=== PATIENT | female | born 1955 | race American Indian/Alaskan Native ===

== ENCOUNTER 2017-05-26 04:35 | Inpatient (IN) | payer MEDICAID, OTHER ==
[2017-05-26 04:53] VITALS: BMI 38.5
--- NOTE | 2017-05-26 05:00 | ED PDOC ---
Arrival/HPI - General Time Seen by Provider: 05/26/17 04:46 Historian: Patient - History of Present Illness Narrative History of Present Illness (Text): 05/26/17 04:55 Keri Dixon is a 62 year old female, whose past medical history includes diabetes, hypertension, uterine cancer s/p total hysterectomy and radiation, appendectomy, and COPD, who presents to the Emergency department complaining of lower abdominal pain. Patient states she was recently discharged from another hospital yesterday following treatment for malaria and began experiencing diffuse lower abdominal pain with associated dysuria and subjective chills. Patient notes while in the hospital she became very anemic requiring 4 blood transfusions and developed renal insufficiency requiring hemodialysis. Patient denies any history of fever, chest pain, shortness of breath, nausea, vomiting, diarrhea, neck pain, headache, dizziness, or any other complaints. Time/Duration: < week (yesterday) Symptom Onset: Gradual Symptom Course: Unchanged Activities at Onset: Rest, Light Context: Home Past Medical History - Provider Review Nursing Documentation Reviewed: Yes - Tetanus Immunization Tetanus Immunization: Unknown - Cardiac Hx Cardiac Disorders: Yes Hx Hypertension: Yes - Pulmonary Hx Respiratory Disorders: No - Neurological Hx Neurological Disorder: No - HEENT Hx HEENT Disorder: Yes Hx Cataracts: Yes (BILATERAL ) - Renal Hx Renal Disorder: No - Endocrine/Metabolic Hx Endocrine Disorders: Yes Hx Diabetes Mellitus Type 1: Yes - Hematological/Oncological Hx Blood Disorders: Yes Hx Cancer: Yes (ENDOMETRIAL) - Integumentary Hx Dermatological Disorder: No - Musculoskeletal/Rheumatological Hx Musculoskeletal Disorders: No - Gastrointestinal Hx Gastrointestinal Disorders: No - Genitourinary/Gynecological Hx Genitourinary Disorders: Yes (ENDOMETRIAL CA W RADIATION) - Psychiatric Hx Psychophysiologic Disorder: No Hx Substance Use: No - Surgical History Hx Appendectomy: Yes Hx Hysterectomy: Yes - Anesthesia Hx Anesthesia: Yes Hx Anesthesia Reactions: No Hx Malignant Hyperthermia: No - Suicidal Assessment Feels Threatened In Home Enviroment: No Family/Social History - Physician Review Nursing Documentation Reviewed: Yes Family/Social History: Unknown Family HX Smoking Status: Former Smoker Hx Alcohol Use: No Hx Substance Use: No Hx Substance Use Treatment: No Allergies/Home Meds Allergies/Adverse Reactions: Allergies Penicillins Allergy (Verified 05/26/17 04:52) SWELLING Home Medications: Home Meds Medication Instructions Recorded Confirmed Furosemide [Lasix] 40 mg PO DAILY 05/26/17 05/26/17 Insulin Detemir [Levemir] 10 unit SC HS 05/26/17 05/26/17 Lisinopril [Zestril] 10 mg PO DAILY 05/26/17 05/26/17 Metoprolol Succinate [Toprol Xl] 25 mg PO DAILY 05/26/17 05/26/17 Review of Systems - Physician Review All systems were reviewed & negative as marked: Yes - Review of Systems Constitutional: Other (+chills). absent: Fevers Eyes: Normal ENT: Normal Respiratory: Normal. absent: SOB, Cough Cardiovascular: Normal. absent: Chest Pain Gastrointestinal: Abdominal Pain. absent: Diarrhea, Vomiting Genitourinary Female: Dysuria Musculoskeletal: Normal. absent: Back Pain, Neck Pain Skin: Normal. absent: Rash Neurological: Normal. absent: Headache, Dizziness Endocrine: Normal Hemo/Lymphatic: Normal Psychiatric: Normal Physical Exam Vital Signs Reviewed: Yes Vital Signs Temp Pulse Resp BP Pulse Ox 05/26/17 06:36 98 H 18 131/65 98 05/26/17 04:52 98.8 F 105 H 18 152/70 H 100 Temperature: Afebrile Blood Pressure: Normal Pulse: Regular Respiratory Rate: Normal Appearance: Positive for: Well-Appearing, Non-Toxic, Comfortable Pain Distress: None Mental Status: Positive for: Alert and Oriented X 3 - Systems Exam Head: Present: Atraumatic, Normocephalic Pupils: Present: PERRL Extroacular Muscles: Present: EOMI Conjunctiva: Present: Normal Mouth: Present: Moist Mucous Membranes Neck: Present: Normal Range of Motion Respiratory/Chest: Present: Clear to Auscultation, Good Air Exchange. No: Respiratory Distress, Accessory Muscle Use Cardiovascular: Present: Regular Rate and Rhythm, Normal S1, S2. No: Murmurs Abdomen: Present: Tenderness (Diffuse lower abdominal tenderness), Normal Bowel Sounds. No: Distention, Peritoneal Signs Back: Present: Normal Inspection Upper Extremity: Present: Normal Inspection. No: Cyanosis, Edema Lower Extremity: Present: Normal Inspection. No: Edema Neurological: Present: GCS=15, CN II-XII Intact, Speech Normal Skin: Present: Warm, Dry, Normal Color. No: Rashes Psychiatric: Present: Alert, Oriented x 3, Normal Insight, Normal Concentration Medical Decision Making ED Course and Treatment: 05/26/17 04:56 Impression: 62 year old female complaining of diffuse lower abdominal pain with dysuria and subjective chills since yesterday. Plan: -- Labs, lipase -- Urinalysis, urine cultures -- IV fluids -- Morphine -- Reassess and disposition Prior Visits: Notes and results from previous visits were reviewed. On 11/27/2016, pt was seen in the Emergency department for lower abdominal pain , nausea, vomiting, and diarrhea. Pt was d/c home. Progress Notes: 05/26/17 06:57 Case was d/w heide ROTHMAN and medical terminologist.Pt. accepted to hospitalist service. - Lab Interpretations Lab Results: 05/26/17 05:15 05/26/17 05:15 Lab Results 05/26/17 06:50: Urine Color Light yellow, Urine Appearance Sl cloudy, Urine pH 6.5, Ur Specific [place] 1.010, Urine Protein 100 H, Urine Glucose (UA) Negative , Urine Ketones Negative, Urine Blood Small H, Urine Nitrate Negative, Urine Bilirubin Negative, Urine Urobilinogen 0.2, Ur Leukocyte Esterase Moderate H, Urine RBC 0 - 2, Urine WBC 5 - 10, Ur Epithelial Cells 0 - 2, Amorphous Sediment Many, Urine Bacteria Few 05/26/17 06:15: Blood Type Pending, Antibody Screen Pending, Crossmatch See Detail, BBK History Checked No verified bt 05/26/17 05:15: WBC 5.2, RBC 2.33 L, Hgb 6.7 L*, Hct 20.8 L*, MCV 89.3, MCH 28.8 , MCHC 32.2, RDW 18.8 H, Plt Count 326, MPV 7.8 05/26/17 05:15: Sodium 135, Potassium 2.9 L*, Chloride 98, Carbon Dioxide 27, Anion Gap 13, BUN 42 H, Creatinine 2.1 H, Est GFR ( Amer) 29, Est GFR ( Non-Af Amer) 24, Random Glucose 169 H, Calcium 9.1, Total Bilirubin 0.8, AST 36 , ALT 20, Alkaline Phosphatase 90, Total Protein 7.2, Albumin 3.6, Globulin 3.5 , Albumin/Globulin Ratio 1.0 L, Lipase 552 H 05/26/17 05:15: PT 10.5, INR 0.97, APTT 22.7 L I have reviewed the lab results: Yes - RAD Interpretation Narrative RAD Interpretations (Text): 05/26/17 06:42 CT Abdomen /Pelvis IMPRESSION: 1. Left obstructive uropathy to the left UVJ, new since 11/27/2016. No ureteral, UVJ or bladder calculus is identified. No left renal calculi were identified on the prior study. The etiology is uncertain and may reflect a recently passed stone. There is suggestion of some posterior bladder wall thickening, particularly on the left posterolaterally. 2. Left ovarian cyst which is similar to the prior study measuring up to 5.1 cm. 3. Low attenuation area in the spleen which is nonspecific but is unchanged. 4. Colonic diverticulosis without diverticulitis Radiology Orders: 05/26/17 05:17 ABD & PELVIS W/O PO OR IV CONT [CT] Stat Recreation Attendant: Radiologist - Medication Orders Current Medication Orders: Sodium Chloride (Sodium Chloride 0.9%) 1,000 mls @ 100 mls/hr IV .Q10H IRLANDA Last Admin: 05/26/17 05:26 Dose: 100 mls/hr Aztreonam (Azactam 1 Gm) 100 mls @ 100 mls/hr IVPB STAT STA PRN Reason: Protocol Stop: 05/26/17 08:43 Discontinued Medications Sodium Chloride (Sodium Chloride 0.9%) 1,000 mls @ 999 mls/hr IV .Q1H1M STA Stop: 05/26/17 07:02 Last Admin: 05/26/17 06:24 Dose: 999 mls/hr Morphine Sulfate (Morphine) 2 mg IVP STAT STA Stop: 05/26/17 05:23 Last Admin: 05/26/17 05:28 Dose: 2 mg Re-Assess: CONG Pain Assessment Document 05/26/17 06:28 JOL (Rec: 05/26/17 07:10 JOL [id number]) Pain Reassessment Is this a pain reassessment? Yes Sleep Is patient sleeping during reassessment? No Presence of Pain Presence of Pain No Potassium Chloride (K-Dur 20 Meq Er Tab) 20 meq PO STAT STA Stop: 05/26/17 07:04 Last Admin: 05/26/17 07:29 Dose: 20 meq - Scribe Statement The provider has reviewed the documentation as recorded by the Medardo Ramirez Provider Scribe Attestation: All medical record entries made by the Jesuibe were at my direction and personally dictated by me. I have reviewed the chart and agree that the record accurately reflects my personal performance of the history, physical exam, medical decision making, and the department course for this patient. I have also personally directed, reviewed, and agree with the discharge instructions and disposition. Disposition/Present on Arrival - Present on Arrival Any Indicators Present on Arrival: No History of DVT/PE: No History of Uncontrolled Diabetes: No Urinary Catheter: No History of Decub. Ulcer: No History Surgical Site Infection Following: None - Disposition Have Diagnosis and Disposition been Completed?: Yes Diagnosis: Abdominal pain, Anemia, Cystitis Disposition: HOSPITALIZED Disposition Time: 06:57 Patient Problems: Current Active Problems Problem Status Onset Abdominal pain Acute Anemia Acute Condition: STABLE
[2017-05-26] MEDS ORDERED: Morphine 2 mg/ml ISec IVP STA (05:22)
[2017-05-26] MEDS: Sodium Chloride 0.9% 1,000 ML IV SCH ×3 (05:26→21:49)
[2017-05-26 05:35] LABS: MEAN CELL VOLUME 89.3 fl (80.0-105.0); MEAN CORPUSCULAR HEMOGLOBIN 28.8 pg (25.0-35.0); MEAN CORPUSCULAR HGB CONC 32.2 g/dl (31.0-37.0); MEAN PLATELET VOLUME 7.8 fl (7.0-11.0); RBC 2.33 10^6/uL (3.5-6.1); RED CELL DISTRIBUTION WIDTH 18.8 % (11.5-14.5); WHITE BLOOD COUNT 5.2 10^3/ul (4.5-11.0)
[2017-05-26 05:43] LABS: ALBUMIN 3.6 g/dL (3.0-4.8); CALCIUM 9.1 mg/dL (8.4-10.5)
[2017-05-26 05:45] LABS: INR 0.97 (0.93-1.08); PARTIAL THROMBOPLASTIN TIME 22.7 Seconds (23.7-30.8); PROTHROMBIN TIME 10.5 Seconds (9.9-11.8)
[2017-05-26 05:47] LABS: HEMOGLOBIN 6.7 g/dL (12.0-16.0)
[2017-05-26] MEDS ORDERED: Sodium Chloride 0.9% 1,000 ML IV STA (06:02)
[2017-05-26] MEDS ORDERED: Potassium Chloride 20 mEq ER Tab PO STA (07:03)
[2017-05-26 07:32] LABS: PH,URINE 6.5 (4.7-8.0); URINE BILIRUBIN NEGATIVE (NEGATIVE); URINE BLOOD SMALL (NEGATIVE); URINE GLUCOSE (UA) NEGATIVE (NEGATIVE); URINE LEUKOCYTE ESTERASE MODERATE Leu/uL (NEGATIVE); URINE NITRATE NEGATIVE (NEGATIVE); URINE PROTEIN 100 mg/dL (<30 mg/dL); URINE UROBILINOGEN 0.2 E.U./dL (<1 E.U./dL)
[2017-05-26 07:34] LABS: URINE APPEARANCE SL CLOUDY (CLEAR); URINE COLOR LIGHT YELLOW (YELLOW)
[2017-05-26 07:38] LABS: URINE RBC 0 - 2 /hpf (0-2)
[2017-05-26 07:39] LABS: URINE AMORPHOUS SEDIMENT MANY; URINE BACTERIA FEW (NEG); URINE EPITHELIAL CELLS 0 - 2 /hpf (0-5)
[2017-05-26] MEDS ORDERED: Aztreonam 1 Gm in NS 100mL 100 ML IVPB STA (07:44)
[2017-05-26 08:44] LABS: % IRON SATURATION 21 % (20-55); IRON 50 ug/dL (45-180); TOTAL IRON BINDING CAPACITY 238 ug/dL (265-497)
--- NOTE | 2017-05-26 09:48 | CP.PCM.CON ---
History of Present Illness - History of Present Illness History of Present Illness: 62 yo F w/ pmh of htn and DM (since ~10 yrs), presented last night with lower abd pain and dysuria; admitted with UTI; nephrology service being consulted for recent PRIETO history; Patient reports being admitted at [facility] in [place], [place] since and was just discharged yesterday; was admitted with malaria (after not completing her malaria prophylaxis after returning from her trip to [facility]) had prolonged hospital course with ICU stay and acute renal failure requiring hemodialysis; patient eventually had recovery of renal function and HD was discontinued about 1 week ago; Patient reports that after coming home yesterday she starting experiencing lower abd pain that was worse with urination; she reports having had a lake during her recent admission but was only for a few days; she denies ever having UTI previously; With regard to her DM, she reports her last hgbA1C previous to admission to be around 12; had erratic blood sugar control in the hospital as well; reports being told that diabetes has not affected her eyes but does have diabetic neuropathy affecting her feet; Review of Systems - Constitutional Constitutional: Chills - EENT Eyes: Change in Vision Nose/Mouth/Throat: absent: Dysphagia - Cardiovascular Cardiovascular: Dyspnea on Exertion, Palpitations. absent: Chest Pain Additional comments: Dyspnea on exertion new since recent admission; - Gastrointestinal Gastrointestinal: absent: Diarrhea, Vomiting - Genitourinary Genitourinary: As Per HPI - Musculoskeletal Musculoskeletal: absent: Arthralgias, Back Pain - Integumentary Integumentary: absent: Pruritus, Rash - Neurological Additional comments: tingling sensation in feet; Past Patient History - Tetanus Immunizations Tetanus Immunization: Unknown - Past Medical History & Family History Past Medical History?: Yes Pertinent Family History: Mother - gallbladder Ca Brother - colon Ca - Past Social History Smoking Status: Former Smoker - CARDIAC Hx Cardiac Disorders: Yes Hx Hypertension: Yes - PULMONARY Hx Respiratory Disorders: No - NEUROLOGICAL Hx Neurological Disorder: No - HEENT Hx HEENT Problems: Yes Hx Cataracts: Yes (BILATERAL ) - RENAL Hx Chronic Kidney Disease: No - ENDOCRINE/METABOLIC Hx Endocrine Disorders: Yes Hx Diabetes Mellitus Type 1: Yes - HEMATOLOGICAL/ONCOLOGICAL Hx Blood Disorders: Yes Hx Cancer: Yes (ENDOMETRIAL) - INTEGUMENTARY Hx Dermatological Problems: No - MUSCULOSKELETAL/RHEUMATOLOGICAL Hx Musculoskeletal Disorders: No - GASTROINTESTINAL Hx Gastrointestinal Disorders: No - GENITOURINARY/GYNECOLOGICAL Hx Genitourinary Disorders: Yes (ENDOMETRIAL CA W RADIATION) - PSYCHIATRIC Hx Psychophysiologic Disorder: No Hx Substance Use: No - SURGICAL HISTORY Hx Appendectomy: Yes Hx Hysterectomy: Yes - ANESTHESIA Hx Anesthesia: Yes Hx Anesthesia Reactions: No Hx Malignant Hyperthermia: No Meds Allergies/Adverse Reactions: Allergies Allergy/AdvReac Type Severity Reaction Status Date / Time Penicillins Allergy SWELLING Verified 05/26/17 04:52 - Medications Medications: Current Medications Sodium Chloride (Sodium Chloride 0.9%) 1,000 mls @ 100 mls/hr IV .Q10H IRLANDA Last Admin: 05/26/17 05:26 Dose: 100 mls/hr Physical Exam - Constitutional Appears: Non-toxic, No Acute Distress - Head Exam Head Exam: NORMAL INSPECTION - Eye Exam Eye Exam: Normal appearance. absent: Scleral icterus - ENT Exam ENT Exam: Mucous Membranes Moist - Respiratory Exam Respiratory Exam: Clear to Auscultation Bilateral, NORMAL BREATHING PATTERN. absent: Rales, Rhonchi, Wheezes, Respiratory Distress - Cardiovascular Exam Cardiovascular Exam: REGULAR RHYTHM, +S1, +S2 - GI/Abdominal Exam GI & Abdominal Exam: Soft. absent: Distended Additional comments: lower abd tenderness - Exam Exam: absent: Bladder Distension - Extremities Exam Extremities exam: Positive for: pedal pulses present Additional comments: no lower leg edema; - Neurological Exam Neurological exam: Alert, Oriented x3 - Psychiatric Exam Psychiatric exam: Normal Affect, Normal Mood - Skin Skin Exam: Normal Color, Warm Results - Vital Signs Recent Vital Signs: Last Vital Signs Temp 98.8 F 05/26/17 04:52 Pulse 93 H 05/26/17 08:50 Resp 18 05/26/17 08:50 BP 128/70 05/26/17 08:50 Pulse Ox 99 05/26/17 08:50 - Labs Result Diagrams: 05/26/17 05:15 05/26/17 05:15 Labs: Laboratory Results - last 24 hr 05/26/17 05/26/17 07:10 08:26 Iron 50 TIBC 238 L % Saturation 21 Blood Type Confirm A POSITIVE - Imaging and Cardiology CT scan - abdomen Status: Image reviewed by me Additional comment: L hydronephrosis Assessment & Plan (1) Acute renal failure Assessment and Plan: Apparently resolving; had dialysis dependent PRIETO in the setting of sepsis from malaria; baseline creatinine unknown; CT abd showing L sided hydro; -obtain renal US to better evaluate hydro and to assess for CKD Status: Acute (2) Hypertension Assessment and Plan: Currently normotensive; home meds showing lasix, lisinopril and metoprolol XL; -hold KILO inhibitor and diuretic for now Status: Acute (3) Diabetes Assessment and Plan: Uncontrolled per patient; -checking random urine for microalbumin, protein and creatinine to assess proteinuria Status: Acute (4) Hypokalemia Assessment and Plan: Likely worsened by diuretics; continue to hold; checking urine K, osm, creat Status: Acute (5) Anemia Assessment and Plan: Etiology unclear; awaiting iron studies; Status: Acute (6) Cystitis Status: Acute
--- NOTE | 2017-05-26 09:57 | CT ---
PROCEDURE: CT Abdomen and Pelvis without intravenous contrast HISTORY: Generalized abdominal pain. COMPARISON: 11/27/2016. CT abdomen and pelvis. TECHNIQUE: Unenhanced study. Neither oral nor intravenous contrast administered. Sensitivity and specificity for acute inflammatory processes limited by the absence of oral and intravenous contrast. Radiation dose: Total exam DLP = 1338.75 mGy-cm. This CT exam was performed using one or more of the following dose reduction techniques: Automated exposure control, adjustment of the mA and/or kV according to patient size, and/or use of iterative reconstruction technique. FINDINGS: LOWER THORAX: Unremarkable. LIVER: Unremarkable. No gross lesion or ductal dilatation. GALLBLADDER AND BILE DUCTS: Unremarkable. PANCREAS: Unremarkable. No gross lesion or ductal dilatation. SPLEEN: Stable splenic mass 2 cm. ADRENALS: Unremarkable. No mass. KIDNEYS AND URETERS: Left hydronephrosis, hydroureter. This represents a new finding compared to the prior CT scan. No upper tract or ureteral calculi identified. No upper tract calculi identified. Unremarkable right kidney. VASCULATURE: Unremarkable. No aortic aneurysm. BOWEL: Diverticulosis without an acute inflammatory component or other associated pathologic process. APPENDIX: Unremarkable. Normal appendix. PERITONEUM: Unremarkable. No free fluid. No free air. LYMPH NODES: Unremarkable. No enlarged lymph nodes. BLADDER: Unremarkable. REPRODUCTIVE: Stable left adnexal cysts measuring 4.9 x3.1 x 4.3 cm. BONES: No acute fracture. OTHER FINDINGS: None. IMPRESSION: Unilateral, left obstructive uropathy without evidence of calculus disease. In pharyngeal leak this likely relates to recently passed ureteral calculus. No bladder calculi identified. Stable left adnexal cyst. Additional benign and/or incidental findings described above. Concordant results (preliminary interpretation) provided by [facility]. Procedure Completed: 05:50. Preliminary ([facility]Rad) Report: Dictated and Authenticated: 06:41. Final Interpretation: 09:55. May 26, 2017.
[2017-05-26 12:53] LABS: FOLATE 11.1 ng/mL
[2017-05-26] MEDS ORDERED: Pneumococcal 23-Valent Vaccine IM ONE (13:45)
--- NOTE | 2017-05-26 14:10 | CP.PCM.CON ---
History of Present Illness - History of Present Illness History of Present Illness: 62 year old female with PMH of DM, HTN, history of uterine cancer S/P hysterectomy S/P radiation and chemotherapy, S/P appendectomy, COPD obesity with BMI 38 was recently admitted in [facility] in [place], [place] because of severe infection with malaria and she was treated with IV medications for almost 2 weeks. She also underwent temporary dialysis - the HD catheter has been removed. She was also transfused pRBC's there. She was just discharged yesterday, and now she comes to [facility] complaining of lower abdominal pain, associated with some dysuria. She denies fever or chills, no nausea or vomiting, no chest pain, no SOB, no headache or dizziness, no diarrhea. In the ED, she is noted to have anemia with Hgb of 6.7. Infectious Diseases consult is requested to further evaluate and manage. Review of Systems - Review of Systems All systems: reviewed and no additional remarkable complaints except (as per HPI ) Past Patient History - Tetanus Immunizations Tetanus Immunization: Unknown - Past Medical History & Family History Past Medical History?: Yes - Past Social History Smoking Status: Former Smoker - CARDIAC Hx Cardiac Disorders: Yes Hx Hypertension: Yes - PULMONARY Hx Respiratory Disorders: No - NEUROLOGICAL Hx Neurological Disorder: No - HEENT Hx HEENT Problems: Yes Hx Cataracts: Yes (BILATERAL ) - RENAL Hx Chronic Kidney Disease: No - ENDOCRINE/METABOLIC Hx Endocrine Disorders: Yes Hx Diabetes Mellitus Type 1: Yes - HEMATOLOGICAL/ONCOLOGICAL Hx Blood Disorders: Yes Hx Cancer: Yes (ENDOMETRIAL) - INTEGUMENTARY Hx Dermatological Problems: No - MUSCULOSKELETAL/RHEUMATOLOGICAL Hx Musculoskeletal Disorders: No - GASTROINTESTINAL Hx Gastrointestinal Disorders: No - GENITOURINARY/GYNECOLOGICAL Hx Genitourinary Disorders: Yes (ENDOMETRIAL CA W RADIATION) - PSYCHIATRIC Hx Psychophysiologic Disorder: No Hx Substance Use: No - SURGICAL HISTORY Hx Appendectomy: Yes Hx Hysterectomy: Yes - ANESTHESIA Hx Anesthesia: Yes Hx Anesthesia Reactions: No Hx Malignant Hyperthermia: No Meds Allergies/Adverse Reactions: Allergies Allergy/AdvReac Type Severity Reaction Status Date / Time Penicillins Allergy SWELLING Verified 05/26/17 04:52 - Medications Medications: Current Medications Sodium Chloride (Sodium Chloride 0.9%) 1,000 mls @ 100 mls/hr IV .Q10H IRLANDA Last Admin: 05/26/17 05:26 Dose: 100 mls/hr Physical Exam - Constitutional Appears: Non-toxic, No Acute Distress - Head Exam Head Exam: NORMAL INSPECTION - ENT Exam ENT Exam: Mucous Membranes Moist - Neck Exam Neck exam: Negative for: Lymphadenopathy, Meningismus - Respiratory Exam Respiratory Exam: Decreased Breath Sounds - Cardiovascular Exam Cardiovascular Exam: +S1, +S2 - GI/Abdominal Exam GI & Abdominal Exam: Soft, Tenderness (some tenderness noted in the lower abdomen without guarding, no rebound tenderness, no rigidity) Results - Vital Signs Recent Vital Signs: Last Vital Signs Temp 98.8 F 05/26/17 04:52 Pulse 93 H 05/26/17 08:50 Resp 18 05/26/17 08:50 BP 128/70 05/26/17 08:50 Pulse Ox 99 05/26/17 08:50 - Labs Result Diagrams: 05/26/17 05:15 05/26/17 05:15 Labs: Laboratory Results - last 24 hr 05/26/17 05/26/17 07:10 08:26 Iron 50 TIBC 238 L % Saturation 21 Blood Type Confirm A POSITIVE Assessment & Plan - Assessment and Plan (Free Text) Plan: Assessment R/O urinary tract infection Recent treatment of severe malarial infection (P. falciparum) chronic renal failure DM HTN history of uterine cancer S/P hysterectomy S/P radiation and chemotherapy S/P appendectomy COPD obesity with BMI 38 Plan Will check malaria smear; started patient on Azactam pending blood and urine cx CT scan did not reveal acute pathology will monitor clinically and follow up Hgb
--- NOTE | 2017-05-26 14:44 | CP.PCM.HP ---
<JOSE ENRIQUE JOYNER - Last Filed: 05/26/17 14:34> History of Present Illness - History of Present Illness History of Present Illness: CC: Abdominal pain, Dysuria, SOB ROSELIA is a 62 year old female who reports 1 day history of lower abdominal pain (L> R) associated with dysuria, frequency, urgency, and burning on urination. Pt describes the abdominal pain as pressure-like, and states that it occurs when she urinates, and then resolves on its own. She reports that her urine is orange in color, but denies hematuria. She additionally reports subjective fevers and chills that began with these symptoms (T: 98.8F). Patient was diagnosed with cerebral malaria last month after she visited [facility]. She was admitted at [facility] in [place], where she completed a course of antimalarials (Quinidine, Artensunate). While admitted, she was found to have ATN and azotemia (Cr: 5.36), and was started on dialysis, last dialyzed on (Cr = 1.7 at the time of discharge). She was also found to be anemic and was admitted to the ICU, where she was transfused 4 units of pRBC. She was discharged from [facility] last night, and her symptoms of abdominal pain and dysuria began afterwards. Patient states that she has felt more short of breath since her diagnosis of malaria. Pt denies n/v/d, constipation, or pyuria. PMD: [place] PMHX: DM, HTN, cerebral malaria, ATN, cervical CA (total hysterectomy 3 years ago) PSHX: 2x knee replacements Meds: Metoprolol Succinate 25 mg PO, Lisinopril 10mg PO, Insulin Detemir 10 units SC, furosemide 40 mg PO All: PCN (angioedema) Family hx: DM, mother (cholecarcinoma), brother (colon CA) Social hx: - Smokin pack/week for 5-6 years, quit 29 years ago - EtOH: wine occasionally (once every 6 months) - Recreational drugs: denies - Caffeine: coffee daily - Occupation: unemployed - Lives in [place] by herself, closest family is in [place] Present on Admission - Present on Admission Any Indicators Present on Admission: No Review of Systems - Review of Systems All systems: reviewed and no additional remarkable complaints except (12 point ROS negative other than what is stated in HPI) Past Patient History - Tetanus Immunizations Tetanus Immunization: Unknown - Past Medical History & Family History Past Medical History?: Yes - Past Social History Smoking Status: Former Smoker - CARDIAC Hx Cardiac Disorders: Yes Hx Hypertension: Yes - PULMONARY Hx Respiratory Disorders: No - NEUROLOGICAL Hx Neurological Disorder: No - HEENT Hx HEENT Problems: Yes Hx Cataracts: Yes (BILATERAL ) - RENAL Hx Chronic Kidney Disease: No - ENDOCRINE/METABOLIC Hx Endocrine Disorders: Yes Hx Diabetes Mellitus Type 1: Yes - HEMATOLOGICAL/ONCOLOGICAL Hx Blood Disorders: Yes Hx Cancer: Yes (ENDOMETRIAL) - INTEGUMENTARY Hx Dermatological Problems: No - MUSCULOSKELETAL/RHEUMATOLOGICAL Hx Musculoskeletal Disorders: No - GASTROINTESTINAL Hx Gastrointestinal Disorders: No - GENITOURINARY/GYNECOLOGICAL Hx Genitourinary Disorders: Yes (ENDOMETRIAL CA W RADIATION) - PSYCHIATRIC Hx Psychophysiologic Disorder: No Hx Substance Use: No - SURGICAL HISTORY Hx Appendectomy: Yes Hx Hysterectomy: Yes - ANESTHESIA Hx Anesthesia: Yes Hx Anesthesia Reactions: No Hx Malignant Hyperthermia: No Meds Allergies/Adverse Reactions: Allergies Allergy/AdvReac Type Severity Reaction Status Date / Time Penicillins Allergy SWELLING Verified 05/26/17 04:52 Physical Exam - Constitutional Appears: No Acute Distress - Head Exam Head Exam: ATRAUMATIC, NORMOCEPHALIC - Eye Exam Eye Exam: EOMI, PERRL. absent: Conjunctival injection (conjunctival pallor) Pupil Exam: NORMAL ACCOMODATION, PERRL - ENT Exam ENT Exam: Mucous Membranes Moist - Neck Exam Neck exam: Positive for: Full Rom. Negative for: Lymphadenopathy, Tenderness, Thyromegaly - Respiratory Exam Respiratory Exam: Clear to Auscultation Bilateral, Rales. absent: Rhonchi, Wheezes - Cardiovascular Exam Cardiovascular Exam: RRR. absent: Gallop, Rubs, Systolic Murmur - GI/Abdominal Exam GI & Abdominal Exam: Soft, Tenderness (suprapubic and LLQ). absent: Distended, Guarding, Rebound - Extremities Exam Extremities exam: Positive for: pedal pulses present. Negative for: joint swelling, tenderness - Back Exam Back exam: CVA tenderness (L). absent: CVA tenderness (R), paraspinal tenderness - Neurological Exam Neurological exam: Alert, CN II-XII Intact, Oriented x3 - Psychiatric Exam Psychiatric exam: Normal Affect - Skin Skin Exam: Dry, Intact, Normal Color, Warm Results - Vital Signs Recent Vital Signs: Last Vital Signs Temp 99.2 F 05/26/17 13:33 Pulse 98 H 05/26/17 13:33 Resp 18 05/26/17 13:33 BP 131/65 05/26/17 13:33 Pulse Ox 99 05/26/17 08:50 - Labs Result Diagrams: 05/26/17 05:15 05/26/17 05:15 Labs: Laboratory Results - last 24 hr 05/26/17 05/26/17 05/26/17 07:10 08:26 09:16 POC Glucose (mg/dL) Iron 50 TIBC 238 L % Saturation 21 Vitamin B12 590 Folate 11.1 Blood Type Confirm A POSITIVE 05/26/17 11:19 POC Glucose (mg/dL) 272 H Iron TIBC % Saturation Vitamin B12 Folate Blood Type Confirm Assessment & Plan - Assessment and Plan (Free Text) Assessment: 62 yo with PMHx DM, HTN, cerebral malaria, ATN, cervical CA will be admitted for evaluation and treatment for abdominal pain, dysuria, and anemia. Plan: 1. Acute renal failure - Cr 2.1 - CT Left hydronephrosis due to left obstructive uropathy to the left UVJ. No ureteral, UVJ or bladder calculus is identified - Nephro consulted; f/u renal US to better evaluate hydro and CKD - Urology consulted - Cont IVF 2. R/O UTI - UA shows moderate Leuk esterase, WBC 5-10, few bacteria, proteinuria - ID consulted; started on Azactam - F/u urine cultures 3. Anemia - Hgb 6.7 - Transfuse 2 units pRBC - Monitor Hgb, transfuse as necessary - F/u heme/onc - F/u peripheral smear 4. Hypokalemia - K 2.9 - KCl 20 mEq PO given in ED - Cont to monitor, replete as necessary 5. H/o Cerebral Malaria - ID consulted - F/u malaria smear - F/u cultures 6. HTN - Per nephro, hold ACEI and diuretic 7. DM - Monitor glucose - Carb consistent diet 8. GI/DVT PPx - Protonix - SCDs Pt seen and discussed in detail with Dr. Pichardo. <Yancy Pichardo - Last Filed: 05/26/17 16:42> Results - Vital Signs Recent Vital Signs: Last Vital Signs Temp 99.1 F 05/26/17 15:48 Pulse 96 H 05/26/17 15:48 Resp 18 05/26/17 15:48 BP 120/69 05/26/17 15:48 Pulse Ox 99 05/26/17 08:50 - Labs Result Diagrams: 05/26/17 05:15 05/26/17 05:15 Labs: Laboratory Results - last 24 hr 05/26/17 05/26/17 05/26/17 07:10 08:26 09:16 POC Glucose (mg/dL) Iron 50 TIBC 238 L % Saturation 21 Ferritin 1500.0 Vitamin B12 590 Folate 11.1 Blood Type Confirm A POSITIVE 05/26/17 05/26/17 11:19 16:01 POC Glucose (mg/dL) 272 H 243 H Iron TIBC % Saturation Ferritin Vitamin B12 Folate Blood Type Confirm Attending/Attestation - Attestation I have personally seen and examined this patient.: Yes I have fully participated in the care of the patient.: Yes I have reviewed all pertinent clinical information: Yes Notes (Text): 05/26/17 16:32 attending note; Patient seen and examined with resident in ER. Patient is a 62 year old female with a past medical history of diabetes, hypertension, recent cerebral malaria treated 2 weeks ago at [facility], status post extubation, ATN requiring dialysis, last dialysis was , hemolysis secondary to malaria, recent blood transfusion is admitted with lower abdominal pain (L>R) associated with dysuria, frequency, urgency, and burning on urination. possible UTI; patient is allergic to penicillin. Started on azactam. recent cerebral malaria secondary to falciform after visiting [place]. Completed 2 weeks course of quinine/ Artensunate. blood smear ordered. ID evaluation requested. Anemia; currently bilirubin is okay. LDH ordered. No sign of hemolysis. Iron studies ordered. Stool for occult blood ordered. 2 units PRBC transfusion ordered. Hematology evaluation requested. Chronic kidney disease; last hemodialysis was 05/21/14. currently off dialysis. L hydronephrosis; no obstruction or stone seen. Renal ultrasound ordered. Urology evaluation requested. upon discharge patient will follow up with PMD Dr. Del Rosario.
[2017-05-26] MEDS ORDERED: Insulin Reg-LOW-Coverage SC SCH (16:30)
[2017-05-26] MEDS: Metoprolol Succinate 25 mg XL Tab PO SCH (17:58)
[2017-05-26] MEDS: Aztreonam 1 Gm in NS 100mL 100 ML IVPB SCH ×3 (19:05→22:00)
--- NOTE | 2017-05-26 20:32 | CP.PCM.CON ---
History of Present Illness - History of Present Illness History of Present Illness: Hematology Consult Referred by Dr. Pichardo for anemia HPI- Ms Dixon is 62 y/o F with h/o DM, HTN, Cervical cancer s/p hysterectomy and chemo-RT (3 yrs ago) who was recently treated for cerebral malaria (after a visit to [place]). She was admitted now with lower abdominal pain and dysuria. Also complains of constipation and last bowel movement was 3 days ago. Denies any bleeding in stools or urine. During her treatment for malaria, she was found to have ATN and required dialysis. She was also anemic during that admission and required blood transfusion, though i do not have prior Hb levels. Last Hb in Nov 2016 was 11.4. On admission this time, Her Hb was 6.7. She is receiving 2 units PRBC. Family hx: DM, mother (cholecarcinoma), brother (colon CA) Social hx: - Smokin pack/week for 5-6 years, quit 29 years ago - EtOH: wine occasionally (once every 6 months) - Recreational drugs: denies - Caffeine: coffee daily - Occupation: unemployed - Lives in [place] by herself, closest family is in [place] Review of Systems - Constitutional Constitutional: Fatigue. absent: Chills, Fever, Weight Loss - EENT Eyes: absent: Blind Spots, Blurred Vision, Change in Vision Ears: absent: Decreased Hearing, Ear Discharge Nose/Mouth/Throat: absent: Epistaxis, Nasal Congestion - Cardiovascular Cardiovascular: absent: Chest Pain, Dyspnea, Leg Edema - Respiratory Respiratory: absent: Cough, Hemoptysis - Gastrointestinal Gastrointestinal: Abdominal Pain, Constipation. absent: Bloating - Genitourinary Genitourinary: Difficulty Urinating Past Patient History - Tetanus Immunizations Tetanus Immunization: Unknown - Past Medical History & Family History Past Medical History?: Yes - Past Social History Smoking Status: Former Smoker - CARDIAC Hx Cardiac Disorders: Yes Hx Hypertension: Yes - PULMONARY Hx Respiratory Disorders: No - NEUROLOGICAL Hx Neurological Disorder: No - HEENT Hx HEENT Problems: Yes Hx Cataracts: Yes (BILATERAL ) - RENAL Hx Chronic Kidney Disease: No - ENDOCRINE/METABOLIC Hx Endocrine Disorders: Yes Hx Diabetes Mellitus Type 1: Yes - HEMATOLOGICAL/ONCOLOGICAL Hx Blood Disorders: Yes Hx Cancer: Yes (ENDOMETRIAL) - INTEGUMENTARY Hx Dermatological Problems: No - MUSCULOSKELETAL/RHEUMATOLOGICAL Hx Musculoskeletal Disorders: No - GASTROINTESTINAL Hx Gastrointestinal Disorders: No - GENITOURINARY/GYNECOLOGICAL Hx Genitourinary Disorders: Yes (ENDOMETRIAL CA W RADIATION) - PSYCHIATRIC Hx Psychophysiologic Disorder: No Hx Substance Use: No - SURGICAL HISTORY Hx Appendectomy: Yes Hx Hysterectomy: Yes - ANESTHESIA Hx Anesthesia: Yes Hx Anesthesia Reactions: No Hx Malignant Hyperthermia: No Meds Allergies/Adverse Reactions: Allergies Allergy/AdvReac Type Severity Reaction Status Date / Time Penicillins Allergy SWELLING Verified 05/26/17 04:52 - Medications Medications: Current Medications Acetaminophen (Tylenol 325mg Tab) 650 mg PO Q6H PRN PRN Reason: Pain, Mild (1-3) Last Admin: 05/26/17 12:44 Dose: 650 mg Sodium Chloride (Sodium Chloride 0.9%) 1,000 mls @ 100 mls/hr IV .Q10H IRLANDA Last Admin: 05/26/17 19:06 Dose: Not Given Aztreonam (Azactam 1 Gm) 100 mls @ 100 mls/hr IVPB Q8 IRLANDA PRN Reason: Protocol Stop: 06/02/17 14:16 Last Admin: 05/26/17 19:57 Dose: 100 mls/hr Insulin Detemir (Levemir) 5 unit SC HS IRLANDA Insulin Human Regular (Humulin R Low) 0 units SC ACHS IRLANDA PRN Reason: Protocol Last Admin: 05/26/17 17:59 Dose: 1 units Metoprolol Succinate (Toprol Xl) 25 mg PO DAILY [facility] Last Admin: 05/26/17 17:58 Dose: 25 mg Pantoprazole Sodium (Protonix Inj) 40 mg IVP DAILY [facility] Physical Exam - Head Exam Head Exam: ATRAUMATIC, NORMAL INSPECTION - Eye Exam Eye Exam: EOMI, PERRL - ENT Exam ENT Exam: Mucous Membranes Moist - Neck Exam Neck exam: Negative for: Lymphadenopathy - Respiratory Exam Respiratory Exam: Clear to Auscultation Bilateral - Cardiovascular Exam Cardiovascular Exam: REGULAR RHYTHM - GI/Abdominal Exam GI & Abdominal Exam: Normal Bowel Sounds, Soft. absent: Organomegaly, Tenderness - Extremities Exam Extremities exam: Negative for: pedal edema - Neurological Exam Neurological exam: Alert, Oriented x3 Results - Vital Signs Recent Vital Signs: Last Vital Signs Temp 98.2 F 05/26/17 19:10 Pulse 88 05/26/17 19:10 Resp 16 05/26/17 19:10 BP 138/80 08/14/17 19:10 Pulse Ox 99 05/26/17 08:50 - Labs Result Diagrams: 05/26/17 05:15 05/26/17 05:15 Labs: Laboratory Results - last 24 hr 05/26/17 05/26/17 05/26/17 07:10 08:26 09:16 POC Glucose (mg/dL) Iron 50 TIBC 238 L % Saturation 21 Ferritin 1500.0 Vitamin B12 590 Folate 11.1 Blood Type Confirm A POSITIVE 05/26/17 05/26/17 11:19 16:01 POC Glucose (mg/dL) 272 H 243 H Iron TIBC % Saturation Ferritin Vitamin B12 Folate Blood Type Confirm Assessment & Plan - Assessment and Plan (Free Text) Assessment: Severe normocytic anemia with normal WBC and platelets. I reviewed her peripheral smear. Showed anisopoiklocytosis, occasional spherocytes with normal platelets and WBC. NO signs of microangiopathic hemolysis. So far, her labs are not suggestive of hemolytic process. Also, iron, B12 and folate studies are normal. She could have multifactorial anemia related to hemolysis (secondary to recent malaria), blood loss, bone marrow suppression, anemia from renal disease, medications or other bone marrow etiology. Check retic count, LDH, haptoglobin. Monitor and trend bilirubin. Repeat Hb after PRBC transfusion. Monitor for bleeding. Check stool guaiac. F/U smear for malarial parasite. Continue to monitor CBC daily for now. Thank you for the consult Ilir Leal MD - Date & Time Date: 05/26/17 Time: 16:31
[2017-05-26 21:25] LABS: MEAN CELL VOLUME 89.7 fl (80.0-105.0); MEAN CORPUSCULAR HEMOGLOBIN 28.5 pg (25.0-35.0); MEAN CORPUSCULAR HGB CONC 31.7 g/dl (31.0-37.0); MEAN PLATELET VOLUME 7.4 fl (7.0-11.0); RBC 2.81 10^6/uL (3.5-6.1); RED CELL DISTRIBUTION WIDTH 17.6 % (11.5-14.5); WHITE BLOOD COUNT 5.4 10^3/ul (4.5-11.0)
[2017-05-26 21:32] LABS: HEMOGLOBIN 8.1 g/dL (12.0-16.0)
[2017-05-26 21:35] LABS: ALB/GLOB RATIO 1.1 (1.1-1.8); ALBUMIN 3.7 g/dL (3.0-4.8); CALCIUM 9.2 mg/dL (8.4-10.5)
[2017-05-26] MEDS ORDERED: Insulin Detemir 100 units/ml Vial (Levemir) SC SCH ×2 (22:00)
[2017-05-26] MEDS: Insulin Reg-LOW-Coverage SC SCH (22:00)
[2017-05-27] MEDS: Aztreonam 1 Gm in NS 100mL 100 ML IVPB SCH ×2 (05:42→13:33)
--- NOTE | 2017-05-27 05:47 | CON ---
UROLOGY CONSULTATION DATE: 05/26/2017 CHIEF COMPLAINT: Abdominal pain, dysuria, shortness of breath. HISTORY OF PRESENT ILLNESS: This is a 62-year-old female who reports being hospitalized for many weeks at [facility] in [place]. The patient was being treated for sepsis and malaria. She was discharged home apparently yesterday and then began having some left lower quadrant abdominal pain. She was having some dysuria, urinary frequency and urgency. She reports that she had renal failure while at [facility] and she was treated with dialysis. Her port was removed prior to discharge and she reports being told that her renal function had improved. She denies any current nausea or vomiting. She does not know if she passed any obvious stones, but has no history of stones in the past. The patient was admitted here, she is found to be severely anemic and is currently being transfused. She had CT scan which showed hydronephrosis but no stones or obstructing lesions. consultation was requesting regarding the above. PAST MEDICAL HISTORY: Significant for diabetes, hypertension, malaria, acute tubular necrosis, cervical cancer. PAST SURGICAL HISTORY: Had a total abdominal hysterectomy as well a knee replacement. MEDICATIONS: Included metoprolol, lisinopril, insulin and Lasix. ALLERGIES: ALLERGIC TO PENICILLIN. FAMILY HISTORY: Noncontributory. SOCIAL HISTORY: Positive for smoking; although, quit many years ago. Occasional EtOH use. Denies any recreational drugs. REVIEW OF SYSTEMS: A 12-point review of systems was obtained, positive as per history of present illness. Other systems are negative. PHYSICAL EXAMINATION: GENERAL: The patient is seen in her room. She is awake and alert. She is in no acute distress. VITAL SIGNS: She is afebrile, temperature of 99, pulse 90, blood pressure 147/63 and respirations 16. NECK: Supple. There is no adenopathy. CHEST: Reveals normal inspiratory effort. CARDIAC: Positive S1 and S2. There is some trace peripheral edema noted. ABDOMEN: Soft. There is some mild tenderness in the left lower quadrant. There is no rebound or guarding. There is no obvious mass. There is no CVA tenderness. EXTREMITIES: Trace edema. No cyanosis. LABORATORY DATA: WBC count 5.2 and hemoglobin 6.7. GFR of 29 and lipase of 552. Urinalysis showed 0 to 2 rbc's, 5 to 10 wbc's, negative for nitrites, positive for protein. No current urine culture is available on radiology report. The patient had a CT scan of the abdomen and pelvis done which showed there was left hydronephrosis with hydroureter. This is a new finding compared to a prior CT scan. There were no upper tract or ureteral stones identified. The right kidney was unremarkable. There was diverticulosis without evidence of diverticulitis. Bladder was unremarkable, had a left adnexal cyst, no bladder stones were seen. IMPRESSION AND PLAN: This is a 62-year-old female with recent onset of renal failure from malaria and sepsis as well as diabetes. Urologically, there is a hydronephrosis present on the left side, possibly the patient did pass a stone recently or possibly this is a chronic hydronephrosis; although, it was not seen on her recent CT scans. The patient did recently have renal failure requiring hemodialysis at [facility]. Plan for now will be to hydrate the patient. I would obtain a nephrology consult. Even if there was an obstructing stone on the left side, her right kidney should be working adequately to keep her renal function normal and clear her electrolyte abnormalities. If the patient's renal function does not improve, I would recommend a repeat imaging in the few days with a renal ultrasound. If hydronephrosis persists I would recommend a renal scan to rule out obstructions. Tentatively, we can plan on a cystoscopy with retrograde pyelograms and possible stent placement at some point. However, this does not appear to be sole cause of her renal insufficiency which appears likely chronic kidney disease at this point. We will await input from nephrology, treat her anemia and plan on repeat imaging. Thank you, for allowing us to participate in the care of this patient. We will follow her with you. Rob Farah MD
[2017-05-27] MEDS: Insulin Reg-LOW-Coverage SC SCH ×4 (08:21→21:50)
[2017-05-27 09:05] LABS: ALBUMIN 3.8 g/dL (3.0-4.8); CALCIUM 9.3 mg/dL (8.4-10.5)
[2017-05-27 09:07] LABS: HEMOGLOBIN 8.7 g/dL (12.0-16.0); MEAN CELL VOLUME 89.4 fl (80.0-105.0); MEAN CORPUSCULAR HEMOGLOBIN 28.1 pg (25.0-35.0); MEAN CORPUSCULAR HGB CONC 31.4 g/dl (31.0-37.0); RBC 3.1 10^6/uL (3.5-6.1); RED CELL DISTRIBUTION WIDTH 17.9 % (11.5-14.5); WHITE BLOOD COUNT 5.6 10^3/ul (4.5-11.0)
[2017-05-27] MEDS ORDERED: Morphine 2 mg/ml ISec IVP STA (09:20)
[2017-05-27] MEDS: Metoprolol Succinate 25 mg XL Tab PO SCH (09:38)
--- NOTE | 2017-05-27 13:29 | CP.PCM.PN ---
<ARJOSE ENRIQUE - Last Filed: 05/27/17 13:26> Subjective - Date & Time of Evaluation Date of Evaluation: 05/27/17 Time of Evaluation: 13:26 - Subjective Subjective: Medicine Progress Note: Pt was seen and examined at bedside. Pt states that suprapubic and LLQ pain is worse today 07/22. Pt states that dysuria is still present, but urine is clear. Pt reports BRBPR, but denies pain. Pt denies CP, SOB, n/v/d, chills, fever, pyuria, hematuria, or vertigo. Objective - Vital Signs/Intake and Output Vital Signs (last 24 hours): Temp Pulse Resp BP Pulse Ox 98.4 F 88 20 144/75 99 05/27/17 11:49 05/27/17 11:49 05/27/17 11:49 05/27/17 11:49 05/27/17 05:56 Intake and Output: 05/27/17 05/27/17 06:59 18:59 Intake Total 1625 Output Total 0 Balance 1625 - Medications Medications: Current Medications Acetaminophen (Tylenol 325mg Tab) 650 mg PO Q6H PRN PRN Reason: Pain, Mild (1-3) Last Admin: 05/26/17 12:44 Dose: 650 mg Sodium Chloride (Sodium Chloride 0.9%) 1,000 mls @ 100 mls/hr IV .Q10H [facility] Last Admin: 05/26/17 21:49 Dose: 100 mls/hr Aztreonam (Azactam 1 Gm) 100 mls @ 100 mls/hr IVPB Q8 [facility] PRN Reason: Protocol Stop: 06/02/17 14:16 Last Admin: 05/27/17 05:42 Dose: 100 mls/hr Insulin Detemir (Levemir) 10 unit SC HS [facility] Insulin Human Regular (Humulin R Low) 0 units SC ACHS [facility] Last Admin: 05/27/17 12:06 Dose: 3 units Metoprolol Succinate (Toprol Xl) 25 mg PO DAILY [facility] Last Admin: 05/27/17 09:38 Dose: 25 mg Morphine Sulfate (Morphine) 2 mg IVP Q4H PRN PRN Reason: Pain, severe (8-10) Pantoprazole Sodium (Protonix Inj) 40 mg IVP DAILY [facility] Last Admin: 05/27/17 09:37 Dose: 40 mg Phenazopyridine HCl (Pyridium) 200 mg PO PC [facility] - Labs Labs: 05/27/17 08:50 05/27/17 08:50 PT 10.5 Seconds (9.9-11.8) 05/26/17 05:15 INR 0.97 (0.93-1.08) 05/26/17 05:15 APTT 22.7 Seconds (23.7-30.8) L 05/26/17 05:15 - Head Exam Head Exam: ATRAUMATIC, NORMOCEPHALIC - Eye Exam Eye Exam: EOMI, PERRL - ENT Exam ENT Exam: Mucous Membranes Moist - Neck Exam Neck Exam: Full ROM - Respiratory Exam Respiratory Exam: Clear to Ausculation Bilateral. absent: Rales, Rhonchi, Wheezes - Cardiovascular Exam Cardiovascular Exam: RRR. absent: Gallop, Rubs, Murmur - GI/Abdominal Exam GI & Abdominal Exam: Soft, Tenderness (Suprapubic and LLQ). absent: Distended, Guarding, Rebound - Extremities Exam Extremities Exam: Full ROM - Back Exam Back Exam: CVA tenderness (L) - Neurological Exam Neurological Exam: Alert, Awake, Oriented x3 - Psychiatric Exam Psychiatric exam: Normal Affect, Normal Mood - Skin Skin Exam: Dry, Intact, Normal Color, Warm Assessment and Plan - Assessment and Plan (Free Text) Assessment: 62 yo with PMHx DM, HTN, cerebral malaria, ATN, cervical CA will be admitted for evaluation and treatment for abdominal pain, dysuria, and anemia. Plan: 1. Acute renal failure/Left Hydronephrosis - Cr 1.5, improving - CT Left hydronephrosis due to left obstructive uropathy to the left UVJ. No ureteral, UVJ or bladder calculus is identified - Nephro consulted; f/u renal US to better evaluate hydro and CKD - Urology consulted; recommended cont IVF, repeat imaging if symptoms do not improve - F/U renal US - Cont IVF 2. R/O UTI - UA shows moderate Leuk esterase, WBC 5-10, few bacteria, proteinuria - ID consulted; started on Azactam - F/u urine cultures 3. Anemia - Hgb 6.7 --> 8.7 after transfusion with 2 units pRBC - Peripheral smear showed anisopoiklocytosis, occasional spherocytes with normal platelets and WBC, no signs of hemolysis - Monitor Hgb, transfuse as necessary - Heme/Onc consulted; recommended retic count, LDH, haptoglobi, bilirubin - F/u stool guiac study 4. Hypokalemia, resolved - K 4.1 - Cont to monitor, replete as necessary 5. H/o Cerebral Malaria - ID consulted - F/u malaria smear - F/u cultures 6. HTN - Per nephro, hold ACEI and diuretic 7. DM - Monitor glucose - Carb consistent diet 8. Chronic Kidney disease - Last hemodialysis 05/21/14 - Currently off dialysis 9. GI/DVT PPx - Protonix - SCDs Pt seen and discussed in detail with Dr. Pichardo. <Yancy Pichardo - Last Filed: 05/28/17 07:54> Objective - Vital Signs/Intake and Output Vital Signs (last 24 hours): Temp Pulse Resp BP Pulse Ox 97.8 F 83 18 138/80 98 05/28/17 05:41 05/28/17 05:41 05/28/17 05:41 05/28/17 05:41 05/28/17 05:41 Intake and Output: 05/28/17 05/28/17 06:59 18:59 Intake Total 1700 Balance 1700 - Medications Medications: Current Medications Acetaminophen (Tylenol 325mg Tab) 650 mg PO Q6H PRN PRN Reason: Pain, Mild (1-3) Last Admin: 05/26/17 12:44 Dose: 650 mg Sodium Chloride (Sodium Chloride 0.9%) 1,000 mls @ 100 mls/hr IV .Q10H [facility] Last Admin: 05/28/17 01:34 Dose: 100 mls/hr Insulin Detemir (Levemir) 10 unit SC HS [facility] Last Admin: 05/27/17 21:57 Dose: 10 unit Insulin Human Regular (Humulin R Low) 0 units SC ACHS [facility] Last Admin: 05/27/17 21:50 Dose: Not Given Metoprolol Succinate (Toprol Xl) 25 mg PO DAILY [facility] Last Admin: 05/27/17 09:38 Dose: 25 mg Ondansetron HCl (Zofran Inj) 4 mg IVP Q6H PRN PRN Reason: Nausea/Vomiting Last Admin: 05/28/17 02:29 Dose: 4 mg Pantoprazole Sodium (Protonix Inj) 40 mg IVP DAILY [facility] Last Admin: 05/27/17 09:37 Dose: 40 mg Phenazopyridine HCl (Pyridium) 200 mg PO PC [facility] Last Admin: 05/27/17 17:13 Dose: 200 mg Tramadol HCl (Ultram) 50 mg PO Q6H PRN PRN Reason: Pain, moderate (4-7) - Labs Labs: 05/27/17 08:50 05/27/17 08:50 PT 10.5 Seconds (9.9-11.8) 05/26/17 05:15 INR 0.97 (0.93-1.08) 05/26/17 05:15 APTT 22.7 Seconds (23.7-30.8) L 05/26/17 05:15 Attending/Attestation - Attestation I have personally seen and examined this patient.: Yes I have fully participated in the care of the patient.: Yes I have reviewed all pertinent clinical information, including history, physical exam and plan: Yes Notes (Text): 05/28/17 07:52 attending note; Patient seen and examined with resident. Patient is a 62 year old female with a past medical history of diabetes, hypertension, recent cerebral malaria treated 2 weeks ago at the medical center, status post extubation, ATN requiring dialysis, last dialysis was , hemolysis secondary to malaria, recent blood transfusion is admitted with lower abdominal pain (L>R) associated with dysuria, frequency, urgency, and burning on urination. possible UTI; patient is allergic to penicillin. Started on azactam. recent cerebral malaria secondary to falciform after visiting [place]. Completed 2 weeks course of quinine/ Artensunate. blood smear ordered. ID evaluation appreciated. Follow up urine culture results. Anemia; currently bilirubin is okay. s/p 2 units PRBC transfusion given. Hematology evaluation appreciated. Chronic kidney disease; creatinine improved.last hemodialysis was 05/21/14. currently off dialysis. L hydronephrosis; no obstruction or stone seen. Renal ultrasound ordered. Urology evaluation appreciated. may need outpatient cystoscopy. upon discharge patient will follow up with PMD Dr. Del Rosario.
[2017-05-27] MEDS: Morphine 2 mg/ml ISec IVP PRN ×3 (13:33→23:57)
--- NOTE | 2017-05-27 14:30 | US ---
PROCEDURE: HISTORY: evaluate L hydro, CKD COMPARISON: TECHNIQUE: FINDINGS: The right left kidney measure 13.5 and 13.8 centimeters respectively. There is mild dilatation of the left renal collecting system. Renal cortices are homogeneous in echotexture. IMPRESSION: Mild left renal collecting system dilatation.
--- NOTE | 2017-05-27 14:42 | CP.PCM.PN ---
<Loli Owens - Last Filed: 05/27/17 15:44> Subjective - Date & Time of Evaluation Date of Evaluation: 05/27/17 Time of Evaluation: 01:00 - Subjective Subjective: PGY-2 Nephrology progress note for Dr. Lambert Patient seen and examined at bedside. No acute distress. No acute events overnight. Patient states the abd pain and dysuria has improved but continues to be intermittent pain on the left abdomen. She reports constipation, denies any fever, chills, n/v. Patient is tolerating diet. Objective - Vital Signs/Intake and Output Vital Signs (last 24 hours): Temp Pulse Resp BP Pulse Ox 98.4 F 88 20 144/75 99 05/27/17 11:49 05/27/17 11:49 05/27/17 11:49 05/27/17 11:49 05/27/17 05:56 Intake and Output: 05/27/17 05/27/17 06:59 18:59 Intake Total 1625 420 Output Total 0 Balance 1625 420 - Medications Medications: Current Medications Acetaminophen (Tylenol 325mg Tab) 650 mg PO Q6H PRN PRN Reason: Pain, Mild (1-3) Last Admin: 05/26/17 12:44 Dose: 650 mg Sodium Chloride (Sodium Chloride 0.9%) 1,000 mls @ 100 mls/hr IV .Q10H [facility] Last Admin: 05/26/17 21:49 Dose: 100 mls/hr Aztreonam (Azactam 1 Gm) 100 mls @ 100 mls/hr IVPB Q8 [facility] PRN Reason: Protocol Stop: 06/02/17 14:16 Last Admin: 05/27/17 13:33 Dose: 100 mls/hr Insulin Detemir (Levemir) 10 unit SC HS [facility] Insulin Human Regular (Humulin R Low) 0 units SC ACHS [facility] Last Admin: 05/27/17 12:06 Dose: 3 units Metoprolol Succinate (Toprol Xl) 25 mg PO DAILY [facility] Last Admin: 05/27/17 09:38 Dose: 25 mg Morphine Sulfate (Morphine) 2 mg IVP Q4H PRN PRN Reason: Pain, severe (8-10) Last Admin: 05/27/17 13:33 Dose: 2 mg Pantoprazole Sodium (Protonix Inj) 40 mg IVP DAILY [facility] Last Admin: 05/27/17 09:37 Dose: 40 mg Phenazopyridine HCl (Pyridium) 200 mg PO PC [facility] Last Admin: 05/27/17 13:32 Dose: 200 mg - Labs Labs: 05/27/17 08:50 05/27/17 08:50 PT 10.5 Seconds (9.9-11.8) 05/26/17 05:15 INR 0.97 (0.93-1.08) 05/26/17 05:15 APTT 22.7 Seconds (23.7-30.8) L 05/26/17 05:15 - Constitutional Appears: No Acute Distress - Head Exam Head Exam: ATRAUMATIC, NORMOCEPHALIC - Eye Exam Eye Exam: EOMI, Normal appearance - ENT Exam ENT Exam: Mucous Membranes Moist - Respiratory Exam Respiratory Exam: Clear to Ausculation Bilateral, NORMAL BREATHING PATTERN. absent: Rales, Rhonchi, Wheezes, Respiratory Distress - Cardiovascular Exam Cardiovascular Exam: REGULAR RHYTHM. absent: Tachycardia, +S1, +S2, Murmur - GI/Abdominal Exam GI & Abdominal Exam: Soft, Tenderness, Normal Bowel Sounds. absent: Distended, Firm - Back Exam Back Exam: CVA tenderness (L). absent: CVA tenderness (R) - Neurological Exam Neurological Exam: Alert, Awake, Oriented x3 - Skin Skin Exam: Dry, Intact, Normal Color, Warm Assessment and Plan - Assessment and Plan (Free Text) Assessment: 62 yo with PMH of DM, HTN, cerebral malaria, ATN, cervical CA admitted for abdominal pain, dysuria, and anemia. Plan: 1. Acute renal failure - resolving, cr improved to 1.5 - had dialysis dependent PRIETO in the setting of sepsis from malaria - CT abd showing L sided hydro; - renal US to better evaluate hydro and to assess for CKD, offical read is pending - urology consulted 2. Hypertension - Currently normotensive - home meds are lasix, lisinopril and metoprolol XL; - cont tp hold KILO inhibitor and diuretic for now 3. Diabetes - Uncontrolled per patient; - random urine for microalbumin elevated, protein and creatinine are wnl 4. Hypokalemia - Likely worsened by diuretics; continue to hold - urine K, osmolality, cr are within normal limits 5. Anemia - transfused 2 units of prbc - heme/onc consulted - check stool occult - f/u peripheral smear for malarial parasite 6. Cystitis - CT showed cystitis - urology consulted <Nguyễn Lambert - Last Filed: 05/28/17 06:48> Objective - Vital Signs/Intake and Output Vital Signs (last 24 hours): Temp Pulse Resp BP Pulse Ox 97.8 F 83 18 138/80 98 05/28/17 05:41 05/28/17 05:41 05/28/17 05:41 05/28/17 05:41 05/28/17 05:41 Intake and Output: 05/27/17 05/28/17 18:59 06:59 Intake Total 420 1700 Balance 420 1700 - Medications Medications: Current Medications Acetaminophen (Tylenol 325mg Tab) 650 mg PO Q6H PRN PRN Reason: Pain, Mild (1-3) Last Admin: 05/26/17 12:44 Dose: 650 mg Sodium Chloride (Sodium Chloride 0.9%) 1,000 mls @ 100 mls/hr IV .Q10H [facility] Last Admin: 05/28/17 01:34 Dose: 100 mls/hr Insulin Detemir (Levemir) 10 unit SC HS [facility] Last Admin: 05/27/17 21:57 Dose: 10 unit Insulin Human Regular (Humulin R Low) 0 units SC ACHS [facility] Last Admin: 05/27/17 21:50 Dose: Not Given Metoprolol Succinate (Toprol Xl) 25 mg PO DAILY [facility] Last Admin: 05/27/17 09:38 Dose: 25 mg Morphine Sulfate (Morphine) 2 mg IVP Q4H PRN PRN Reason: Pain, severe (8-10) Last Admin: 05/27/17 23:57 Dose: 2 mg Ondansetron HCl (Zofran Inj) 4 mg IVP Q6H PRN PRN Reason: Nausea/Vomiting Last Admin: 05/28/17 02:29 Dose: 4 mg Pantoprazole Sodium (Protonix Inj) 40 mg IVP DAILY [facility] Last Admin: 05/27/17 09:37 Dose: 40 mg Phenazopyridine HCl (Pyridium) 200 mg PO PC [facility] Last Admin: 05/27/17 17:13 Dose: 200 mg Tramadol HCl (Ultram) 50 mg PO Q6H PRN PRN Reason: Pain, moderate (4-7) - Labs Labs: 05/27/17 08:50 05/27/17 08:50 PT 10.5 Seconds (9.9-11.8) 05/26/17 05:15 INR 0.97 (0.93-1.08) 05/26/17 05:15 APTT 22.7 Seconds (23.7-30.8) L 05/26/17 05:15 Assessment and Plan (1) Acute renal failure Status: Acute (2) Hypertension Status: Acute (3) Diabetes Status: Acute (4) Hypokalemia Status: Acute (5) Anemia Status: Acute (6) Cystitis Status: Acute Attending/Attestation - Attestation I have personally seen and examined this patient.: Yes I have fully participated in the care of the patient.: Yes I have reviewed all pertinent clinical information, including history, physical exam and plan: Yes Notes (Text): Patient seen and examined with resident; agree with above assessment and plan with following edits: PRIETO resolving; will f/u as outpatient for any residual renal insufficiency; continue IVF; No microalbuminuria per random urine microalb/creat ratio; some non-albumin proteinuria but this can be seen in the setting of ATN recovery; L flank pain could possibly be passed stone w/ mild L hydro on CT; awaiting urology eval; may benefit from stone risk profile as outpatient;
--- NOTE | 2017-05-27 15:33 | CP.PCM.PN ---
Subjective - Date & Time of Evaluation Date of Evaluation: 05/27/17 Time of Evaluation: 10:25 - Subjective Subjective: Still having left lower quadrant and flank pain, no fevers. Objective - Vital Signs/Intake and Output Vital Signs (last 24 hours): Temp Pulse Resp BP Pulse Ox 98.6 F 86 19 153/75 H 99 05/27/17 05:56 05/27/17 05:56 05/27/17 05:56 05/27/17 05:56 05/27/17 05:56 Intake and Output: 05/27/17 05/27/17 06:59 18:59 Intake Total 1625 Output Total 0 Balance 1625 - Medications Medications: Current Medications Acetaminophen (Tylenol 325mg Tab) 650 mg PO Q6H PRN PRN Reason: Pain, Mild (1-3) Last Admin: 05/26/17 12:44 Dose: 650 mg Sodium Chloride (Sodium Chloride 0.9%) 1,000 mls @ 100 mls/hr IV .Q10H [facility] Last Admin: 05/26/17 21:49 Dose: 100 mls/hr Aztreonam (Azactam 1 Gm) 100 mls @ 100 mls/hr IVPB Q8 [facility] PRN Reason: Protocol Stop: 06/02/17 14:16 Last Admin: 05/27/17 05:42 Dose: 100 mls/hr Insulin Detemir (Levemir) 10 unit SC HS [facility] Insulin Human Regular (Humulin R Low) 0 units SC ACHS [facility] Last Admin: 05/27/17 08:21 Dose: 2 units Metoprolol Succinate (Toprol Xl) 25 mg PO DAILY [facility] Last Admin: 05/26/17 17:58 Dose: 25 mg Pantoprazole Sodium (Protonix Inj) 40 mg IVP DAILY [facility] - Labs Labs: 05/26/17 21:15 05/26/17 21:15 PT 10.5 Seconds (9.9-11.8) 05/26/17 05:15 INR 0.97 (0.93-1.08) 05/26/17 05:15 APTT 22.7 Seconds (23.7-30.8) L 05/26/17 05:15 - Constitutional Appears: Non-toxic, No Acute Distress - Head Exam Head Exam: NORMAL INSPECTION - Neck Exam Neck Exam: absent: Meningismus - Respiratory Exam Respiratory Exam: Decreased Breath Sounds - Cardiovascular Exam Cardiovascular Exam: +S1, +S2 - GI/Abdominal Exam GI & Abdominal Exam: Soft. absent: Tenderness Assessment and Plan - Assessment and Plan (Free Text) Plan: Assessment Unlikely urinary tract infection (urine cx are negative, and it was taken prior to Abx) - left lower abdominal pain flank pain is probably renal colic Recent treatment of severe malarial infection (P. falciparum) chronic renal failure DM HTN history of uterine cancer S/P hysterectomy S/P radiation and chemotherapy S/P appendectomy COPD obesity with BMI 38 Plan Will check malaria smear; will d/c Azactam since urine cx are negative CT scan did not reveal acute pathology but did show left hydronephrosis suggestive of recently passed stone - Urology monitoring will continue to monitor clinically and follow up Hgb
[2017-05-27] MEDS: Insulin Detemir 100 units/ml Vial (Levemir) SC SCH (21:57)
[2017-05-27] MEDS: Sodium Chloride 0.9% 1,000 ML IV SCH (23:14)
[2017-05-28] MEDS: Sodium Chloride 0.9% 1,000 ML IV SCH ×7 (01:34→21:50)
--- NOTE | 2017-05-28 08:09 | CP.PCM.PN ---
Subjective - Date & Time of Evaluation Date of Evaluation: 05/28/17 Time of Evaluation: 08:06 - Subjective Subjective: PGY-2 Nephrology progress note for Dr. Lambert Patient seen and examined at bedside. No acute distress. Patient reports nausea with 1 episode of vomiting overnight. She continues to report left sided flank pain but states it improved with new pain medication. Denies fever, chills. Dysuria has improved. Objective - Vital Signs/Intake and Output Vital Signs (last 24 hours): Temp Pulse Resp BP Pulse Ox 97.8 F 83 18 138/80 98 05/28/17 05:41 05/28/17 05:41 05/28/17 05:41 05/28/17 05:41 05/28/17 05:41 Intake and Output: 05/28/17 05/28/17 06:59 18:59 Intake Total 1700 Balance 1700 - Medications Medications: Current Medications Acetaminophen (Tylenol 325mg Tab) 650 mg PO Q6H PRN PRN Reason: Pain, Mild (1-3) Last Admin: 05/26/17 12:44 Dose: 650 mg Sodium Chloride (Sodium Chloride 0.9%) 1,000 mls @ 100 mls/hr IV .Q10H [facility] Last Admin: 05/28/17 01:34 Dose: 100 mls/hr Insulin Detemir (Levemir) 10 unit SC HS [facility] Last Admin: 05/27/17 21:57 Dose: 10 unit Insulin Human Regular (Humulin R Low) 0 units SC ACHS [facility] Last Admin: 05/27/17 21:50 Dose: Not Given Metoprolol Succinate (Toprol Xl) 25 mg PO DAILY [facility] Last Admin: 05/27/17 09:38 Dose: 25 mg Ondansetron HCl (Zofran Inj) 4 mg IVP Q6H PRN PRN Reason: Nausea/Vomiting Last Admin: 05/28/17 02:29 Dose: 4 mg Pantoprazole Sodium (Protonix Inj) 40 mg IVP DAILY [facility] Last Admin: 05/27/17 09:37 Dose: 40 mg Phenazopyridine HCl (Pyridium) 200 mg PO PC [facility] Last Admin: 05/27/17 17:13 Dose: 200 mg Tramadol HCl (Ultram) 50 mg PO Q6H PRN PRN Reason: Pain, moderate (4-7) - Labs Labs: 05/27/17 08:50 05/27/17 08:50 PT 10.5 Seconds (9.9-11.8) 05/26/17 05:15 INR 0.97 (0.93-1.08) 05/26/17 05:15 APTT 22.7 Seconds (23.7-30.8) L 05/26/17 05:15 - Constitutional Appears: Well, No Acute Distress - Head Exam Head Exam: ATRAUMATIC, NORMOCEPHALIC - Eye Exam Eye Exam: EOMI, Normal appearance - ENT Exam ENT Exam: Mucous Membranes Moist - Respiratory Exam Respiratory Exam: Clear to Ausculation Bilateral, NORMAL BREATHING PATTERN. absent: Rales, Rhonchi, Wheezes, Respiratory Distress - Cardiovascular Exam Cardiovascular Exam: REGULAR RHYTHM, +S1, +S2. absent: Tachycardia, Murmur - GI/Abdominal Exam GI & Abdominal Exam: Soft, Tenderness (left sie), Normal Bowel Sounds. absent: Distended, Firm, Guarding - Extremities Exam Extremities Exam: Normal Inspection. absent: Pedal Edema - Back Exam Back Exam: absent: CVA tenderness (L), CVA tenderness (R) - Neurological Exam Neurological Exam: Alert, Awake, Oriented x3 - Skin Skin Exam: Dry, Intact, Normal Color, Warm Assessment and Plan - Assessment and Plan (Free Text) Assessment: 62 yo with PMH of DM, HTN, cerebral malaria, ATN, cervical CA admitted for abdominal pain, dysuria, and anemia. Found to have left sided Hydronephrosis on CT. Plan: 1. Acute renal failure- resolving - cr improving - previously had dialysis dependent PRIETO in the setting of sepsis from malaria - CT abd showing L sided hydronephrosis - renal US showed mild dilation of left sided renal collecting system - consider 24 hour stone profile study as outpatient - urology consulted 2. Hypertension - Currently wnl - home meds are lasix, lisinopril and metoprolol XL; - cont tp hold KILO inhibitor and diuretic for now 3. Diabetes - Uncontrolled per patient; - random urine for microalbumin elevated most likely due to recovering ATN, protein and creatinine are wnl, suggesting no proteinuria - cont insulin levemir, and ISS 4. Hypokalemia - Likely worsened by diuretics; continue to hold - urine K, osmolality, cr are within normal limits 5. Anemia - transfused 2 units of prbc - heme/onc consulted - check stool occult - f/u peripheral smear for malarial parasite per ID 6. Cystitis - CT showed cystitis - urology consulted
[2017-05-28] MEDS: Insulin Reg-LOW-Coverage SC SCH ×4 (08:12→21:48)
[2017-05-28 08:14] LABS: BASO # 0.05 K/mm3 (0.0-2.0); BASO % 0.8 % (0.0-3.0); EOS # 0.1 (0.0-0.7); EOS % 1.3 % (1.5-5.0); GRAN # 4.57 (1.4-6.5); GRAN % 73.4 % (50.0-68.0); HEMOGLOBIN 8.2 g/dL (12.0-16.0); LYMPH # 1.2 (1.2-3.4); LYMPH % 18.9 % (22.0-35.0); MEAN CORPUSCULAR HEMOGLOBIN 28.2 pg (25.0-35.0); MEAN CORPUSCULAR HGB CONC 31.3 g/dl (31.0-37.0); MEAN PLATELET VOLUME 7.6 fl (7.0-11.0); MONO # 0.4 (0.1-0.6); MONO % 5.6 % (1.0-6.0); PLATELET COUNT 310 10^3/uL (120.0-450.0); RBC 2.91 10^6/uL (3.5-6.1); RED CELL DISTRIBUTION WIDTH 17.6 % (11.5-14.5); WHITE BLOOD COUNT 6.2 10^3/ul (4.5-11.0)
[2017-05-28 08:36] LABS: ALBUMIN 3.5 g/dL (3.0-4.8)
[2017-05-28] MEDS: Metoprolol Succinate 25 mg XL Tab PO SCH (10:07)
--- NOTE | 2017-05-28 13:25 | CP.PCM.PN ---
<JOSE ENRIQUE JOYNER - Last Filed: 05/28/17 13:22> Subjective - Date & Time of Evaluation Date of Evaluation: 05/28/17 Time of Evaluation: 13:22 - Subjective Subjective: Medicine Progress Note: Pt was seen and examined at bedside. Pt states that morphine made her nauseous and vomit. She was switched to tramadol, which relieved her pain and nausea. Pt states that dysuria is also improved with pyridium. Pt states that flank pain is still present. Pt denied CP, SOB, n/v/d, chills, fever, or vertigo. Objective - Vital Signs/Intake and Output Vital Signs (last 24 hours): Temp Pulse Resp BP Pulse Ox 98.4 F 82 20 128/72 98 05/28/17 12:00 05/28/17 12:00 05/28/17 12:00 05/28/17 12:00 05/28/17 05:41 Intake and Output: 05/28/17 05/28/17 06:59 18:59 Intake Total 1700 Balance 1700 - Medications Medications: Current Medications Acetaminophen (Tylenol 325mg Tab) 650 mg PO Q6H PRN PRN Reason: Pain, Mild (1-3) Last Admin: 05/26/17 12:44 Dose: 650 mg Sodium Chloride (Sodium Chloride 0.9%) 1,000 mls @ 100 mls/hr IV .Q10H [facility] Last Admin: 05/28/17 12:00 Dose: 100 mls/hr Insulin Detemir (Levemir) 10 unit SC HS [facility] Last Admin: 05/27/17 21:57 Dose: 10 unit Insulin Human Regular (Humulin R Low) 0 units SC ACHS [facility] Last Admin: 05/28/17 12:09 Dose: 3 units Metoprolol Succinate (Toprol Xl) 25 mg PO DAILY [facility] Last Admin: 05/28/17 10:07 Dose: 25 mg Ondansetron HCl (Zofran Inj) 4 mg IVP Q6H PRN PRN Reason: Nausea/Vomiting Last Admin: 05/28/17 02:29 Dose: 4 mg Pantoprazole Sodium (Protonix Inj) 40 mg IVP DAILY [facility] Last Admin: 05/28/17 10:07 Dose: 40 mg Phenazopyridine HCl (Pyridium) 200 mg PO PC [facility] Last Admin: 05/28/17 10:07 Dose: 200 mg Tramadol HCl (Ultram) 50 mg PO Q6H PRN PRN Reason: Pain, moderate (4-7) Last Admin: 05/28/17 10:17 Dose: 50 mg - Labs Labs: 05/28/17 07:30 05/28/17 07:30 PT 10.5 Seconds (9.9-11.8) 05/26/17 05:15 INR 0.97 (0.93-1.08) 05/26/17 05:15 APTT 22.7 Seconds (23.7-30.8) L 05/26/17 05:15 - Constitutional Appears: No Acute Distress - Head Exam Head Exam: ATRAUMATIC, NORMOCEPHALIC - Eye Exam Eye Exam: EOMI, PERRL - ENT Exam ENT Exam: Mucous Membranes Moist - Neck Exam Neck Exam: Full ROM - Respiratory Exam Respiratory Exam: Clear to Ausculation Bilateral. absent: Rales, Rhonchi, Wheezes - Cardiovascular Exam Cardiovascular Exam: RRR. absent: Gallop, Rubs, Murmur - GI/Abdominal Exam GI & Abdominal Exam: Soft, Tenderness (suprapubic and LLQ). absent: Distended, Guarding, Rigid, Rebound - Extremities Exam Extremities Exam: Normal Inspection - Back Exam Back Exam: CVA tenderness (L) - Neurological Exam Neurological Exam: Alert, Awake, Oriented x3 - Psychiatric Exam Psychiatric exam: Normal Affect, Normal Mood - Skin Skin Exam: Dry, Intact, Normal Color, Warm Assessment and Plan - Assessment and Plan (Free Text) Assessment: 62 yo with PMHx DM, HTN, cerebral malaria, ATN, cervical CA will be admitted for evaluation and treatment for abdominal pain, dysuria, and anemia. Plan: 1. Acute renal failure/Left Hydronephrosis - Cr 1.3, resolving - Renal US showed mild left renal collecting system dilatation - Urology consulted, recommended outpatient cystoscopy - Nephro consulted, recommendations appreciated - CT Left hydronephrosis due to left obstructive uropathy to the left UVJ. No ureteral, UVJ or bladder calculus is identified - Cont IVF, Ultram for pain, Zofran for nausea 2. UTI resolved/ruled out - ID consulted, discontinued Azactam - Urine cultures showed no growth - UA shows moderate Leuk esterase, WBC 5-10, few bacteria, proteinuria 3. Anemia - Hgb 8.2, stable - Peripheral smear showed anisopoiklocytosis, occasional spherocytes with normal platelets and WBC, no signs of hemolysis - Monitor Hgb, transfuse as necessary - Heme/Onc consulted; recommended retic count, LDH, haptoglobi, bilirubin - F/u stool guiac study 4. Hypokalemia, resolved - Cont to monitor, replete as necessary 5. H/o Cerebral Malaria - ID consulted - F/u malaria smear - F/u cultures 6. HTN - Per nephro, hold ACEI and diuretic - Cont Metoprolol 7. DM - Monitor glucose - Insulin ISS - Carb consistent diet 8. Chronic Kidney disease - Last hemodialysis 05/21/14 - Currently off dialysis 9. GI/DVT PPx - Protonix - SCDs Pt seen and discussed in detail with Dr. Pichardo. <Yancy Pichardo - Last Filed: 05/28/17 15:17> Objective - Vital Signs/Intake and Output Vital Signs (last 24 hours): Temp Pulse Resp BP Pulse Ox 98.4 F 82 20 128/72 98 05/28/17 12:00 05/28/17 12:00 05/28/17 12:00 05/28/17 12:00 05/28/17 05:41 Intake and Output: 05/28/17 05/28/17 06:59 18:59 Intake Total 1700 Balance 1700 - Medications Medications: Current Medications Acetaminophen (Tylenol 325mg Tab) 650 mg PO Q6H PRN PRN Reason: Pain, Mild (1-3) Last Admin: 05/26/17 12:44 Dose: 650 mg Sodium Chloride (Sodium Chloride 0.9%) 1,000 mls @ 100 mls/hr IV .Q10H [facility] Last Admin: 05/28/17 12:00 Dose: 100 mls/hr Insulin Detemir (Levemir) 10 unit SC HS [facility] Last Admin: 05/27/17 21:57 Dose: 10 unit Insulin Human Regular (Humulin R Low) 0 units SC ACHS [facility] Last Admin: 05/28/17 12:09 Dose: 3 units Metoprolol Succinate (Toprol Xl) 25 mg PO DAILY [facility] Last Admin: 05/28/17 10:07 Dose: 25 mg Ondansetron HCl (Zofran Inj) 4 mg IVP Q6H PRN PRN Reason: Nausea/Vomiting Last Admin: 05/28/17 02:29 Dose: 4 mg Pantoprazole Sodium (Protonix Inj) 40 mg IVP DAILY [facility] Last Admin: 05/28/17 10:07 Dose: 40 mg Phenazopyridine HCl (Pyridium) 200 mg PO PC [facility] Last Admin: 05/28/17 14:48 Dose: 200 mg Tramadol HCl (Ultram) 50 mg PO Q6H PRN PRN Reason: Pain, moderate (4-7) Last Admin: 05/28/17 10:17 Dose: 50 mg - Labs Labs: 05/28/17 07:30 05/28/17 07:30 PT 10.5 Seconds (9.9-11.8) 05/26/17 05:15 INR 0.97 (0.93-1.08) 05/26/17 05:15 APTT 22.7 Seconds (23.7-30.8) L 05/26/17 05:15 Attending/Attestation - Attestation I have personally seen and examined this patient.: Yes I have fully participated in the care of the patient.: Yes I have reviewed all pertinent clinical information, including history, physical exam and plan: Yes Notes (Text): 05/28/17 15:16 attending note; Patient seen and examined with resident. Patient is a 62 year old female with a past medical history of diabetes, hypertension, recent cerebral malaria treated 2 weeks ago at [facility], status post extubation, ATN requiring dialysis, last dialysis was , hemolysis secondary to malaria, recent blood transfusion is admitted with lower abdominal pain (L>R) associated with dysuria, frequency, urgency, and burning on urination. urine cs negative. Azactam discontinued. recent cerebral malaria secondary to falciform after visiting [place]. Completed 2 weeks course of quinine/ Artensunate. blood smear ordered. ID evaluation appreciated. complained of chills this am. malarial smear sent today. Anemia; currently bilirubin is okay. s/p 2 units PRBC transfusion given. Hematology evaluation appreciated. Chronic kidney disease; creatinine normalizing. L hydronephrosis; no obstruction or stone seen. Renal ultrasound ordered. Urology evaluation appreciated. may need outpatient cystoscopy. upon discharge patient will follow up with PMD Dr. Del Rosario.
--- NOTE | 2017-05-28 15:42 | CP.PCM.PN ---
Subjective - Date & Time of Evaluation Date of Evaluation: 05/28/17 Time of Evaluation: 10:15 - Subjective Subjective: Comfortable, not in distress, afebrile but feels a little cold this morning. Left flank and abdominal pain is improved. Objective - Vital Signs/Intake and Output Vital Signs (last 24 hours): Temp Pulse Resp BP Pulse Ox 97.8 F 83 18 138/80 98 05/28/17 05:41 05/28/17 05:41 05/28/17 05:41 05/28/17 05:41 05/28/17 05:41 Intake and Output: 05/28/17 05/28/17 06:59 18:59 Intake Total 1700 Balance 1700 - Medications Medications: Current Medications Acetaminophen (Tylenol 325mg Tab) 650 mg PO Q6H PRN PRN Reason: Pain, Mild (1-3) Last Admin: 05/26/17 12:44 Dose: 650 mg Sodium Chloride (Sodium Chloride 0.9%) 1,000 mls @ 100 mls/hr IV .Q10H [facility] Last Admin: 05/28/17 01:34 Dose: 100 mls/hr Insulin Detemir (Levemir) 10 unit SC HS [facility] Last Admin: 05/27/17 21:57 Dose: 10 unit Insulin Human Regular (Humulin R Low) 0 units SC ACHS [facility] Last Admin: 05/28/17 08:12 Dose: 2 units Metoprolol Succinate (Toprol Xl) 25 mg PO DAILY [facility] Last Admin: 05/27/17 09:38 Dose: 25 mg Ondansetron HCl (Zofran Inj) 4 mg IVP Q6H PRN PRN Reason: Nausea/Vomiting Last Admin: 05/28/17 02:29 Dose: 4 mg Pantoprazole Sodium (Protonix Inj) 40 mg IVP DAILY [facility] Last Admin: 05/27/17 09:37 Dose: 40 mg Phenazopyridine HCl (Pyridium) 200 mg PO PC [facility] Last Admin: 05/27/17 17:13 Dose: 200 mg Tramadol HCl (Ultram) 50 mg PO Q6H PRN PRN Reason: Pain, moderate (4-7) - Labs Labs: 05/28/17 07:30 05/28/17 07:30 PT 10.5 Seconds (9.9-11.8) 05/26/17 05:15 INR 0.97 (0.93-1.08) 05/26/17 05:15 APTT 22.7 Seconds (23.7-30.8) L 05/26/17 05:15 - Constitutional Appears: Non-toxic, No Acute Distress - Head Exam Head Exam: NORMAL INSPECTION - Neck Exam Neck Exam: absent: Meningismus - Respiratory Exam Respiratory Exam: Decreased Breath Sounds - Cardiovascular Exam Cardiovascular Exam: +S1, +S2 - GI/Abdominal Exam GI & Abdominal Exam: Soft. absent: Tenderness Assessment and Plan - Assessment and Plan (Free Text) Plan: Assessment Unlikely urinary tract infection (urine cx are negative, and it was taken prior to Abx) - left lower abdominal pain flank pain is probably renal colic Recent treatment of severe malarial infection (P. falciparum) chronic renal failure DM HTN history of uterine cancer S/P hysterectomy S/P radiation and chemotherapy S/P appendectomy COPD obesity with BMI 38 Plan follow up malaria tests; will continue to monitor off antibiotics CT scan did not reveal acute pathology but did show left hydronephrosis suggestive of recently passed stone - Urology monitoring will continue to monitor clinically and follow up Hgb
[2017-05-28] MEDS: Nystatin 100,000 Units/gm Topical Pow(15 gm) TOP SCH (18:08)
--- NOTE | 2017-05-28 20:42 | PN ---
DATE: 05/28/2017 SUBJECTIVE: Patient's medical condition appears to be improving. She has been receiving pain medication. PHYSICAL EXAMINATION: VITAL SIGNS: She is afebrile, temperature of 98, pulse 72, blood pressure 128/72 and respirations 20. ABDOMEN: Her abdomen is soft. She still has some mild left lower quadrant abdominal tenderness. There is no rebound or guarding. There is no CVA tenderness. LABORATORY DATA: Urine culture showed no growth. Her GFR has improved from 29 on admission, it is now 50. Hemoglobin was 6.7 which is now up to 8.2, although it does appear to be falling somewhat again. Patient had a renal ultrasound also done on 05/26/2017, I guess, as follow up from the CAT scan which showed mild left renal collecting system dilatation. IMPRESSION AND PLAN: Patient appears to be improving urologically. It is questionable that she possibly passed a stone. Plan for now is to continue her medical treatment regarding her malarial sepsis as well as her renal insufficiency which does appear to be improving. Urologically the plan for now will be to repeat a renal ultrasound next week to see if the hydronephrosis has completely resolved. If the hydronephrosis does persist, I would consider a renal scan to rule out any obstruction or possibly patient can go to the operating room for a cystoscopy with retrograde pyelograms to access when she is medically stable and her anemia has improved. Rob Farah MD
[2017-05-28] MEDS: Insulin Detemir 100 units/ml Vial (Levemir) SC SCH (21:48)
[2017-05-29] MEDS: Sodium Chloride 0.9% 1,000 ML IV SCH ×2 (04:04→08:13)
[2017-05-29 05:35] VITALS: RESP 20; O2SAT 97
[2017-05-29 06:08] LABS: BASO # 0.04 K/mm3 (0.0-2.0); BASO % 0.7 % (0.0-3.0); EOS # 0.1 (0.0-0.7); EOS % 2.2 % (1.5-5.0); GRAN # 4.28 (1.4-6.5); GRAN % 72.5 % (50.0-68.0); LYMPH # 1.1 (1.2-3.4); LYMPH % 19.3 % (22.0-35.0); MEAN CORPUSCULAR HEMOGLOBIN 28.2 pg (25.0-35.0); MEAN CORPUSCULAR HGB CONC 31.3 g/dl (31.0-37.0); MEAN PLATELET VOLUME 7.7 fl (7.0-11.0); MONO # 0.3 (0.1-0.6); MONO % 5.3 % (1.0-6.0); PLATELET COUNT 327 10^3/uL (120.0-450.0); RED CELL DISTRIBUTION WIDTH 17.5 % (11.5-14.5); WHITE BLOOD COUNT 5.9 10^3/ul (4.5-11.0)
[2017-05-29 06:12] LABS: HEMOGLOBIN 7.9 g/dL (12.0-16.0)
[2017-05-29 06:26] LABS: ALBUMIN 3.4 g/dL (3.0-4.8); CALCIUM 8.8 mg/dL (8.4-10.5)
[2017-05-29] MEDS: Insulin Reg-LOW-Coverage SC SCH (07:50)
--- NOTE | 2017-05-29 08:17 | CP.PCM.PN ---
Subjective - Date & Time of Evaluation Date of Evaluation: 05/29/17 Time of Evaluation: 08:14 - Subjective Subjective: PGY-2 Ne[address] progress note for Dr. Lambert Patient seen and examined at bedside. No acute distress. Nurse reports no acute events overnight. Patient continues to report left sided abd/ flank pain improved with medication. Patient states that she had nausea overnight but resolved with medication. She denies dysuria, hematuria,. fever, chills, vomiting, d/c. She is tolerating diet. Objective - Vital Signs/Intake and Output Vital Signs (last 24 hours): Temp Pulse Resp BP Pulse Ox 97.8 F 89 20 142/82 97 05/29/17 05:34 05/29/17 05:34 05/29/17 05:34 05/29/17 05:34 05/29/17 05:34 Intake and Output: 05/29/17 05/29/17 06:59 18:59 Intake Total 1440 Output Total 100 Balance 1340 - Medications Medications: Current Medications Acetaminophen (Tylenol 325mg Tab) 650 mg PO Q6H PRN PRN Reason: Pain, Mild (1-3) Last Admin: 05/29/17 01:14 Dose: 650 mg Sodium Chloride (Sodium Chloride 0.9%) 1,000 mls @ 100 mls/hr IV .Q10H [facility] Last Admin: 05/29/17 04:04 Dose: Not Given Insulin Detemir (Levemir) 10 unit SC HS [facility] Last Admin: 05/28/17 21:48 Dose: 10 unit Insulin Human Regular (Humulin R Low) 0 units SC ACHS [facility] Last Admin: 05/29/17 07:50 Dose: Not Given Metoprolol Succinate (Toprol Xl) 25 mg PO DAILY [facility] Last Admin: 05/28/17 10:07 Dose: 25 mg Nystatin (Nystop Topical Powder) 1 gm TOP BID [facility] Last Admin: 05/28/17 18:08 Dose: 1 applic Ondansetron HCl (Zofran Inj) 4 mg IVP Q6H PRN PRN Reason: Nausea/Vomiting Last Admin: 05/29/17 01:08 Dose: 4 mg Pantoprazole Sodium (Protonix Inj) 40 mg IVP DAILY [facility] Last Admin: 05/28/17 10:07 Dose: 40 mg Phenazopyridine HCl (Pyridium) 200 mg PO PC [facility] Last Admin: 05/28/17 18:08 Dose: 200 mg Tramadol HCl (Ultram) 50 mg PO Q6H PRN PRN Reason: Pain, moderate (4-7) Last Admin: 05/28/17 21:10 Dose: 50 mg - Labs Labs: 05/29/17 05:30 05/29/17 05:30 PT 10.5 Seconds (9.9-11.8) 05/26/17 05:15 INR 0.97 (0.93-1.08) 05/26/17 05:15 APTT 22.7 Seconds (23.7-30.8) L 05/26/17 05:15 - Constitutional Appears: Well, No Acute Distress - Head Exam Head Exam: ATRAUMATIC, NORMOCEPHALIC - Eye Exam Eye Exam: Normal appearance - ENT Exam ENT Exam: Mucous Membranes Moist - Respiratory Exam Respiratory Exam: Clear to Ausculation Bilateral, NORMAL BREATHING PATTERN. absent: Decreased Breath Sounds, Rales, Rhonchi, Wheezes, Respiratory Distress - Cardiovascular Exam Cardiovascular Exam: REGULAR RHYTHM, +S1, +S2. absent: Tachycardia, Murmur - GI/Abdominal Exam GI & Abdominal Exam: Soft, Tenderness (left sided), Normal Bowel Sounds. absent : Distended, Firm - Extremities Exam Extremities Exam: Normal Inspection. absent: Pedal Edema - Neurological Exam Neurological Exam: Alert, Awake, Oriented x3 - Skin Skin Exam: Dry, Intact, Normal Color, Warm Assessment and Plan - Assessment and Plan (Free Text) Assessment: 62 yo with PMH of DM, HTN, cerebral malaria, ATN, cervical CA admitted for abdominal pain, dysuria, and anemia. Found to have left sided Hydronephrosis on CT and gila US. Plan: 1. Acute renal failure- resolving - cr improving - previously had dialysis dependent PRIETO in the setting of sepsis from malaria - CT abd showing L sided hydronephrosis - renal US showed mild dilation of left sided renal collecting system - recommend 24 hour stone profile study as outpatient - urology consulted, recommend repeat renal US in 1 week 2. Hypertension - Currently wnl - home meds are lasix, lisinopril and metoprolol XL; - cont to hold KILO inhibitor and diuretic for now 3. Diabetes - Uncontrolled at home per patient; - random urine for microalbumin elevated most likely due to recovering ATN, protein and creatinine are wnl, suggesting no proteinuria - cont insulin levemir, and ISS 4. Hypokalemia - improved - Likely worsened by diuretics; continue to hold - urine K, osmolality, cr are within normal limits 5. Anemia - transfused 2 units of prbc - heme/onc consulted - check stool occult - f/u peripheral smear for malarial parasite per ID 6. Cystitis - CT showed cystitis - urology consulted
[2017-05-29] MEDS: Nystatin 100,000 Units/gm Topical Pow(15 gm) TOP SCH (10:14)
[2017-05-29] MEDS: Metoprolol Succinate 25 mg XL Tab PO SCH (10:15)
[2017-05-29 12:08] VITALS: BP 156/85; PULSE 93; TEMP 98.6
--- NOTE | 2017-05-29 14:28 | CP.PCM.DIS ---
<JOSE ENRIQUE JOYNER - Last Filed: 05/29/17 14:39> Provider - Provider Date of Admission: 05/26/17 06:53 Attending physician: Yancy Pichardo MD Primary care physician: Gómez Del Rosario MD Consults: Hematology: Elvis Nephro: Jhoni ID: Vanessa Urology: Gagan Time Spent in preparation of Discharge (in minutes): 45 Hospital Course - Lab Results Lab Results: Most Recent Lab Values WBC 5.9 10^3/ul (4.5-11.0) 05/29/17 05:30 RBC 2.80 10^6/uL (3.5-6.1) L 05/29/17 05:30 Hgb 7.9 g/dL (12.0-16.0) L 05/29/17 05:30 Hct 25.2 % (36.0-48.0) L 05/29/17 05:30 MCV 90.0 fl (80.0-105.0) 05/29/17 05:30 MCH 28.2 pg (25.0-35.0) 05/29/17 05:30 MCHC 31.3 g/dl (31.0-37.0) 05/29/17 05:30 RDW 17.5 % (11.5-14.5) H 05/29/17 05:30 Plt Count 327 10^3/uL (120.0-450.0) 05/29/17 05:30 MPV 7.7 fl (7.0-11.0) 05/29/17 05:30 Gran % 72.5 % (50.0-68.0) H 05/29/17 05:30 Lymph % (Auto) 19.3 % (22.0-35.0) L 05/29/17 05:30 [place] % (Auto) 5.3 % (1.0-6.0) 05/29/17 05:30 Eos % (Auto) 2.2 % (1.5-5.0) 05/29/17 05:30 Baso % (Auto) 0.7 % (0.0-3.0) 05/29/17 05:30 Gran # 4.28 (1.4-6.5) 05/29/17 05:30 Lymph # 1.1 (1.2-3.4) L 05/29/17 05:30 [place] # 0.3 (0.1-0.6) 05/29/17 05:30 Eos # 0.1 (0.0-0.7) 05/29/17 05:30 Baso # 0.04 K/mm3 (0.0-2.0) 05/29/17 05:30 Retic Count 2.37 % (0.5-1.5) H 05/27/17 08:50 Haptoglobin 47 mg/dL (43-212) 05/27/17 08:50 PT 10.5 Seconds (9.9-11.8) 05/26/17 05:15 INR 0.97 (0.93-1.08) 05/26/17 05:15 APTT 22.7 Seconds (23.7-30.8) L 05/26/17 05:15 Sodium 143 mmol/L (132-148) 05/29/17 05:30 Potassium 3.9 mmol/L (3.6-5.0) 05/29/17 05:30 Chloride 109 mmol/L (95-110) 05/29/17 05:30 Carbon Dioxide 23 mmol/L (21-33) 05/29/17 05:30 Anion Gap 15 (10-20) 05/29/17 05:30 BUN 18 mg/dL (7-21) 05/29/17 05:30 Creatinine 1.4 mg/dL (0.5-1.4) 05/29/17 05:30 Est GFR ( Amer) 46 05/29/17 05:30 Est GFR (Non-Af Amer) 38 05/29/17 05:30 POC Glucose (mg/dL) 217 mg/dL (65-110) H 05/29/17 11:32 Random Glucose 143 mg/dL (70-110) H 05/29/17 05:30 Calcium 8.8 mg/dL (8.4-10.5) 05/29/17 05:30 Iron 50 ug/dL (45-180) 05/26/17 08:26 TIBC 238 ug/dL (265-497) L 05/26/17 08:26 % Saturation 21 % (20-55) 05/26/17 08:26 Ferritin 1500.0 ng/mL 05/26/17 09:16 Total Bilirubin 0.7 mg/dL (0.2-1.3) 05/29/17 05:30 AST 24 U/L (15-39) 05/29/17 05:30 ALT 20 U/L (7-56) 05/29/17 05:30 Alkaline Phosphatase 90 U/L (38-133) 05/29/17 05:30 Lactate Dehydrogenase 741 U/L (333-699) H 05/26/17 21:15 Total Protein 7.0 g/dL (5.8-8.3) 05/29/17 05:30 Albumin 3.4 g/dL (3.0-4.8) 05/29/17 05:30 Globulin 3.6 gm/dL 05/29/17 05:30 Albumin/Globulin Ratio 1.0 (1.1-1.8) L 05/29/17 05:30 Lipase 552 U/L (23-300) H 05/26/17 05:15 Vitamin B12 590 pg/mL (239-931) 05/26/17 09:16 Folate 11.1 ng/mL 05/26/17 09:16 Urine Color Light yellow (YELLOW) 05/26/17 06:50 Urine Appearance Sl cloudy (CLEAR) 05/26/17 06:50 Urine pH 6.5 (4.7-8.0) 05/26/17 06:50 Ur Specific [place] 1.010 (1.005-1.035) 05/26/17 06:50 Urine Protein 100 mg/dL (<30 mg/dL) H 05/26/17 06:50 Urine Glucose (UA) Negative mg/dL (NEGATIVE) 05/26/17 06:50 Urine Ketones Negative mg/dL (NEGATIVE) 05/26/17 06:50 Urine Blood Small (NEGATIVE) H 05/26/17 06:50 Urine Nitrate Negative (NEGATIVE) 05/26/17 06:50 Urine Bilirubin Negative (NEGATIVE) 05/26/17 06:50 Urine Urobilinogen 0.2 E.U./dL (<1 E.U./dL) 05/26/17 06:50 Ur Leukocyte Esterase Moderate Donna/uL (NEGATIVE) H 05/26/17 06:50 Urine RBC 0 - 2 /hpf (0-2) 05/26/17 06:50 Urine WBC 5 - 10 /hpf (0-6) 05/26/17 06:50 Ur Epithelial Cells 0 - 2 /hpf (0-5) 05/26/17 06:50 Amorphous Sediment Many 05/26/17 06:50 Urine Bacteria Few (NEG) 05/26/17 06:50 Urine Osmolality 212 mosm/kg (50-645) 05/27/17 02:20 Ur Random Creatinine 51 mg/dL 05/27/17 02:20 U Random Total Protein 31 mg/L 05/27/17 02:20 Ur Random Potassium 12.2 meq/L 05/27/17 02:20 Urine Microalbumin 42.0 mg/L (0.0-16.6) H 05/27/17 02:20 Blood Type A POSITIVE 05/26/17 06:15 Blood Type Confirm A POSITIVE 05/26/17 07:10 Antibody Screen Negative 05/26/17 06:15 Crossmatch See Detail 05/26/17 06:15 BBK History Checked No verified bt 05/26/17 06:15 - Hospital Course Hospital Course: 62 year old female who reports 1 day history of lower abdominal pain (L>R) associated with dysuria, frequency, urgency, and burning on urination. Pt describes the abdominal pain as pressure-like, and states that it occurs when she urinates, and then resolves on its own. She reports that her urine is orange in color, but denies hematuria. She additionally reports subjective fevers and chills that began with these symptoms (T: 98.8F). Patient was diagnosed with cerebral malaria last month after she visited [facility]. She was admitted at [facility] in [place], where she completed a course of antimalarials (Quinidine, Artensunate). While admitted, she was found to have ATN and azotemia (Cr: 5.36), and was started on dialysis, last dialyzed on (Cr = 1.7 at the time of discharge). She was also found to be anemic and was admitted to the ICU, where she was transfused 4 units of pRBC. She was discharged from [facility] last night, and her symptoms of abdominal pain and dysuria began afterwards. Patient states that she has felt more short of breath since her diagnosis of malaria. In the ED, labs and imaging were obtained. Labs were significant for h/h of 6.7/20.8, RDW of 18.8. UA was positive for moderate leukocyte esterase. CT abdomen showed unilateral, left obstructive uropathy without evidence of calculus disease. Renal US showed mild left renal colleting system dilatation. Pt was admitted for treatment and evaluation of her left flank pain and anemia. Pt was given 2 units of PRBC on the floor, which stabilized her hgb between 7-8 during her hospital course. Hematology was consulted. On analysis of peripheral smear, anisopoiklocytosis, occasional spherocytes with normal platelets and WBC, but no signs of microangiopathic hemolysis were found. Heme recommended anemia workup and monitor for any bleeding. Work up was negative for iron, folate, and b12 deficiency. Stool guaiac was ordered, but was not obtained. Nephrology was consulted, recommendations for ARF were appreciated. Urology was consulted, recommendations were appreciated. Pt advised to follow up out-patient for cystoscopy. ID was consulted. ID recommended malarial smear follow up. Pt was started on azactam prophylatically until UTI was ruled out. Urine cultures were negative and abx were stopped. Today, pt was seen and examined at bedside. Pt states that flank and suprapubic pain is still present but somewhat better. Dysuria is resolved. Pt denied CP, SOB, n/v/d, chills, fever, abdominal pain, or vertigo. The origin of the patients pain was likely due to a passed kidney stone. However, as no formal etiology could be found and the pt's resolving symptoms. Pt will be discharged and will follow up as an outpatient for further work up. Discharge Exam - Head Exam Head Exam: ATRAUMATIC, NORMOCEPHALIC - Eye Exam Eye Exam: EOMI, PERRL - ENT Exam ENT Exam: Mucous Membranes Moist - Neck Exam Neck exam: Full Rom - Respiratory Exam Respiratory Exam: Clear to PA & Lateral. absent: Rales, Rhonchi, Wheezes - Cardiovascular Exam Cardiovascular Exam: RRR. absent: Diastolic murmur, Gallop, Rubs, Systolic Murmur - GI/Abdominal Exam GI & Abdominal Exam: Soft, Tenderness (suprapubic). absent: Distended, Rebound , Rigid - Extremities Exam Extremities exam: normal inspection - Back Exam Back exam: CVA tenderness (L) - Neurological Exam Neurological exam: Alert, CN II-XII Intact, Oriented x3 - Psychiatric Exam Psychiatric exam: Normal Affect, Normal Mood - Skin Skin Exam: Dry, Intact, Normal Color, Warm Discharge Plan - Discharge Medications Prescriptions: Ferrous Sulfate [Iron] 325 mg PO BID #20 capsule.er Pantoprazole Sodium [Protonix] 40 mg PO DAILY #30 ect - Follow Up Plan Condition: STABLE Disposition: HOME/ ROUTINE Instructions: Acute Kidney Injury (DC), Malaria (DC), Acute Hematuria (DC) Additional Instructions: - Follow up with PMD within 2-3 days - Follow up with Dr. Farah or another urologist if Dr. Farah is not in your insurance network within 2-3 days for outpatient cystoscopy - Take medications as prescribed - Use tylenol for pain - Return to ED if symptoms worsen, such as but not limited to hematuria or worsening pain Referrals: Gómez Del Rosario MD [Primary Care Provider] - Rob Farah MD [Staff Provider] - <Yancy Pichardo - Last Filed: 05/29/17 15:15> Provider - Provider Date of Admission: 05/26/17 06:53 Attending physician: Yancy Pichardo MD Primary care physician: Gómez Del Rosario MD Hospital Course - Lab Results Lab Results: Most Recent Lab Values WBC 5.9 10^3/ul (4.5-11.0) 05/29/17 05:30 RBC 2.80 10^6/uL (3.5-6.1) L 05/29/17 05:30 Hgb 7.9 g/dL (12.0-16.0) L 05/29/17 05:30 Hct 25.2 % (36.0-48.0) L 05/29/17 05:30 MCV 90.0 fl (80.0-105.0) 05/29/17 05:30 MCH 28.2 pg (25.0-35.0) 05/29/17 05:30 MCHC 31.3 g/dl (31.0-37.0) 05/29/17 05:30 RDW 17.5 % (11.5-14.5) H 05/29/17 05:30 Plt Count 327 10^3/uL (120.0-450.0) 05/29/17 05:30 MPV 7.7 fl (7.0-11.0) 05/29/17 05:30 Gran % 72.5 % (50.0-68.0) H 05/29/17 05:30 Lymph % (Auto) 19.3 % (22.0-35.0) L 05/29/17 05:30 [place] % (Auto) 5.3 % (1.0-6.0) 05/29/17 05:30 Eos % (Auto) 2.2 % (1.5-5.0) 05/29/17 05:30 Baso % (Auto) 0.7 % (0.0-3.0) 05/29/17 05:30 Gran # 4.28 (1.4-6.5) 05/29/17 05:30 Lymph # 1.1 (1.2-3.4) L 05/29/17 05:30 [place] # 0.3 (0.1-0.6) 05/29/17 05:30 Eos # 0.1 (0.0-0.7) 05/29/17 05:30 Baso # 0.04 K/mm3 (0.0-2.0) 05/29/17 05:30 Retic Count 2.37 % (0.5-1.5) H 05/27/17 08:50 Haptoglobin 47 mg/dL (43-212) 05/27/17 08:50 PT 10.5 Seconds (9.9-11.8) 05/26/17 05:15 INR 0.97 (0.93-1.08) 05/26/17 05:15 APTT 22.7 Seconds (23.7-30.8) L 05/26/17 05:15 Sodium 143 mmol/L (132-148) 05/29/17 05:30 Potassium 3.9 mmol/L (3.6-5.0) 05/29/17 05:30 Chloride 109 mmol/L (95-110) 05/29/17 05:30 Carbon Dioxide 23 mmol/L (21-33) 05/29/17 05:30 Anion Gap 15 (10-20) 05/29/17 05:30 BUN 18 mg/dL (7-21) 05/29/17 05:30 Creatinine 1.4 mg/dL (0.5-1.4) 05/29/17 05:30 Est GFR ( Amer) 46 05/29/17 05:30 Est GFR (Non-Af Amer) 38 05/29/17 05:30 POC Glucose (mg/dL) 217 mg/dL (65-110) H 05/29/17 11:32 Random Glucose 143 mg/dL (70-110) H 05/29/17 05:30 Calcium 8.8 mg/dL (8.4-10.5) 05/29/17 05:30 Iron 50 ug/dL (45-180) 05/26/17 08:26 TIBC 238 ug/dL (265-497) L 05/26/17 08:26 % Saturation 21 % (20-55) 05/26/17 08:26 Ferritin 1500.0 ng/mL 05/26/17 09:16 Total Bilirubin 0.7 mg/dL (0.2-1.3) 05/29/17 05:30 AST 24 U/L (15-39) 05/29/17 05:30 ALT 20 U/L (7-56) 05/29/17 05:30 Alkaline Phosphatase 90 U/L (38-133) 05/29/17 05:30 Lactate Dehydrogenase 741 U/L (333-699) H 05/26/17 21:15 Total Protein 7.0 g/dL (5.8-8.3) 05/29/17 05:30 Albumin 3.4 g/dL (3.0-4.8) 05/29/17 05:30 Globulin 3.6 gm/dL 05/29/17 05:30 Albumin/Globulin Ratio 1.0 (1.1-1.8) L 05/29/17 05:30 Lipase 552 U/L (23-300) H 05/26/17 05:15 Vitamin B12 590 pg/mL (239-931) 05/26/17 09:16 Folate 11.1 ng/mL 05/26/17 09:16 Urine Color Light yellow (YELLOW) 05/26/17 06:50 Urine Appearance Sl cloudy (CLEAR) 05/26/17 06:50 Urine pH 6.5 (4.7-8.0) 05/26/17 06:50 Ur Specific [place] 1.010 (1.005-1.035) 05/26/17 06:50 Urine Protein 100 mg/dL (<30 mg/dL) H 05/26/17 06:50 Urine Glucose (UA) Negative mg/dL (NEGATIVE) 05/26/17 06:50 Urine Ketones Negative mg/dL (NEGATIVE) 05/26/17 06:50 Urine Blood Small (NEGATIVE) H 05/26/17 06:50 Urine Nitrate Negative (NEGATIVE) 05/26/17 06:50 Urine Bilirubin Negative (NEGATIVE) 05/26/17 06:50 Urine Urobilinogen 0.2 E.U./dL (<1 E.U./dL) 05/26/17 06:50 Ur Leukocyte Esterase Moderate Donna/uL (NEGATIVE) H 05/26/17 06:50 Urine RBC 0 - 2 /hpf (0-2) 05/26/17 06:50 Urine WBC 5 - 10 /hpf (0-6) 05/26/17 06:50 Ur Epithelial Cells 0 - 2 /hpf (0-5) 05/26/17 06:50 Amorphous Sediment Many 05/26/17 06:50 Urine Bacteria Few (NEG) 05/26/17 06:50 Urine Osmolality 212 mosm/kg (50-645) 05/27/17 02:20 Ur Random Creatinine 51 mg/dL 05/27/17 02:20 U Random Total Protein 31 mg/L 05/27/17 02:20 Ur Random Potassium 12.2 meq/L 05/27/17 02:20 Urine Microalbumin 42.0 mg/L (0.0-16.6) H 05/27/17 02:20 Blood Type A POSITIVE 05/26/17 06:15 Blood Type Confirm A POSITIVE 05/26/17 07:10 Antibody Screen Negative 05/26/17 06:15 Crossmatch See Detail 05/26/17 06:15 BBK History Checked No verified bt 05/26/17 06:15 Attending/Attestation - Attestation I have personally seen and examined this patient.: Yes I have fully participated in the care of the patient.: Yes I have reviewed all pertinent clinical information, including history, physical exam and plan: Yes Notes (Text): 05/29/17 15:14 attending note; Patient seen and examined with resident. Patient is a 62 year old female with a past medical history of diabetes, hypertension, recent cerebral malaria treated 2 weeks ago at [facility], status post extubation, ATN requiring dialysis, last dialysis was , hemolysis secondary to malaria, recent blood transfusion is admitted with lower abdominal pain (L>R) associated with dysuria, frequency, urgency, and burning on urination. urine cs negative. Azactam discontinued. recent cerebral malaria secondary to falciform after visiting [place]. Completed 2 weeks course of quinine/ Artensunate. blood smear sent. ID evaluation appreciated. Anemia;s/p 2 units PRBC transfusion given. Hematology evaluation appreciated. Chronic kidney disease; creatinine normalizing. L hydronephrosis; no obstruction or stone seen. Renal ultrasound ordered. Urology evaluation appreciated. may need outpatient cystoscopy. upon discharge patient will follow up with PMD Dr. Del Rosario. diagnosis; Anemia Chronic kidney disease status post transfusion History of cerebral malaria Left hydronephrosis
--- NOTE | 2017-05-29 15:34 | CP.PCM.PN ---
Subjective - Date & Time of Evaluation Date of Evaluation: 05/29/17 Time of Evaluation: 11:55 - Subjective Subjective: Patient is feeling better, no fevers, left lower quadrant pain has significantly improved. Objective - Vital Signs/Intake and Output Vital Signs (last 24 hours): Temp Pulse Resp BP Pulse Ox 97.8 F 89 20 142/82 97 05/29/17 05:34 05/29/17 05:34 05/29/17 05:34 05/29/17 05:34 05/29/17 05:34 Intake and Output: 05/28/17 05/29/17 18:59 06:59 Intake Total 1440 Output Total 100 Balance 1340 - Medications Medications: Current Medications Acetaminophen (Tylenol 325mg Tab) 650 mg PO Q6H PRN PRN Reason: Pain, Mild (1-3) Last Admin: 05/29/17 01:14 Dose: 650 mg Sodium Chloride (Sodium Chloride 0.9%) 1,000 mls @ 100 mls/hr IV .Q10H [facility] Last Admin: 05/29/17 04:04 Dose: Not Given Insulin Detemir (Levemir) 10 unit SC HS [facility] Last Admin: 05/28/17 21:48 Dose: 10 unit Insulin Human Regular (Humulin R Low) 0 units SC ACHS [facility] Last Admin: 05/28/17 21:48 Dose: Not Given Metoprolol Succinate (Toprol Xl) 25 mg PO DAILY [facility] Last Admin: 05/28/17 10:07 Dose: 25 mg Nystatin (Nystop Topical Powder) 1 gm TOP BID [facility] Last Admin: 05/28/17 18:08 Dose: 1 applic Ondansetron HCl (Zofran Inj) 4 mg IVP Q6H PRN PRN Reason: Nausea/Vomiting Last Admin: 05/29/17 01:08 Dose: 4 mg Pantoprazole Sodium (Protonix Inj) 40 mg IVP DAILY [facility] Last Admin: 05/28/17 10:07 Dose: 40 mg Phenazopyridine HCl (Pyridium) 200 mg PO PC [facility] Last Admin: 05/28/17 18:08 Dose: 200 mg Tramadol HCl (Ultram) 50 mg PO Q6H PRN PRN Reason: Pain, moderate (4-7) Last Admin: 05/28/17 21:10 Dose: 50 mg - Labs Labs: 05/29/17 05:30 08/16/17 07:30 PT 10.5 Seconds (9.9-11.8) 05/26/17 05:15 INR 0.97 (0.93-1.08) 05/26/17 05:15 APTT 22.7 Seconds (23.7-30.8) L 05/26/17 05:15 - Constitutional Appears: Non-toxic, No Acute Distress - Head Exam Head Exam: NORMAL INSPECTION - ENT Exam ENT Exam: Mucous Membranes Moist - Neck Exam Neck Exam: absent: Lymphadenopathy, Meningismus - Respiratory Exam Respiratory Exam: Decreased Breath Sounds - Cardiovascular Exam Cardiovascular Exam: +S1, +S2 - GI/Abdominal Exam GI & Abdominal Exam: Soft. absent: Tenderness Assessment and Plan - Assessment and Plan (Free Text) Plan: Assessment Unlikely urinary tract infection (urine cx are negative, and it was taken prior to Abx) - left lower abdominal pain flank pain is probably renal colic Recent treatment of severe malarial infection (P. falciparum) chronic renal failure DM HTN history of uterine cancer S/P hysterectomy S/P radiation and chemotherapy S/P appendectomy COPD obesity with BMI 38 Plan follow up malaria tests; monitor off antibiotics CT scan did not reveal acute pathology but did show left hydronephrosis suggestive of recently passed stone - Urology monitoring
== END 2017-05-29 13:10 | disposition home or self-care (01) | DRG 683 ==
LOC: ED 04:35 → ERH 06:53 → 2RSO 08:57
PROVIDERS: ADMIT Internal Medicine; ATTEND Internal Medicine
PROC: 30233N1 Transfusion of Nonautologous Red Blood Cells into Peripheral Vein, Percutaneous Approach (ICD-10-PCS; principal; 2017-05-26)
DX: N17.0 Acute kidney failure with tubular necrosis (principal); B50.0 Plasmodium falciparum malaria with cerebral complications; E10.22 Type 1 diabetes mellitus with diabetic chronic kidney disease; G94 Other disorders of brain in diseases classified elsewhere; E10.40 Type 1 diabetes mellitus with diabetic neuropathy, unspecified; K62.5 Hemorrhage of anus and rectum; N30.90 Cystitis, unspecified without hematuria; N13.2 Hydronephrosis with renal and ureteral calculous obstruction; I12.9 Hypertensive chronic kidney disease with stage 1 through stage 4 chronic kidney disease, or unspecified chronic kidney disease; N18.9 Chronic kidney disease, unspecified; D64.9 Anemia, unspecified; E66.9 Obesity, unspecified; Z68.38 Body mass index [BMI] 38.0-38.9, adult; E87.6 Hypokalemia; J44.9 Chronic obstructive pulmonary disease, unspecified; K57.30 Diverticulosis of large intestine without perforation or abscess without bleeding; K59.00 Constipation, unspecified; Z79.899 Other long term (current) drug therapy; Z79.4 Long term (current) use of insulin; Z96.659 Presence of unspecified artificial knee joint; Z90.710 Acquired absence of both cervix and uterus; Z85.41 Personal history of malignant neoplasm of cervix uteri; Z85.42 Personal history of malignant neoplasm of other parts of uterus; Z87.891 Personal history of nicotine dependence; Z90.49 Acquired absence of other specified parts of digestive tract; Z88.0 Allergy status to penicillin; Z92.21 Personal history of antineoplastic chemotherapy; Z92.3 Personal history of irradiation; Z80.0 Family history of malignant neoplasm of digestive organs; Z83.3 Family history of diabetes mellitus; H26.9 Unspecified cataract; R40.2412 Glasgow coma scale score 13-15, at arrival to emergency department; N21.0 Calculus in bladder; N83.202 Unspecified ovarian cyst, left side; R80.9 Proteinuria, unspecified; N23 Unspecified renal colic

== ENCOUNTER 2017-06-11 17:25 | Inpatient (IN) | payer MEDICAID, OTHER ==
[2017-06-11 17:35] VITALS: BMI 39.9
--- NOTE | 2017-06-11 17:54 | ED PDOC ---
Arrival/HPI <Yeyo Sagastume - Last Filed: 06/11/17 20:09> - General Historian: Patient - History of Present Illness Time/Duration: Other (2 days) Symptom Onset: Gradual Context: Home <Luis Rivas - Last Filed: 06/11/17 21:40> - General Chief Complaint: Female Genitourinary Time Seen by Provider: 06/11/17 17:27 - History of Present Illness Narrative History of Present Illness (Text): 06/11/17 17:54 This 62 yo female presents to this ED c/o feeling rigors chills, generalized weakness, and shaking x 4 days. Patient also c/o dysuria, and urinary frequency. Patient stated she was Dx. cerebral malaria x 2 weeks ago. Patient was admitted 2 weeks ago. Pain noted symptoms has been cyclic since the beginning of symptoms. Patient denies sob, fever, n/v, or abnormal gait. (Luis Rivas) Past Medical History - Provider Review Nursing Documentation Reviewed: Yes - Travel History If Yes, travel location?: [place] - Tetanus Immunization Tetanus Immunization: Unknown - Cardiac Hx Cardiac Disorders: Yes Hx Hypertension: Yes - Pulmonary Hx Respiratory Disorders: No - Neurological Hx Neurological Disorder: No - HEENT Hx HEENT Disorder: Yes Hx Cataracts: Yes (BILATERAL ) - Renal Hx Renal Disorder: No - Endocrine/Metabolic Hx Endocrine Disorders: Yes Hx Diabetes Mellitus Type 1: Yes - Hematological/Oncological Hx Blood Disorders: Yes Hx Cancer: Yes (ENDOMETRIAL) - Integumentary Hx Dermatological Disorder: No - Musculoskeletal/Rheumatological Hx Musculoskeletal Disorders: No - Gastrointestinal Hx Gastrointestinal Disorders: No - Genitourinary/Gynecological Hx Genitourinary Disorders: Yes (ENDOMETRIAL CA W RADIATION) - Psychiatric Hx Psychophysiologic Disorder: No Hx Substance Use: No - Surgical History Hx Appendectomy: Yes Hx Hysterectomy: Yes - Anesthesia Hx Anesthesia: Yes Hx Anesthesia Reactions: No Hx Malignant Hyperthermia: No - Suicidal Assessment Feels Threatened In Home Enviroment: No <Luis Rivas - Last Filed: 06/11/17 21:40> Family/Social History - Physician Review Nursing Documentation Reviewed: Yes Family/Social History: Other (non-contributory) Smoking Status: Former Smoker Hx Alcohol Use: No Hx Substance Use: No Hx Substance Use Treatment: No <Luis Rivas - Last Filed: 06/11/17 21:40> Allergies/Home Meds <Yeyo Sagastuem - Last Filed: 06/11/17 20:09> <Luis Rivas P - Last Filed: 06/11/17 21:40> Allergies/Adverse Reactions: Allergies Penicillins Allergy (Verified 06/11/17 17:35) SWELLING Home Medications: Home Meds Medication Instructions Recorded Confirmed Furosemide [Lasix] 40 mg PO DAILY 05/26/17 06/11/17 Insulin Detemir [Levemir] 10 unit SC HS 05/26/17 06/11/17 Lisinopril [Zestril] 10 mg PO DAILY 05/26/17 06/11/17 Metoprolol Succinate [Toprol Xl] 25 mg PO DAILY 05/26/17 06/11/17 Review of Systems - Review of Systems Constitutional: Fatigue, Other (see hpi). absent: Weight Change, Fevers Eyes: Normal ENT: Normal Respiratory: Normal. absent: SOB, Cough Cardiovascular: Normal Gastrointestinal: Abdominal Pain. absent: Constipation, Diarrhea, Nausea, Vomiting Genitourinary Female: Dysuria, Frequency. absent: Hematuria, Urine Output Changes, Vaginal Bleeding, Vaginal Discharge Musculoskeletal: Normal Skin: Normal Neurological: Other (see hpi). absent: Headache, Dizziness, Focal Weakness, Gait Changes, Speech Changes, Facial Droop, Disequilibrium, Seizure Endocrine: Normal Hemo/Lymphatic: Normal Psychiatric: Normal <Luis Rivas P - Last Filed: 06/11/17 21:40> Physical Exam Temperature: Afebrile Blood Pressure: Normal Pulse: Regular Respiratory Rate: Normal Appearance: Positive for: Well-Appearing, Non-Toxic, Comfortable Pain Distress: None Mental Status: Positive for: Alert and Oriented X 3 - Systems Exam Head: Present: Atraumatic, Normocephalic Pupils: Present: PERRL Extroacular Muscles: Present: EOMI Conjunctiva: Present: Normal Mouth: Present: Moist Mucous Membranes Neck: Present: Normal Range of Motion Respiratory/Chest: Present: Clear to Auscultation, Good Air Exchange. No: Respiratory Distress, Accessory Muscle Use Cardiovascular: Present: Regular Rate and Rhythm, Normal S1, S2. No: Murmurs Abdomen: Present: Tenderness (mild suprapubic tenderness), Normal Bowel Sounds. No: Distention, Peritoneal Signs Back: Present: Normal Inspection. No: CVA Tenderness, Midline Tenderness, Paraspinal Tenderness, Pain with Leg Raise Upper Extremity: Present: Normal Inspection, Normal ROM, NORMAL PULSES, Neurovascularly Intact, Capillary Refill < 2s. No: Cyanosis, Edema Lower Extremity: Present: Normal Inspection, NORMAL PULSES, Normal ROM, Neurovascularly Intact, Capillary Refill < 2 s. No: Edema, CALF TENDERNESS Neurological: Present: GCS=15, CN II-XII Intact, Speech Normal, Motor Func Grossly Intact, Normal Sensory Function, Normal Cerebellar Funct Skin: Present: Warm, Dry, Normal Color. No: Rashes Psychiatric: Present: Alert, Oriented x 3, Normal Insight, Normal Concentration <Sarah Rivasim P - Last Filed: 06/11/17 21:40> Vital Signs Temp Pulse Resp BP Pulse Ox 06/11/17 19:30 99.8 F H 06/11/17 19:06 162/79 H 06/11/17 17:35 98.2 F 95 H 18 100 06/11/17 17:26 98.2 F 95 H 18 174/89 H 100 Medical Decision Making <Yeyo Sagastume - Last Filed: 06/11/17 20:09> Re-evaluation Time: 20:37 Reassessment Condition: Re-examined, Improving,but remains with symptoms <Luis Rivas P - Last Filed: 06/11/17 21:40> ED Course and Treatment: 06/11/17 20:[address] Bender regarding cyclic symptoms of rigors, shaking, generalized fatigue. He agrees with observation. (Luis Rivas P) - Lab Interpretations Lab Results: 06/11/17 18:04 06/11/17 18:04 Lab Results 06/11/17 18:04: Sodium 142, Potassium 3.8, Chloride 105, Carbon Dioxide 24, Anion Gap 17, BUN 14, Creatinine 1.1, Est GFR ( Amer) > 60, Est GFR (Non- Af Amer) 50, Random Glucose 219 H, Calcium 9.7, Total Bilirubin 0.6, AST 29, ALT 17, Alkaline Phosphatase 95, Lactate Dehydrogenase 670, Total Creatine Kinase 58, Troponin I < 0.01, NT-Pro-B Natriuret Pep 621 H, Total Protein 8.1, Albumin 4.2, Globulin 3.9, Albumin/Globulin Ratio 1.1, Lipase 230 08/30/17 18:04: PT 10.5, INR 0.97, APTT 23.9 06/11/17 18:04: WBC 6.6, RBC 3.41 L, Hgb 9.8 L, Hct 30.5 L, MCV 89.4, MCH 28.7, MCHC 32.1, RDW 15.0 H, Plt Count 406, MPV 8.1, Gran % 78.9 H, Lymph % (Auto) 15.1 L, [place] % (Auto) 5.2, Eos % (Auto) 0.5 L, Baso % (Auto) 0.3, Gran # 5.17, Lymph # 1.0 L, [place] # 0.3, Eos # 0.0, Baso # 0.02 06/11/17 17:59: Urine Color Yellow, Urine Appearance Clear, Urine pH 7.0, Ur Specific [place] 1.025, Urine Protein >=300 H, Urine Glucose (UA) 500 H, Urine Ketones Negative, Urine Blood Moderate H, Urine Nitrate Negative, Urine Bilirubin Negative, Urine Urobilinogen 0.2, Ur Leukocyte Esterase Negative, Urine RBC 20 - 25, Urine WBC 2 - 5, Ur Epithelial Cells 6 - 8, Amorphous Sediment Small, Urine Bacteria Small - Medication Orders Current Medication Orders: Discontinued Medications Sodium Chloride (Sodium Chloride 0.9%) 500 mls @ 999 mls/hr IV .Q31M STA Stop: 06/11/17 19:46 Last Admin: 06/11/17 20:26 Dose: 999 mls/hr Morphine Sulfate (Morphine) 2 mg IVP STAT STA Stop: 06/11/17 19:17 Last Admin: 06/11/17 20:03 Dose: 2 mg - PA / SOLDER SPRAYER / Resident Statement HANNAH has reviewed & agrees with the documentation as recorded. HANNAH has examined the patient and agrees with the treatment plan. <Yeyo Sagastume - Last Filed: 06/11/17 20:09> Disposition/Present on Arrival <Yeyo Sagastume - Last Filed: 06/11/17 20:09> - Present on Arrival Any Indicators Present on Arrival: No History of DVT/PE: No History of Uncontrolled Diabetes: No Urinary Catheter: No History of Decub. Ulcer: No History Surgical Site Infection Following: None - Disposition Have Diagnosis and Disposition been Completed?: Yes Disposition Time: 20:38 Patient Plan: Admission <Luis Rivas - Last Filed: 06/11/17 21:40> - Disposition Diagnosis: Chills (without fever), Pelvic pain in female, History of malaria, Cystitis Disposition: HOSPITALIZED Patient Problems: Current Active Problems Problem Status Onset Cystitis Acute Chills (without fever) Acute Pelvic pain in female Acute History of malaria Acute Condition: STABLE Forms: [email or web address] (Ukrainian)
[2017-06-11 18:14] LABS: URINE BILIRUBIN NEGATIVE (NEGATIVE); URINE BLOOD MODERATE (NEGATIVE); URINE GLUCOSE (UA) 500 mg/dL (NEGATIVE); URINE KETONE NEGATIVE (NEGATIVE); URINE LEUKOCYTE ESTERASE NEGATIVE Leu/uL (NEGATIVE); URINE PROTEIN >=300 mg/dL (<30 mg/dL); URINE UROBILINOGEN 0.2 E.U./dL (<1 E.U./dL)
[2017-06-11 18:20] LABS: URINE APPEARANCE CLEAR (CLEAR); URINE COLOR YELLOW (YELLOW); URINE RBC 20 - 25 /hpf (0-2)
[2017-06-11 18:21] LABS: URINE AMORPHOUS SEDIMENT SMALL; URINE BACTERIA SMALL (NEG)
[2017-06-11 18:21] LABS: BASO # 0.02 K/mm3 (0.0-2.0); BASO % 0.3 % (0.0-3.0); EOS % 0.5 % (1.5-5.0); GRAN # 5.17 (1.4-6.5); GRAN % 78.9 % (50.0-68.0); HEMATOCRIT 30.5 % (36.0-48.0); LYMPH % 15.1 % (22.0-35.0); MEAN CELL VOLUME 89.4 fl (80.0-105.0); MEAN CORPUSCULAR HEMOGLOBIN 28.7 pg (25.0-35.0); MEAN CORPUSCULAR HGB CONC 32.1 g/dl (31.0-37.0); MEAN PLATELET VOLUME 8.1 fl (7.0-11.0); MONO # 0.3 (0.1-0.6); MONO % 5.2 % (1.0-6.0); WHITE BLOOD COUNT 6.6 10^3/ul (4.5-11.0)
[2017-06-11 18:26] LABS: ALB/GLOB RATIO 1.1 (1.1-1.8); ALKALINE PHOSPHATASE 95 U/L (38-133); ALT/SGPT 17 U/L (7-56); AST/SGOT 29 U/L (15-39); BILIRUBIN,TOTAL 0.6 mg/dL (0.2-1.3); BLOOD UREA NITROGEN 14 mg/dL (7-21); CALCIUM 9.7 mg/dL (8.4-10.5); CARBON DIOXIDE 24 mmol/L (21-33); CHLORIDE 105 mmol/L (98-107); GFR AFRICAN-AMERICAN > 60; GLUCOSE,RANDOM 219 mg/dL (70-110); LIPASE 230 U/L (23-300); POTASSIUM 3.8 mmol/L (3.6-5.0); SODIUM 142 mmol/L (132-148); TOTAL PROTEIN 8.1 g/dL (5.8-8.3)
[2017-06-11 18:28] LABS: INR 0.97 (0.93-1.08); PARTIAL THROMBOPLASTIN TIME 23.9 Seconds (23.7-30.8)
[2017-06-11 18:41] LABS: TROPONIN I < 0.01 ng/mL
[2017-06-11] MEDS ORDERED: Sodium Chloride 0.9% 500 ML IV STA (19:16)
[2017-06-11] MEDS ORDERED: Morphine 2 mg/ml ISec IVP STA (19:16)
--- NOTE | 2017-06-11 22:20 | CP.PCM.HP ---
<SORAIDA SHEPPARD - Last Filed: 06/12/17 05:59> History of Present Illness - History of Present Illness History of Present Illness: Ms. Dixon is a 62 year old female with significant PMH for DM, HTN, malaria, ATN (was on dialyzed for it), with multiple units pRBC transfused in past admissions and cervical CA with total hysterectomy 3 years ago, who reports 2 day history of pressure-like suprapubic and LLQ abdominal pain that she describes as 12 out of 10 and cramping extending to the L flank, associated with dysuria, burning on urination, and urgency. Patient also reports that she had subjective fevers and chills today, as well as 1 episode of yellow, nonbloody vomiting, and 4 episodes of diarrhea. Patient was seen at [facility] 2 weeks ago for similar urinary symptoms and fever and was discharged home after her dysuria resolved, though she still felt some suprapubic and flank pain at the time of discharge. She states that the suprapubic pain has persisted, however, the dysuria only returned yesterday. Of note, the pt was also worked up for malaria and anemia during her last admission after she was diagnosed in [facility] and treated at another hospital. She states that at home, she has had intermittent chills, generalized weakness requiring a walker or cane to walk, dizziness described as room spinning, and dyspnea on exertion. Yesterday, she had a sharp, left sided headache extending to her eye, but it has since resolved. She states that she has not felt 100% since her diagnosis of malaria. Denies recent cough or cold symptoms, neck pain, chest pain, palpitations, melena, hematochezia, vaginal discharge, focal weakness, or decreased appetite. Pt denied chest pain, palpitations, dyspnea at rest, any vision changes or any any bowel habit changes. 10-point ROS is reviewed and only significant as above. Pt additionally admits that she did not initially take her medications after returning home due to insurance reasons. She began taking her medications 5 days ago after she gained coverage. 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 Family visited recently - pt is not sexually active Present on Admission - Present on Admission Any Indicators Present on Admission: No Review of Systems - Review of Systems All systems: reviewed and no additional remarkable complaints except (as per HPI ) Past Patient History - Tetanus Immunizations Tetanus Immunization: Unknown - Past Medical History & Family History Past Medical History?: Yes - Past Social History Smoking Status: Former Smoker Alcohol: Occasional Drugs: Denies - CARDIAC Hx Cardiac Disorders: Yes Hx Hypertension: Yes - PULMONARY Hx Respiratory Disorders: No - NEUROLOGICAL Hx Neurological Disorder: No - HEENT Hx HEENT Problems: Yes Hx Cataracts: Yes (BILATERAL ) - RENAL Hx Chronic Kidney Disease: No Hx Dialysis: Yes (for ATN 2/2 malaria in a prior admission in [place] hosp) - ENDOCRINE/METABOLIC Hx Endocrine Disorders: Yes Hx Diabetes Mellitus Type 1: Yes - HEMATOLOGICAL/ONCOLOGICAL Hx Blood Disorders: Yes Hx Cancer: Yes (ENDOMETRIAL) - INTEGUMENTARY Hx Dermatological Problems: No - MUSCULOSKELETAL/RHEUMATOLOGICAL Hx Musculoskeletal Disorders: No - GASTROINTESTINAL Hx Gastrointestinal Disorders: No - GENITOURINARY/GYNECOLOGICAL Hx Genitourinary Disorders: Yes (ENDOMETRIAL CA W RADIATION) - PSYCHIATRIC Hx Psychophysiologic Disorder: No Hx Substance Use: No - SURGICAL HISTORY Hx Appendectomy: Yes Hx Hysterectomy: Yes - ANESTHESIA Hx Anesthesia: Yes Hx Anesthesia Reactions: No Hx Malignant Hyperthermia: No Meds Allergies/Adverse Reactions: Allergies Allergy/AdvReac Type Severity Reaction Status Date / Time Penicillins Allergy SWELLING Verified 06/11/17 17:35 Physical Exam - Constitutional Appears: Well, Non-toxic, No Acute Distress - Head Exam Head Exam: ATRAUMATIC, NORMAL INSPECTION, NORMOCEPHALIC - Eye Exam Eye Exam: EOMI, Normal appearance, PERRL. absent: Scleral icterus - ENT Exam ENT Exam: Mucous Membranes Moist, Normal Exam - Neck Exam Neck exam: Positive for: Normal Inspection - Respiratory Exam Respiratory Exam: Clear to Auscultation Bilateral, NORMAL BREATHING PATTERN. absent: Accessory Muscle Use, Rales, Rhonchi, Wheezes, Respiratory Distress, Stridor - Cardiovascular Exam Cardiovascular Exam: RRR, +S1, +S2. absent: Gallop, JVD, Rubs - GI/Abdominal Exam GI & Abdominal Exam: Normal Bowel Sounds, Soft, Tenderness (moderate in LLQ and suprapubic). absent: Distended - Extremities Exam Extremities exam: Positive for: normal inspection, pedal pulses present. Negative for: calf tenderness, pedal edema, tenderness - Back Exam Back exam: CVA tenderness (L), NORMAL INSPECTION. absent: CVA tenderness (R) - Neurological Exam Neurological exam: Alert, Oriented x3 - Psychiatric Exam Psychiatric exam: Normal Affect, Normal Mood - Skin Skin Exam: Normal Color, Warm Results - Vital Signs Recent Vital Signs: Last Vital Signs Temp 99.8 F H 06/11/17 19:30 Pulse 95 H 06/11/17 17:35 Resp 18 06/11/17 17:35 BP 162/79 H 06/11/17 19:06 Pulse Ox 100 06/11/17 17:35 - Labs Result Diagrams: 06/11/17 18:04 06/11/17 18:04 Assessment & Plan - Assessment and Plan (Free Text) Assessment: 62 year old female with PMH for DM, HTN, cerebral malaria, ATN, and cervical CA s/p hysterectomy, admitted for recurrent urinary symptoms and generalized chills and weakness s/p recent treatment for malaria. Pt is s/p treatment for malaria 2 months ago after a visit to [facility] and multiple units transfused for anemia Plan: 1. Dysuria and suprapubic pain - UA ordered, shows >300 protein, 500 glucose, moderate blood, no leuks - CT abdomen during last admission showed L obstructive uropathy without calculus, and a renal US showing mild L renal collecting system dilatation. She was prophylactically started on abx but d/c when urine cx were negative. - renal and spleen US ordered, f/u results - blood and urine cx sent - ID consulted, recs appreciated - Aztreonam 1gm q8h, vanc 1gm x1 per ID recs - Motrin PRN for pain 3. Anemia, recent h/o malaria - diagnosed with malaria after trip to [facility] in April s/p tx with Quinidine and Artensunate. She received 4 units pRBC and required dialysis for PRIETO at that time. - She was admitted at [facility] on 05/26 and was found to be anemic then as well, Hgb = 6.7. She was transfused 2 units pRBC. - Hgb = 9.8 today. Stable, improved from Hgb @ last d/c (7.9) - monitor H/H - repeat malaria/babesia/parasite testing - repeat peripheral smear - retic count elevated 1.84 - continue ferrous sulfate 3. Low grade fever - currently afebrile - Tylenol PRN for fever 4. Uncontrolled DM (glucose = 258) - repeat FS - insulin sliding scale 5. Uncontrolled HTN (BP = 162/79) - repeat HTN monitoring - continue home meds (Lisinopril, Metoprolol) 6. medical non-compliance - poor f/u with malaria workup post-d/c and didn't take home BP meds - referral [facility] ptx/scds Patient was evlauted and d/w attending, Dr Napoleon Galindo, AHMET Sheppard, PGY1 - Date & Time Date: 06/12/17 Time: 01:00 <Pranav Bender - Last Filed: 06/14/17 03:15> Results - Vital Signs Recent Vital Signs: Last Vital Signs Temp 97.9 F 06/14/17 00:00 Pulse 69 06/14/17 00:00 Resp 20 06/14/17 00:00 BP 143/77 06/14/17 00:00 Pulse Ox 100 06/14/17 00:00 - Labs Result Diagrams: 06/13/17 20:32 06/13/17 05:30 Labs: Laboratory Results - last 24 hr 06/13/17 06/13/17 06/13/17 12:14 12:55 12:55 WBC RBC Hgb Hct MCV MCH MCHC RDW Plt Count MPV Gran % Lymph % (Auto) [place] % (Auto) Eos % (Auto) Baso % (Auto) Gran # Lymph # [place] # Eos # Baso # Retic Count 2.08 H POC Glucose (mg/dL) Lactate Dehydrogenase Blood Type A POSITIVE Antibody Screen Negative AAKASH, Poly Interpret Negative Indirect Antiglob Test Negative Crossmatch See Detail BBK History Checked Patient has bt 06/13/17 06/13/17 06/13/17 12:55 16:01 20:32 WBC 5.0 D RBC 3.30 L Hgb 9.5 L Hct 29.7 L MCV 90.0 MCH 28.8 MCHC 32.0 RDW 14.6 H Plt Count 391 MPV 8.3 Gran % 83.3 H Lymph % (Auto) 14.5 L [place] % (Auto) 1.6 Eos % (Auto) 0.2 L Baso % (Auto) 0.4 Gran # 4.13 Lymph # 0.7 L [place] # 0.1 Eos # 0.0 Baso # 0.02 Retic Count POC Glucose (mg/dL) 137 H Lactate Dehydrogenase 494 Blood Type Antibody Screen AAKASH, Poly Interpret Indirect Antiglob Test Crossmatch BBK History Checked 06/13/17 21:13 WBC RBC Hgb Hct MCV MCH MCHC RDW Plt Count MPV Gran % Lymph % (Auto) [place] % (Auto) Eos % (Auto) Baso % (Auto) Gran # Lymph # Dale # Eos # Baso # Retic Count POC Glucose (mg/dL) 333 H Lactate Dehydrogenase Blood Type Antibody Screen AAKASH, Poly Interpret Indirect Antiglob Test Crossmatch BBK History Checked Attending/Attestation - Attestation I have personally seen and examined this patient.: Yes I have fully participated in the care of the patient.: Yes I have reviewed all pertinent clinical information: Yes Notes (Text): 06/14/17 03:15 Patient was seen. Agree with history, physical examination, assessment and plan.
[2017-06-11] MEDS: Insulin Lispro (humaLOG) MEDIUM Coverage SC SCH (22:27)
[2017-06-11] MEDS ORDERED: Vancomycin 1gm in NS 250ml 1 GM/250 ML BAG IVPB STA (23:17)
[2017-06-11] MEDS: Aztreonam 1 Gm in NS 100mL 100 ML IVPB SCH (23:58)
[2017-06-12 01:02] LABS: RETIC% 1.84 % (0.5-1.5)
[2017-06-12] MEDS: Aztreonam 1 Gm in NS 100mL 100 ML IVPB SCH ×3 (06:26→22:09)
[2017-06-12] MEDS: Pantoprazole 40 mg EC Tab PO SCH (06:27)
[2017-06-12 07:26] LABS: HEMATOCRIT 25.5 % (36.0-48.0); MEAN CELL VOLUME 90.4 fl (80.0-105.0); MEAN CORPUSCULAR HEMOGLOBIN 28.4 pg (25.0-35.0); MEAN CORPUSCULAR HGB CONC 31.4 g/dl (31.0-37.0); MEAN PLATELET VOLUME 8.3 fl (7.0-11.0); RED CELL DISTRIBUTION WIDTH 15.1 % (11.5-14.5); WHITE BLOOD COUNT 4.9 10^3/ul (4.5-11.0)
[2017-06-12 07:28] LABS: ALB/GLOB RATIO 1.1 (1.1-1.8); ALKALINE PHOSPHATASE 76 U/L (38-133); ALT/SGPT 24 U/L (7-56); AST/SGOT 22 U/L (15-39); BILIRUBIN,TOTAL 0.4 mg/dL (0.2-1.3); BLOOD UREA NITROGEN 11 mg/dL (7-21); CARBON DIOXIDE 27 mmol/L (21-33); CHLORIDE 108 mmol/L (98-107); GFR AFRICAN-AMERICAN > 60; GLUCOSE,RANDOM 206 mg/dL (70-110); POTASSIUM 3.5 mmol/L (3.6-5.0); SODIUM 143 mmol/L (132-148); TOTAL PROTEIN 6.8 g/dL (5.8-8.3)
[2017-06-12] MEDS ORDERED: Potassium Chloride 20 mEq ER Tab PO ONE ×2 (08:00→09:05)
[2017-06-12] MEDS: Metoprolol Succinate 25 mg XL Tab PO SCH (09:17)
[2017-06-12] MEDS: Insulin Lispro (humaLOG) MEDIUM Coverage SC SCH ×4 (09:18→22:12)
--- NOTE | 2017-06-12 09:47 | CARD ---
APPROVED REPORT EKG Measurement Heart [id number] <Conclusion> Normal sinus rhythm Left axis deviation Abnormal ECG
--- NOTE | 2017-06-12 15:13 | CP.PCM.CON ---
History of Present Illness - History of Present Illness History of Present Illness: 62 year old female with PMH of DM, HTN, history of uterine cancer S/P hysterectomy S/P radiation and chemotherapy, S/P appendectomy, COPD obesity with BMI 38, S/P treatment of severe malaria last month at [facility] comes in complaining of generalized weakness, chills as well as dysuria for the past 3-4 days. She is also has occasional left sided flank pain radiating to her left groin. She denies headache or dizziness, no nausea or vomiting, no abdominal pain, no cough or colds, no sore throat, no bleeding, no hematuria, no diarrhea. Infectious Diseases consult is requested to further evaluate and manage. Review of Systems - Review of Systems All systems: reviewed and no additional remarkable complaints except (as per HPI ) Past Patient History - Tetanus Immunizations Tetanus Immunization: Unknown - Past Medical History & Family History Past Medical History?: Yes - Past Social History Smoking Status: Former Smoker - CARDIAC Hx Cardiac Disorders: Yes Hx Hypertension: Yes - PULMONARY Hx Respiratory Disorders: No - NEUROLOGICAL Hx Neurological Disorder: No - HEENT Hx HEENT Problems: Yes Hx Cataracts: Yes (BILATERAL ) - RENAL Hx Chronic Kidney Disease: No - ENDOCRINE/METABOLIC Hx Endocrine Disorders: Yes Hx Diabetes Mellitus Type 1: Yes - HEMATOLOGICAL/ONCOLOGICAL Hx Blood Disorders: Yes Hx Cancer: Yes (ENDOMETRIAL) - INTEGUMENTARY Hx Dermatological Problems: No - MUSCULOSKELETAL/RHEUMATOLOGICAL Hx Musculoskeletal Disorders: No - GASTROINTESTINAL Hx Gastrointestinal Disorders: No - GENITOURINARY/GYNECOLOGICAL Hx Genitourinary Disorders: Yes (ENDOMETRIAL CA W RADIATION) - PSYCHIATRIC Hx Psychophysiologic Disorder: No Hx Substance Use: No - SURGICAL HISTORY Hx Appendectomy: Yes Hx Hysterectomy: Yes - ANESTHESIA Hx Anesthesia: Yes Hx Anesthesia Reactions: No Hx Malignant Hyperthermia: No Meds Allergies/Adverse Reactions: Allergies Allergy/AdvReac Type Severity Reaction Status Date / Time Penicillins Allergy SWELLING Verified 06/11/17 17:35 - Medications Medications: Current Medications Acetaminophen (Tylenol 325mg Tab) 650 mg PO Q4 PRN PRN Reason: Fever >100.4 F Ferrous Sulfate (Feosol) 324 mg PO BID IRLANDA Furosemide (Lasix) 40 mg PO DAILY IRLANDA Vancomycin HCl (Vancomycin 1gm) 1 gm in 250 mls @ 167 mls/hr IVPB STAT STA PRN Reason: Protocol Stop: 06/12/17 00:46 Aztreonam (Azactam 1 Gm) 100 mls @ 100 mls/hr IVPB Q8 IRLANDA PRN Reason: Protocol Stop: 06/18/17 23:31 Ibuprofen (Motrin Tab) 400 mg PO Q4 PRN PRN Reason: Pain, Mild (1-3) Insulin Human Lispro (Humalog Med) 0 units SC ACHS IRLANDA PRN Reason: Protocol Last Admin: 06/11/17 22:27 Dose: Not Given Lisinopril (Zestril) 10 mg PO DAILY IRLANDA Metoprolol Succinate (Toprol Xl) 25 mg PO DAILY IRLANDA Pantoprazole Sodium (Protonix Ec Tab) 40 mg PO 0600 IRLANDA Physical Exam - Constitutional Appears: Non-toxic, No Acute Distress - Head Exam Head Exam: NORMAL INSPECTION - ENT Exam ENT Exam: Mucous Membranes Moist - Neck Exam Neck exam: Negative for: Lymphadenopathy, Meningismus - Respiratory Exam Respiratory Exam: Decreased Breath Sounds - Cardiovascular Exam Cardiovascular Exam: +S1, +S2 - GI/Abdominal Exam GI & Abdominal Exam: Soft. absent: Tenderness - Back Exam Back exam: absent: CVA tenderness (L), CVA tenderness (R) Results - Vital Signs Recent Vital Signs: Last Vital Signs Temp 99.8 F H 06/11/17 19:30 Pulse 95 H 06/11/17 17:35 Resp 18 06/11/17 17:35 BP 162/79 H 06/11/17 19:06 Pulse Ox 100 06/11/17 17:35 - Labs Result Diagrams: 06/12/17 07:00 06/12/17 07:00 Labs: Laboratory Results - last 24 hr 06/11/17 22:25 POC Glucose (mg/dL) 258 H Assessment & Plan - Assessment and Plan (Free Text) Plan: Assessment Left flank pain R/O nephrolithiasis, renal colic, R/O UTI Recent treatment of severe malarial infection (P. falciparum) - currently, patient's LDH, bilirubin levels are not elevated, although retic count is still elevated (i.e. no hard signs of hemolysis) chronic renal failure DM HTN history of uterine cancer S/P hysterectomy S/P radiation and chemotherapy S/P appendectomy COPD obesity with BMI 38 Plan first malaria test is negative - will repeat 2 more to rule it out; started Azactam pending blood and urine cx; follow up renal ultrasound will monitor clinically
--- NOTE | 2017-06-12 15:46 | US ---
PROCEDURE: Ultrasound of the Kidneys HISTORY: flank pain, r/o hydronephrosis COMPARISON: None available. TECHNIQUE: Sonogram of the kidneys. FINDINGS: RIGHT KIDNEY: Measures: 12.7 cm. Normal in size, contour and echogenicity. No stone, solid mass lesion or hydronephrosis visualized. LEFT KIDNEY: Measures: 13.1 cm. Normal in size, contour and echogenicity. There is mild left hydronephrosis. There is no mass or calculus. OTHER FINDINGS: None. IMPRESSION: Mild left hydronephrosis.
--- NOTE | 2017-06-12 18:31 | CP.PCM.PN ---
Subjective - Date & Time of Evaluation Date of Evaluation: 06/12/17 Time of Evaluation: 07:30 - Subjective Subjective: Mirtha Arcos DO PGY1 - Internal Medicine Progress Note Patient seen and examined at bedside. She was admitted last night for pyelonephritis. Today, she still has suprapubic pain and dysuria, but drastically improved since yesterday. She denies F/C, N/V/D/C. Objective - Vital Signs/Intake and Output Vital Signs (last 24 hours): Temp Pulse Resp BP Pulse Ox 98.3 F 92 H 20 155/90 H 98 06/12/17 16:03 06/12/17 16:03 06/12/17 16:03 06/12/17 16:03 06/12/17 16:03 Intake and Output: 06/12/17 06/12/17 06:59 18:59 Intake Total 680 620 Balance 680 620 - Medications Medications: Current Medications Acetaminophen (Tylenol 325mg Tab) 650 mg PO Q4 PRN PRN Reason: Fever >100.4 F Last Admin: 06/12/17 06:30 Dose: 650 mg Ferrous Sulfate (Feosol) 324 mg PO BID [facility] Last Admin: 06/12/17 17:27 Dose: 324 mg Furosemide (Lasix) 40 mg PO DAILY [facility] Last Admin: 06/12/17 09:17 Dose: 40 mg Heparin Sodium (Porcine) (Heparin) 5,000 units SC Q12 [facility] PRN Reason: Protocol Last Admin: 06/12/17 16:20 Dose: 5,000 units Aztreonam (Azactam 1 Gm) 100 mls @ 100 mls/hr IVPB Q8 [facility] PRN Reason: Protocol Stop: 06/18/17 23:31 Last Admin: 06/12/17 16:19 Dose: 100 mls/hr Ibuprofen (Motrin Tab) 400 mg PO Q4 PRN PRN Reason: Pain, Mild (1-3) Insulin Detemir (Levemir) 10 unit SC HS [facility] Insulin Human Lispro (Humalog Med) 0 units SC ACHS [facility] PRN Reason: Protocol Last Admin: 06/12/17 16:20 Dose: 1 units Lisinopril (Zestril) 10 mg PO DAILY [facility] Last Admin: 06/12/17 09:17 Dose: 10 mg Metoprolol Succinate (Toprol Xl) 25 mg PO DAILY [facility] Last Admin: 06/12/17 09:17 Dose: 25 mg Pantoprazole Sodium (Protonix Ec Tab) 40 mg PO 0600 [facility] Last Admin: 06/12/17 06:27 Dose: 40 mg - Labs Labs: 06/12/17 07:00 06/12/17 07:00 PT 10.5 Seconds (9.9-11.8) 06/11/17 18:04 INR 0.97 (0.93-1.08) 06/11/17 18:04 APTT 23.9 Seconds (23.7-30.8) 06/11/17 18:04 Assessment and Plan - Assessment and Plan (Free Text) Assessment: 62 year old female with PMH of DM, HTN, complicated malarial infection, and cervical CA s/p hysterectomy, admitted for pyelonephritis. Pt is s/p treatment for malaria 2 months ago after a visit to [facility] and multiple units transfused for anemia. Plan: 1. Pyelonephritis - UA showed >300 protein, 500 glucose, moderate blood, no leuks - Patient had fevers at home, has dysuria and hematuria with flank pain, and positive CVA tenderness which clinically indicates pyelonephritis - CT abdomen during last admission showed L obstructive uropathy without calculus, and a renal US showing mild L renal collecting system dilatation. At that admission, she was prophylactically started on abx but d/c when urine cx were negative. - renal US significant for mild left hydronephrosis - BCx pending. UCx shows no growth after 24 hours - ID consulted, recs appreciated - Aztreonam 1gm IV q8h per ID recs - Will require IV Abx for at least 3-4 days before switching to PO - Patient is now afebrile with no leukocytosis, continue to monitor 3. Anemia, recent h/o malaria - diagnosed with malaria after trip to [facility] in April s/p tx with Quinidine and Artensunate. She received 4 units pRBC and required dialysis for acute renal failure 2/2 ATN at that time. - She was admitted at [facility] on 05/26 and was found to be anemic then as well, Hgb = 6.7. She was transfused 2 units pRBC. - Hgb = 8.0 today, after fluid administration, likely dilutional. Will recheck with AM labs. - monitor H/H - repeat malaria/babesia/parasite testing, results pending - repeat peripheral smear, results pending - retic count elevated 1.84 - continue ferrous sulfate 4. Uncontrolled DM - Start levimir 10u HS - insulin sliding scale - Accucheck ACHS 5. H/o HTN - BP improved after pain improved and after receiving BP meds - continue home meds (Lisinopril, Metoprolol) 6. medical non-compliance - poor f/u with malaria workup post-d/c and didn't take home BP meds - referral [facility] ptx/scds
[2017-06-12] MEDS ORDERED: Insulin Detemir 100 units/ml Vial (Levemir) SC SCH (22:00)
[2017-06-13 05:56] LABS: HEMATOCRIT 24.2 % (36.0-48.0); MEAN CORPUSCULAR HEMOGLOBIN 28.3 pg (25.0-35.0); MEAN CORPUSCULAR HGB CONC 31.4 g/dl (31.0-37.0); MEAN PLATELET VOLUME 7.8 fl (7.0-11.0); WHITE BLOOD COUNT 3.4 10^3/ul (4.5-11.0)
[2017-06-13] MEDS: Aztreonam 1 Gm in NS 100mL 100 ML IVPB SCH ×3 (06:33→21:43)
[2017-06-13] MEDS: Pantoprazole 40 mg EC Tab PO SCH (06:33)
[2017-06-13 06:51] LABS: ALKALINE PHOSPHATASE 75 U/L (38-126); ALT/SGPT 21 U/L (7-56); AST/SGOT 18 U/L (14-36); BILIRUBIN,TOTAL 0.4 mg/dL (0.2-1.3); BLOOD UREA NITROGEN 11 mg/dL (7-21); CARBON DIOXIDE 25 mmol/L (21-33); CHLORIDE 110 mmol/L (98-107); GFR AFRICAN-AMERICAN > 60; GLUCOSE,RANDOM 126 mg/dL (70-110); POTASSIUM 3.3 mmol/L (3.6-5.0); SODIUM 142 mmol/L (132-148); TOTAL PROTEIN 6.5 g/dL (5.8-8.3)
[2017-06-13] MEDS: Insulin Lispro (humaLOG) MEDIUM Coverage SC SCH ×4 (08:30→21:40)
[2017-06-13] MEDS: Metoprolol Succinate 25 mg XL Tab PO SCH (11:20)
[2017-06-13] MEDS ORDERED: DiphenhydrAMINE 50 mg/ml Inj IVP ONE (12:00)
[2017-06-13] MEDS ORDERED: Potassium Chloride 20 mEq ER Tab PO ONE (12:15)
[2017-06-13 13:08] LABS: RETIC% 2.08 % (0.5-1.5)
--- NOTE | 2017-06-13 13:52 | PN ---
DATE: 06/13/2017 SUBJECTIVE: The patient is seen earlier today. She states she is doing better. No fevers. No chills. No pain. PHYSICAL EXAMINATION: VITAL SIGNS: Temperature is 98, blood pressure is 150/90, respiratory rate of 20, heart rate of 92. HEENT: Unremarkable. NECK: Supple. LUNGS: Decreased breath sounds. HEART: Normal S1 and S2. ABDOMEN: Soft, nontender. LABORATORY DATA: Reveals a white count of 3.4. Coagulation is noted. Chemistries reveals a BUN 11, creatinine 0.9. Urinalysis is noted and microbiology reveals the blood cultures are negative. Urine cultures are negative. ASSESSMENT AND PLAN: A 62-year-old female with diabetes, hypertension, history of uterine cancer, history of hysterectomy and history of radiation on chemotherapy, appendectomy, chronic obstructive pulmonary disease, obesity, status post treatment of severe malaria last month at [facility], comes in complaining of generalized weakness and chills, dysuria, who is ALLERGIC TO PENICILLIN and left flank pain, must rule out nephrolithiasis, renal colic and currently on Azactam, pending final culture results and workup results. We will follow closely with you. Jasiel Crane MD
--- NOTE | 2017-06-13 15:07 | CP.PCM.PN ---
<Tess Garcia - Last Filed: 06/13/17 16:06> Subjective - Date & Time of Evaluation Date of Evaluation: 06/13/17 Time of Evaluation: 15:04 - Subjective Subjective: PGY-[address] Gallardo Pt seen and examined. + nausea controlled by zofran. + CVA L tenderness, + suprapubic pain. Hb drop to 7.6, will transfuse 1u pRBC. complained occasional dizziness. Increase lantus. Objective - Vital Signs/Intake and Output Vital Signs (last 24 hours): Temp Pulse Resp BP Pulse Ox 98.3 F 81 20 148/79 98 06/13/17 14:54 06/13/17 11:20 06/13/17 07:43 06/13/17 11:20 06/13/17 07:43 - Medications Medications: Current Medications Acetaminophen (Tylenol 325mg Tab) 650 mg PO Q4 PRN PRN Reason: Fever >100.4 F Last Admin: 06/12/17 06:30 Dose: 650 mg Ferrous Sulfate (Feosol) 324 mg PO BID [facility] Last Admin: 06/13/17 11:18 Dose: 324 mg Furosemide (Lasix) 40 mg PO DAILY [facility] Last Admin: 06/13/17 11:19 Dose: 40 mg Heparin Sodium (Porcine) (Heparin) 5,000 units SC Q12 [facility] PRN Reason: Protocol Last Admin: 06/13/17 11:19 Dose: 5,000 units Aztreonam (Azactam 1 Gm) 100 mls @ 100 mls/hr IVPB Q8 [facility] PRN Reason: Protocol Stop: 06/18/17 23:31 Last Admin: 06/13/17 06:33 Dose: 100 mls/hr Ibuprofen (Motrin Tab) 400 mg PO Q4 PRN PRN Reason: Pain, Mild (1-3) Insulin Detemir (Levemir) 10 unit SC HS [facility] Last Admin: 06/12/17 22:14 Dose: 10 unit Insulin Human Lispro (Humalog Med) 0 units SC ACHS [facility] PRN Reason: Protocol Last Admin: 06/13/17 11:42 Dose: 3 units Lisinopril (Zestril) 10 mg PO DAILY [facility] Last Admin: 06/13/17 11:19 Dose: 10 mg Metoprolol Succinate (Toprol Xl) 25 mg PO DAILY [facility] Last Admin: 06/13/17 11:20 Dose: 25 mg Pantoprazole Sodium (Protonix Ec Tab) 40 mg PO 0600 [facility] Last Admin: 06/13/17 06:33 Dose: 40 mg - Labs Labs: PT 10.5 Seconds (9.9-11.8) 06/11/17 18:04 INR 0.97 (0.93-1.08) 06/11/17 18:04 APTT 23.9 Seconds (23.7-30.8) 06/11/17 18:04 - Constitutional Appears: No Acute Distress - Head Exam Head Exam: ATRAUMATIC, NORMAL INSPECTION, NORMOCEPHALIC - Eye Exam Eye Exam: EOMI, Normal appearance, PERRL - ENT Exam ENT Exam: Mucous Membranes Moist, Normal Exam - Respiratory Exam Respiratory Exam: Clear to Ausculation Bilateral, NORMAL BREATHING PATTERN - Cardiovascular Exam Cardiovascular Exam: REGULAR RHYTHM, +S1, +S2. absent: Murmur - GI/Abdominal Exam GI & Abdominal Exam: Soft, Normal Bowel Sounds. absent: Tenderness Additional comments: + suprapubic tenderness - Extremities Exam Extremities Exam: Normal Capillary Refill. absent: Calf Tenderness, Pedal Edema - Back Exam Back Exam: CVA tenderness (L). absent: CVA tenderness (R) - Neurological Exam Neurological Exam: Alert, Awake, Oriented x3 - Psychiatric Exam Psychiatric exam: Normal Affect, Normal Mood - Skin Skin Exam: Dry, Warm Assessment and Plan - Assessment and Plan (Free Text) Plan: 62 yo female with PMH of DM, HTN, COPD, complicated malarial infection, and cervical CA s/p hysterectomy & radiochemo, admitted for pyelonephritis. Pt is s/ p treatment for malaria 2 months ago after a visit to [facility] and multiple units transfused for anemia. Pyelonephritis, PCN allergy - CT abdomen during last admission showed L obstructive uropathy without calculus, and a renal US showing mild L renal collecting system dilatation. - urine culture neg - blood culture no growth x 1 d - Aztreonam (day 2) - F/u ID re: discharge - renal US significant for mild left hydronephrosis Malaria - ID managing - first test is negative, will repeat 2 more to rule it out (malaria/babesia test) Acute on chronic Anemia, recent h/o malaria, - hemolytic vs infection. Doubt GI bleed - diagnosed with malaria after trip to [facility] in April s/p tx with Quinidine and Artensunate. She received 4 units pRBC and required dialysis for acute renal failure 2/2 ATN at that time. - monitor H/H - Pending peripheral smear, LDH, natan, haptaglobin, retic count, heme occult stool - retic count elevated 1.84 - continue ferrous sulfate 324 BID DM - increase levimir from 10u to 15u HS, ISSS, Accucheck ACHS HTN - BP improved after pain improved and after receiving BP meds - continue home meds (Lisinopril, Metoprolol, lasix) medical non-compliance - poor f/u with malaria workup post-d/c and didn't take home BP meds - SW referral cervical CA s/p hysterectomy & radiochemo - CT abdomen and pelvis with IV and po contrast HHD; ptx/scds Disposition plan: Not yet Consult: ID Dr. Royce Aden S/r/d/w Dr. Gallardo <Callie Gallardo - Last Filed: 06/13/17 16:59> Objective - Vital Signs/Intake and Output Vital Signs (last 24 hours): Temp Pulse Resp BP Pulse Ox 97.7 F 69 14 145/69 98 06/13/17 16:27 06/13/17 16:27 06/13/17 16:27 06/13/17 16:27 06/13/17 07:43 Intake and Output: 06/13/17 06/13/17 06:59 18:59 Intake Total 25 Balance 25 - Medications Medications: Current Medications Acetaminophen (Tylenol 325mg Tab) 650 mg PO Q4 PRN PRN Reason: Fever >100.4 F Last Admin: 06/12/17 06:30 Dose: 650 mg Furosemide (Lasix) 40 mg PO DAILY [facility] Last Admin: 06/13/17 11:19 Dose: 40 mg Heparin Sodium (Porcine) (Heparin) 5,000 units SC Q12 [facility] PRN Reason: Protocol Last Admin: 06/13/17 11:19 Dose: 5,000 units Aztreonam (Azactam 1 Gm) 100 mls @ 100 mls/hr IVPB Q8 [facility] PRN Reason: Protocol Stop: 06/18/17 23:31 Last Admin: 09/01/17 06:33 Dose: 100 mls/hr Insulin Detemir (Levemir) 15 unit SC [facility] Insulin Human Lispro (Humalog Med) 0 units SC [facility] PRN Reason: Protocol Last Admin: 06/13/17 11:42 Dose: 3 units Lisinopril (Zestril) 10 mg PO DAILY [facility] Last Admin: 06/13/17 11:19 Dose: 10 mg Metoprolol Succinate (Toprol Xl) 25 mg PO DAILY [facility] Last Admin: 06/13/17 11:20 Dose: 25 mg Pantoprazole Sodium (Protonix Ec Tab) 40 mg PO 0600 [facility] Last Admin: 06/13/17 06:33 Dose: 40 mg - Labs Labs: PT 10.5 Seconds (9.9-11.8) 06/11/17 18:04 INR 0.97 (0.93-1.08) 06/11/17 18:04 APTT 23.9 Seconds (23.7-30.8) 06/11/17 18:04 Attending/Attestation - Attestation I have personally seen and examined this patient.: Yes I have fully participated in the care of the patient.: Yes I have reviewed all pertinent clinical information, including history, physical exam and plan: Yes Notes (Text): 06/13/17 16:58 patient seen and examined at bedside. vitals, labs, notes,orders reviewed. Agree with the plan of care as outlined by the resident including obtaining continuing IV antibiotics, hemolysis work up, PRBC transfusion and obtaining a CTAP. ID and Hematology follow up appreciated
[2017-06-13] MEDS ORDERED: Barium Sulfate Susp 2.1% w/v, 2.0% w/w 450 mL Bottle PO ONE (15:19)
[2017-06-13 20:39] LABS: BASO # 0.02 K/mm3 (0.0-2.0); BASO % 0.4 % (0.0-3.0); EOS % 0.2 % (1.5-5.0); GRAN # 4.13 (1.4-6.5); GRAN % 83.3 % (50.0-68.0); HEMATOCRIT 29.7 % (36.0-48.0); LYMPH # 0.7 (1.2-3.4); LYMPH % 14.5 % (22.0-35.0); MEAN CORPUSCULAR HEMOGLOBIN 28.8 pg (25.0-35.0); MEAN PLATELET VOLUME 8.3 fl (7.0-11.0); MONO # 0.1 (0.1-0.6); MONO % 1.6 % (1.0-6.0); RED CELL DISTRIBUTION WIDTH 14.6 % (11.5-14.5)
--- NOTE | 2017-06-13 20:49 | US ---
EXAM: US Abdomen Complete EXAM DATE/TIME: 06/13/2017 3:42 PM CLINICAL HISTORY: 62 years old, female; Condition or disease; Other: Anemia TECHNIQUE: Real-time ultrasound of the abdomen (complete) with image documentation. COMPARISON: Prior renal ultrasound of 05/27/2017. FINDINGS: Gallbladder: Wall measures 4.3 mm in thickness, which is slightly thickened (normal less than 3 mm). Otherwise within normal limits in appearance. No gallstones seen. No evidence of pericholecystic fluid. Reportedly negative sonographic Yeager's sign. Common bile duct: Does not appear abnormally dilated, measuring less than 6 mm in diameter. Liver: Enlarged, measuring 20 cm in length. Otherwise within normal limits in appearance. Normal flow seen in the main portal vein on color and Doppler imaging. No focal liver lesions seen. Pancreas: Incompletely seen due to gas. Imaged portions appear unremarkable. Right kidney: Within normal limits in appearance. Measures 12.1 cm in length. No evidence of hydronephrosis. Left kidney: Demonstrates mild hydronephrosis. This was also seen on the prior ultrasound. Otherwise within normal limits in appearance. Measures 12.9 cm in length. No renal calculi are visible sonographically. Spleen: Within normal limits in appearance. Measures 10 cm in length. Aorta: Imaged portions appear unremarkable. IVC: Imaged portions appear unremarkable. IMPRESSION: Gallbladder wall is slightly thickened, of uncertain clinical significance. No evidence of gallstones, pericholecystic fluid, or a positive sonographic Yeager sign. Recommend clinical correlation. Mild left hydronephrosis, also seen on a prior renal ultrasound of 05/26/2017. This could be secondary to a chronic left UPJ obstruction. See above for remaining findings.
[2017-06-13] MEDS: Insulin Detemir 100 units/ml Vial (Levemir) SC SCH (21:40)
[2017-06-14] MEDS: Pantoprazole 40 mg EC Tab PO SCH (06:16)
[2017-06-14] MEDS: Aztreonam 1 Gm in NS 100mL 100 ML IVPB SCH ×3 (06:16→22:28)
[2017-06-14 07:28] LABS: RETIC% 2.28 % (0.5-1.5)
[2017-06-14 07:41] LABS: HEMATOCRIT 25.9 % (36.0-48.0); MEAN CELL VOLUME 90.2 fl (80.0-105.0); MEAN CORPUSCULAR HEMOGLOBIN 28.9 pg (25.0-35.0); MEAN PLATELET VOLUME 8.2 fl (7.0-11.0); RED CELL DISTRIBUTION WIDTH 14.8 % (11.5-14.5); WHITE BLOOD COUNT 4.3 10^3/ul (4.5-11.0)
[2017-06-14 07:50] LABS: IRON 84 ug/dL (45-180)
[2017-06-14 08:13] LABS: ALB/GLOB RATIO 1.1 (1.1-1.8); ALKALINE PHOSPHATASE 72 U/L (38-126); ALT/SGPT 24 U/L (7-56); AST/SGOT 18 U/L (14-36); BILIRUBIN,TOTAL 0.3 mg/dL (0.2-1.3); BLOOD UREA NITROGEN 12 mg/dL (7-21); CALCIUM 9.1 mg/dL (8.4-10.5); CARBON DIOXIDE 24 mmol/L (21-33); CHLORIDE 108 mmol/L (98-107); GFR AFRICAN-AMERICAN > 60; GLUCOSE,RANDOM 163 mg/dL (70-110); POTASSIUM 3.2 mmol/L (3.6-5.0); SODIUM 141 mmol/L (132-148); TOTAL PROTEIN 6.6 g/dL (5.8-8.3)
[2017-06-14] MEDS: Insulin Lispro (humaLOG) MEDIUM Coverage SC SCH ×4 (08:22→22:29)
[2017-06-14] MEDS ORDERED: Potassium Chloride 40 mEq/30 ml LIQ UD PO ONE (09:26)
--- NOTE | 2017-06-14 09:53 | CP.PCM.PN ---
<[email or web address] - Last Filed: 06/14/17 09:50> Subjective - Date & Time of Evaluation Date of Evaluation: 06/14/17 Time of Evaluation: 07:30 - Subjective Subjective: Mirtha Arcos DO PGY1 - Internal Medicine Progress Note Patient seen and examined at bedside. No acute events reported overnight. Patient admits to suprapubic pain and left flank pain, though decreased since yesterday. She is no longer having dysuria. She also denies F/C, N/V/D, hemoptysis, hematemesis, hematochezia, melena, hematuria. She does admit to some constipation, and has been drinking prune juice since yesterday, but her blood sugar spiked up to 266, so she has stopped that. Objective - Vital Signs/Intake and Output Vital Signs (last 24 hours): Temp Pulse Resp BP Pulse Ox 97.9 F 77 20 141/83 100 06/14/17 07:30 06/14/17 07:30 06/14/17 07:30 06/14/17 07:30 06/14/17 07:30 Intake and Output: 06/14/17 06/14/17 06:59 18:59 Intake Total 1440 Output Total 4 Balance 1436 - Medications Medications: Current Medications Acetaminophen (Tylenol 325mg Tab) 650 mg PO Q4 PRN PRN Reason: Fever >100.4 F Last Admin: 06/12/17 06:30 Dose: 650 mg Furosemide (Lasix) 40 mg PO DAILY [facility] Last Admin: 06/13/17 11:19 Dose: 40 mg Heparin Sodium (Porcine) (Heparin) 5,000 units SC Q12 [facility] PRN Reason: Protocol Last Admin: 06/13/17 21:41 Dose: 5,000 units Aztreonam (Azactam 1 Gm) 100 mls @ 100 mls/hr IVPB Q8 [facility] PRN Reason: Protocol Stop: 06/18/17 23:31 Last Admin: 06/14/17 06:16 Dose: 100 mls/hr Insulin Detemir (Levemir) 15 unit SC HS [facility] Last Admin: 06/13/17 21:40 Dose: 15 unit Insulin Human Lispro (Humalog Med) 0 units SC ACHS [facility] PRN Reason: Protocol Last Admin: 06/14/17 08:22 Dose: 1 units Lisinopril (Zestril) 10 mg PO DAILY [facility] Last Admin: 06/13/17 11:19 Dose: 10 mg Metoprolol Succinate (Toprol Xl) 25 mg PO DAILY [facility] Last Admin: 06/13/17 11:20 Dose: 25 mg Pantoprazole Sodium (Protonix Ec Tab) 40 mg PO 0600 [facility] Last Admin: 06/14/17 06:16 Dose: 40 mg Senna/Docusate Sodium (Senokot S 50 Mg-8.6 Mg) 1 tab PO BID [facility] - Labs Labs: 06/14/17 07:00 06/14/17 07:00 PT 10.5 Seconds (9.9-11.8) 06/11/17 18:04 INR 0.97 (0.93-1.08) 06/11/17 18:04 APTT 23.9 Seconds (23.7-30.8) 06/11/17 18:04 - Constitutional Appears: Non-toxic, No Acute Distress - Head Exam Head Exam: ATRAUMATIC, NORMOCEPHALIC - Eye Exam Eye Exam: EOMI, PERRL Additional comments: Conjunctival pallor - ENT Exam ENT Exam: Mucous Membranes Moist - Neck Exam Neck Exam: absent: Lymphadenopathy, Thyromegaly - Respiratory Exam Respiratory Exam: Clear to Ausculation Bilateral. absent: Rales, Rhonchi - Cardiovascular Exam Cardiovascular Exam: RRR, +S1, +S2 - GI/Abdominal Exam GI & Abdominal Exam: Soft Additional comments: mild/mod suprapubic tenderness - Extremities Exam Extremities Exam: absent: Calf Tenderness, Pedal Edema - Back Exam Back Exam: CVA tenderness (L) (decreased). absent: CVA tenderness (R) - Neurological Exam Neurological Exam: Alert, Awake, Oriented x3 Neuro motor strength exam: Left Upper Extremity: 5, Right Upper Extremity: 5, Left Lower Extremity: 5, Right Lower Extremity: 5 - Psychiatric Exam Psychiatric exam: Normal Affect, Normal Mood - Skin Skin Exam: Dry, Intact Assessment and Plan - Assessment and Plan (Free Text) Assessment: 62 yo female with PMH of DM, HTN, COPD, complicated malarial infection, and cervical CA s/p hysterectomy & radiochemo, admitted for pyelonephritis. Pt is s/ p treatment for malaria 2 months ago after a visit to [facility] and multiple units transfused for anemia. Plan: 1. Pyelonephritis, PCN allergy - CT abdomen during last admission showed L obstructive uropathy without calculus, and a renal US showing mild L renal collecting system dilatation. - Repeat CT abd/pelv ordered, pending - urine culture neg - blood culture no growth x 1 d - Continue Aztreonam (day 3) - ID consulted, all recs appreciated - renal US significant for mild left hydronephrosis - Abd US yesterday shows normal spleen, negative sonographic liu's sign 2. Malaria - ID consulted, all recs appreciated - first test is negative, will repeat 2 more to rule it out (malaria/babesia test) 3. Acute on chronic Anemia, recent h/o malaria, - hemolytic vs infection. Doubt GI bleed - diagnosed with malaria after trip to [facility] in April s/p tx with Quinidine and Artensunate. She received 4 units pRBC and required dialysis for acute renal failure 2/2 ATN at that time. - Hgb dropped yesterday to 7.6, received 1U PRBC, then increased to 9.5 last night. Dropped again to 8.3 today. - Hemodynamically stable, no active bleeding noted, though pending stool for occult blood - LDH 494, Meño negative, Haptoglobin 166, retic count trending up, TSH 2.83, T bili 0.3, Direct bili 0.4 - Peripheral smear pending, stool for occult blood pending - retic count appropriately elevated 1.84 -> 2.08 -> 2.28 - continue ferrous sulfate 324 BID - Hem/Onc (Markie) consulted, all recs appreciated - monitor H/H 4. DM - Continue 15u HS, ISSS, Accucheck ACHS 5. HTN - BP stable - continue home meds (Lisinopril, Metoprolol, lasix) 6. Constipation - No BM for the past 4 days - On iron supp for anemia - Started Senna/Docusate BID 7. medical non-compliance - poor f/u with malaria workup post-d/c and didn't take home BP meds - referral 8. cervical CA s/p hysterectomy & radiochemo - CT abdomen and pelvis with IV and po contrast HHD; ptx/scds Patient seen, discussed, and reviewed with attending Dr. Gallardo <Callie Gallardo - Last Filed: 06/14/17 17:55> Objective - Vital Signs/Intake and Output Vital Signs (last 24 hours): Temp Pulse Resp BP Pulse Ox 98.1 F 66 18 160/88 H 99 06/14/17 16:11 06/14/17 16:11 06/14/17 16:11 06/14/17 16:11 06/14/17 12:12 Intake and Output: 06/14/17 06/14/17 06:59 18:59 Intake Total 1440 255 Output Total 4 Balance 1436 255 - Medications Medications: Current Medications Acetaminophen (Tylenol 325mg Tab) 650 mg PO Q4 PRN PRN Reason: Fever >100.4 F Last Admin: 06/12/17 06:30 Dose: 650 mg Furosemide (Lasix) 40 mg PO DAILY [facility] Last Admin: 06/14/17 12:45 Dose: Not Given Heparin Sodium (Porcine) (Heparin) 5,000 units SC Q12 [facility] PRN Reason: Protocol Last Admin: 06/14/17 10:47 Dose: 5,000 units Aztreonam (Azactam 1 Gm) 100 mls @ 100 mls/hr IVPB Q8 [facility] PRN Reason: Protocol Stop: 06/18/17 23:31 Last Admin: 06/14/17 13:36 Dose: 100 mls/hr Insulin Detemir (Levemir) 15 unit SC HS [facility] Last Admin: 06/13/17 21:40 Dose: 15 unit Insulin Human Lispro (Humalog Med) 0 units SC ACHS [facility] PRN Reason: Protocol Last Admin: 06/14/17 16:29 Dose: Not Given Lisinopril (Zestril) 10 mg PO DAILY [facility] Last Admin: 06/14/17 10:45 Dose: 10 mg Metoprolol Succinate (Toprol Xl) 25 mg PO DAILY [facility] Last Admin: 06/14/17 12:42 Dose: 25 mg Pantoprazole Sodium (Protonix Ec Tab) 40 mg PO 0600 [facility] Last Admin: 06/14/17 06:16 Dose: 40 mg Senna/Docusate Sodium (Senokot S 50 Mg-8.6 Mg) 1 tab PO BID [facility] Last Admin: 06/14/17 12:44 Dose: Not Given - Labs Labs: 06/14/17 07:00 06/14/17 07:00 PT 10.5 Seconds (9.9-11.8) 08/30/17 18:04 INR 0.97 (0.93-1.08) 06/11/17 18:04 APTT 23.9 Seconds (23.7-30.8) 06/11/17 18:04 Attending/Attestation - Attestation I have personally seen and examined this patient.: Yes I have fully participated in the care of the patient.: Yes I have reviewed all pertinent clinical information, including history, physical exam and plan: Yes Notes (Text): 06/14/17 17:54 Patient seen and examined at bedside. No overnight issues reported. vitals, labs , orders and notes reviewed. Sitting up comfortably in bed in no acute distress. Work up ongoing to ascertain etiology of her anemia and symptomatology.Heamtology and ID follow up ongoing. Agree with the plan of care as outlined by the resident.
--- NOTE | 2017-06-14 10:10 | CON ---
DATE: 06/13/[address] Aden. CHIEF COMPLAINT: Anemia. HISTORY OF PRESENT ILLNESS: The patient is a 62-year-old black female admitted by the emergency room two days prior for left flank pain with generalized weakness and chills, now being transfused one unit of pack red blood cells, as per Dr. Callie Gallardo with the patient's lab values shown to see significant anemic indices since admission. Hemoglobin on 06/11/2017 was 9.8, yesterday it was 8.0, today is 7.6 with a retic count of 1.84 on 06/12/2017 with repeat today of 2.08. The patient is seen sitting up in bed, in no acute distress with minimal nausea and minimal abdominal discomfort as her only complaints. ALLERGIES: PENICILLIN. PAST MEDICAL HISTORY: Significant for diabetes, hypertension, uterine cancer status post hysterectomy, radiation and chemotherapy, status post appendectomy, COPD, obesity, and also treatment for malaria at [facility] after travel to [facility] in the past. The patient now ambulating with a walker, reporting that she has had a gait disturbance for approximately one month's of time. She reports having stopped her malaria medication on 05/24/2017. The patient otherwise reporting that the patient also status post multiple transfusions in the past along with anemic indices after having stopped her malaria medication? Treatment with quinidine and artesunate? FAMILY AND SOCIAL HISTORY: Mother had cancer with gallbladder. Brother cancer with the colon. Quit smoking approximately 30 years ago to one pack a day, approximately five years. Rare alcohol with formerly employed as a nurse's aide. REVIEW OF SYSTEMS: A 12-point review of systems was done with negative to question except as above in the history of present illness. OBJECTIVE/PHYSICAL EXAMINATION: VITAL SIGNS: Temperature 98.6, pulse 71, respiration 12, blood pressure 132/67 with a pulse oximetry of 98%. It should be noted on admission her temperature was 98.2 with a high of 99.8 the day following, otherwise normal temperatures afterwards. HEENT: Unremarkable. NECK: Supple. HEART: Regular rate. LUNGS: Clear. ABDOMEN: Obese, soft, and nontender. EXTREMITIES: No edema. SKIN: Warm and dry. NEUROLOGIC: Awake, alert, and oriented. LABORATORY DATA: The patient's labs were done with a white blood cell count today of 3.4; hemoglobin of 7.6, on admission two days prior was 9.8, 8.0 yesterday, 7.6 today; hematocrit 24.2; platelet count of 331,000 with a reticulocyte count of 2.08. Her chem metabolic panel was done today showing a potassium of 3.3, chloride of 110, nonfasting glucose of 134, LVH of 494, otherwise normal chem metabolic panel with B-natriuretic peptide of 621 on admission, otherwise normal labs. Her INR is 0.97 two days ago. Urinalysis showed moderate amount of blood, 500 mg/dL glucose with greater than 300 mg/dL protein. She did have a malaria Babesia smear it is pending with a malaria source showing negative for microscopic examination with Giemsa stained smear with cyclical nature of the parasite, other testing is recommended at 6 and 36-hour intervals for comprehensive exam. The patient's other testing included EKG done on 06/11/2017, which was read as normal sinus rhythm, left axis deviation. The patient had renal ultrasound done on 06/11/2017 it was read as mild left hydronephrosis. ASSESSMENT: Symptomatic anemia, history of malaria with history of acute tubular necrosis with dialysis in the past?, history of cervical cancer status post hysterectomy with radiation and chemotherapy given at that time, diabetes mellitus, and hypertension. The patient's medicines were now reviewed on admission included metoprolol, lisinopril, insulin, and Lasix. She was also known to have knee replacements in the past. The assessment for this patient is as above with symptomatic anemia, history of malaria with treatment, rule out hemolytic anemia. PLAN: After conversation with Dr. Aden to continue present medical regimen as per Dr. Gallardo and residence with transfusion of one unit pack red blood cells today with the patient to have a workup for her anemia including hemolytic anemia, including testing for liver and spleen involvement with hepatic ultrasound and liver, spleen scan. The patient was also noted to be on ibuprofen, which we will discontinue in favor of Tylenol as needed for her discomfort. We will also hold off on the iron as was ordered due to patient's abdominal discomfort, as this may contribute to it with heparin 5000 units subQ given for DVT prophylaxis with her insulin to continue. She is also on GI prophylaxis with Protonix for the time being. We will monitor clinically and with labs. Prognosis for this patient is guarded. Also it should be noted that the patient has a gait disturbance. She ambulates with a cane with consideration for neurologic evaluation should be indicated. Her primary doctor is Dr. Del Rosario, works in [place], does not come to this facility with further information to be obtained for her should be indicated. Ruben Connolly MD
[2017-06-14] MEDS: Metoprolol Succinate 25 mg XL Tab PO SCH (12:42)
[2017-06-14] MEDS: Docusate-Senna 50 mg-8.6 mg Tab PO SCH (12:44)
[2017-06-14] MEDS ORDERED: Iohexol 240 (50 ml) ONE (13:53)
--- NOTE | 2017-06-14 14:26 | PN ---
DATE: 06/14/2017 SUBJECTIVE: The patient is seen earlier this morning in 575, bed 1. No fevers. No chills. No nausea. No vomiting. PHYSICAL EXAMINATION: VITAL SIGNS: Temperature is 98, blood pressure 140/80, respiratory rate 20, heart rate of 77. HEENT: Unremarkable. NECK: Supple. LUNGS: Decreased breath sounds. HEART: Normal S1 and S2. ABDOMEN: Soft, nontender. No organomegaly. No rebound. LABORATORY DATA: White count is 4.3, hemoglobin of 8, platelets of 367. Chemistry reveals a BUN of 12 and creatinine of 0.9. Microbiology is reveals a blood cultures are negative, urine cultures are negative. Ultrasound shows gallbladder slightly thickened and mild hydronephrosis and Dr. Mirtha Arcos note is reviewed. ASSESSMENT AND PLAN: A 62-year-old diabetes, hypertension, history of uterine cancer, history of hysterectomy and history of radiation on chemotherapy, appendectomy, chronic obstructive lung disease, status post treatment of severe malaria last month at [facility], comes now a generalized weakness and dysuria, ALLERGIC TO PENICILLIN with left flank pain, with nephrolithiasis, with renal colic and currently on Azactam. The patient does have anemia with high retic count mildly elevated retic count. We will reorder the malaria smears, which are been ordered and they are pending. We will check on a malaria smears. He has no fever, nontoxic. Review of orders, reveals the patient to be on aztreonam. Continue aztreonam. We will order an urinalysis and urine culture. Jasiel Crane MD
[2017-06-14 16:36] LABS: PH,URINE 6.5 (4.7-8.0); URINE APPEARANCE CLEAR (CLEAR); URINE BILIRUBIN NEGATIVE (NEGATIVE); URINE BLOOD NEGATIVE (NEGATIVE); URINE COLOR YELLOW (YELLOW); URINE GLUCOSE (UA) NEGATIVE (NEGATIVE); URINE KETONE NEGATIVE (NEGATIVE); URINE LEUKOCYTE ESTERASE NEGATIVE Leu/uL (NEGATIVE); URINE PROTEIN NEGATIVE mg/dL (<30 mg/dL); URINE UROBILINOGEN 0.2 E.U./dL (<1 E.U./dL)
--- NOTE | 2017-06-14 18:17 | PN ---
DATE OF VISIT: 06/14/2017. This is [facility] visit on the medical floor. For Dr. Aden. SUBJECTIVE: The patient is a 62-year-old female, sitting up in bed, feels better after transfusion yesterday with her weakness that is now improved, known to have had significant drop in her hemoglobin since admission with transfusion of 1 unit yesterday. She denies nausea at this point with testing in progress. She has a history of being treated for in the past. She is, otherwise, without complaint at this visit. OBJECTIVE/PHYSICAL EXAM: VITAL SIGNS: Temperature 97.9, pulse 77, respirations 20, blood pressure 141/83, pulse ox 100%. HEENT: Unremarkable. NECK: Supple. HEART: Regular rate. LUNGS: Clear. ABDOMEN: Obese, soft, and nontender. EXTREMITIES: No edema. SKIN: Warm and dry. NEUROLOGIC: Awake, alert, and oriented. LABORATORY DATA: The patient's labs were done. White blood cell count of 4.3, hemoglobin 8.3. Yesterday's hemoglobin 7.6, after transfusion it was 9.1. It is 8.3 today. Platelet count 367,000 with retic count of 2.28. A haptoglobin was done yesterday, it was 1.66. Her chem metabolic panel today showed a potassium of 3.2 with a non-fasting glucose of 166, iron saturation of 42% with total iron binding capacity of 200. TSH of 2.83. The patient did have an abdominal ultrasound done yesterday, it was read as gallbladder wall is slightly thickened of uncertain clinical significance. No evidence of gallstones, pericolic cystic fluid, or a positive sonogram Yeager's sign. Recommend clinical correlation. Mild left hydronephrosis also seen on a prior renal scan of 05/26/2017, could be secondary to chronic left UPJ obstruction. Liver is enlarged with pancreas incompletely seen due to gas. ASSESSMENT: For this patient is that of symptomatic anemia, rule out hemolytic anemia, history of malaria, history of acute tubular necrosis with dialysis, history of cervical cancer status post hysterectomy, radiation and chemotherapy, diabetes, hypertension, and obesity. PLAN: The plan for this patient after conversation with Dr. Aden is to transfuse the 2nd unit of packed red blood cells as she was typed and crossed for 2 units with 1 unit given yesterday. We will also await testing that was sent with cytology pending. The patient is, otherwise, to be followed medically with labs. Ruben Connolly MD
[2017-06-14] MEDS ORDERED: Iohexol 350 MG/100 ML VIAL ONE (18:34)
--- NOTE | 2017-06-14 19:43 | CT ---
EXAM: CT Abdomen and Pelvis With Intravenous Contrast EXAM DATE/TIME: 06/14/2017 8:00 AM CLINICAL HISTORY: 62 years old, female; Pain; Abdominal pain; Generalized; Prior surgery; Surgery type: Hysterectomy - appendectomy; Additional info: Recurrent abdominal pain/anemia //pt wants to hold CT for 06/14 TECHNIQUE: Axial computed tomography images of the abdomen and pelvis with intravenous contrast. All CT scans at this facility use one or more dose reduction techniques, viz.: automated exposure control; ma/kV adjustment per patient size (including targeted exams where dose is matched to indication; i.e. head); or iterative reconstruction technique. Coronal and sagittal reformatted images were created and reviewed. CONTRAST: 100 mL of omni 350 administered intravenously. COMPARISON: Prior CT abdomen and pelvis of 05/26/2017 FINDINGS: LIMITATIONS: Mild streak/motion artifact. Artifact related to the patient's body habitus. LOWER THORAX: Heart appears mildly to moderately enlarged, and is larger than on the prior exam. ABDOMEN: LIVER: No acute abnormality of the liver identified. GALLBLADDER AND BILE DUCTS: No CT evidence of acute cholecystitis. No evidence of significant biliary ductal dilatation. PANCREAS: No CT evidence of acute pancreatitis. SPLEEN: 2 cm low density lesion again seen in the spleen, most likely representing a cyst or hemangioma. ADRENALS: No acute abnormality of the adrenal glands identified. KIDNEYS AND URETERS: Stable appearance of mild to moderate left hydronephrosis. No evidence of significant left hydroureter or a delayed left nephrogram. No causative obstructing stone is seen. No acute abnormality of the right kidney identified. STOMACH AND BOWEL: Colonic diverticulosis, with no evidence of acute diverticulitis. Otherwise, no significant abnormality of the bowel is identified. No evidence of bowel obstruction. APPENDIX: Normal appendix is not seen, and there is a reported history of previous appendectomy. PELVIS: BLADDER: Mild to moderate thickening of the bladder wall. REPRODUCTIVE: 5.2 x 5.1 cm left ovarian/adnexal cystic lesion, stable in appearance since the prior CT. This has a CT density mildly higher than expected for simple fluid, and it could represent a mildly complex cyst. Followup pelvic ultrasound is recommended for further evaluation, not necessarily on an emergent basis. Uterus is surgically absent. ABDOMEN and PELVIS: INTRAPERITONEAL SPACE: No evidence of free intraperitoneal air or fluid. BONES/JOINTS: No acute fractures or other acute bony abnormality noted. SOFT TISSUES: No acute abnormality of the visualized soft tissues is seen. VASCULATURE: No evidence of abdominal aortic aneurysm. No evidence of periaortic hemorrhage. LYMPH NODES: No evidence of diffuse lymphadenopathy. IMPRESSION: - Bladder wall thickening. This is a nonspecific finding, but can be seen with cystitis. Recommend clinical correlation. - Otherwise, no evidence of significant acute process. - Left hydronephrosis, without hydroureter, unchanged compared to a prior CT, with no obstructing stone seen. This could be due to a chronic left UPJ obstruction. - Persistent 5.2 cm left ovarian cystic lesion. See recommendations above. - See above for remaining findings.
[2017-06-14] MEDS: Insulin Detemir 100 units/ml Vial (Levemir) SC SCH (22:30)
[2017-06-15] MEDS: Pantoprazole 40 mg EC Tab PO SCH (05:40)
[2017-06-15] MEDS: Aztreonam 1 Gm in NS 100mL 100 ML IVPB SCH ×3 (05:40→21:54)
[2017-06-15] MEDS: Insulin Lispro (humaLOG) MEDIUM Coverage SC SCH ×4 (08:18→21:53)
[2017-06-15 08:24] LABS: HEMATOCRIT 30.4 % (36.0-48.0); MEAN CELL VOLUME 89.4 fl (80.0-105.0); MEAN CORPUSCULAR HEMOGLOBIN 28.8 pg (25.0-35.0); MEAN CORPUSCULAR HGB CONC 32.2 g/dl (31.0-37.0); RED CELL DISTRIBUTION WIDTH 14.9 % (11.5-14.5); WHITE BLOOD COUNT 4.5 10^3/ul (4.5-11.0)
[2017-06-15 08:38] LABS: ALB/GLOB RATIO 1.1 (1.1-1.8); ALKALINE PHOSPHATASE 80 U/L (38-126); ALT/SGPT 20 U/L (7-56); AST/SGOT 21 U/L (14-36); BILIRUBIN,TOTAL 0.4 mg/dL (0.2-1.3); BLOOD UREA NITROGEN 13 mg/dL (7-21); CALCIUM 9.5 mg/dL (8.4-10.5); CARBON DIOXIDE 25 mmol/L (21-33); CHLORIDE 108 mmol/L (98-107); GFR AFRICAN-AMERICAN > 60; GLUCOSE,RANDOM 128 mg/dL (70-110); SODIUM 142 mmol/L (132-148); TOTAL PROTEIN 7.5 g/dL (5.8-8.3)
[2017-06-15] MEDS: Metoprolol Succinate 25 mg XL Tab PO SCH (09:58)
[2017-06-15] MEDS: Docusate-Senna 50 mg-8.6 mg Tab PO SCH ×2 (10:00→17:48)
--- NOTE | 2017-06-15 10:15 | PN ---
DATE: 06/15/2017 SUBJECTIVE: The patient is in bed, in no acute distress, nontoxic. PHYSICAL EXAMINATION: VITAL SIGNS: Temperature is 98, blood pressure is 150/90, respiratory rate of 16. HEENT: Unremarkable. NECK: Supple. LUNGS: Decreased breath sounds. HEART: Normal S1 and S2. ABDOMEN: Soft, nontender. LABORATORY DATA: Reveals the patient's white count is 4.5, retic count is 2.2, hemoglobin is 9. The patient's last LDH is 494. Bilirubin is not elevated. ASSESSMENT AND PLAN: This is a 62-year-old female originally from [place] with history of uterine cancer, history of hysterectomy, history of radiation on chemotherapy, appendectomy, and chronic obstructive lung disease status post treatment for severe malaria at [facility]. She states she was in the hospital for a month. She was in intensive care unit. She had presented with confusion. She developed renal failure and requiring dialysis and allergic to penicillin. Left flank pain, nephrolithiasis. Currently, now with anemia and with mild reticulocytosis, but no LDH and bilirubin elevation. We reviewed her peripheral smears. Post-artesunate delayed hemolysis (PADH) is characterized by greater than 10% decline in hemoglobin levels occurring more than a week after treatment initiation and although there is no real hard evidence for hemolysis here other than the mild retic count, we will discuss with hematology regarding the peripheral smear or there are histiocytes present or not. We will follow with you. Jasiel Crane MD
--- NOTE | 2017-06-15 12:10 | CP.PCM.PN ---
<MIRTHA ARCOS - Last Filed: 06/15/17 12:07> Subjective - Date & Time of Evaluation Date of Evaluation: 06/15/17 Time of Evaluation: 07:30 - Subjective Subjective: Mirtha Arcos DO PGY1 - Internal Medicine Progress Note Patient seen and examined at bedside. No acute events reported overnight. Patient continues to have suprapubic pain and left flank pain, though further decreased since yesterday. She is no longer having dysuria. She also denies F/C , N/V/D, hemoptysis, hematemesis, hematochezia, melena, hematuria. She is still constipated with no BMs overnight, but she denies any new abdominal pain, and is passing flatus, and has a normal appetite. Objective - Vital Signs/Intake and Output Vital Signs (last 24 hours): Temp Pulse Resp BP Pulse Ox 98.4 F 66 20 159/89 H 96 06/15/17 08:00 06/15/17 09:58 06/15/17 08:00 06/15/17 09:59 06/15/17 08:00 Intake and Output: 06/15/17 06/15/17 06:59 18:59 Intake Total 960 Balance 960 - Medications Medications: Current Medications Acetaminophen (Tylenol 325mg Tab) 650 mg PO Q4 PRN PRN Reason: Fever >100.4 F Last Admin: 06/12/17 06:30 Dose: 650 mg Furosemide (Lasix) 40 mg PO DAILY [facility] Last Admin: 06/15/17 09:59 Dose: 40 mg Heparin Sodium (Porcine) (Heparin) 5,000 units SC Q12 IRLANDA PRN Reason: Protocol Last Admin: 06/15/17 10:06 Dose: 5,000 units Aztreonam (Azactam 1 Gm) 100 mls @ 100 mls/hr IVPB Q8 IRLANDA PRN Reason: Protocol Stop: 06/18/17 23:31 Last Admin: 06/15/17 05:40 Dose: 100 mls/hr Insulin Detemir (Levemir) 15 unit SC HS [facility] Last Admin: 06/14/17 22:30 Dose: 15 unit Insulin Human Lispro (Humalog Med) 0 units SC ACHS IRLANDA PRN Reason: Protocol Last Admin: 06/15/17 11:44 Dose: 1 units Lisinopril (Zestril) 10 mg PO DAILY [facility] Last Admin: 06/15/17 09:58 Dose: 10 mg Metoprolol Succinate (Toprol Xl) 25 mg PO DAILY [facility] Last Admin: 06/15/17 09:58 Dose: 25 mg Pantoprazole Sodium (Protonix Ec Tab) 40 mg PO 0600 [facility] Last Admin: 06/15/17 05:40 Dose: 40 mg Senna/Docusate Sodium (Senokot S 50 Mg-8.6 Mg) 1 tab PO BID [facility] Last Admin: 06/15/17 10:00 Dose: 1 tab - Labs Labs: 06/15/17 08:10 06/15/17 08:10 PT 10.5 Seconds (9.9-11.8) 06/11/17 18:04 INR 0.97 (0.93-1.08) 06/11/17 18:04 APTT 23.9 Seconds (23.7-30.8) 06/11/17 18:04 - Constitutional Appears: Non-toxic, No Acute Distress - Head Exam Head Exam: ATRAUMATIC, NORMOCEPHALIC - Eye Exam Eye Exam: EOMI, PERRL Additional comments: Conjunctival pallor - ENT Exam ENT Exam: Mucous Membranes Moist - Neck Exam Neck Exam: absent: Lymphadenopathy, Thyromegaly - Respiratory Exam Respiratory Exam: Clear to Ausculation Bilateral, NORMAL BREATHING PATTERN. absent: Rales, Rhonchi, Wheezes - Cardiovascular Exam Cardiovascular Exam: RRR, +S1, +S2 - GI/Abdominal Exam GI & Abdominal Exam: Soft, Tenderness (mild, suprapubic), Normal Bowel Sounds - Extremities Exam Extremities Exam: Normal Inspection. absent: Calf Tenderness, Pedal Edema - Back Exam Back Exam: CVA tenderness (L) (mild). absent: CVA tenderness (R) - Neurological Exam Neurological Exam: Alert, Awake, Oriented x3 - Psychiatric Exam Psychiatric exam: Normal Affect, Normal Mood - Skin Skin Exam: Dry, Intact Assessment and Plan - Assessment and Plan (Free Text) Assessment: 62 yo female with PMH of DM, HTN, COPD, complicated malarial infection, and cervical CA s/p hysterectomy & radiochemo, admitted for pyelonephritis. Pt is s/ p treatment for malaria 2 months ago after a visit to [facility] and multiple units transfused for anemia. Plan: 1. Pyelonephritis, PCN allergy - CT abdomen during last admission showed L obstructive uropathy without calculus, and a renal US showing mild L renal collecting system dilatation. - Repeat CT abd/pelv yesterday shows bladder wall thickening, persistent left hydronephrosis without hydroureter, unchanged compared to the last CT, with no obstructing stone, persistent left ovarian cystic lesion - Urine culture neg, blood culture no growth x 1 d - Continue Aztreonam (day 4) - ID consulted, all recs appreciated - Renal US significant for mild left hydronephrosis - Abd US yesterday shows normal spleen and liver, negative sonographic liu's sign - Repeat UA yesterday negative - Urology (Jessie) consulted, appreciate recs 2. Malaria - ID consulted, all recs appreciated - First peripheral smear is negative, will repeat 2 more to rule it out (malaria /babesia test) 3. Acute on chronic Anemia, recent h/o malaria, - hemolytic vs infection. Doubt GI bleed - Diagnosed with malaria after trip to [facility] in April s/p tx with Quinidine and Artensunate. She received 4 units pRBC and required dialysis for acute renal failure 2/2 ATN at that time. - Hgb dropped yesterday to 7.6, received 1U PRBC, then increased to 9.5 last night. Dropped again to 8.3 today. - Hemodynamically stable, no active bleeding noted, though pending stool for occult blood - LDH 494, Meño negative, Haptoglobin 166, retic count trending up, TSH 2.83, T bili 0.3, Direct bili 0.4 - Peripheral smear pending, stool for occult blood pending - retic count appropriately elevated 1.84 -> 2.08 -> 2.28 - Ferrous sulfate held due to constipation - Hem/Onc (Markie) consulted, all recs appreciated - monitor H/H 4. DM - Continue 15u HS, ISSS, Accucheck ACHS 5. HTN - BP stable - continue home meds (Lisinopril, Metoprolol, lasix) 6. Constipation - No BM for the past 4 days - Iron supplement held yesterday - On Senna/Docusate BID, given one dose of Lactulose this AM 7. Medical non-compliance - poor f/u with malaria workup post-d/c and didn't take home BP meds - SW referral 8. Cervical CA s/p hysterectomy & radiochemo - CT abdomen and pelvis with IV and po contrast HHD; ptx/scds Patient seen, discussed, and reviewed with attending Dr. Gallardo <Callie Gallardo - Last Filed: 06/15/17 19:07> Objective - Vital Signs/Intake and Output Vital Signs (last 24 hours): Temp Pulse Resp BP Pulse Ox 98.3 F 83 18 157/89 H 97 06/15/17 16:00 06/15/17 16:00 06/15/17 16:00 06/15/17 16:00 06/15/17 16:00 Intake and Output: 06/15/17 06/16/17 18:59 06:59 Intake Total 480 Balance 480 - Medications Medications: Current Medications Acetaminophen (Tylenol 325mg Tab) 650 mg PO Q4 PRN PRN Reason: Fever >100.4 F Last Admin: 06/12/17 06:30 Dose: 650 mg Furosemide (Lasix) 40 mg PO DAILY [facility] Last Admin: 06/15/17 09:59 Dose: 40 mg Heparin Sodium (Porcine) (Heparin) 5,000 units SC Q12 IRLANDA PRN Reason: Protocol Last Admin: 06/15/17 10:06 Dose: 5,000 units Aztreonam (Azactam 1 Gm) 100 mls @ 100 mls/hr IVPB Q8 IRLANDA PRN Reason: Protocol Stop: 06/18/17 23:31 Last Admin: 06/15/17 13:54 Dose: 100 mls/hr Insulin Detemir (Levemir) 17 unit SC HS [facility] Insulin Human Lispro (Humalog Med) 0 units SC ACHS [facility] PRN Reason: Protocol Last Admin: 06/15/17 16:57 Dose: 1 units Lisinopril (Zestril) 10 mg PO DAILY [facility] Last Admin: 06/15/17 09:58 Dose: 10 mg Metoprolol Succinate (Toprol Xl) 25 mg PO DAILY [facility] Last Admin: 06/15/17 09:58 Dose: 25 mg Pantoprazole Sodium (Protonix Ec Tab) 40 mg PO 0600 [facility] Last Admin: 06/15/17 05:40 Dose: 40 mg Senna/Docusate Sodium (Senokot S 50 Mg-8.6 Mg) 1 tab PO BID [facility] Last Admin: 06/15/17 17:48 Dose: 1 tab - Labs Labs: 06/15/17 08:10 06/15/17 08:10 PT 10.5 Seconds (9.9-11.8) 06/11/17 18:04 INR 0.97 (0.93-1.08) 06/11/17 18:04 APTT 23.9 Seconds (23.7-30.8) 06/11/17 18:04 Attending/Attestation - Attestation I have personally seen and examined this patient.: Yes I have fully participated in the care of the patient.: Yes I have reviewed all pertinent clinical information, including history, physical exam and plan: Yes Notes (Text): 06/15/17 19:04 patient seen and examined at bedside. Vitals, labs and notes reviewed. s/p 1 unit PRBC transfusion yesterday. CTAP reviewed. ID and Hematology follow up appreciated. Plan to obtain Urology consult. Continue IV antibiotics an will transition to PO antibiotics in 24 hours. H/H remains stable and hemolysis work up is negative. Agree with the remainder plan as outlined by the resident.
--- NOTE | 2017-06-15 19:39 | PN ---
DATE: 06/15/2017 This is [facility] visit on the medical floor. For Dr. Aden. SUBJECTIVE: The patient is a 62-year-old female seen, sitting up in a chair, feels better after transfusion yesterday with her weakness significantly improved. The patient's hemoglobin upon testing today was 9.8, up from 8.3 yesterday. The patient now reports she is afebrile and her aches and pains are significantly improved. OBJECTIVE/PHYSICAL EXAM: VITAL SIGNS: Temperature 98.4, pulse 66, respirations 20, blood pressure 159/89, pulse ox 96%. HEENT: Unremarkable. NECK: Supple. HEART: Regular rate. LUNGS: Clear. ABDOMEN: Obese, soft, and nontender. EXTREMITIES: No edema. SKIN: Warm and dry. NEUROLOGIC: Awake, alert, and oriented x3. LABORATORY DATA: The patient's labs were done. White blood cell count of 4.5, hemoglobin of 9.8, hematocrit 30.4, platelet count of 377,000. Her chem-8 metabolic panel showing a normal chem-8 metabolic panel with a non-fasting glucose of 128. Total bilirubin is 0.4. Stool for occult blood is reported as negative with her malaria Babesia smear being negative on the 28 of July with the August 11 and August 13 testing pending. The patient did have a CT scan of the abdomen and pelvis done yesterday. 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 We have a CT density mildly higher than expected for simple fluid, could be representing mild complex cyst. Pelvic ultrasound recommended not necessarily on emergent basis. Uterus is surgically absent. ASSESSMENT: For this patient is that of symptomatic anemia, status post transfusion, rule out hemolytic anemia, history of malaria, history of acute tubular necrosis, status post hysterectomy for uterine cancer with radiation and chemotherapy, chronic obstructive pulmonary disease, left hydronephrosis. PLAN: The plan for this patient after conversation with Dr. Aden is to continue present medical regimen. We will monitor clinically with labs with consideration for further recommendations once results are obtained from present testing pending. Ruben Connolly MD [facility] # [id number]
[2017-06-15] MEDS: Insulin Detemir 100 units/ml Vial (Levemir) SC SCH (21:55)
--- NOTE | 2017-06-15 22:08 | PCM.URO ---
Urology Progress Note - Subjective Abdominal Pain: Yes - Objective Lab Studies: Reviewed (plans to be discussed) Lab Results Last 24 Hours: Laboratory Results - last 24 hr 06/13/17 06/15/17 06/15/17 12:55 07:05 08:10 WBC 4.5 RBC 3.40 L Hgb 9.8 L Hct 30.4 L MCV 89.4 MCH 28.8 MCHC 32.2 RDW 14.9 H Plt Count 377 MPV 8.0 Sodium Potassium Chloride Carbon Dioxide Anion Gap BUN Creatinine Est GFR ( Amer) Est GFR (Non-Af Amer) POC Glucose (mg/dL) 154 H Random Glucose Calcium Total Bilirubin AST ALT Alkaline Phosphatase Total Protein Albumin Globulin Albumin/Globulin Ratio Stool Occult Blood Crossmatch See Detail 06/15/17 06/15/17 06/15/17 08:10 11:20 12:42 WBC RBC Hgb Hct MCV MCH MCHC RDW Plt Count MPV Sodium 142 Potassium 4.0 Chloride 108 H Carbon Dioxide 25 Anion Gap 13 BUN 13 Creatinine 0.9 Est GFR ( Amer) > 60 Est GFR (Non-Af Amer) > 60 POC Glucose (mg/dL) 189 H Random Glucose 128 H Calcium 9.5 Total Bilirubin 0.4 AST 21 ALT 20 Alkaline Phosphatase 80 Total Protein 7.5 Albumin 4.0 Globulin 3.6 Albumin/Globulin Ratio 1.1 Stool Occult Blood Negative Crossmatch 06/15/17 06/15/17 16:20 21:05 WBC RBC Hgb Hct MCV MCH MCHC RDW Plt Count MPV Sodium Potassium Chloride Carbon Dioxide Anion Gap BUN Creatinine Est GFR ( Amer) Est GFR (Non-Af Amer) POC Glucose (mg/dL) 150 H 263 H Random Glucose Calcium Total Bilirubin AST ALT Alkaline Phosphatase Total Protein Albumin Globulin Albumin/Globulin Ratio Stool Occult Blood Crossmatch Intake & Output: Intake & Output 06/15/17 06/15/17 06/16/17 06:59 18:59 06:59 Intake Total 960 480 Balance 960 480 Intake: Oral 960 480 Other: # Voids Urine, Voided 7 5 # Bowel Movements 0 1 Vital Signs: Vital Signs - 24 hr 06/15/17 06/15/17 06/15/17 00:00 08:00 09:58 Temperature 98.2 F 98.4 F Pulse Rate 77 66 66 Respiratory 20 20 Rate Blood Pressure 145/75 159/89 H 159/89 H O2 Sat by Pulse 99 96 Oximetry 06/15/17 06/15/17 09:59 16:00 Temperature 98.3 F Pulse Rate 83 Respiratory 18 Rate Blood Pressure 159/89 H 157/89 H O2 Sat by Pulse 97 Oximetry
[2017-06-16] MEDS: Pantoprazole 40 mg EC Tab PO SCH (06:40)
[2017-06-16] MEDS: Aztreonam 1 Gm in NS 100mL 100 ML IVPB SCH ×3 (06:40→21:25)
[2017-06-16 07:55] LABS: HEMATOCRIT 28.2 % (36.0-48.0); MEAN CELL VOLUME 89.5 fl (80.0-105.0); MEAN CORPUSCULAR HEMOGLOBIN 28.3 pg (25.0-35.0); MEAN CORPUSCULAR HGB CONC 31.6 g/dl (31.0-37.0); MEAN PLATELET VOLUME 7.9 fl (7.0-11.0); RED CELL DISTRIBUTION WIDTH 14.8 % (11.5-14.5); WHITE BLOOD COUNT 3.8 10^3/ul (4.5-11.0)
[2017-06-16 08:02] LABS: ALB/GLOB RATIO 1.1 (1.1-1.8); ALKALINE PHOSPHATASE 71 U/L (38-126); ALT/SGPT 24 U/L (7-56); AST/SGOT 22 U/L (14-36); BILIRUBIN,TOTAL 0.3 mg/dL (0.2-1.3); BLOOD UREA NITROGEN 13 mg/dL (7-21); CARBON DIOXIDE 26 mmol/L (21-33); CHLORIDE 107 mmol/L (98-107); GFR AFRICAN-AMERICAN > 60; GLUCOSE,RANDOM 169 mg/dL (70-110); POTASSIUM 3.4 mmol/L (3.6-5.0); SODIUM 141 mmol/L (132-148); TOTAL PROTEIN 6.8 g/dL (5.8-8.3)
[2017-06-16] MEDS ORDERED: Potassium Chloride 20 mEq ER Tab PO ONE (08:11)
[2017-06-16 08:28] LABS: MALARIA BLOOD Negative
[2017-06-16] MEDS: Insulin Lispro (humaLOG) MEDIUM Coverage SC SCH ×4 (08:30→21:27)
[2017-06-16] MEDS: Metoprolol Succinate 25 mg XL Tab PO SCH (09:13)
[2017-06-16] MEDS: Docusate-Senna 50 mg-8.6 mg Tab PO SCH (09:13)
--- NOTE | 2017-06-16 10:21 | CON ---
DATE: REASON FOR CONSULTATION: Thickened bladder wall. HISTORY OF PRESENT ILLNESS: Ms. Dixon is a very pleasant lady, who was admitted to the hospital under the care of the hospitalist. She was admitted on 06/11/2017 with infection, with fever, chills, fatigue, rigors. Further evaluation and workup under the medical care, found her to have a thickened bladder wall and possible hydronephrosis, no obvious stone disease. She is currently resting in her bed comfortably. She has no gross hematuria. No real dysuria at this point. PAST MEDICAL AND SURGICAL HISTORY: As listed on the chart. No history of CT or CVA. SOCIAL HISTORY: Essentially unremarkable. MEDICATIONS: See chart. ALLERGIES: See chart. PHYSICAL EXAMINATION GENERAL: A well-nourished female. She is currently resting comfortably in her bed, in no apparent distress. VITAL SIGNS: Noted to be within normal limits. AND PELVIC: Deferred. LABORATORY DATA: See chart. CT scan as noted above. DIAGNOSES: Infection, possible urinary tract infection. PLAN: We discussed the patient's options. At some point, she may require cystoscopic evaluation based on the CT scan reports and findings. We will discuss the timings of this. Right now, she is on antibiotics and clinically improving. Most likely, we will not recommend a cystoscopy during this admission. We will wait that she is clear for infection and I will discuss further options. I gave her my card and we will have some outpatient followup, but for now the plan is as follows, antibiotics to continue and then further plans can follow. Max Roman MD
--- NOTE | 2017-06-16 12:59 | CP.PCM.PN ---
<MIRTHA ARCOS - Last Filed: 06/16/17 12:48> Subjective - Date & Time of Evaluation Date of Evaluation: 06/16/17 Time of Evaluation: 07:30 - Subjective Subjective: Mirtha Arcos DO PGY1 - Internal Medicine Progress Note Patient seen and examined at bedside. No acute events reported overnight. Patient is no longer complaining of suprapubic pain or left flank pain. She also denies F/C, N/V/D, hemoptysis, hematemesis, hematochezia, melena, hematuria. She is no longer constipated. Objective - Vital Signs/Intake and Output Vital Signs (last 24 hours): Temp Pulse Resp BP Pulse Ox 98.5 F 80 18 165/85 H 98 06/16/17 08:00 06/16/17 09:13 06/16/17 08:00 06/16/17 09:17 06/16/17 08:00 Intake and Output: 06/16/17 06/16/17 06:59 18:59 Intake Total 1020 Balance 1020 - Medications Medications: Current Medications Acetaminophen (Tylenol 325mg Tab) 650 mg PO Q4 PRN PRN Reason: Fever >100.4 F Last Admin: 06/12/17 06:30 Dose: 650 mg Furosemide (Lasix) 40 mg PO DAILY [facility] Last Admin: 06/16/17 09:17 Dose: 40 mg Heparin Sodium (Porcine) (Heparin) 5,000 units SC Q12 IRLANDA PRN Reason: Protocol Last Admin: 06/16/17 09:12 Dose: 5,000 units Aztreonam (Azactam 1 Gm) 100 mls @ 100 mls/hr IVPB Q8 IRLANDA PRN Reason: Protocol Stop: 06/18/17 23:31 Last Admin: 06/16/17 06:40 Dose: 100 mls/hr Insulin Detemir (Levemir) 17 unit SC HS [facility] Last Admin: 06/15/17 21:55 Dose: 17 unit Insulin Human Lispro (Humalog Med) 0 units SC ACHS IRLANDA PRN Reason: Protocol Last Admin: 06/16/17 11:49 Dose: 1 units Lisinopril (Zestril) 10 mg PO DAILY [facility] Last Admin: 06/16/17 09:13 Dose: 10 mg Metoprolol Succinate (Toprol Xl) 25 mg PO DAILY [facility] Last Admin: 06/16/17 09:13 Dose: 25 mg Pantoprazole Sodium (Protonix Ec Tab) 40 mg PO 0600 [facility] Last Admin: 06/16/17 06:40 Dose: 40 mg Senna/Docusate Sodium (Senokot S 50 Mg-8.6 Mg) 1 tab PO BID [facility] Last Admin: 06/16/17 09:13 Dose: 1 tab - Labs Labs: 06/16/17 07:40 06/16/17 07:40 PT 10.5 Seconds (9.9-11.8) 06/11/17 18:04 INR 0.97 (0.93-1.08) 06/11/17 18:04 APTT 23.9 Seconds (23.7-30.8) 06/11/17 18:04 - Constitutional Appears: Non-toxic, No Acute Distress - Head Exam Head Exam: ATRAUMATIC, NORMOCEPHALIC - Eye Exam Eye Exam: EOMI, PERRL Additional comments: Conjunctival pallor - ENT Exam ENT Exam: Mucous Membranes Moist - Neck Exam Neck Exam: absent: Lymphadenopathy, Thyromegaly - Respiratory Exam Respiratory Exam: Clear to Ausculation Bilateral. absent: Rales, Rhonchi, Wheezes - Cardiovascular Exam Cardiovascular Exam: RRR, +S1, +S2 - GI/Abdominal Exam GI & Abdominal Exam: Soft. absent: Tenderness - Extremities Exam Extremities Exam: absent: Calf Tenderness, Pedal Edema - Back Exam Back Exam: absent: CVA tenderness (L), CVA tenderness (R) - Neurological Exam Neurological Exam: Alert, Awake, Oriented x3 - Psychiatric Exam Psychiatric exam: Normal Affect, Normal Mood - Skin Skin Exam: Dry, Intact Assessment and Plan - Assessment and Plan (Free Text) Assessment: 62 yo female with PMH of DM, HTN, COPD, complicated malarial infection, and cervical CA s/p hysterectomy & radiochemo, admitted for pyelonephritis. Pt is s/ p treatment for malaria 2 months ago after a visit to [facility] and multiple units transfused for anemia. Plan: 1. Pyelonephritis, PCN allergy - improving - CT abd/pelv shows nonspecific bladder wall thickening, persistent left hydronephrosis without hydroureter, unchanged compared to the last CT, with no obstructing stone, persistent left ovarian cystic lesion - Urine culture neg, blood culture no growth x 1 d - Continue Aztreonam (day 5) - ID consulted, all recs appreciated - Renal US significant for mild left hydronephrosis - Abd US yesterday shows normal spleen and liver, negative sonographic liu's sign - Repeat UA yesterday negative - Urology (Jessie) consulted, all recs appreciated; recommended outpatient cystoscopy 2. Malaria - ID consulted, all recs appreciated - First peripheral smear is negative, repeat smear pending - First malaria/babesia smear negative, repeat smear pending 3. Acute on chronic Anemia, recent h/o malaria, - hemolytic vs infection. Doubt GI bleed - Diagnosed with malaria after trip to [facility] in April s/p tx with Quinidine and Artensunate. She received 4 units pRBC and required dialysis for acute renal failure 2/2 ATN at that time. - Pt is s/p 2U PRBC. Hgb stable today at 8.9, though dropped from 9.8 yesterday - Hemodynamically stable, no active bleeding, FOBT negative - LDH 494, Meño negative, Haptoglobin 166, retic count elevated appropriately , TSH 2.83, T bili 0.3, Direct bili 0.4 - Repeat peripheral smear pending - Retic count appropriately elevated 1.84 -> 2.08 -> 2.28 - Ferrous sulfate held due to constipation - Hem/Onc (Markie) consulted, all recs appreciated - Cytology pending - Liver/Spleen NM scan with vascular flow pending - monitor H/H 4. DM - Continue 15u HS, ISSS, Accucheck ACHS 5. HTN - BP stable - continue home meds (Lisinopril, Metoprolol, lasix) 6. Constipation - resolved - Had BM yesterday - Iron supplement held - On Senna/Docusate BID 7. Medical non-compliance - poor f/u with malaria workup post-d/c and didn't take home BP meds - referral 8. Cervical CA s/p hysterectomy & radiochemo - CT abdomen and pelvis with IV and po contrast showed no suspicious masses HHD; ptx/scds Patient seen, discussed, and reviewed with attending <Blade Sheppard - Last Filed: 06/16/17 13:33> Objective - Vital Signs/Intake and Output Vital Signs (last 24 hours): Temp Pulse Resp BP Pulse Ox 98.5 F 80 18 165/85 H 98 06/16/17 08:00 06/16/17 09:13 06/16/17 08:00 06/16/17 09:17 06/16/17 08:00 Intake and Output: 06/16/17 06/16/17 06:59 18:59 Intake Total 1020 Balance 1020 - Medications Medications: Current Medications Acetaminophen (Tylenol 325mg Tab) 650 mg PO Q4 PRN PRN Reason: Fever >100.4 F Last Admin: 06/12/17 06:30 Dose: 650 mg Furosemide (Lasix) 40 mg PO DAILY [facility] Last Admin: 06/16/17 09:17 Dose: 40 mg Heparin Sodium (Porcine) (Heparin) 5,000 units SC Q12 IRLANDA PRN Reason: Protocol Last Admin: 06/16/17 09:12 Dose: 5,000 units Aztreonam (Azactam 1 Gm) 100 mls @ 100 mls/hr IVPB Q8 IRLANDA PRN Reason: Protocol Stop: 06/18/17 23:31 Last Admin: 06/16/17 06:40 Dose: 100 mls/hr Insulin Detemir (Levemir) 17 unit SC HS [facility] Last Admin: 06/15/17 21:55 Dose: 17 unit Insulin Human Lispro (Humalog Med) 0 units SC ACHS IRLANDA PRN Reason: Protocol Last Admin: 06/16/17 11:49 Dose: 1 units Lisinopril (Zestril) 10 mg PO DAILY [facility] Last Admin: 06/16/17 09:13 Dose: 10 mg Metoprolol Succinate (Toprol Xl) 25 mg PO DAILY [facility] Last Admin: 06/16/17 09:13 Dose: 25 mg Pantoprazole Sodium (Protonix Ec Tab) 40 mg PO 0600 [facility] Last Admin: 06/16/17 06:40 Dose: 40 mg Senna/Docusate Sodium (Senokot S 50 Mg-8.6 Mg) 1 tab PO BID [facility] Last Admin: 06/16/17 09:13 Dose: 1 tab - Labs Labs: 06/16/17 07:40 06/16/17 07:40 PT 10.5 Seconds (9.9-11.8) 06/11/17 18:04 INR 0.97 (0.93-1.08) 08/30/17 18:04 APTT 23.9 Seconds (23.7-30.8) 06/11/17 18:04 Attending/Attestation - Attestation I have personally seen and examined this patient.: Yes I have fully participated in the care of the patient.: Yes I have reviewed all pertinent clinical information, including history, physical exam and plan: Yes Notes (Text): 06/16/17 13:26 62 year old female with past medical history of hypertension, diabetes, cervical cancer s/p hysterectomy and chemoradiation, history of malarial infection and recent UTI who is admitted for right flank pain. CT abd/pelvis showed nonspecific bladder wall thickening, persistent left hydronephrosis without hydroureter, no obstructing stone, and persistent left ovarian cystic lesion. She is on aztreonam and being followed by ID and urology. Patient will need elective cystoscopy as per urology. Hematology is also following for anemia, recent malarial infection and history of cervical cancer. Patient has received prbc transfusions last week. Will continue to monitor cbc closely. Liver/spleen NM scan is pending. Blade Sehppard MD Hospitalist.
--- NOTE | 2017-06-16 13:07 | PN ---
DATE: 06/16/2017 SUBJECTIVE: The patient is in bed in no acute distress, nontoxic. PHYSICAL EXAMINATION VITAL SIGNS: Temperature is 98, blood pressure is 165/80, respiratory rate of 18. HEENT: Unremarkable. NECK: Supple. LUNGS: Decreased breath sounds. HEART: Normal S1 and S2. ABDOMEN: Soft, nontender. LABORATORY DATA: Reveals a white count of 3.8, hemoglobin of 8, BUN of 13, creatinine of 0.9. Urinalysis is noted. Serology is noted. Microbiology reveals the blood cultures are negative, urine cultures are negative. ASSESSMENT AND PLAN: This is a 62-year-old female originally from [place] with history of uterine cancer, history of hysterectomy, history of radiation on chemotherapy, appendectomy, and chronic obstructive lung disease. The patient was treated for severe malaria at [facility]. She was there for a month and had presented with cerebral malaria. She states she was confused and developed renal failure and requiring hemodialysis and now with left flank nephrolithiasis and anemia; although no LDH elevation and no bilirubin. There is reticulocytosis waiting for Heme evaluation of her peripheral smears. 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 Dr. Ruben Connolly's note is reviewed and Dr. Gallardo's note from yesterday is reviewed. Dr. Roman's note is reviewed in consultation. We will follow with you. Jasiel Crane MD
--- NOTE | 2017-06-16 14:19 | PN ---
DATE: 06/16/2017 This is Keri Dixon's hospital visit on the medical floor. For Dr. Aden. SUBJECTIVE: The patient is a 62-year-old female seen sitting up on her bed, having lunch, in no acute distress, feeling stronger after transfusion of packed red blood cells done yesterday; however, the hemoglobin continues to drop with hemoglobin 9.8 yesterday with an 8.9 today. With this, the patient is also status post visit with Dr. Roman urology with consideration for cystoscopy as an outpatient. With the patient concerned that the hemoglobin will continue to drop and she will end up here in the hospital again in the near future as other tests for hemolytic anemia workup are pending with the patient also being treated in the past for malaria with the possibility of interaction of her malaria medication contributing to her anemic indices. OBJECTIVE: VITAL SIGNS: Temperature 98.5, pulse 80, respirations 18, blood pressure 165/85, and pulse ox 98%. HEENT: Unremarkable. NECK: Supple. HEART: Regular rate. LUNGS: Clear. ABDOMEN: Obese, soft, and nontender. EXTREMITIES: No edema. SKIN: Warm and dry. NEUROLOGIC: Awake, alert, and oriented. LABORATORY DATA: The patient*s labs were done. White blood cell count of 3.8, hemoglobin of 8.9 down from 9.8 yesterday, hematocrit 28.2, and platelet count of 327,000. Chem metabolic panel showing potassium 3.4; otherwise, normal chem metabolic panel. Urinalysis repeated 2 days ago showed no blood with stool for occult blood also reported as negative. It should be noted that the patient's percent saturation volume is 42% on 06/14/2017 with B-natriuretic peptide on 06/11/2017 is 621. ASSESSMENT: The assessment for this patient was that of symptomatic anemia, status post third transfusion, 2 units of packed red blood cells with the third on hold, rule out hemolytic anemia versus drug induced ?. History of malaria, status post treatment. History of acute tubular necrosis, status post hysterectomy for uterine cancer, status post radiation and chemotherapy, chronic obstructive pulmonary disease, and left hydronephrosis. PLAN: Plan for this patient after conservation with Dr. Aden is to check her labs again in the morning as her hemoglobin continues to drop should stabilize. She may be released to be followed up as an outpatient by Dr. Roman, urology with cystoscopy as indicated. She continues her diabetic medication and hypertensive medications as indicated. The prognosis for this patient is guarded. Ruben Connolly MD
[2017-06-16 16:17] VITALS: RESP 20
[2017-06-16] MEDS: Insulin Detemir 100 units/ml Vial (Levemir) SC SCH (21:26)
[2017-06-17] MEDS: Aztreonam 1 Gm in NS 100mL 100 ML IVPB SCH ×2 (06:18→14:47)
[2017-06-17] MEDS: Pantoprazole 40 mg EC Tab PO SCH (06:18)
[2017-06-17 07:12] LABS: BASO # 0.03 K/mm3 (0.0-2.0); BASO % 0.7 % (0.0-3.0); EOS # 0.1 (0.0-0.7); EOS % 2.4 % (1.5-5.0); GRAN # 2.46 (1.4-6.5); GRAN % 59.2 % (50.0-68.0); HEMATOCRIT 29.2 % (36.0-48.0); LYMPH # 1.2 (1.2-3.4); LYMPH % 29.8 % (22.0-35.0); MEAN CELL VOLUME 89.8 fl (80.0-105.0); MEAN CORPUSCULAR HEMOGLOBIN 28.3 pg (25.0-35.0); MEAN CORPUSCULAR HGB CONC 31.5 g/dl (31.0-37.0); MEAN PLATELET VOLUME 8.3 fl (7.0-11.0); MONO # 0.3 (0.1-0.6); MONO % 7.9 % (1.0-6.0); RED CELL DISTRIBUTION WIDTH 14.7 % (11.5-14.5); WHITE BLOOD COUNT 4.2 10^3/ul (4.5-11.0)
[2017-06-17] MEDS: Insulin Lispro (humaLOG) MEDIUM Coverage SC SCH ×2 (08:03→12:13)
[2017-06-17 08:08] VITALS: BP 160/80; PULSE 69; TEMP 98.4; O2SAT 98
[2017-06-17 08:34] LABS: ALB/GLOB RATIO 1.1 (1.1-1.8); ALKALINE PHOSPHATASE 74 U/L (38-126); ALT/SGPT 18 U/L (7-56); AST/SGOT 40 U/L (14-36); BILIRUBIN,TOTAL 0.3 mg/dL (0.2-1.3); BLOOD UREA NITROGEN 14 mg/dL (7-21); CALCIUM 9.1 mg/dL (8.4-10.5); CARBON DIOXIDE 27 mmol/L (21-33); CHLORIDE 108 mmol/L (98-107); GFR AFRICAN-AMERICAN > 60; GLUCOSE,RANDOM 107 mg/dL (70-110); POTASSIUM 3.3 mmol/L (3.6-5.0); SODIUM 144 mmol/L (132-148); TOTAL PROTEIN 6.6 g/dL (5.8-8.3)
[2017-06-17] MEDS ORDERED: Potassium Chloride 20 mEq ER Tab PO ONE (08:51)
[2017-06-17] MEDS: Metoprolol Succinate 25 mg XL Tab PO SCH (10:14)
[2017-06-17] MEDS: Docusate-Senna 50 mg-8.6 mg Tab PO SCH (10:15)
--- NOTE | 2017-06-17 12:24 | CP.PCM.DIS ---
<NIDHIGEORGE - Last Filed: 06/17/17 12:11> Provider - Provider Date of Admission: 06/13/17 11:28 Attending physician: Blade Sheppard MD Consults: ID: Royce Heme/Onc: Markie Uro: Jessie Time Spent in preparation of Discharge (in minutes): 55 Diagnosis - Discharge Diagnosis (1) Cystitis Status: Acute Priority: High (2) Anemia Status: Acute Priority: High (3) Diabetes Status: Chronic Priority: Medium (4) Hypertension Status: Chronic Priority: Medium Hospital Course - Lab Results Lab Results: Micro Results 06/14/17 13:50 Urine Urine Culture - Final No Growth (<1,000 CFU/ML) Most Recent Lab Values WBC 4.2 10^3/ul (4.5-11.0) L 06/17/17 06:55 RBC 3.25 10^6/uL (3.5-6.1) L 06/17/17 06:55 Hgb 9.2 g/dL (12.0-16.0) L 06/17/17 06:55 Hct 29.2 % (36.0-48.0) L 06/17/17 06:55 MCV 89.8 fl (80.0-105.0) 06/17/17 06:55 MCH 28.3 pg (25.0-35.0) 06/17/17 06:55 MCHC 31.5 g/dl (31.0-37.0) 06/17/17 06:55 RDW 14.7 % (11.5-14.5) H 06/17/17 06:55 Plt Count 361 10^3/uL (120.0-450.0) 06/17/17 06:55 MPV 8.3 fl (7.0-11.0) 06/17/17 06:55 Gran % 59.2 % (50.0-68.0) 06/17/17 06:55 Lymph % (Auto) 29.8 % (22.0-35.0) 06/17/17 06:55 [place] % (Auto) 7.9 % (1.0-6.0) H 06/17/17 06:55 Eos % (Auto) 2.4 % (1.5-5.0) 06/17/17 06:55 Baso % (Auto) 0.7 % (0.0-3.0) 06/17/17 06:55 Gran # 2.46 (1.4-6.5) 06/17/17 06:55 Lymph # 1.2 (1.2-3.4) 06/17/17 06:55 [place] # 0.3 (0.1-0.6) 06/17/17 06:55 Eos # 0.1 (0.0-0.7) 06/17/17 06:55 Baso # 0.03 K/mm3 (0.0-2.0) 06/17/17 06:55 Retic Count 2.28 % (0.5-1.5) H 06/14/17 07:00 Haptoglobin 166 mg/dL (43-212) 06/13/17 12:55 PT 10.5 Seconds (9.9-11.8) 06/11/17 18:04 INR 0.97 (0.93-1.08) 06/11/17 18:04 APTT 23.9 Seconds (23.7-30.8) 06/11/17 18:04 Sodium 144 mmol/L (132-148) 06/17/17 07:36 Potassium 3.3 mmol/L (3.6-5.0) L 06/17/17 07:36 Chloride 108 mmol/L (98-107) H 06/17/17 07:36 Carbon Dioxide 27 mmol/L (21-33) 06/17/17 07:36 Anion Gap 12 (10-20) 06/17/17 07:36 BUN 14 mg/dL (7-21) 06/17/17 07:36 Creatinine 0.9 mg/dL (0.5-1.4) 06/17/17 07:36 Est GFR ( Amer) > 60 06/17/17 07:36 Est GFR (Non-Af Amer) > 60 06/17/17 07:36 POC Glucose (mg/dL) 195 mg/dL (65-110) H 06/17/17 11:59 Random Glucose 107 mg/dL (70-110) 06/17/17 07:36 Calcium 9.1 mg/dL (8.4-10.5) 06/17/17 07:36 Iron 84 ug/dL (45-180) 06/14/17 07:00 TIBC 200 ug/dL (265-497) L 06/14/17 07:00 % Saturation 42 % (20-55) 06/14/17 07:00 Total Bilirubin 0.3 mg/dL (0.2-1.3) 06/17/17 07:36 Direct Bilirubin 0.4 mg/dL (0.0-0.4) 06/14/17 07:00 AST 40 U/L (14-36) H D 06/17/17 07:36 ALT 18 U/L (7-56) 06/17/17 07:36 Alkaline Phosphatase 74 U/L (38-126) 06/17/17 07:36 Lactate Dehydrogenase 494 U/L (333-699) 06/13/17 12:55 Total Creatine Kinase 58 U/L (35-230) 06/11/17 18:04 Troponin I < 0.01 ng/mL 06/11/17 18:04 NT-Pro-B Natriuret Pep 621 pg/mL (0-450) H 06/11/17 18:04 Total Protein 6.6 g/dL (5.8-8.3) 06/17/17 07:36 Albumin 3.5 g/dL (3.0-4.8) 06/17/17 07:36 Globulin 3.2 gm/dL 06/17/17 07:36 Albumin/Globulin Ratio 1.1 (1.1-1.8) 06/17/17 07:36 Lipase 230 U/L (23-300) 06/11/17 18:04 Procalcitonin < 0.05 NG/ML (0.19-0.49) L 06/13/17 20:32 TSH 3rd Generation 2.83 mIU/mL (0.46-4.68) 06/14/17 07:00 Urine Color Yellow (YELLOW) 06/14/17 16:00 Urine Appearance Clear (CLEAR) 06/14/17 16:00 Urine pH 6.5 (4.7-8.0) 06/14/17 16:00 Ur Specific [place] 1.010 (1.005-1.035) 06/14/17 16:00 Urine Protein Negative mg/dL (<30 mg/dL) 09/02/17 16:00 Urine Glucose (UA) Negative mg/dL (NEGATIVE) 06/14/17 16:00 Urine Ketones Negative mg/dL (NEGATIVE) 06/14/17 16:00 Urine Blood Negative (NEGATIVE) 06/14/17 16:00 Urine Nitrate Negative (NEGATIVE) 06/14/17 16:00 Urine Bilirubin Negative (NEGATIVE) 06/14/17 16:00 Urine Urobilinogen 0.2 E.U./dL (<1 E.U./dL) 06/14/17 16:00 Ur Leukocyte Esterase Negative Donna/uL (NEGATIVE) 06/14/17 16:00 Urine RBC 20 - 25 /hpf (0-2) 06/11/17 17:59 Urine WBC 2 - 5 /hpf (0-6) 06/11/17 17:59 Ur Epithelial Cells 6 - 8 /hpf (0-5) 06/11/17 17:59 Amorphous Sediment Small 06/11/17 17:59 Urine Bacteria Small (NEG) 06/11/17 17:59 Stool Occult Blood Negative (NEGATIVE) 06/15/17 12:42 Malaria Source See note (NEGATIVE) 06/13/17 05:30 Malaria/Babesia Smear Negative 06/11/17 18:04 Blood Type A POSITIVE 06/13/17 12:55 Antibody Screen Negative 06/13/17 12:55 AAKASH, Poly Interpret Negative (NEGATIVE) 06/13/17 12:14 Indirect Antiglob Test Negative 06/13/17 12:14 Crossmatch See Detail 06/13/17 12:55 BBK History Checked Patient has bt 06/13/17 12:55 - Hospital Course Hospital Course: 62 yo F with PMH of DM, HTN, cervical CA s/p total hysterectomy, ATN and anemia 2/2 severe malaria s/p treatment with artesunate and quinidine and ICU stay for 3 weeks, 3 weeks ago. She initially presented complaining of suprapubic pain, left flank pain, and dysuria, with chills. Two weeks ago, she was admitted and then discharged from [facility] after presenting with the same complaints. In that visit, she had CT abd/pelv which showed left hydronephrosis/hydroureter without stones, as well as marked anemia requiring transfusion of 2U PRBC. During this hospitalization, repeat CT abd/pelv showed hydronephrosis without hydroureter and no stones, no perinephric stranding, with nonspecific bladder wall thickening. She had the clinic signs and symptoms of pyelonephritis including CVA tenderness and was treated as such with IV Aztreonam (penicillin allergy), and urology was consulted for persistent hydro, who ultimately recommended outpatient follow-up for possible outpatient cystoscopy. She was also anemic, again requiring transfusion of 2U PRBC. She was worked up for the anemia and malaria, which was negative for signs of malaria, iron deficiency, acute blood loss, or hemolysis other than an appropriate reticulocytosis. Today, she is feeling well, with no particular complaints. Hgb is stable since yesterday, with a mild improvement. She denies CP, SOB, N/V/D/C, F/C, abdominal pain, suprapubic pain, back pain, dysuria, hematuria. She completed her course of abx and will not require any more PO abx. She was cleared for discharge with outpatient follow up by hematology, urology, and infectious disease. All medications were discussed, all questions were answered to her satisfaction, and she was discharged to home. Patient was seen, discussed, and reviewed with attending. Discharge Exam - Head Exam Head Exam: ATRAUMATIC, NORMOCEPHALIC - Eye Exam Eye Exam: EOMI, Normal appearance, PERRL - ENT Exam ENT Exam: Mucous Membranes Moist, Normal Oropharynx - Neck Exam Neck exam: Normal Inspection - Respiratory Exam Respiratory Exam: Clear to PA & Lateral. absent: Rales, Rhonchi, Wheezes - Cardiovascular Exam Cardiovascular Exam: RRR, +S1, +S2 - GI/Abdominal Exam GI & Abdominal Exam: Normal Bowel Sounds, Soft. absent: Tenderness - Extremities Exam Extremities exam: normal inspection - Back Exam Back exam: absent: CVA tenderness (L), CVA tenderness (R) - Neurological Exam Neurological exam: Alert, Oriented x3 - Psychiatric Exam Psychiatric exam: Normal Affect, Normal Mood - Skin Skin Exam: Dry, Intact, Normal Color Discharge Plan - Discharge Medications Prescriptions: Lisinopril [Zestril] 20 mg PO DAILY #30 tab - Follow Up Plan Condition: STABLE Disposition: HOME/ ROUTINE Instructions: Urinary Tract Infection in Women (DC), Acute Pyelonephritis (DC) , Pelvic Pain in Women (DC), Dysuria (GEN), Anemia (DC) Additional Instructions: 1. Continue to take all medications as prescribed 2. Increase lisinopril to 20mg daily, from 10mg daily. Increase Levimir to 17 units at night, from 10 units at night. 3. Stop taking iron, to avoid constipation, and increase fiber and water intake 4. Follow up with Dr. Roman (urology) for outpatient cystoscopy 5. Follow up with Dr. Aden (hematology) for continued management of anemia 6. Follow up with primary doctor within 1 week 7. For any new or worsening concerns, contact PCP immediately or return to ER Referrals: Vamshi Aden MD [Staff Provider] - Alexsander Roman MD [Staff Provider] - <Blade Sheppard - Last Filed: 06/17/17 13:26> Provider - Provider Date of Admission: 06/13/17 11:28 Attending physician: Blade Sheppard MD Hospital Course - Lab Results Lab Results: Micro Results 06/14/17 13:50 Urine Urine Culture - Final No Growth (<1,000 CFU/ML) Most Recent Lab Values WBC 4.2 10^3/ul (4.5-11.0) L 06/17/17 06:55 RBC 3.25 10^6/uL (3.5-6.1) L 06/17/17 06:55 Hgb 9.2 g/dL (12.0-16.0) L 06/17/17 06:55 Hct 29.2 % (36.0-48.0) L 06/17/17 06:55 MCV 89.8 fl (80.0-105.0) 06/17/17 06:55 MCH 28.3 pg (25.0-35.0) 06/17/17 06:55 MCHC 31.5 g/dl (31.0-37.0) 06/17/17 06:55 RDW 14.7 % (11.5-14.5) H 06/17/17 06:55 Plt Count 361 10^3/uL (120.0-450.0) 06/17/17 06:55 MPV 8.3 fl (7.0-11.0) 06/17/17 06:55 Gran % 59.2 % (50.0-68.0) 06/17/17 06:55 Lymph % (Auto) 29.8 % (22.0-35.0) 06/17/17 06:55 [place] % (Auto) 7.9 % (1.0-6.0) H 06/17/17 06:55 Eos % (Auto) 2.4 % (1.5-5.0) 06/17/17 06:55 Baso % (Auto) 0.7 % (0.0-3.0) 06/17/17 06:55 Gran # 2.46 (1.4-6.5) 06/17/17 06:55 Lymph # 1.2 (1.2-3.4) 06/17/17 06:55 [place] # 0.3 (0.1-0.6) 06/17/17 06:55 Eos # 0.1 (0.0-0.7) 06/17/17 06:55 Baso # 0.03 K/mm3 (0.0-2.0) 06/17/17 06:55 Retic Count 2.28 % (0.5-1.5) H 06/14/17 07:00 Haptoglobin 166 mg/dL (43-212) 06/13/17 12:55 PT 10.5 Seconds (9.9-11.8) 06/11/17 18:04 INR 0.97 (0.93-1.08) 06/11/17 18:04 APTT 23.9 Seconds (23.7-30.8) 06/11/17 18:04 Sodium 144 mmol/L (132-148) 06/17/17 07:36 Potassium 3.3 mmol/L (3.6-5.0) L 06/17/17 07:36 Chloride 108 mmol/L (98-107) H 06/17/17 07:36 Carbon Dioxide 27 mmol/L (21-33) 06/17/17 07:36 Anion Gap 12 (10-20) 06/17/17 07:36 BUN 14 mg/dL (7-21) 06/17/17 07:36 Creatinine 0.9 mg/dL (0.5-1.4) 06/17/17 07:36 Est GFR ( Amer) > 60 06/17/17 07:36 Est GFR (Non-Af Amer) > 60 06/17/17 07:36 POC Glucose (mg/dL) 195 mg/dL (65-110) H 06/17/17 11:59 Random Glucose 107 mg/dL (70-110) 06/17/17 07:36 Calcium 9.1 mg/dL (8.4-10.5) 06/17/17 07:36 Iron 84 ug/dL (45-180) 06/14/17 07:00 TIBC 200 ug/dL (265-497) L 06/14/17 07:00 % Saturation 42 % (20-55) 06/14/17 07:00 Total Bilirubin 0.3 mg/dL (0.2-1.3) 06/17/17 07:36 Direct Bilirubin 0.4 mg/dL (0.0-0.4) 06/14/17 07:00 AST 40 U/L (14-36) H D 06/17/17 07:36 ALT 18 U/L (7-56) 06/17/17 07:36 Alkaline Phosphatase 74 U/L (38-126) 06/17/17 07:36 Lactate Dehydrogenase 494 U/L (333-699) 06/13/17 12:55 Total Creatine Kinase 58 U/L (35-230) 06/11/17 18:04 Troponin I < 0.01 ng/mL 06/11/17 18:04 NT-Pro-B Natriuret Pep 621 pg/mL (0-450) H 06/11/17 18:04 Total Protein 6.6 g/dL (5.8-8.3) 06/17/17 07:36 Albumin 3.5 g/dL (3.0-4.8) 06/17/17 07:36 Globulin 3.2 gm/dL 06/17/17 07:36 Albumin/Globulin Ratio 1.1 (1.1-1.8) 06/17/17 07:36 Lipase 230 U/L (23-300) 06/11/17 18:04 Procalcitonin < 0.05 NG/ML (0.19-0.49) L 06/13/17 20:32 TSH 3rd Generation 2.83 mIU/mL (0.46-4.68) 06/14/17 07:00 Urine Color Yellow (YELLOW) 06/14/17 16:00 Urine Appearance Clear (CLEAR) 06/14/17 16:00 Urine pH 6.5 (4.7-8.0) 06/14/17 16:00 Ur Specific [place] 1.010 (1.005-1.035) 06/14/17 16:00 Urine Protein Negative mg/dL (<30 mg/dL) 06/14/17 16:00 Urine Glucose (UA) Negative mg/dL (NEGATIVE) 06/14/17 16:00 Urine Ketones Negative mg/dL (NEGATIVE) 06/14/17 16:00 Urine Blood Negative (NEGATIVE) 06/14/17 16:00 Urine Nitrate Negative (NEGATIVE) 06/14/17 16:00 Urine Bilirubin Negative (NEGATIVE) 06/14/17 16:00 Urine Urobilinogen 0.2 E.U./dL (<1 E.U./dL) 06/14/17 16:00 Ur Leukocyte Esterase Negative Donna/uL (NEGATIVE) 06/14/17 16:00 Urine RBC 20 - 25 /hpf (0-2) 06/11/17 17:59 Urine WBC 2 - 5 /hpf (0-6) 06/11/17 17:59 Ur Epithelial Cells 6 - 8 /hpf (0-5) 06/11/17 17:59 Amorphous Sediment Small 06/11/17 17:59 Urine Bacteria Small (NEG) 06/11/17 17:59 Stool Occult Blood Negative (NEGATIVE) 06/15/17 12:42 Malaria Source See note (NEGATIVE) 06/13/17 05:30 Malaria/Babesia Smear Negative 06/11/17 18:04 Blood Type A POSITIVE 06/13/17 12:55 Antibody Screen Negative 06/13/17 12:55 AAKASH, Poly Interpret Negative (NEGATIVE) 06/13/17 12:14 Indirect Antiglob Test Negative 06/13/17 12:14 Crossmatch See Detail 06/13/17 12:55 BBK History Checked Patient has bt 06/13/17 12:55 Attending/Attestation - Attestation I have personally seen and examined this patient.: Yes I have fully participated in the care of the patient.: Yes I have reviewed all pertinent clinical information, including history, physical exam and plan: Yes Notes (Text): 06/17/17 13:24 62 year old female with past medical history of hypertension, diabetes, cervical cancer s/p hysterectomy and chemoradiation, history of malarial infection and recent UTI who was admitted for right flank pain. CT abd/pelvis showed nonspecific bladder wall thickening, persistent left hydronephrosis without hydroureter, no obstructing stone, and persistent left ovarian cystic lesion. She was treated with iv aztreonam as per ID. She was seen by urology who recommended elective cystoscopy. She was also seen by hematology for anemia, recent malarial infection and history of cervical cancer. Patient has received prbc transfusions last week. Hemoglobin has been stable. Patient is discharged home to follow up her pmd. Follow up with urology and hematology. Counselled on medication and outpatient follow up compliance. Blade Sheppard MD Hospitalist.
== END 2017-06-17 16:53 | disposition home or self-care (01) | DRG 320 ==
LOC: ED 17:25 → ERH 20:11 → 5RSO 23:24 → OBSVTOIN 06-13 11:28
PROVIDERS: ADMIT Internal Medicine; ATTEND Internal Medicine
PROC: 30233N1 Transfusion of Nonautologous Red Blood Cells into Peripheral Vein, Percutaneous Approach (ICD-10-PCS; principal; 2017-06-13)
DX: N13.6 Pyonephrosis (principal); E11.65 Type 2 diabetes mellitus with hyperglycemia; D64.9 Anemia, unspecified; I10 Essential (primary) hypertension; J44.9 Chronic obstructive pulmonary disease, unspecified; K59.00 Constipation, unspecified; E66.9 Obesity, unspecified; Z68.39 Body mass index [BMI] 39.0-39.9, adult; Z86.13 Personal history of malaria; Z91.19 Patient's noncompliance with other medical treatment and regimen; Z85.41 Personal history of malignant neoplasm of cervix uteri; Z92.21 Personal history of antineoplastic chemotherapy; Z92.3 Personal history of irradiation; Z90.49 Acquired absence of other specified parts of digestive tract; Z90.710 Acquired absence of both cervix and uterus; Z87.891 Personal history of nicotine dependence; Z88.0 Allergy status to penicillin

== ENCOUNTER 2017-06-29 08:13 | Emergency (ER) | payer MEDICAID, OTHER ==
[2017-06-29 08:13] VITALS: BMI 39.9
[2017-06-29 08:40] VITALS: TEMP 98.9; O2SAT 100
[2017-06-29] MEDS ORDERED: Oxycodone/Acetaminophen 5/325 mg Tab PO STA (09:17)
--- NOTE | 2017-06-29 09:19 | ED PDOC ---
Arrival/HPI - General Historian: Patient - History of Present Illness Time/Duration: < week Symptom Onset: Sudden Symptom Course: Unchanged Quality: Unable to Describe <Quoc Asencio - Last Filed: 06/29/17 12:06> <Hussein Cordobayifan - Last Filed: 07/10/17 18:27> - General Chief Complaint: Lower Extremity Problem/Injury Time Seen by Provider: 06/29/17 08:30 - History of Present Illness Narrative History of Present Illness (Text): 06/29/17 09:04 This is a 62 year old female with PMHx DM, HTN, Malaria, ATN, Cervical CA s/p hysterectomy who presents complaining of right lower extremity pain for the past 2 days. Patient states that pain is difficult to describe but is severe and leaves with difficulty walking. Patient states that it begins on the right buttock and radiates down the entire right lower extremity to her toes. Patient states that there is intermittent radiation to the groin and numbness in that area. Patient states that the pain is constant. Patient denies bowel/bladder incontinence. Patient states that she was told that she had a herniated disc in the past. Patient states that during her recent hospitalization, she was told that she does not currently have malaria anymore. PMH: DM, HTN, cerebral malaria s/p treatment and hospitalization, ATN 2/2 malaria s/p dialysis, anemia s/p multiple transfusions, cervical CA (total hysterectomy 3 years ago) PSH: TKA x2, hysterectomy 3 years ago Allergies: PCN Social: Former smoker quit 29 years ago. Denies alcohol, drugs. PMD: Dr. Del Rosario (Quoc Asencio) Past Medical History - Provider Review Nursing Documentation Reviewed: Yes - Infectious Disease Hx of Infectious Diseases: None - Tetanus Immunization Tetanus Immunization: Unknown - Reproductive Menopause: Yes - Cardiac Hx Cardiac Disorders: Yes Hx Hypertension: Yes - Pulmonary Hx Respiratory Disorders: No - Neurological Hx Neurological Disorder: No - HEENT Hx HEENT Disorder: Yes Hx Cataracts: Yes (BILATERAL ) - Renal Hx Renal Disorder: No - Endocrine/Metabolic Hx Endocrine Disorders: Yes Hx Diabetes Mellitus Type 1: Yes - Hematological/Oncological Hx Blood Disorders: Yes Hx Cancer: Yes (ENDOMETRIAL) - Integumentary Hx Dermatological Disorder: No - Musculoskeletal/Rheumatological Hx Musculoskeletal Disorders: No - Gastrointestinal Hx Gastrointestinal Disorders: No - Genitourinary/Gynecological Hx Genitourinary Disorders: Yes (ENDOMETRIAL CA W RADIATION) - Psychiatric Hx Psychophysiologic Disorder: No Hx Substance Use: No - Surgical History Hx Appendectomy: Yes Hx Hysterectomy: Yes - Anesthesia Hx Anesthesia: Yes Hx Anesthesia Reactions: No Hx Malignant Hyperthermia: No - Suicidal Assessment Feels Threatened In Home Enviroment: No <Quoc Asencio - Last Filed: 06/29/17 12:06> Family/Social History - Physician Review Nursing Documentation Reviewed: Yes Family/Social History: No Known Family HX Smoking Status: Former Smoker Hx Alcohol Use: No Hx Substance Use: No Hx Substance Use Treatment: No <Quoc Asencio - Last Filed: 06/29/17 12:06> Allergies/Home Meds <Quoc Asencio - Last Filed: 06/29/17 12:06> <Jonah Cordoba - Last Filed: 07/10/17 18:27> Allergies/Adverse Reactions: Allergies Penicillins Allergy (Verified 07/04/17 17:31) SWELLING Home Medications: Home Meds Medication Instructions Recorded Confirmed Furosemide [Lasix] 40 mg PO DAILY 05/26/17 07/04/17 Metoprolol Succinate [Toprol Xl] 25 mg PO DAILY 05/26/17 07/04/17 Review of Systems - Review of Systems Constitutional: Normal Eyes: Normal ENT: Normal Respiratory: Normal Cardiovascular: Normal Gastrointestinal: Normal Genitourinary Female: Normal Musculoskeletal: Back Pain, Other (right lower extremity pain that radiates from the right buttock) Neurological: Normal Endocrine: Normal Hemo/Lymphatic: Normal <Quoc Asencio - Last Filed: 06/29/17 12:06> - Physician Review All systems were reviewed & negative as marked: Yes <Jonah Cordoba - Last Filed: 07/10/17 18:27> Physical Exam Vital Signs Reviewed: Yes Temperature: Afebrile Blood Pressure: Hypertensive Pulse: Regular Respiratory Rate: Normal Appearance: Positive for: Uncomfortable Pain Distress: Moderate Mental Status: Positive for: Alert and Oriented X 3 Finger Stick Blood Glucose: 203 - Systems Exam Head: Present: Atraumatic, Normocephalic Pupils: Present: PERRL Extroacular Muscles: Present: EOMI Conjunctiva: Present: Normal Mouth: Present: Moist Mucous Membranes Neck: Present: Normal Range of Motion Respiratory/Chest: Present: Clear to Auscultation, Good Air Exchange. No: Accessory Muscle Use Cardiovascular: Present: Regular Rate and Rhythm, Normal S1, S2 Abdomen: Present: Normal Bowel Sounds. No: Tenderness, Distention Upper Extremity: Present: Normal Inspection, NORMAL PULSES. No: Edema Lower Extremity: Present: Normal Inspection, NORMAL PULSES, Neurovascularly Intact. No: Edema, CALF TENDERNESS Neurological: Present: GCS=15, CN II-XII Intact, Motor Func Grossly Intact. No : Normal Sensory Function (diminished sensation of L5 dermatome region on right side compared to left) Skin: Present: Warm, Dry, Normal Color. No: Rashes Psychiatric: Present: Alert, Oriented x 3 <Quoc Asencio - Last Filed: 06/29/17 12:06> Vital Signs Temp Pulse Resp BP Pulse Ox 06/29/17 11:00 69 18 168/89 H 100 06/29/17 10:13 73 13 173/93 H 100 06/29/17 08:13 98.9 F 84 18 175/100 H 100 Medical Decision Making <Quoc Asencio - Last Filed: 06/29/17 12:06> <Jonah Cordoba - Last Filed: 07/10/17 18:27> ED Course and Treatment: 06/29/17 09:26 Percocet 5/325mg for pain. Patient has previously tolerated this medication during prior recoveries for knee surgery. 06/29/17 11:47 Upon re-assessment after being given Percocet, patient's pain improved and she was able to ambulate. Patient discharged with prescription for Percocet and instructed to come back when the [facility] pharmacy opens tomorrow and fill the prescription that Dr. Del Rosario had given her. (Quoc Asencio) 06/29/17 11:50 In agreement with resident note, which includes further HPI details. Patient was seen and evaluated with resident, came up with plan and treatment together. 62 year old female presents complaining of right lower extremity pain for the past 2 days. Patient was given Percocet for the pain. On current exam in ED, patient's pain is palable, worse with ROM. No fever. No abdominal pain or pulsatile masses. No incontinence of urine or stool. No saddle anesthesia and no motor or sensory deficits. Neuro intact. Suspect sciatica/radiculopathy, stressed need for close follow-up if symptoms persist or worsen. Risks and side effects of medication reviewed with patient. She is ambulatory and comfortable on re-evaluation. (Jonah Cordoba) - Lab Interpretations Lab Results: Lab Results 06/29/17 08:53: POC Glucose (mg/dL) 203 H - Medication Orders Current Medication Orders: Discontinued Medications Oxycodone/Acetaminophen (Percocet 5/325 Mg Tab) 1 tab PO STAT STA Stop: 06/29/17 09:18 Last Admin: 06/29/17 09:24 Dose: 1 tab MAR Pain Assessment Document 06/29/17 09:24 CNR (Rec: 06/29/17 09:27 CNR [id number]) Pain Reassessment Is this a pain reassessment? Yes Sleep Is patient sleeping during reassessment? No Presence of Pain Presence of Pain Yes Pain Scale Used Pain Scale Used Numeric Location Left, Right or Bilateral Right Pain Location Body Site Back Hip Description Description Constant Intensity of Pain at present 10 Pain Behavior Guarding Grasping Site Facial Grimacing Aggravating Factors Sitting <Quoc Asencio - Last Filed: 06/29/17 12:06> - Scribe Statement The provider has reviewed the documentation as recorded by the Scribe <Jonah Cordoba - Last Filed: 07/10/17 18:27> - Scribe Statement Phyllis Wolff All medical record entries made by the Scribe were at my direction and personally dictated by me. I have reviewed the chart and agree that the record accurately reflects my personal performance of the history, physical exam, medical decision making, and the department course for this patient. I have also personally directed, reviewed, and agree with the discharge instructions and disposition. (Jonah Cordoba) Disposition/Present on Arrival - Present on Arrival Any Indicators Present on Arrival: No History of DVT/PE: No History of Uncontrolled Diabetes: No Urinary Catheter: No History of Decub. Ulcer: No History Surgical Site Infection Following: None - Disposition Have Diagnosis and Disposition been Completed?: Yes Disposition Time: 11:45 <Quoc Asencio - Last Filed: 06/29/17 12:06> <Jonah Cordoba - Last Filed: 07/10/17 18:27> - Disposition Diagnosis: Lumbar radicular pain, Sciatica Disposition: HOME/ ROUTINE Patient Problems: Current Active Problems Problem Status Onset Choledocholithiasis Acute Condition: STABLE Discharge Instructions (ExitCare): Sciatica (ED), Lumbar Radiculopathy (ED) Additional Instructions: Please fill the Percocet prescription and take it every 6 hours ONLY IF needed for pain. Do this until you can get the other prescription that Dr. Del Rosario sent to the [facility] pharmacy. Please follow up with Dr. Del Rosario within 1 week. If you any new or worsening symptoms, please return to the Emergency Room. Prescriptions: oxyCODONE/Acetaminophen [Percocet 5/325 mg Tab] 1 ea PO Q6 PRN #8 tab PRN Reason: severe pain Referrals: Gómez Del Rosario MD [Primary Care Provider] - Follow up with primary Forms: [employer] ([place]ian)
[2017-06-29] MEDS ORDERED: Oxycodone/Acetaminophen 5/325 mg Tab ONE (09:24)
[2017-06-29 11:24] VITALS: BP 168/89; PULSE 69; RESP 18
== END 2017-06-29 11:53 | disposition home or self-care (01) ==
LOC: ED 08:13
DX: M54.30 Sciatica, unspecified side (principal); M54.5 Low back pain

== ENCOUNTER 2017-07-04 17:02 | Inpatient (IN) | payer MEDICAID, OTHER ==
[2017-07-04 17:03] VITALS: BMI 39.9
[2017-07-04] MEDS ORDERED: Sodium Chloride 0.9% 1,000 ML IV STA ×2 (17:41→20:04)
--- NOTE | 2017-07-04 18:07 | ED PDOC ---
Arrival/HPI - General Chief Complaint: GI Problem Time Seen by Provider: 07/04/17 17:13 - History of Present Illness Narrative History of Present Illness (Text): 07/04/17 17:40 62 F w/ PMHx pertinent for renal failure no longer on dialysis, diabetes, and cerebral malaria in the past, presents with 2 week duration of weakness and 5 days duration of n/v. Patient states that she was feeling general fatigue starting two weeks ago and that she did not feel like getting up and doing things. She states that 5 days ago she started having nbnb vomiting, and that she has not been able to keep any food down since then. She is, however, still passing solid stools. Pt denies f/sob/cp/diarrhea/hematochezia/hematemesis/ hematuria. Pt further denies frequency, dysuria, incontinence, malodorous urine , but does admit to 'very yellow' urine and chills. Patient denies falling and hitting her head. No further complaints. (Ahmet Swartz) Past Medical History - Provider Review Nursing Documentation Reviewed: Yes - Infectious Disease Hx of Infectious Diseases: None - Tetanus Immunization Tetanus Immunization: Unknown - Cardiac Hx Cardiac Disorders: Yes Hx Hypertension: Yes - Pulmonary Hx Respiratory Disorders: No - Neurological Hx Neurological Disorder: No - HEENT Hx HEENT Disorder: Yes Hx Cataracts: Yes (BILATERAL ) - Renal Hx Renal Disorder: Yes Hx Renal Failure: Yes - Endocrine/Metabolic Hx Endocrine Disorders: Yes Hx Diabetes Mellitus Type 1: Yes - Hematological/Oncological Hx Blood Disorders: Yes Hx Cancer: Yes (ENDOMETRIAL) - Integumentary Hx Dermatological Disorder: No - Musculoskeletal/Rheumatological Hx Musculoskeletal Disorders: No - Gastrointestinal Hx Gastrointestinal Disorders: No - Genitourinary/Gynecological Hx Genitourinary Disorders: Yes (ENDOMETRIAL CA W RADIATION) - Psychiatric Hx Psychophysiologic Disorder: No Hx Substance Use: No - Surgical History Hx Appendectomy: Yes Hx Hysterectomy: Yes - Anesthesia Hx Anesthesia: Yes Hx Anesthesia Reactions: No Hx Malignant Hyperthermia: No - Suicidal Assessment Feels Threatened In Home Enviroment: No Family/Social History - Physician Review Nursing Documentation Reviewed: Yes Family/Social History: Unknown Family HX Smoking Status: Former Smoker Hx Alcohol Use: Yes Hx Substance Use: No Hx Substance Use Treatment: No Allergies/Home Meds Allergies/Adverse Reactions: Allergies Penicillins Allergy (Verified 07/04/17 17:31) SWELLING Home Medications: Home Meds Medication Instructions Recorded Confirmed Furosemide [Lasix] 40 mg PO DAILY 05/26/17 07/04/17 Metoprolol Succinate [Toprol Xl] 25 mg PO DAILY 05/26/17 07/04/17 Review of Systems - Physician Review All systems were reviewed & negative as marked: Yes - Review of Systems Constitutional: Fatigue, Other (chills). absent: Weight Change, Fevers Eyes: Normal. absent: Vision Changes, Photophobia, Eye Pain ENT: Normal. absent: Hearing Changes, Tinnitus, TMJ Pain Respiratory: Normal. absent: SOB, Cough, Sputum Cardiovascular: Normal. absent: Chest Pain, Palpitations, Edema, Calf Pain, ROGERS Gastrointestinal: Normal. absent: Diarrhea, Nausea, Vomiting, Hematochezia, Hematemesis Genitourinary Female: Urine Output Changes (states urine is very 'yellow.'). absent: Dysuria, Frequency, Hematuria Musculoskeletal: Normal. absent: Arthralgias, Back Pain, Neck Pain Skin: Normal. absent: Rash, Pruritis, Skin Lesions, Laceration, Abscess Neurological: Normal. absent: Headache, Dizziness, Focal Weakness, Gait Changes Endocrine: Normal. absent: Diaphoresis, Polyuria, Polydipsia Hemo/Lymphatic: Normal. absent: Adenopathy, Easy Bleeding, Easy Bruising Psychiatric: Normal. absent: Anxiety, Depression, Suicidal Ideation Physical Exam Vital Signs Reviewed: Yes Temperature: Afebrile Blood Pressure: Hypertensive Pulse: Regular Respiratory Rate: Normal Appearance: Positive for: Well-Appearing, Non-Toxic, Comfortable Pain Distress: None Mental Status: Positive for: Alert and Oriented X 3 - Systems Exam Head: Present: Atraumatic, Normocephalic. No: Tenderness, Contusion Pupils: Present: PERRL. No: Sluggish, Non-Reactive Extroacular Muscles: Present: EOMI. No: Gaze Palsy, Entrapment Conjunctiva: Present: Icteric Ears: Present: Normal, NORMAL TM, Normal Canal. No: Erythema, TM Bulging Mouth: Present: Moist Mucous Membranes. No: Dry, Drooling, Trismus Pharnyx: Present: Normal. No: ERYTHEMA, EXUDATE, TONSILS ENLARGED Neck: Present: Normal Range of Motion. No: Meningeal Signs, MIDLINE TENDERNESS , Paraspinal Tenderness Respiratory/Chest: Present: Clear to Auscultation, Good Air Exchange. No: Respiratory Distress, Accessory Muscle Use, Decreased Breath Sounds Cardiovascular: Present: Regular Rate and Rhythm, Normal S1, S2. No: Murmurs, Rub, Gallop Abdomen: Present: Normal Bowel Sounds. No: Tenderness, Distention, Peritoneal Signs Back: Present: Normal Inspection. No: CVA Tenderness, Midline Tenderness, Paraspinal Tenderness Upper Extremity: Present: Normal Inspection, Normal ROM, NORMAL PULSES. No: Cyanosis, Edema, Tenderness Lower Extremity: Present: Normal Inspection, NORMAL PULSES, Other (TTP 2/2 sciatica). No: Edema, CALF TENDERNESS Neurological: Present: GCS=15, CN II-XII Intact, Speech Normal, Motor Func Grossly Intact, Normal Sensory Function, Normal Cerebellar Funct, Norm Deep Tendon Reflexes Skin: Present: Warm, Dry, Normal Color. No: Rashes, Diaphoretic Psychiatric: Present: Alert, Oriented x 3, Normal Insight, Normal Concentration. No: Suicidal Ideation, Homicidal Ideation Vital Signs Temp Pulse Resp BP Pulse Ox 07/04/17 17:15 98.8 F 80 20 171/100 H 99 Medical Decision Making ED Course and Treatment: Assessment 07/04/17 17:40 Impression: 62 F presenting with fatigue and intractible n/v Plan: - Zofran, Fluids - Abd US, Head CT - CBC, CMP, lipase Reassessment 07/04/17 19:46 - Pt feels better after zofran - CMP showed low K+ - repleted - Lipase normal - Abd US shows CBD thickening - Head CT normal - Another L bolus Reassessment 07/04/17 20:21 - Spoke with Dr. Del Rosario who accepts patient to his service on med/surg - Added Dr. Cervantes for GI (Ahmet Swartz) Seen and examined with resident. 62 y/o F p/w abdominal pain. On exam, RUQ tenderness, scleral icterus. (Janis,Mauricio Hyatt) - Lab Interpretations Lab Results: 07/04/17 18:20 07/04/17 18:20 Lab Results 07/04/17 18:20: Sodium 139, Potassium 2.9 L*, Chloride 97 L, Carbon Dioxide 30, Anion Gap 15, BUN 9, Creatinine 0.8, Est GFR ( Amer) > 60, Est GFR (Non- Af Amer) > 60, Random Glucose 249 H, Calcium 9.8, Total Bilirubin 5.4 H, AST 195 H D, ALT 203 H, Alkaline Phosphatase 495 H D, Total Protein 7.9, Albumin 4.2 , Globulin 3.7, Albumin/Globulin Ratio 1.1, Lipase 90 07/04/17 18:20: WBC 4.5, RBC 3.64, Hgb 10.5 L, Hct 32.7 L, MCV 89.8, MCH 28.8, MCHC 32.1, RDW 13.5, Plt Count 390, MPV 8.7, Gran % 71.4 H, Lymph % (Auto) 21.6 L, George % (Auto) 6.4 H, Eos % (Auto) 0.4 L, Baso % (Auto) 0.2, Gran # 3.21, Lymph # 1.0 L, George # 0.3, Eos # 0.0, Baso # 0.01 - RAD Interpretation Radiology Orders: 07/04/17 17:41 HEAD W/O CONTRAST [CT] Stat 07/04/17 18:22 ABDOMEN COMPLETE [US] Stat - Medication Orders Current Medication Orders: Potassium Chloride (Potassium Chloride 20 Meq/100 Ml) 20 meq in 100 mls @ 50 mls/hr IVPB Q2H IRLANDA Stop: 07/04/17 23:14 Last Admin: 07/04/17 20:26 Dose: 50 mls/hr eMAR Start Stop Document 07/04/17 20:26 SC (Rec: 07/04/17 20:[address] [id number] Intravenous Solution Start Date 07/04/17 Start Time 20:26 End Date 07/04/17 End time 22:26 Total Infusion Time 120 Discontinued Medications Sodium Chloride (Sodium Chloride 0.9%) 1,000 mls @ 999 mls/hr IV .Q1H1M STA Stop: 07/04/17 18:41 Last Admin: 07/04/17 18:20 Dose: 999 mls/hr eMAR Start Stop Document 07/04/17 18:20 [place] (Rec: 07/04/17 18:30 [id number] Intravenous Solution Start Date 07/04/17 Start Time 18:30 Sodium Chloride (Sodium Chloride 0.9%) 1,000 mls @ 999 mls/hr IV .Q1H1M STA Stop: 07/04/17 21:04 Last Admin: 07/04/17 20:27 Dose: 999 mls/hr eMAR Start Stop Document 07/04/17 20:27 SC (Rec: 07/04/17 20:27 SC [id number]) Intravenous Solution Start Date 07/04/17 Start Time 20:27 End Date 07/04/17 End time 21:27 Total Infusion Time 60 Ondansetron HCl (Zofran Inj) 4 mg IVP STAT STA Stop: 07/04/17 17:42 Last Admin: 07/04/17 18:20 Dose: 4 mg IVP Administration Document 07/04/17 18:20 [place] (Rec: 07/04/17 18:30 [id number] Charges for Administration # of IVP Administrations 1 Disposition/Present on Arrival - Present on Arrival Any Indicators Present on Arrival: No History of DVT/PE: No History of Uncontrolled Diabetes: No Urinary Catheter: No History of Decub. Ulcer: No History Surgical Site Infection Following: None - Disposition Have Diagnosis and Disposition been Completed?: Yes Disposition Time: 20:20 Patient Plan: Admission - Disposition Diagnosis: Choledocholithiasis Disposition: HOSPITALIZED Condition: FAIR
[2017-07-04 18:31] LABS: BASO # 0.01 K/mm3 (0.0-2.0); BASO % 0.2 % (0.0-3.0); EOS % 0.4 % (1.5-5.0); GRAN # 3.21 (1.4-6.5); GRAN % 71.4 % (50.0-68.0); HEMATOCRIT 32.7 % (36.0-48.0); LYMPH % 21.6 % (22.0-35.0); MEAN CELL VOLUME 89.8 fl (80.0-105.0); MEAN CORPUSCULAR HEMOGLOBIN 28.8 pg (25.0-35.0); MEAN CORPUSCULAR HGB CONC 32.1 g/dl (31.0-37.0); MEAN PLATELET VOLUME 8.7 fl (7.0-11.0); MONO # 0.3 (0.1-0.6); MONO % 6.4 % (1.0-6.0); RED CELL DISTRIBUTION WIDTH 13.5 % (11.5-14.5); WHITE BLOOD COUNT 4.5 10^3/ul (4.5-11.0)
[2017-07-04 18:42] LABS: ALB/GLOB RATIO 1.1 (1.1-1.8); ALKALINE PHOSPHATASE 495 U/L (38-126); ALT/SGPT 203 U/L (7-56); AST/SGOT 195 U/L (14-36); BILIRUBIN,TOTAL 5.4 mg/dL (0.2-1.3); BLOOD UREA NITROGEN 9 mg/dL (7-21); CALCIUM 9.8 mg/dL (8.4-10.5); CARBON DIOXIDE 30 mmol/L (21-33); CHLORIDE 97 mmol/L (98-107); GFR AFRICAN-AMERICAN > 60; GLUCOSE,RANDOM 249 mg/dL (70-110); LIPASE 90 U/L (23-300); SODIUM 139 mmol/L (132-148); TOTAL PROTEIN 7.9 g/dL (5.8-8.3)
[2017-07-04 19:03] LABS: POTASSIUM 2.9 mmol/L (3.6-5.0)
--- NOTE | 2017-07-04 19:59 | US ---
EXAM: US Abdomen Complete CLINICAL HISTORY: 62 years old, female; Pain; Abdominal pain; Epigastric; Additional info: N/v, epigastric pain TECHNIQUE: Real-time ultrasound of the abdomen (complete) with image documentation. COMPARISON: US - ABDOMEN COMPLETE 06/13/2017 6:40:05 PM FINDINGS: Liver: Fatty infiltration. No mass. No intrahepatic ductal dilatation. Gallbladder: Distended. No gallstones. No pericholecystic fluid. No sonographic Yeager's sign. Common bile duct: Up to 1.3 cm in diameter. No stones. Pancreas: Unremarkable as visualized. Kidneys: Normal echogenicity. Moderate pelvocaliectasis of LEFT kidney. Spleen: No splenomegaly. Aorta: Unremarkable. No aneurysm. Inferior vena cava: Unremarkable. Free fluid: No significant free fluid. IMPRESSION: 1. Biliary ductal dilatation. Suggest MRCP. 2. Moderate pelvocaliectasis of LEFT kidney. 3. Incidental/non-acute findings are described above.
--- NOTE | 2017-07-04 20:00 | CT ---
EXAM: CT Head Without Intravenous Contrast CLINICAL HISTORY: 62 years old, female; Signs and symptoms; Other: HX cerebral malaria; Additional info: Hx/o cerebral malaria TECHNIQUE: Axial computed tomography images of the head/brain without intravenous contrast. All CT scans at this facility use one or more dose reduction techniques, viz.: automated exposure control; ma/kV adjustment per patient size (including targeted exams where dose is matched to indication; i.e. head); or iterative reconstruction technique. COMPARISON: No relevant prior studies available. FINDINGS: Brain: Mild atrophy. No intracranial hemorrhage. No mass. Few scattered foci of decreased attenuation within periventricular/subcortical white matter. No definite edema. Ventricles: No hydrocephalus. Bones/joints: No acute fracture. Soft tissues: Unremarkable. Vasculature: Atherosclerotic disease of intracranial arteries. Sinuses: No acute sinusitis. Mastoid air cells: No mastoid effusion. Orbits: Unremarkable as visualized. IMPRESSION: 1. Nonspecific white matter changes. Acute infarction may be CT occult within first 24 hours. If a focal deficit persists, consider followup CT or MRI for further evaluation. 2. Incidental/non-acute findings are described above.
[2017-07-04] MEDS ORDERED: HYDROmorphone 0.5 mg/0.5 ml ISec IM STA (23:32)
--- NOTE | 2017-07-05 01:02 | CARD ---
APPROVED REPORT EKG Measurement Heart [id number] <Conclusion> Sinus tachycardia Possible Left atrial enlargement Left axis deviation Abnormal ECG
--- NOTE | 2017-07-05 01:10 | CP.PCM.PN ---
Subjective - Date & Time of Evaluation Date of Evaluation: 07/05/17 Time of Evaluation: 01:05 - Subjective Subjective: Patient was seen because she had requested pain medication. She is NPO. Dilaudid 0.5 mg IV was ordered. Patient is pain free and asleep now. This 62 year old woman was admitted nausea, vomiting, weakness, choledocholithiasis. Has PMH of DM, HTN, renal failure, cerebral malaria, endometrial cancer, appendectomy, hystrectomy. Objective - Vital Signs/Intake and Output Vital Signs (last 24 hours): Temp Pulse Resp BP Pulse Ox 98.9 F 76 16 150/71 99 07/04/17 21:18 07/04/17 21:58 07/04/17 21:58 07/04/17 21:58 07/04/17 21:58 - Medications Medications: Current Medications Hydromorphone HCl (Dilaudid) 0.5 mg IVP Q6H PRN PRN Reason: Pain, moderate (4-7) Sodium Chloride (Sodium Chloride 0.9%) 1,000 mls @ 100 mls/hr IV .Q10H IRLANDA - Constitutional Appears: Well, No Acute Distress - Head Exam Head Exam: ATRAUMATIC, NORMAL INSPECTION, NORMOCEPHALIC - Eye Exam Eye Exam: Normal appearance - ENT Exam ENT Exam: Normal External Ear Exam - Neck Exam Neck Exam: Normal Inspection - Respiratory Exam Respiratory Exam: NORMAL BREATHING PATTERN - Cardiovascular Exam Cardiovascular Exam: absent: JVD - GI/Abdominal Exam GI & Abdominal Exam: absent: Distended - Rectal Exam Rectal Exam: Deferred - Extremities Exam Additional comments: Deferred. - Back Exam Back Exam: NORMAL INSPECTION - Neurological Exam Additional comments: Asleep. - Psychiatric Exam Additional comments: Asleep. - Skin Skin Exam: Normal Color Assessment and Plan - Assessment and Plan (Free Text) Assessment: Choledocholithiasis. HTN. DM II. Hx cerebral malaria. Hx ATN. Obesity. Plan: Dilaudid 0.5 mg IV STAT. As per PMD.
[2017-07-05] MEDS: Sodium Chloride 0.9% 1,000 ML IV SCH ×3 (03:25→21:51)
[2017-07-05] MEDS: HYDROmorphone 0.5 mg/0.5 ml ISec IVP PRN ×4 (03:33→23:37)
[2017-07-05 06:43] LABS: URINE BILIRUBIN SMALL (NEGATIVE); URINE BLOOD NEGATIVE (NEGATIVE); URINE GLUCOSE (UA) >=1000 mg/dL (NEGATIVE); URINE KETONE NEGATIVE (NEGATIVE); URINE LEUKOCYTE ESTERASE NEGATIVE Leu/uL (NEGATIVE); URINE PROTEIN NEGATIVE mg/dL (<30 mg/dL); URINE UROBILINOGEN 0.2 E.U./dL (<1 E.U./dL)
[2017-07-05 06:46] LABS: URINE APPEARANCE SL CLOUDY (CLEAR); URINE COLOR YELLOW (YELLOW)
[2017-07-05 07:48] LABS: BASO # 0.02 K/mm3 (0.0-2.0); BASO % 0.5 % (0.0-3.0); EOS % 0.9 % (1.5-5.0); GRAN # 3.02 (1.4-6.5); GRAN % 70.2 % (50.0-68.0); HEMATOCRIT 34.4 % (36.0-48.0); LYMPH # 0.9 (1.2-3.4); LYMPH % 21.9 % (22.0-35.0); MEAN CORPUSCULAR HEMOGLOBIN 28.6 pg (25.0-35.0); MEAN CORPUSCULAR HGB CONC 31.4 g/dl (31.0-37.0); MEAN PLATELET VOLUME 9.3 fl (7.0-11.0); MONO # 0.3 (0.1-0.6); MONO % 6.5 % (1.0-6.0); RED CELL DISTRIBUTION WIDTH 13.7 % (11.5-14.5); WHITE BLOOD COUNT 4.3 10^3/ul (4.5-11.0)
[2017-07-05 08:04] LABS: ALB/GLOB RATIO 1.1 (1.1-1.8); ALKALINE PHOSPHATASE 511 U/L (38-126); ALT/SGPT 204 U/L (7-56); AST/SGOT 193 U/L (14-36); BILIRUBIN,TOTAL 5.6 mg/dL (0.2-1.3); BLOOD UREA NITROGEN 7 mg/dL (7-21); CALCIUM 9.7 mg/dL (8.4-10.5); CARBON DIOXIDE 32 mmol/L (21-33); CHLORIDE 100 mmol/L (95-110); GFR AFRICAN-AMERICAN > 60; GLUCOSE,RANDOM 246 mg/dL (70-110); POTASSIUM 3.3 mmol/L (3.6-5.0); SODIUM 143 mmol/L (132-148); TOTAL PROTEIN 8.1 g/dL (5.8-8.3)
[2017-07-05] MEDS: Insulin Lispro (humaLOG) LOW Coverage SC SCH ×3 (11:39→22:13)
[2017-07-05] MEDS ORDERED: Gadodiamide 287 MG/ML VIAL (20ML) IV ONE (15:49)
--- NOTE | 2017-07-05 17:03 | RAD ---
PROCEDURE: Pelvis and right hip Radiographs. HISTORY: pain to right hip COMPARISON: None. FINDINGS: BONES: The pelvic ring is intact. There is no acute displaced fracture or bone destruction. JOINTS: Normal. SOFT TISSUES: Normal. OTHER FINDINGS: None. IMPRESSION: No acute fracture or dislocation.
--- NOTE | 2017-07-05 21:29 | CP.PCM.CON ---
History of Present Illness - History of Present Illness History of Present Illness: Infectious Disease Consultation: July 05, 2017 62 yo female with frequent hospitalization to [facility]. The patient with presentation of general fatigue and weakness starting two weeks ago. The patient was hospitalized in [facility] about 3 weeks ago. The patient has NBNB vomiting. The patient is awake and alert. History of PCN allergies. The patient has a history of uterine cancer with treatment of hysterectomy, chemotherapy, and radiation. The patient was also recently treated for cerebral malaria at [facility] in [place] about two months ago. She had three malaria smears done on her last hospitalization here 3 weeks ago. PMHx: DM, HTN, cerebral malaria s/p treatment and hospitalization, ATN 2/2 malaria s/ p dialysis, anemia s/p multiple transfusions, cervical CA (total hysterectomy 3 years ago) PSHx: 2 knee replacements, total hysterectomy Allergies: PCN Social Hx: - smoking: quit 29 years ago, previously 1pack/week for 5-6 years - EtOH: wine occasionally, none recently - recreational drugs: denies - occupation: unemployed Family Hx: DM, CA (mom - cholecarcinoma, brother - colon CA), father from "enlarged heart" ROS: No fevers, chills, headaches dizziness, chest pain, melena, hematuria, hematemesis, hematochezia, depression, anxiety. The patient has nausea, vomiting, abdominal pain, fatigue, and weakness. Past Patient History - Infectious Disease Hx of Infectious Diseases: None - Tetanus Immunizations Tetanus Immunization: Unknown - Past Medical History & Family History Past Medical History?: Yes - Past Social History Smoking Status: Former Smoker - CARDIAC Hx Cardiac Disorders: Yes Hx Hypertension: Yes - PULMONARY Hx Respiratory Disorders: No - NEUROLOGICAL Hx Neurological Disorder: No - HEENT Hx HEENT Problems: Yes Hx Cataracts: Yes (BILATERAL ) - RENAL Hx Chronic Kidney Disease: Yes Hx Renal Failure: Yes - ENDOCRINE/METABOLIC Hx Endocrine Disorders: Yes Hx Diabetes Mellitus Type 1: Yes - HEMATOLOGICAL/ONCOLOGICAL Hx Blood Disorders: Yes Hx Cancer: Yes (ENDOMETRIAL) - INTEGUMENTARY Hx Dermatological Problems: No - MUSCULOSKELETAL/RHEUMATOLOGICAL Hx Falls: No - GASTROINTESTINAL Hx Gastrointestinal Disorders: No - GENITOURINARY/GYNECOLOGICAL Hx Genitourinary Disorders: Yes (ENDOMETRIAL CA W RADIATION) - PSYCHIATRIC Hx Psychophysiologic Disorder: No Hx Substance Use: No - SURGICAL HISTORY Hx Appendectomy: Yes Hx Hysterectomy: Yes - ANESTHESIA Hx Anesthesia: Yes Hx Anesthesia Reactions: No Hx Malignant Hyperthermia: No Meds Allergies/Adverse Reactions: Allergies Allergy/AdvReac Type Severity Reaction Status Date / Time Penicillins Allergy SWELLING Verified 07/04/17 17:31 - Medications Medications: Current Medications Hydromorphone HCl (Dilaudid) 0.5 mg IVP Q6H PRN PRN Reason: Pain, moderate (4-7) Last Admin: 07/05/17 18:05 Dose: 0.5 mg Hydromorphone HCl (Dilaudid) 0.5 mg SC Q4H PRN PRN Reason: Pain, severe (8-10) Sodium Chloride (Sodium Chloride 0.9%) 1,000 mls @ 100 mls/hr IV .Q10H [facility] Last Admin: 07/05/17 18:09 Dose: 100 mls/hr Insulin Human Lispro (Humalog Low) 0 units SC ACHS IRLANDA PRN Reason: Protocol Last Admin: 07/05/17 18:15 Dose: 1 units Lisinopril (Zestril) 20 mg PO DAILY [facility] Last Admin: 07/05/17 18:11 Dose: 20 mg Ondansetron HCl (Zofran Inj) 4 mg IVP Q4H PRN PRN Reason: Nausea/Vomiting Last Admin: 07/05/17 18:05 Dose: 4 mg Physical Exam - Constitutional Appears: Non-toxic, No Acute Distress, Chronically Ill - Head Exam Head Exam: ATRAUMATIC, NORMOCEPHALIC - Eye Exam Eye Exam: EOMI, PERRL Pupil Exam: NORMAL ACCOMODATION, PERRL - ENT Exam ENT Exam: Mucous Membranes Moist, Normal External Ear Exam, TM's Normal Bilaterally - Neck Exam Neck exam: Positive for: Full Rom, Normal Inspection - Respiratory Exam Respiratory Exam: Clear to Auscultation Bilateral, NORMAL BREATHING PATTERN. absent: Rales, Rhonchi, Wheezes - Cardiovascular Exam Cardiovascular Exam: REGULAR RHYTHM, RRR, +S1, +S2 - GI/Abdominal Exam GI & Abdominal Exam: Distended, Normal Bowel Sounds, Soft, Tenderness Additional comments: LLQ tenderness - Extremities Exam Extremities exam: Positive for: full ROM, normal inspection - Neurological Exam Neurological exam: Alert, CN II-XII Intact, Oriented x3 - Psychiatric Exam Psychiatric exam: Normal Affect, Normal Mood - Skin Skin Exam: Intact, Normal Color Results - Vital Signs Recent Vital Signs: Last Vital Signs Temp 99.0 F 07/05/17 16:05 Pulse 89 07/05/17 16:05 Resp 20 07/05/17 16:05 BP 180/108 H 07/05/17 16:05 Pulse Ox 97 07/05/17 16:05 - Labs Result Diagrams: 07/05/17 06:30 07/05/17 06:30 Labs: Laboratory Results - last 24 hr 07/05/17 07/05/17 07/05/17 06:00 06:30 06:30 WBC 4.3 L RBC 3.78 Hgb 10.8 L Hct 34.4 L MCV 91.0 MCH 28.6 MCHC 31.4 RDW 13.7 Plt Count 425 MPV 9.3 Gran % 70.2 H Lymph % (Auto) 21.9 L [place] % (Auto) 6.5 H Eos % (Auto) 0.9 L Baso % (Auto) 0.5 Gran # 3.02 Lymph # 0.9 L [place] # 0.3 Eos # 0.0 Baso # 0.02 Sodium 143 Potassium 3.3 L Chloride 100 Carbon Dioxide 32 Anion Gap 14 BUN 7 Creatinine 0.8 Est GFR ( Amer) > 60 Est GFR (Non-Af Amer) > 60 POC Glucose (mg/dL) Random Glucose 246 H Calcium 9.7 Total Bilirubin 5.6 H AST 193 H ALT 204 H Alkaline Phosphatase 511 H Total Protein 8.1 Albumin 4.2 Globulin 4.0 Albumin/Globulin Ratio 1.1 Urine Color Yellow Urine Appearance Sl cloudy Urine pH 7.0 Ur Specific [place] 1.010 Urine Protein Negative Urine Glucose (UA) >=1000 Urine Ketones Negative Urine Blood Negative Urine Nitrate Negative Urine Bilirubin Small H Urine Urobilinogen 0.2 Ur Leukocyte Esterase Negative 07/05/17 07/05/17 07/05/17 08:07 11:09 18:15 WBC RBC Hgb Hct MCV MCH MCHC RDW Plt Count MPV Gran % Lymph % (Auto) [place] % (Auto) Eos % (Auto) Baso % (Auto) Gran # Lymph # [place] # Eos # Baso # Sodium Potassium Chloride Carbon Dioxide Anion Gap BUN Creatinine Est GFR ( Amer) Est GFR (Non-Af Amer) POC Glucose (mg/dL) 248 H 286 H 169 H Random Glucose Calcium Total Bilirubin AST ALT Alkaline Phosphatase Total Protein Albumin Globulin Albumin/Globulin Ratio Urine Color Urine Appearance Urine pH Ur Specific [place] Urine Protein Urine Glucose (UA) Urine Ketones Urine Blood Urine Nitrate Urine Bilirubin Urine Urobilinogen Ur Leukocyte Esterase Assessment & Plan - Assessment and Plan (Free Text) Assessment: 62 yo female with biliary ductal diliation on CT scan and abdominal pain. Frequent hospital visits. Not on antibiotics at this time. No leukocytosis, fevers, or renal insufficiency. Extensive abdominal surgery history. MRCP is pending. Start Cipro for now. Supportive care. Await cultures and MRCP results. Monitor for leukocytosis. Monitor temperature trend. Awaiting olmstead cultures. Thank you for allowing me to participate in the care of the patient, we will follow with you.
[2017-07-05] MEDS: metroNIDAZOLE IV 500 mg/100 ml 500 MG/100 ML BAG IVPB SCH (21:49)
[2017-07-05] MEDS: Ciprofloxacin 400mg/200ml D5W 400 MG/200 ML BAG IVPB SCH (21:50)
[2017-07-06] MEDS: metroNIDAZOLE IV 500 mg/100 ml 500 MG/100 ML BAG IVPB SCH ×3 (06:32→21:19)
[2017-07-06] MEDS: Sodium Chloride 0.9% 1,000 ML IV SCH ×2 (06:35→21:20)
[2017-07-06 07:22] LABS: BASO # 0.04 K/mm3 (0.0-2.0); BASO % 1.1 % (0.0-3.0); EOS # 0.1 (0.0-0.7); GRAN # 2.49 (1.4-6.5); GRAN % 68.6 % (50.0-68.0); HEMATOCRIT 31.8 % (36.0-48.0); LYMPH # 0.8 (1.2-3.4); LYMPH % 22.6 % (22.0-35.0); MEAN CELL VOLUME 89.3 fl (80.0-105.0); MEAN CORPUSCULAR HEMOGLOBIN 28.9 pg (25.0-35.0); MEAN CORPUSCULAR HGB CONC 32.4 g/dl (31.0-37.0); MEAN PLATELET VOLUME 8.8 fl (7.0-11.0); MONO # 0.2 (0.1-0.6); MONO % 4.7 % (1.0-6.0); RED CELL DISTRIBUTION WIDTH 13.3 % (11.5-14.5); WHITE BLOOD COUNT 3.6 10^3/ul (4.5-11.0)
[2017-07-06 07:41] LABS: ALB/GLOB RATIO 1.1 (1.1-1.8); ALKALINE PHOSPHATASE 455 U/L (38-126); ALT/SGPT 186 U/L (7-56); AST/SGOT 167 U/L (14-36); BILIRUBIN,TOTAL 5.4 mg/dL (0.2-1.3); BLOOD UREA NITROGEN 4 mg/dL (7-21); CALCIUM 9.3 mg/dL (8.4-10.5); CARBON DIOXIDE 30 mmol/L (21-33); CHLORIDE 102 mmol/L (98-107); GFR AFRICAN-AMERICAN > 60; GLUCOSE,RANDOM 190 mg/dL (70-110); POTASSIUM 3.1 mmol/L (3.6-5.0); SODIUM 143 mmol/L (132-148); TOTAL PROTEIN 7.3 g/dL (5.8-8.3)
[2017-07-06] MEDS: Insulin Lispro (humaLOG) LOW Coverage SC SCH ×4 (08:47→22:09)
[2017-07-06] MEDS: Ciprofloxacin 400mg/200ml D5W 400 MG/200 ML BAG IVPB SCH ×2 (09:41→21:21)
[2017-07-06] MEDS: HYDROmorphone 0.5 mg/0.5 ml ISec SC PRN ×2 (09:45→15:56)
[2017-07-06 11:02] LABS: INR 1.02 (0.93-1.08); PARTIAL THROMBOPLASTIN TIME 24.8 Seconds (23.7-30.8)
--- NOTE | 2017-07-06 18:42 | CP.PCM.PN ---
Subjective - Date & Time of Evaluation Date of Evaluation: 07/06/17 Time of Evaluation: 15:30 - Subjective Subjective: Infectious Disease Follow Up: July 06, 2017 62 yo female with frequent [place] [facility] The patient with presentation of general fatigue and weakness starting two weeks ago. The patient was hospitalized in [facility] [place] 3 weeks ago. The patient has NBNB vomiting. The patient is awake and alert. History of PCN allergies. The patient has a history of uterine cancer with treatment of hysterectomy, chemotherapy, and radiation. The patient was also recently treated for cerebral malaria at [facility] in [place] about two months ago. She had three malaria smears done on her last hospitalization here 3 weeks ago. She is still having episodes of nausea and vomiting today. Objective - Vital Signs/Intake and Output Vital Signs (last 24 hours): Temp Pulse Resp BP Pulse Ox 99.0 F 86 20 180/108 H 97 07/05/17 16:05 07/06/17 09:42 07/05/17 16:05 07/06/17 09:42 07/05/17 16:05 Intake and Output: 07/06/17 07/06/17 06:59 18:59 Intake Total 840 Balance 840 - Medications Medications: Current Medications Hydromorphone HCl (Dilaudid) 0.5 mg IVP Q6H PRN PRN Reason: Pain, moderate (4-7) Last Admin: 07/05/17 23:37 Dose: 0.5 mg Hydromorphone HCl (Dilaudid) 0.5 mg SC Q4H PRN PRN Reason: Pain, severe (8-10) Last Admin: 07/06/17 15:56 Dose: 0.5 mg Sodium Chloride (Sodium Chloride 0.9%) 1,000 mls @ 100 mls/hr IV .Q10H [facility] Last Admin: 07/06/17 06:35 Dose: 100 mls/hr Ciprofloxacin (Cipro 400mg/200ml Dsw) 400 mg in 200 mls @ 133.3 mls/hr IVPB Q12 [facility] PRN Reason: Protocol Last Admin: 07/06/17 09:41 Dose: 133.3 mls/hr Metronidazole (Flagyl) 500 mg in 100 mls @ 100 mls/hr IVPB Q8 [facility] PRN Reason: Protocol Last Admin: 07/06/17 15:01 Dose: 100 mls/hr Potassium Chloride (Potassium Chloride 20 Meq/100 Ml) 20 meq in 100 mls @ 50 mls/hr IVPB Q2H [facility] Stop: 07/06/17 18:44 Last Admin: 07/06/17 15:58 Dose: 50 mls/hr Insulin Human Lispro (Humalog Low) 0 units SC ACHS I[facility] PRN Reason: Protocol Last Admin: 07/06/17 16:41 Dose: Not Given Lisinopril (Zestril) 20 mg PO DAILY [facility] Last Admin: 07/06/17 09:42 Dose: 20 mg Ondansetron HCl (Zofran Inj) 4 mg IVP Q4H PRN PRN Reason: Nausea/Vomiting Last Admin: 07/06/17 15:57 Dose: 4 mg - Labs Labs: 07/06/17 07:10 07/06/17 07:10 PT 11.0 Seconds (9.9-11.8) 07/06/17 10:49 INR 1.02 (0.93-1.08) 07/06/17 10:49 APTT 24.8 Seconds (23.7-30.8) 07/06/17 10:49 - Constitutional Appears: Non-toxic, No Acute Distress, Chronically Ill - Head Exam Head Exam: ATRAUMATIC, NORMOCEPHALIC - Eye Exam Eye Exam: EOMI, PERRL Pupil Exam: NORMAL ACCOMODATION, PERRL - ENT Exam ENT Exam: Mucous Membranes Moist, Normal External Ear Exam, TM's Normal Bilaterally - Neck Exam Neck Exam: Full ROM, Normal Inspection - Respiratory Exam Respiratory Exam: Clear to Ausculation Bilateral, NORMAL BREATHING PATTERN. absent: Rales, Rhonchi, Wheezes - Cardiovascular Exam Cardiovascular Exam: REGULAR RHYTHM, RRR, +S1, +S2 - GI/Abdominal Exam GI & Abdominal Exam: Soft, Tenderness, Normal Bowel Sounds. absent: Distended Additional comments: LLQ tenderness - Extremities Exam Extremities Exam: Full ROM, Normal Inspection - Neurological Exam Neurological Exam: Alert, Awake, CN II-XII Intact, Oriented x3 - Psychiatric Exam Psychiatric exam: Normal Affect, Normal Mood - Skin Skin Exam: Intact, Normal Color Assessment and Plan - Assessment and Plan (Free Text) Assessment: 62 yo female with biliary ductal diliation on CT scan and abdominal pain. Frequent hospital visits. No leukocytosis, fevers, or renal insufficiency. Extensive abdominal surgery history. MRCP is pending. Continue on Flagyl and Cipro for now. Supportive care. Await cultures and MRCP results. Monitor for leukocytosis. Monitor temperature trend. Awaiting olmstead cultures. Thank you for allowing me to participate in the care of the patient, we will follow with you.
--- NOTE | 2017-07-06 18:59 | MRI ---
PROCEDURE: Magnetic Resonance Cholangiopancreatography HISTORY: Dilated common bile duct. Evaluate for choledocholithiasis. COMPARISON: Comparison is made to the previous ultrasound dated 07/04/[address] dated 06/14/[address] dated 11/27/2016. TECHNIQUE: Multiplanar, multisequence MR images of the abdomen were obtained, including heavily T2 weighted MRCP images of the biliary system. Rotating maximum intensity projection images of the biliary system were generated. Postcontrast images were also obtained. Patient was given 20 cc of IV contrast. FINDINGS: MRCP: The common bile duct is mildly to moderately distended measures up to 16.9 millimeter in the transverse diameter. No evidence of choledocholithiasis. Mild intrahepatic biliary ductal dilatation. LIVER: Unremarkable. GALLBLADDER: The gallbladder is distended. No MRI evidence of acute cholecystitis SPLEEN: Again seen is hyperintense T2 lesion at the spleen measures 2.2 centimeter may represent cyst or hemangioma. PANCREAS: Unremarkable. ADRENALS: The left adrenal gland is mildly enlarged demonstrate nodular appearance without evidence of discrete mass. KIDNEYS: Moderate left hydronephrosis. AORTA: No aneurysm. ASCITES: None. OTHER FINDINGS: None. IMPRESSION: Moderately dilated common bile duct measures up to 17 millimeter without evidence of obstructing stone. Mild intrahepatic biliary ductal dilatation. No gallbladder without evidence of acute cholecystitis. New low hyperintense T2 in hypo intense T1 signal lesion at the spleen may represent cyst or hemangioma. Preliminary report was submitted by virtual Radiology.
[2017-07-06] MEDS: HYDROmorphone 0.5 mg/0.5 ml ISec IVP PRN (23:30)
[2017-07-07] MEDS: metroNIDAZOLE IV 500 mg/100 ml 500 MG/100 ML BAG IVPB SCH ×3 (06:02→21:30)
[2017-07-07] MEDS: Sodium Chloride 0.9% 1,000 ML IV SCH (06:02)
[2017-07-07 06:13] LABS: BASO # 0.02 K/mm3 (0.0-2.0); BASO % 0.5 % (0.0-3.0); EOS # 0.1 (0.0-0.7); EOS % 1.7 % (1.5-5.0); GRAN # 3.09 (1.4-6.5); GRAN % 73.7 % (50.0-68.0); LYMPH # 0.7 (1.2-3.4); LYMPH % 16.7 % (22.0-35.0); MEAN CELL VOLUME 89.9 fl (80.0-105.0); MEAN CORPUSCULAR HEMOGLOBIN 29.4 pg (25.0-35.0); MEAN CORPUSCULAR HGB CONC 32.7 g/dl (31.0-37.0); MEAN PLATELET VOLUME 9.1 fl (7.0-11.0); MONO # 0.3 (0.1-0.6); MONO % 7.4 % (1.0-6.0); RED CELL DISTRIBUTION WIDTH 13.3 % (11.5-14.5); WHITE BLOOD COUNT 4.2 10^3/ul (4.5-11.0)
[2017-07-07 06:40] LABS: ALB/GLOB RATIO 1.1 (1.1-1.8); ALKALINE PHOSPHATASE 482 U/L (38-126); ALT/SGPT 164 U/L (7-56); AST/SGOT 136 U/L (14-36); BLOOD UREA NITROGEN 6 mg/dL (7-21); CALCIUM 9.3 mg/dL (8.4-10.5); CARBON DIOXIDE 28 mmol/L (21-33); CHLORIDE 102 mmol/L (98-107); GFR AFRICAN-AMERICAN > 60; GLUCOSE,RANDOM 177 mg/dL (70-110); POTASSIUM 3.6 mmol/L (3.6-5.0); SODIUM 140 mmol/L (132-148); TOTAL PROTEIN 7.3 g/dL (5.8-8.3)
--- NOTE | 2017-07-07 07:54 | PN ---
DATE: 07/06/2017 SUBJECTIVE: This patient was seen and evaluated earlier. Discussed with primary physician who was also at the bedside at the time of the examination. The patient is still complaining of some discomfort in the right upper quadrant area and epigastric area. PHYSICAL EXAMINATION VITAL SIGNS: Temperature is 98.8, blood pressure is 176/93, pulse 89. HEENT: Atraumatic, jaundiced. NECK: Supple. HEART: S1 and S2 heard. LUNGS: Bilateral air entry present. ABDOMEN: Soft. There was a tenderness at the epigastric and right upper quadrant area. EXTREMITIES: No edema. No cyanosis. LABORATORY DATA: Hemoglobin 10.3, hematocrit 31.8, WBC 3.8, platelets 365, BUN 4, creatinine 0.8. LFTs still , total bilirubin 5.4, AST 157, ALT 186, alkaline phosphatase 445, potassium is 3.1. MRCP was reviewed. Thyroid CBD, no obvious stones noticed. Etiology is unclear. IMPRESSION: This 62-year-old patient with past medical history of cerebral malaria who was recently discharged from the hospital; readmitted with weakness. The patient was jaundiced. The patient has a dilated common bile duct. No obvious stone noticed. The etiology is unclear. The patient may benefit from endoscopy further evaluate. The patient has obstructive jaundice. The etiology is unclear. MRCP did not reveal any stones. The patient's other comorbidities include the patient's acute kidney injury status post dialysis, improved, cervical CA status post total urethrectomy three years ago, history other disease include diabetes mellitus, hypertension, history of cerebral malaria. RECOMMENDATIONS: We would recommend; 1. Followup with the hemoglobin and hematocrit. 2. The patient will be scheduled for endoscopic ultrasound in a.m. to further evaluate. Thank you very much allowing me to participate in the care of the patient. Sen Cervantes MD
[2017-07-07] MEDS ORDERED: Succinylcholine 200 mg/10 ml Inj IV ONE (08:36)
[2017-07-07] MEDS ORDERED: Midazolam 2 MG/2 ML VIAL ONE (08:36)
[2017-07-07] MEDS ORDERED: Propofol 10 mg/ml Inj (20 ML) ONE ×3 (08:36→09:04)
[2017-07-07] MEDS ORDERED: ePHEDrine 50 mg/ml Inj ONE (09:21)
[2017-07-07] MEDS ORDERED: Phenylephrine 10 mg/ml Inj ONE (09:27)
--- NOTE | 2017-07-07 09:37 | HP ---
HISTORY OF PRESENT ILLNESS: The patient is a 62-year-old female. The patient has been seeing Dr. Dale in the past and she has renal failure and now undergoing dialysis. The patient is currently in my office for evaluation of anorexia, nausea, vomiting, and is significantly weak. The patient is also have these issues for last 5 days. The patient is feeling weak. The patient has . The patient is somewhat weak. and arthritis. The patient also has , past hysterectomy and hypertension. The patient significant june and anxiety. The patient has . ALLERGIES: The patient has . REVIEW OF SYSTEMS: CARDIOVASCULAR: . GASTROINTESTINAL: No nausea . GENITOURINARY: The patient denies any dysuria and also complains of back pain. PHYSICAL EXAMINATION: GENERAL: The patient is alert and awake. VITAL SIGNS: The patient's blood pressure . ABDOMEN: Soft with tenderness. . LABORATORY DATA: . CT of the head showed that the . IMPRESSION: biliary duct . PLAN: . Gómez Del Rosario MD
--- NOTE | 2017-07-07 10:03 | CON ---
DATE: 07/05/2017 HISTORY OF PRESENT ILLNESS: This is a 62-year-old patient with a past medical history of uterine CA status post total hysterectomy admitted with complaints of weakness. The symptoms are progressively getting worse started about five to six days before this admission. The patient was recently in the hospital. The patient has no bleeding per rectum, no vomiting, no abdominal pain.Patient was found to be jaundiced. PAST MEDICAL HISTORY: Other past medical history is significant for hypertension, cerebral malaria ,coronary artery disease, diabetes mellitus status post acute kidney injury improved. The patient was in the hospital three weeks ago. The patient was discharged from the hospital on . The patient was treated conservatively with improvement. The patient was also found to be anemic. Other past medical history as above uterine cancer status post hysterectomy status post appendicectomy and COPD. ALLERGIES: NO KNOWN DRUG ALLERGIES. FAMILY HISTORY: Mother had a cancer of the gallbladder. Brother had a colon cancer. History of lung cancer. REVIEW OF SYSTEMS: A 12-point review of system is negative except as above. PHYSICAL EXAMINATION: HEENT: Atraumatic and anicteric. NECK: Supple. HEART: S1 and S2 heard. LUNGS: Bilateral air entry present. ABDOMEN: Soft. There was no obvious mass or tenderness. EXTREMITIES: No cyanosis and no clubbing. NEUROLOGIC: Alert and oriented. Moves all extremities. LABORATORY DATA: Hemoglobin 10.8, hematocrit 34.4, WBC 4.3 TB 5.6 IMPRESSION: Normocytic anemia. This is a 62-year-old patient. The patient had a CAT scan done initially this admission without p.o. or IV contrast Sono revealed dilated CBD. RECOMMENDATIONS: The LAST ADMISSION CT scan was reviewed and hospital admission was reviewed. rept Ultrasound this admission showed dilated CBD Her INITIAL ultrasound did not show any dilation . Gall bladder showed no stone and the patient's total bilirubin is elevated to 5.6, AST 193, ALT 204 and alkaline phosphatase 511. MRCP done, results are pending. The etiology of his dilated common bile duct is unclear and we will follow up the MR report. The patient is also complaining of chills, rule out of cholangitis. The patient had a culture done. ID consult has been requested. Would recommend follow up of the LFTs. The patient is complaining of nausea and episode of vomiting. We will keep the patient overnight in clear liquid diet. We will continue to closely follow up her care and suggest further management based on the clinical course. Sen Cervantes MD MUKUL
[2017-07-07] MEDS ORDERED: Labetalol 5 mg/ml Inj 20ML ONE (10:17)
[2017-07-07] MEDS ORDERED: Dexamethasone 4 mg/1 ml IVP PRN (10:24)
[2017-07-07] MEDS ORDERED: Dexamethasone 4 mg/1 ml ONE ×2 (10:46→10:48)
--- NOTE | 2017-07-07 11:24 | PN ---
SUBJECTIVE: Today, the patient is alert and awake, is still complaining of some abdominal pain and nausea. Denies any edema, any shortness of breath or chest pain. The patient has left shoulder weakness. PHYSICAL EXAMINATION VITAL SIGNS: The patient has blood pressure of 180/108, pulse 86, respirations 20, temperature 99.0. NECK: Supple. LUNGS: Clear. HEART: Regular rhythm. ABDOMEN: Soft, but tenderness in the epigastric and right upper quadrant. EXTREMITIES: There is tenderness of the right hip at the site of the trochanter area. LABORATORY DATA: The patient's blood work showed WBC of 2.6, hemoglobin 10.2, hematocrit 33.8, and platelet 265. Chemistry shows sodium 142, potassium 3.1, chloride 102, bicarbonate 30, BUN is 44, creatinine 0.8, and glucose is 190. The patient's direct bilirubin is 5.4, AST and ALT alkaline phosphatase. The patient has x-rays done and MRCP is done, but the results are pending. ASSESSMENT AND PLAN: will follow up with MRCP, if possible endoscopy in the morning since the CAT . The case was discussed with GI requested by the patient. So, in the meantime, we will continue the patient in thin liquid diet and continue her current medications and the potassium will be replaced and we will address the blood pressure medication of the patient. Gómez Del Rosario MD
[2017-07-07] MEDS: Ciprofloxacin 400mg/200ml D5W 400 MG/200 ML BAG IVPB SCH ×2 (12:59→21:47)
[2017-07-07] MEDS: Insulin Lispro (humaLOG) LOW Coverage SC SCH ×3 (13:01→18:04)
--- NOTE | 2017-07-07 16:26 | CP.PCM.PCO ---
Physician Communication Note - Physician Communication Note Physician Communication Note: As per Dr Del Rosario, added hydralazine 50 q8, increased coreg to 6.25mg bid
[2017-07-07] MEDS: HYDROmorphone 0.5 mg/0.5 ml ISec IVP PRN (20:40)
--- NOTE | 2017-07-07 23:08 | CP.PCM.PN ---
Subjective - Date & Time of Evaluation Date of Evaluation: 07/07/17 Time of Evaluation: 21:00 - Subjective Subjective: Infectious Disease Follow Up: July 07, 2017 62 yo female with [place] [facility] The patient with presentation of general fatigue and weakness starting two weeks ago. The patient was hospitalized in [facility] [place] 3 weeks ago. The patient has NBNB vomiting. The patient is awake and alert. History of PCN allergies. The patient has a history of uterine cancer with treatment of hysterectomy, chemotherapy, and radiation. The patient was also recently treated for cerebral malaria at [facility] in [place] about two months ago. She had three malaria smears done on her last hospitalization here 3 weeks ago. She is still having episodes of nausea and vomiting today. Taken for EGD today. Still elevated LFTs. Objective - Vital Signs/Intake and Output Vital Signs (last 24 hours): Temp Pulse Resp BP Pulse Ox 98.4 F 86 20 124/65 97 07/07/17 16:00 07/07/17 21:31 07/07/17 16:00 07/07/17 21:31 07/07/17 16:00 - Medications Medications: Current Medications Carvedilol (Coreg) 6.25 mg PO BID [facility] Last Admin: 07/07/17 18:03 Dose: 6.25 mg Hydralazine HCl (Apresoline) 50 mg PO Q8 [facility] Last Admin: 07/07/17 21:31 Dose: 50 mg Hydromorphone HCl (Dilaudid) 0.5 mg IVP Q6H PRN PRN Reason: Pain, moderate (4-7) Last Admin: 07/07/17 20:40 Dose: 0.5 mg Hydromorphone HCl (Dilaudid) 0.5 mg SC Q4H PRN PRN Reason: Pain, severe (8-10) Last Admin: 07/06/17 15:56 Dose: 0.5 mg Ciprofloxacin (Cipro 400mg/200ml Dsw) 400 mg in 200 mls @ 133.3 mls/hr IVPB Q12 [facility] PRN Reason: Protocol Last Admin: 07/07/17 21:47 Dose: 133.3 mls/hr Metronidazole (Flagyl) 500 mg in 100 mls @ 100 mls/hr IVPB Q8 [facility] PRN Reason: Protocol Last Admin: 07/07/17 21:30 Dose: 100 mls/hr Sodium Chloride (Sodium Chloride 0.9%) 1,000 mls @ 100 mls/hr IV .Q10H [facility] Insulin Human Lispro (Humalog Low) 0 units SC ACHS IRLANDA PRN Reason: Protocol Last Admin: 07/07/17 18:04 Dose: 2 units Lisinopril (Zestril) 20 mg PO DAILY [facility] Last Admin: 07/07/17 12:58 Dose: 20 mg Ondansetron HCl (Zofran Inj) 4 mg IVP Q4H PRN PRN Reason: Nausea/Vomiting Last Admin: 07/07/17 11:28 Dose: 4 mg - Labs Labs: 07/07/17 05:40 07/07/17 05:40 PT 11.0 Seconds (9.9-11.8) 07/06/17 10:49 INR 1.02 (0.93-1.08) 07/06/17 10:49 APTT 24.8 Seconds (23.7-30.8) 07/06/17 10:49 - Constitutional Appears: Non-toxic, No Acute Distress, Chronically Ill - Head Exam Head Exam: ATRAUMATIC, NORMOCEPHALIC - Eye Exam Eye Exam: EOMI, PERRL Pupil Exam: NORMAL ACCOMODATION, PERRL - ENT Exam ENT Exam: Mucous Membranes Moist, Normal External Ear Exam, TM's Normal Bilaterally - Neck Exam Neck Exam: Full ROM, Normal Inspection - Respiratory Exam Respiratory Exam: Clear to Ausculation Bilateral, NORMAL BREATHING PATTERN. absent: Rales, Rhonchi, Wheezes - Cardiovascular Exam Cardiovascular Exam: REGULAR RHYTHM, RRR, +S1, +S2 - GI/Abdominal Exam GI & Abdominal Exam: Soft, Tenderness, Normal Bowel Sounds. absent: Distended Additional comments: LLQ tenderness - Extremities Exam Extremities Exam: Full ROM, Normal Inspection - Neurological Exam Neurological Exam: Alert, Awake, CN II-XII Intact, Oriented x3 - Psychiatric Exam Psychiatric exam: Normal Affect, Normal Mood - Skin Skin Exam: Intact, Normal Color Assessment and Plan - Assessment and Plan (Free Text) Assessment: 62 yo female with biliary ductal diliation on CT scan and abdominal pain. Frequent hospital visits. No leukocytosis, fevers, or renal insufficiency. Extensive abdominal surgery history. MRCP is pending. Continue on Flagyl and Cipro for now. Supportive care. Await cultures and MRCP results. Monitor for leukocytosis. Monitor temperature trend. Awaiting olmstead cultures. MRCP is showing moderately dilated common bile duct measures up to 17 millimeter with evidence of obstructing stone. Taken to EGD today. Thank you for allowing me to participate in the care of the patient, we will follow with you.
--- NOTE | 2017-07-08 01:09 | PN ---
SUBJECTIVE: Today, the patient is alert and awake, but complaining of abdominal pain, nausea, and poor appetite. Also, the patient is complaining of generalized weakness. PHYSICAL EXAMINATION VITAL SIGNS: The patient has a blood pressure of 176/112 this afternoon, and now, blood pressure is 160/87. The patient was seen earlier this morning. The pulse is 87, respirations 20, temperature 98.4. HEENT: Head is normocephalic. Eyes, some icteric conjunctiva. NECK: Supple. No JVD. HEART: Regular rate and rhythm. LUNGS: Clear. ABDOMEN: Soft, obese, but tenderness in the epigastric area in the right upper quadrant. EXTREMITIES: Some tenderness in the right hip and extremities have no edema. LABORATORY DATA: The patient had some blood test done, WBC is 4.2, hemoglobin 10.8, hematocrit 33, and platelets 349. The chemistries show sodium 140, potassium 3.6, chloride 102, bicarbonate is 28, BUN is 66, creatinine 0.9, and glucose 177. Calcium 9.3, AST 136 and ALT 164, alkaline phosphatase 482, total bilirubin is 6, globulin 3.4, albumin 3.9, total protein 7.3. Today, the patient had an endoscopy done that has shown that there is an ulcer at the esophagogastric junction, and also there is pancreatic mass and dilated common bile duct. PLAN: The patient is going to have again an intervention for possible stenting, so in the meantime, the patient will be on clear liquid diet and going to try to control the blood pressure by adding this afternoon hydralazine and increasing also the carvedilol to 6.25 and also going to have increase and also the patient will be on a clear liquid diet. The case was discussed this morning with Dr. Cervantes, and tests will be ordered including CEA, CA-19, and alpha fetoprotein and also we will order CBC, CMP, amylase, and lipase. Gómez Del Rosario MD
[2017-07-08] MEDS: HYDROmorphone 0.5 mg/0.5 ml ISec IVP PRN ×3 (05:24→22:43)
[2017-07-08] MEDS: metroNIDAZOLE IV 500 mg/100 ml 500 MG/100 ML BAG IVPB SCH ×3 (05:25→22:41)
[2017-07-08] MEDS: Insulin Lispro (humaLOG) LOW Coverage SC SCH ×5 (05:26→22:25)
[2017-07-08] MEDS: Sodium Chloride 0.9% 1,000 ML IV SCH (05:28)
[2017-07-08 07:09] LABS: BASO # 0.01 K/mm3 (0.0-2.0); BASO % 0.3 % (0.0-3.0); EOS % 0.5 % (1.5-5.0); GRAN # 2.44 (1.4-6.5); GRAN % 60.9 % (50.0-68.0); HEMATOCRIT 30.9 % (36.0-48.0); LYMPH # 1.1 (1.2-3.4); MEAN CELL VOLUME 88.5 fl (80.0-105.0); MEAN CORPUSCULAR HEMOGLOBIN 28.4 pg (25.0-35.0); MEAN PLATELET VOLUME 8.8 fl (7.0-11.0); MONO # 0.4 (0.1-0.6); MONO % 10.3 % (1.0-6.0); RED CELL DISTRIBUTION WIDTH 13.5 % (11.5-14.5)
[2017-07-08 07:17] LABS: ALB/GLOB RATIO 1.1 (1.1-1.8); ALKALINE PHOSPHATASE 479 U/L (38-126); ALT/SGPT 161 U/L (7-56); AMYLASE 40 U/L (35-125); AST/SGOT 162 U/L (14-36); BILIRUBIN,TOTAL 5.8 mg/dL (0.2-1.3); BLOOD UREA NITROGEN 11 mg/dL (7-21); CALCIUM 8.9 mg/dL (8.4-10.5); CARBON DIOXIDE 27 mmol/L (21-33); CHLORIDE 102 mmol/L (98-107); GFR AFRICAN-AMERICAN > 60; GLUCOSE,RANDOM 171 mg/dL (70-110); LIPASE 44 U/L (23-300); SODIUM 140 mmol/L (132-148); TOTAL PROTEIN 6.8 g/dL (5.8-8.3)
[2017-07-08] MEDS: Ciprofloxacin 400mg/200ml D5W 400 MG/200 ML BAG IVPB SCH ×2 (10:30→23:38)
[2017-07-08] MEDS: HYDROmorphone 0.5 mg/0.5 ml ISec SC PRN (16:57)
[2017-07-08] MEDS ORDERED: Iohexol 240 (50 ml) ONE (18:37)
[2017-07-08] MEDS ORDERED: Propofol 10 mg/ml Inj (20 ML) ONE (18:40)
[2017-07-08] MEDS ORDERED: Succinylcholine 200 mg/10 ml Inj IV ONE ×2 (18:40→18:41)
[2017-07-08] MEDS ORDERED: Lidocaine 1% Inj (20ml) ONE (18:43)
[2017-07-08] MEDS ORDERED: Indomethacin 50 MG Suppository PR ONE (18:48)
[2017-07-08] MEDS ORDERED: Benzocaine/Menthol (Cepacol) Lozenge MT PRN (19:44)
--- NOTE | 2017-07-08 20:17 | CP.PCM.PN ---
Subjective - Date & Time of Evaluation Date of Evaluation: 07/08/17 Time of Evaluation: 20:13 - Subjective Subjective: Infectious Disease Follow Up: July 08, 2017 62 yo female with frequent hospitalization [place] [facility] The patient with presentation of general fatigue and weakness starting two weeks ago. The patient was hospitalized in [facility] [place] 3 weeks ago. The patient has NBNB vomiting. The patient is awake and alert. History of PCN allergies. The patient has a history of uterine cancer with treatment of hysterectomy, chemotherapy, and radiation. The patient was also recently treated for cerebral malaria at [facility] in [place] about two months ago. She had three malaria smears done on her last hospitalization here 3 weeks ago. She is still having episodes of nausea and vomiting today. Taken for EGD yesterday with dilatation of the common bile duct. Still elevated LFTs. Objective - Vital Signs/Intake and Output Vital Signs (last 24 hours): Temp Pulse Resp BP Pulse Ox 98.6 F 87 16 169/91 H 99 07/08/17 17:29 07/08/17 17:29 07/08/17 17:29 07/08/17 17:29 07/08/17 17:29 - Medications Medications: Current Medications Benzocaine/Menthol (Cepacol Sore Throat) 1 [place] Q4H PRN PRN Reason: Sore Throat Carvedilol (Coreg) 12.5 mg PO BID [facility] Hydralazine HCl (Apresoline) 50 mg PO Q8 [facility] Last Admin: 07/08/17 15:17 Dose: 50 mg Hydromorphone HCl (Dilaudid) 0.5 mg IVP Q6H PRN PRN Reason: Pain, moderate (4-7) Last Admin: 07/08/17 12:26 Dose: 0.5 mg Hydromorphone HCl (Dilaudid) 0.5 mg SC Q4H PRN PRN Reason: Pain, severe (8-10) Last Admin: 07/08/17 16:57 Dose: 0.5 mg Ciprofloxacin (Cipro 400mg/200ml Dsw) 400 mg in 200 mls @ 133.3 mls/hr IVPB Q12 [facility] PRN Reason: Protocol Last Admin: 07/08/17 10:30 Dose: 133 mls/hr Metronidazole (Flagyl) 500 mg in 100 mls @ 100 mls/hr IVPB Q8 [facility] PRN Reason: Protocol Last Admin: 07/08/17 15:19 Dose: 100 mls/hr Sodium Chloride (Sodium Chloride 0.9%) 1,000 mls @ 100 mls/hr IV .Q10H [facility] Last Admin: 07/08/17 05:28 Dose: 100 mls/hr Potassium Chloride (Potassium Chloride 10 Meq/100 Ml) 10 meq in 100 mls @ 100 mls/hr IVPB Q2H [facility] Stop: 07/08/17 22:29 Insulin Human Lispro (Humalog Low) 0 units SC ACHS [facility] PRN Reason: Protocol Last Admin: 07/08/17 18:26 Dose: Not Given Lisinopril (Zestril) 20 mg PO DAILY [facility] Last Admin: 07/08/17 10:11 Dose: 20 mg Ondansetron HCl (Zofran Inj) 4 mg IVP Q4H PRN PRN Reason: Nausea/Vomiting Last Admin: 07/08/17 10:01 Dose: 4 mg - Labs Labs: 07/08/17 06:41 07/08/17 06:41 PT 11.0 Seconds (9.9-11.8) 07/06/17 10:49 INR 1.02 (0.93-1.08) 07/06/17 10:49 APTT 24.8 Seconds (23.7-30.8) 07/06/17 10:49 - Constitutional Appears: Non-toxic, No Acute Distress, Chronically Ill - Head Exam Head Exam: ATRAUMATIC, NORMOCEPHALIC - Eye Exam Eye Exam: EOMI, PERRL Pupil Exam: NORMAL ACCOMODATION, PERRL - ENT Exam ENT Exam: Mucous Membranes Moist, Normal External Ear Exam, TM's Normal Bilaterally - Neck Exam Neck Exam: Full ROM, Normal Inspection - Respiratory Exam Respiratory Exam: Clear to Ausculation Bilateral, NORMAL BREATHING PATTERN. absent: Rales, Rhonchi, Wheezes - Cardiovascular Exam Cardiovascular Exam: REGULAR RHYTHM, RRR, +S1, +S2 - GI/Abdominal Exam GI & Abdominal Exam: Soft, Tenderness, Normal Bowel Sounds. absent: Distended Additional comments: LLQ tenderness - Extremities Exam Extremities Exam: Full ROM, Normal Inspection - Neurological Exam Neurological Exam: Alert, Awake, CN II-XII Intact, Oriented x3 - Psychiatric Exam Psychiatric exam: Normal Affect, Normal Mood - Skin Skin Exam: Intact, Normal Color Assessment and Plan - Assessment and Plan (Free Text) Assessment: 62 yo female with biliary ductal diliation on CT scan and abdominal pain. Frequent hospital visits. No leukocytosis, fevers, or renal insufficiency. Extensive abdominal surgery history. MRCP is pending. Continue on Flagyl and Cipro for now. Supportive care. Await cultures and MRCP results. Monitor for leukocytosis. Monitor temperature trend. Awaiting olmstead cultures. MRCP is showing moderately dilated common bile duct measures up to 17 millimeter with evidence of obstructing stone. Taken to EGD yesterday for dilatation of the common bile duct and stone removal. Thank you for allowing me to participate in the care of the patient, we will follow with you.
[2017-07-08] MEDS ORDERED: Lactated Ringer's 1,000 ML IV SCH (21:15)
[2017-07-08] MEDS ORDERED: Morphine 2 mg/ml ISec IVP PRN (21:15)
--- NOTE | 2017-07-08 23:37 | CT ---
EXAM: CT Abdomen and Pelvis Without Intravenous Contrast EXAM DATE/TIME: 07/08/2017 9:23 PM CLINICAL HISTORY: The patient age is 62 years old and is female; Screening exam and device placement; Post surgical status; S/P ercp to evaluate contrast location and stent; Gi device; Biliary stent; Prior surgery; Surgery date: Post-operative (0-2 days); Patient HX: HX appendectomy, HX hysterectomy; Additional info: Sp ercp to evaluate contrast location and stent Facility exam id and description: Ct abdpelscon abd pelvis w/o po or iv cont TECHNIQUE: Axial computed tomography images of the abdomen and pelvis without intravenous contrast. All CT scans at this facility use one or more dose reduction techniques, viz.: automated exposure control; ma/kV adjustment per patient size (including targeted exams where dose is matched to indication; i.e. head); or iterative reconstruction technique. Coronal and sagittal reformatted images were created and reviewed. COMPARISON: CT - ABD PELVIS PO IV CONTRAST 06/14/2017 6:31:33 PM FINDINGS: Lower thorax: Atelectatic changes are identified at the lung bases. ABDOMEN: Liver: No mass. Gallbladder and bile ducts: Contrast is identified within the biliary system status post ERCP. There is mild pneumobilia. There is intrahepatic biliary dilatation measuring up to 2 cm in diameter. Contrast is not visualized within the distal common bile duct, concerning for obstruction. Pancreas: There is a linear hyperdensity identified in the region of the pancreatic head and extending into the adjacent duodenum. This measures 2-3 mm in diameter. This is consistent with postoperative change or a contracted stent. Spleen: A hypodense left splenic mass is again visualized measuring 2.1 x 1.8 cm. This is incompletely evaluated without intravenous contrast, without a progression in size. This is incompletely evaluated without intravenous contrast. Adrenals: There is nodular thickening of the left adrenal gland, which is stable. Kidneys and ureters: There is hydronephrosis again visualized of the left kidney. There is no hydronephrosis of the left kidney. Stomach and bowel: Colonic diverticula are identified, without acute inflammatory stranding of the adjacent mesentery. Appendix: The appendix is not visualized. The appendix is absent. PELVIS: Bladder: No stones. Reproductive: Within the left adnexa, there is a 5.2 x 4.8 cm hypodense stable cystic collection of fluid. The uterus is absent. ABDOMEN and PELVIS: Intraperitoneal space: No free air. Bones/joints: Hypertrophic degenerative changes are noted within the spine. Soft tissues: Soft tissue edema is identified within the subcutaneous tissues of the abdomen and pelvis, consistent with mild anasarca. Vasculature: There is atherosclerotic calcification of the abdominal aorta. No abdominal aortic aneurysm. Lymph nodes: No enlarged lymph nodes. IMPRESSION: 1. Contrast is identified within the biliary system status post ERCP. There is mild pneumobilia. There is intrahepatic biliary dilatation measuring up to 2 cm in diameter. Contrast is not visualized within the distal common bile duct, concerning for obstruction. 2. There is a new linear hyperdensity identified in the region of the pancreatic head and extending into the adjacent duodenum. This measures 2-3 mm in diameter. This is consistent with postoperative change or a contracted stent. 3. There is hydronephrosis again visualized of the left kidney. 4. There is nodular thickening of the left adrenal gland, which is stable. 5. Diverticulosis. 6. Mild anasarca, without significant progression. 7. A hypodense left splenic mass is again visualized measuring 2.1 x 1.8 cm. This is incompletely evaluated without intravenous contrast, without a progression in size. 8. Within the left adnexa, there is a 5.2 x 4.8 cm hypodense stable cystic collection of fluid. 9. Additional CT findings described above.
--- NOTE | 2017-07-09 02:06 | PN ---
DATE: SUBJECTIVE: Today, the patient is alert and awake. She was seen and examined this morning. Has been having less abdominal pain but is still complaining of some pain to the right hip and denies any shortness of breath but is still complaining of anorexia. PHYSICAL EXAMINATION: VITAL SIGNS: The patient had a blood pressure 192/104 and now is 169/91, pulse 87, respiration is 16, temperature 98.6. HEENT: Head is normocephalic. Mouth is soft. Throat, there is some slight superficial ulceration to the pharynx area. LUNGS: Clear. HEART: Regular rate and rhythm. ABDOMEN: Soft, obese. Positive tenderness to the epigastric area. Positive bowel sounds. EXTREMITIES: There is no edema, but there is tenderness to the right trochanteric area. LABORATORY DATA: The patient has some blood tests done and the sodium is 140, potassium 3, chloride 102, bicarbonate 27, BUN 14, creatinine 1.1, and glucose of 171. Total bilirubin 5.8, AST 162, ALT 161, alkaline phosphatase is 479. Amylase was 40, lipase 44, CA-19 is 2, and CEA is 1. ASSESSMENT AND PLAN: The patient has chronic obstructive pulmonary disease. Due to have an ERCP today and AICD today. The case was discussed with Dr. Cervantes. The plan is that waiting for the pathology report, and also we are going to replace the potassium *------*, and also the patient will have a CPAP three to four times a day. Lab will be ordered for tomorrow. So we are going to order also a consult with Dr. Kaiser, the orthopedist, because of the right hip pain and manage *------*. Gómez Del Rosario MD
[2017-07-09] MEDS: HYDROmorphone 0.5 mg/0.5 ml ISec SC PRN (04:22)
[2017-07-09] MEDS: metroNIDAZOLE IV 500 mg/100 ml 500 MG/100 ML BAG IVPB SCH ×3 (05:23→22:11)
[2017-07-09 06:47] LABS: BASO # 0.02 K/mm3 (0.0-2.0); BASO % 0.5 % (0.0-3.0); EOS % 0.9 % (1.5-5.0); GRAN # 3.16 (1.4-6.5); GRAN % 72.8 % (50.0-68.0); HEMATOCRIT 31.5 % (36.0-48.0); LYMPH # 0.8 (1.2-3.4); LYMPH % 18.7 % (22.0-35.0); MEAN CORPUSCULAR HEMOGLOBIN 27.9 pg (25.0-35.0); MEAN CORPUSCULAR HGB CONC 31.7 g/dl (31.0-37.0); MEAN PLATELET VOLUME 8.8 fl (7.0-11.0); MONO # 0.3 (0.1-0.6); MONO % 7.1 % (1.0-6.0); RED CELL DISTRIBUTION WIDTH 13.5 % (11.5-14.5); WHITE BLOOD COUNT 4.3 10^3/ul (4.5-11.0)
[2017-07-09 06:48] LABS: ALB/GLOB RATIO 1.1 (1.1-1.8); ALKALINE PHOSPHATASE 498 U/L (38-126); ALT/SGPT 156 U/L (7-56); AMYLASE 42 U/L (35-125); AST/SGOT 156 U/L (14-36); BILIRUBIN,TOTAL 6.3 mg/dL (0.2-1.3); BLOOD UREA NITROGEN 11 mg/dL (7-21); CALCIUM 9.2 mg/dL (8.4-10.5); CARBON DIOXIDE 25 mmol/L (21-33); CHLORIDE 103 mmol/L (98-107); GFR AFRICAN-AMERICAN > 60; GLUCOSE,RANDOM 191 mg/dL (70-110); POTASSIUM 3.5 mmol/L (3.6-5.0); SODIUM 140 mmol/L (132-148); TOTAL PROTEIN 6.9 g/dL (5.8-8.3)
[2017-07-09] MEDS: Insulin Lispro (humaLOG) LOW Coverage SC SCH ×4 (08:00→22:08)
[2017-07-09] MEDS: Ciprofloxacin 400mg/200ml D5W 400 MG/200 ML BAG IVPB SCH ×2 (09:10→22:12)
--- NOTE | 2017-07-09 09:51 | CP.PCM.PN ---
<Marck Douglas - Last Filed: 07/09/17 09:53> Subjective - Date & Time of Evaluation Date of Evaluation: 07/09/17 Time of Evaluation: 09:46 - Subjective Subjective: GI: Dr. Cervantes Pt seen and examined. She states that she has mild epigastric pain. She states that it is improved compared to yesterday. She has no N/V. She states that she is hungry and would like to eat. Objective - Vital Signs/Intake and Output Vital Signs (last 24 hours): Temp Pulse Resp BP Pulse Ox 98.7 F 89 20 145/83 97 07/09/17 06:00 07/09/17 09:10 07/09/17 06:00 07/09/17 09:10 07/09/17 06:00 Intake and Output: 07/09/17 07/09/17 06:59 18:59 Intake Total 1400 Balance 1400 - Medications Medications: Current Medications Benzocaine/Menthol (Cepacol Sore Throat) 1 caroline MT Q4H PRN PRN Reason: Sore Throat Last Admin: 07/09/17 04:22 Dose: 1 caroline Carvedilol (Coreg) 12.5 mg PO BID [facility] Last Admin: 07/09/17 09:10 Dose: 12.5 mg Hydralazine HCl (Apresoline) 50 mg PO Q8 [facility] Last Admin: 07/09/17 05:23 Dose: 50 mg Hydromorphone HCl (Dilaudid) 0.5 mg SC Q4H PRN PRN Reason: Pain, severe (8-10) Last Admin: 07/09/17 04:22 Dose: 0.5 mg Ciprofloxacin (Cipro 400mg/200ml Dsw) 400 mg in 200 mls @ 133.3 mls/hr IVPB Q12 IRLANDA PRN Reason: Protocol Last Admin: 07/09/17 09:10 Dose: 133.3 mls/hr Metronidazole (Flagyl) 500 mg in 100 mls @ 100 mls/hr IVPB Q8 IRLANDA PRN Reason: Protocol Last Admin: 07/09/17 05:23 Dose: 100 mls/hr Sodium Chloride (Sodium Chloride 0.9%) 1,000 mls @ 100 mls/hr IV .Q10H [facility] Last Admin: 07/08/17 05:28 Dose: 100 mls/hr Insulin Human Lispro (Humalog Low) 0 units SC ACHS IRLANDA PRN Reason: Protocol Last Admin: 07/09/17 08:00 Dose: Not Given Lisinopril (Zestril) 20 mg PO DAILY [facility] Last Admin: 07/09/17 09:08 Dose: 20 mg Ondansetron HCl (Zofran Inj) 4 mg IVP Q4H PRN PRN Reason: Nausea/Vomiting Last Admin: 07/08/17 10:01 Dose: 4 mg - Labs Labs: 07/09/17 06:09 07/09/17 06:09 PT 11.0 Seconds (9.9-11.8) 07/06/17 10:49 INR 1.02 (0.93-1.08) 07/06/17 10:49 APTT 24.8 Seconds (23.7-30.8) 07/06/17 10:49 - Constitutional Appears: Non-toxic, No Acute Distress - Head Exam Head Exam: ATRAUMATIC, NORMOCEPHALIC - Eye Exam Eye Exam: EOMI. absent: Scleral icterus - ENT Exam ENT Exam: Mucous Membranes Moist, Normal External Ear Exam - Neck Exam Neck Exam: Full ROM - Respiratory Exam Respiratory Exam: NORMAL BREATHING PATTERN. absent: Accessory Muscle Use, Respiratory Distress - GI/Abdominal Exam GI & Abdominal Exam: Soft, Tenderness (epigastric, mild). absent: Distended, Firm, Guarding, Rigid, Rebound - Extremities Exam Extremities Exam: absent: Calf Tenderness, Pedal Edema - Neurological Exam Neurological Exam: Alert, Awake, Oriented x3 - Psychiatric Exam Psychiatric exam: Normal Affect, Normal Mood - Skin Skin Exam: Dry, Normal Color, Warm Assessment and Plan - Assessment and Plan (Free Text) Assessment: 62F w. pancreatic head mass, s/p ERCP w. pancreatic duct placement -will start pt on full liquid diet -will plan for repeat ERCP on friday w. placement of metal stent -d/w attending Stella PGY3 <Sen Cervantes V - Last Filed: 07/09/17 23:34> Objective - Vital Signs/Intake and Output Vital Signs (last 24 hours): Temp Pulse Resp BP Pulse Ox 99.1 F 91 H 20 155/82 H 98 07/09/17 16:47 07/09/17 22:13 07/09/17 16:47 07/09/17 22:13 07/09/17 16:47 Intake and Output: 07/09/17 07/10/17 18:59 06:59 Intake Total 360 Balance 360 - Medications Medications: Current Medications Benzocaine/Menthol (Cepacol Sore Throat) 1 caroline MT Q4H PRN PRN Reason: Sore Throat Last Admin: 07/09/17 04:22 Dose: 1 caroline Carvedilol (Coreg) 12.5 mg PO BID [facility] Last Admin: 07/09/17 17:43 Dose: 12.5 mg Hydralazine HCl (Apresoline) 50 mg PO Q8 [facility] Last Admin: 07/09/17 22:13 Dose: 50 mg Hydromorphone HCl (Dilaudid) 0.5 mg IVP Q6H PRN PRN Reason: Pain, severe (8-10) Last Admin: 07/09/17 19:35 Dose: 0.5 mg Ciprofloxacin (Cipro 400mg/200ml Dsw) 400 mg in 200 mls @ 133.3 mls/hr IVPB Q12 IRLANDA PRN Reason: Protocol Last Admin: 07/09/17 22:12 Dose: 133.3 mls/hr Metronidazole (Flagyl) 500 mg in 100 mls @ 100 mls/hr IVPB Q8 IRLANDA PRN Reason: Protocol Last Admin: 07/09/17 22:11 Dose: 100 mls/hr Sodium Chloride (Sodium Chloride 0.9%) 1,000 mls @ 100 mls/hr IV .Q10H [facility] Last Admin: 07/09/17 22:22 Dose: Not Given Insulin Human Lispro (Humalog Low) 0 units SC ACHS IRLANDA PRN Reason: Protocol Last Admin: 07/09/17 22:08 Dose: Not Given Lisinopril (Zestril) 20 mg PO DAILY [facility] Last Admin: 07/09/17 09:08 Dose: 20 mg Ondansetron HCl (Zofran Inj) 4 mg IVP Q4H PRN PRN Reason: Nausea/Vomiting Last Admin: 07/09/17 12:21 Dose: 4 mg Pantoprazole Sodium (Protonix Inj) 40 mg IVP DAILY [facility] - Labs Labs: 07/09/17 06:09 07/09/17 06:09 PT 11.0 Seconds (9.9-11.8) 07/06/17 10:49 INR 1.02 (0.93-1.08) 07/06/17 10:49 APTT 24.8 Seconds (23.7-30.8) 07/06/17 10:49 Attending/Attestation - Attestation I have personally seen and examined this patient.: Yes I have fully participated in the care of the patient.: Yes I have reviewed all pertinent clinical information, including history, physical exam and plan: Yes Notes (Text): This is an addendum to GI progress report dictated by Resident.The patient was seen and examined earlier. Medical records, lab studies, imagings were reviewed. Last 24 hours events reviewed. Agreed with the above treatment plan as outlined in Resident's notes the with the addition of the following o/e pt has epigastric tenderness priliminary path pending for PANCREATIC PROTOCIL CT IN AM rept ERCP and CBD stent placement on friday continue clear liquid diet 07/09/17 19:32
--- NOTE | 2017-07-09 14:44 | CP.PCM.PN ---
Subjective - Date & Time of Evaluation Date of Evaluation: 07/09/17 Time of Evaluation: 13:15 - Subjective Subjective: Infectious Disease Follow Up: July 09, 2017 62 yo female with frequent hospitalization to [facility]. The patient with presentation of general fatigue and weakness starting two weeks ago. The patient was hospitalized in [facility] about 3 weeks ago. The patient has NBNB vomiting. The patient is awake and alert. History of PCN allergies. The patient has a history of uterine cancer with treatment of hysterectomy, chemotherapy, and radiation. The patient was also recently treated for cerebral malaria at [facility] in [place] about two months ago. She had three malaria smears done on her last hospitalization here 3 weeks ago. She is still having episodes of nausea and vomiting today. Taken for EGD yesterday with dilatation of the common bile duct. Still elevated LFTs. 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 Stent placed with ERCP. For repeat ERCP friday. Objective - Vital Signs/Intake and Output Vital Signs (last 24 hours): Temp Pulse Resp BP Pulse Ox 98.7 F 89 20 145/83 97 07/09/17 06:00 07/09/17 09:10 07/09/17 06:00 07/09/17 09:10 07/09/17 06:00 Intake and Output: 07/09/17 07/09/17 06:59 18:59 Intake Total 1400 Balance 1400 - Medications Medications: Current Medications Benzocaine/Menthol (Cepacol Sore Throat) 1 caroline MT Q4H PRN PRN Reason: Sore Throat Last Admin: 07/09/17 04:22 Dose: 1 caroline Carvedilol (Coreg) 12.5 mg PO BID [facility] Last Admin: 07/09/17 09:10 Dose: 12.5 mg Hydralazine HCl (Apresoline) 50 mg PO Q8 [facility] Last Admin: 07/09/17 05:23 Dose: 50 mg Hydromorphone HCl (Dilaudid) 0.5 mg SC Q4H PRN PRN Reason: Pain, severe (8-10) Last Admin: 07/09/17 04:22 Dose: 0.5 mg Ciprofloxacin (Cipro 400mg/200ml Dsw) 400 mg in 200 mls @ 133.3 mls/hr IVPB Q12 IRLANDA PRN Reason: Protocol Last Admin: 07/09/17 09:10 Dose: 133.3 mls/hr Metronidazole (Flagyl) 500 mg in 100 mls @ 100 mls/hr IVPB Q8 IRLANDA PRN Reason: Protocol Last Admin: 07/09/17 05:23 Dose: 100 mls/hr Sodium Chloride (Sodium Chloride 0.9%) 1,000 mls @ 100 mls/hr IV .Q10H [facility] Last Admin: 07/08/17 05:28 Dose: 100 mls/hr Insulin Human Lispro (Humalog Low) 0 units SC ACHS IRLANDA PRN Reason: Protocol Last Admin: 07/09/17 12:21 Dose: Not Given Lisinopril (Zestril) 20 mg PO DAILY [facility] Last Admin: 07/09/17 09:08 Dose: 20 mg Ondansetron HCl (Zofran Inj) 4 mg IVP Q4H PRN PRN Reason: Nausea/Vomiting Last Admin: 07/09/17 12:21 Dose: 4 mg - Labs Labs: 07/09/17 06:09 07/09/17 06:09 PT 11.0 Seconds (9.9-11.8) 07/06/17 10:49 INR 1.02 (0.93-1.08) 07/06/17 10:49 APTT 24.8 Seconds (23.7-30.8) 07/06/17 10:49 - Constitutional Appears: Non-toxic, No Acute Distress, Chronically Ill - Head Exam Head Exam: ATRAUMATIC, NORMOCEPHALIC - Eye Exam Eye Exam: EOMI, PERRL Pupil Exam: NORMAL ACCOMODATION, PERRL - ENT Exam ENT Exam: Mucous Membranes Moist, Normal External Ear Exam, TM's Normal Bilaterally - Neck Exam Neck Exam: Full ROM, Normal Inspection - Respiratory Exam Respiratory Exam: Clear to Ausculation Bilateral, NORMAL BREATHING PATTERN. absent: Rales, Rhonchi, Wheezes - Cardiovascular Exam Cardiovascular Exam: REGULAR RHYTHM, RRR, +S1, +S2 - GI/Abdominal Exam GI & Abdominal Exam: Soft, Tenderness, Normal Bowel Sounds. absent: Distended Additional comments: LLQ tenderness - Extremities Exam Extremities Exam: Full ROM, Normal Inspection - Neurological Exam Neurological Exam: Alert, Awake, CN II-XII Intact, Oriented x3 - Psychiatric Exam Psychiatric exam: Normal Affect, Normal Mood - Skin Skin Exam: Intact, Normal Color Assessment and Plan - Assessment and Plan (Free Text) Assessment: 62 yo female with biliary ductal diliation on CT scan and abdominal pain. Frequent hospital visits. No leukocytosis, fevers, or renal insufficiency. Extensive abdominal surgery history. MRCP is pending. Continue on Flagyl and Cipro for now. Supportive care. Await cultures and MRCP results. Monitor for leukocytosis. Monitor temperature trend. Awaiting olmstead cultures. MRCP is showing moderately dilated common bile duct measures up to 17 millimeter with evidence of obstructing stone. Taken to EGD yesterday for dilatation of the common bile duct and stone removal. Thank you for allowing me to participate in the care of the patient, we will follow with you.
--- NOTE | 2017-07-09 15:03 | CON ---
DATE: 07/09/2017 REASON FOR CONSULT: Right hip pain. HISTORY OF PRESENT ILLNESS: This is a 62-year-old female who was admitted on 07/04/2017 for abdominal pain. The patient subsequently had complaints of several weeks of right-sided lower back and gluteal pain. She denied any history of a specific trauma, but stated that the pain radiated all the way down into the right foot. PHYSICAL EXAMINATION: GENERAL: This is a female in no apparent distress. She is awake, alert, and oriented x3. NEUROLOGICAL: She is grossly intact. EXTREMITIES: Bilateral lower extremities have negative straight leg raises bilaterally. No pain with passive range of motion, passive internal and external rotation of the right hip. She does have some right-sided lower lumbar paraspinal tenderness to palpation. LABORATORY DATA: X-rays of the right hip show no obvious fracture-dislocation, the joint spaces appeared to be well maintained. IMPRESSION: Lumbar pain with radiculopathy. PLAN: At this point, we are going to order x-rays of the lumbar spine. She is currently on pain medication. We will also order physical therapy for her. We will followup once the x-ray are done. Uriel Kaiser MD
--- NOTE | 2017-07-09 17:03 | RAD ---
PROCEDURE: ERCP EXAMINATION HISTORY: ? CBD OBST. COMPARISON: None TECHNIQUE: An ERCP examination was performed by the referring physician with fluoroscopy provided for guidance. FINDINGS: Please see operative report for further detail. Forty 52.8 seconds of fluoroscopy time was utilized with a total cumulative dose of 1007.33 mGy. IMPRESSION: As above.
--- NOTE | 2017-07-09 17:04 | RAD ---
PROCEDURE: Radiographs of the Lumbar Spine. HISTORY: lower back pain COMPARISON: No prior. FINDINGS: BONES: Straightened lumbar curvature. No spondylolisthesis. No suspicious lytic or blastic changes identified. DISC SPACES: Multilevel lumbar spondylosis is moderate L1-2 and L2-3, mild L3-4 and severe at L4-5. It appears limited L5-S1. OTHER FINDINGS: None. IMPRESSION: Straightened lumbar curvature. Multilevel degenerative disc disease appreciated seen worst at L4-5. MRI may be utilized for further evaluation or CT if clinically warranted.
--- NOTE | 2017-07-09 17:05 | RAD ---
PROCEDURE: Radiographs of the Sacrum and Coccyx HISTORY: lower back pain COMPARISON: None available. TECHNIQUE: Frontal and lateral views of the sacrum and coccyx FINDINGS: BONES: Sacrum and coccyx unremarkable. No fracture or focal lesion. SACROILIAC JOINTS: Moderate bilateral sacroiliac joint degenerative changes are it is appreciated. No suspicious lytic or blastic change throughout the sacrum and the medial iliac bones. OTHER FINDINGS: None. IMPRESSION: Bilateral degenerative sacroiliac joint changes. Exam otherwise unremarkable.
[2017-07-09] MEDS: Sodium Chloride 0.9% 1,000 ML IV SCH ×2 (17:46→22:22)
[2017-07-09] MEDS: HYDROmorphone 0.5 mg/0.5 ml ISec IVP PRN (19:35)
[2017-07-10] MEDS: HYDROmorphone 0.5 mg/0.5 ml ISec IVP PRN ×4 (01:44→23:24)
[2017-07-10] MEDS: metroNIDAZOLE IV 500 mg/100 ml 500 MG/100 ML BAG IVPB SCH ×3 (06:07→22:46)
[2017-07-10 06:31] LABS: BASO # 0.02 K/mm3 (0.0-2.0); BASO % 0.5 % (0.0-3.0); EOS % 0.9 % (1.5-5.0); GRAN # 3.15 (1.4-6.5); GRAN % 71.7 % (50.0-68.0); HEMATOCRIT 31.8 % (36.0-48.0); LYMPH # 0.8 (1.2-3.4); LYMPH % 18.7 % (22.0-35.0); MEAN CELL VOLUME 88.8 fl (80.0-105.0); MEAN CORPUSCULAR HEMOGLOBIN 28.8 pg (25.0-35.0); MEAN CORPUSCULAR HGB CONC 32.4 g/dl (31.0-37.0); MONO # 0.4 (0.1-0.6); MONO % 8.2 % (1.0-6.0); RED CELL DISTRIBUTION WIDTH 13.6 % (11.5-14.5); WHITE BLOOD COUNT 4.4 10^3/ul (4.5-11.0)
[2017-07-10 07:15] LABS: ALB/GLOB RATIO 1.1 (1.1-1.8); ALKALINE PHOSPHATASE 545 U/L (38-126); ALT/SGPT 151 U/L (7-56); AST/SGOT 166 U/L (14-36); BILIRUBIN,TOTAL 6.2 mg/dL (0.2-1.3); BLOOD UREA NITROGEN 11 mg/dL (7-21); CALCIUM 9.2 mg/dL (8.4-10.5); CARBON DIOXIDE 26 mmol/L (21-33); CHLORIDE 104 mmol/L (98-107); GFR AFRICAN-AMERICAN > 60; GLUCOSE,RANDOM 181 mg/dL (70-110); POTASSIUM 3.5 mmol/L (3.6-5.0); SODIUM 140 mmol/L (132-148); TOTAL PROTEIN 6.8 g/dL (5.8-8.3)
--- NOTE | 2017-07-10 08:34 | PN ---
DATE: 07/09/2017 SUBJECTIVE: Today, the patient has been having less abdominal pain and came feeling hungry and want to eat more food but the patient is still having some nausea. PHYSICAL EXAMINATION: VITAL SIGNS: The patient has a blood pressure 165/84, pulse 83, respirations 20, and temperature 99.1. NECK: Supple. No JVD. HEART: Regular rate and rhythm. LUNGS: Clear. ABDOMEN: Soft. [id number] tenderness in the epigastric area. Positive bowel sounds. The patient also is obese. EXTREMITIES: There is some tenderness to the right hip. LABORATORY DATA: The patient had some blood tests done. WBC is 4.3, hemoglobin 10, hematocrit 31.5 and platelet 327. Chemistry showed sodium 140, potassium 3.5, chloride 103, bicarb 25, BUN 11, creatinine 1.1, glucose is 191, bilirubin 6.3. AST 156, ALT 156, alkaline phosphatase 198. Also, the patient has coagulation, PT is 11, INR 1.02, PTT 24.8. Also, the patient has other tests done, the pathology report is still pending. The patient had a consult today with Dr. Uriel Kaiser and the order will be x-ray of the lumbar spine. We will consider physical therapy as per Dr. Kaiser's consultation. Case was also discussed with and the plan would be to put a metallic stent in the morning and also waiting for the pathology to consider some other intervention or even a consult with the speciality in disorder. PLAN: We will replace the potassium replacement. Gómez Del Rosario MD
[2017-07-10] MEDS: Insulin Lispro (humaLOG) LOW Coverage SC SCH ×4 (08:37→22:24)
[2017-07-10] MEDS: Sodium Chloride 0.9% 1,000 ML IV SCH ×3 (08:38→22:50)
[2017-07-10] MEDS: Ciprofloxacin 400mg/200ml D5W 400 MG/200 ML BAG IVPB SCH ×2 (10:02→22:47)
--- NOTE | 2017-07-10 14:10 | CP.PCM.PN ---
<Tess Pink - Last Filed: 07/10/17 14:08> Subjective - Date & Time of Evaluation Date of Evaluation: 07/10/17 Time of Evaluation: 09:40 - Subjective Subjective: Seen and examined at the bedside earlier today, the chart was reviewed. No acute overnight events reported. Patient abdominal pain with some improvement. No reports of fever or chills, shortness of breath or chest pain. No nausea or vomiting. Awaiting to go for CT scan with pancreatic protocol. Objective - Vital Signs/Intake and Output Vital Signs (last 24 hours): Temp Pulse Resp BP Pulse Ox 99 F 88 20 140/80 98 07/10/17 08:52 07/10/17 10:04 07/10/17 08:52 07/10/17 10:04 07/10/17 08:52 Intake and Output: 07/10/17 07/10/17 06:59 18:59 Intake Total 360 Balance 360 - Medications Medications: Current Medications Benzocaine/Menthol (Cepacol Sore Throat) 1 caroline MT Q4H PRN PRN Reason: Sore Throat Last Admin: 07/09/17 04:22 Dose: 1 caroline Carvedilol (Coreg) 12.5 mg PO BID [facility] Last Admin: 07/10/17 10:03 Dose: 12.5 mg Hydralazine HCl (Apresoline) 50 mg PO Q8 [facility] Last Admin: 07/10/17 06:07 Dose: 50 mg Hydromorphone HCl (Dilaudid) 0.5 mg IVP Q6H PRN PRN Reason: Pain, severe (8-10) Last Admin: 07/10/17 08:37 Dose: 0.5 mg Ciprofloxacin (Cipro 400mg/200ml Dsw) 400 mg in 200 mls @ 133.3 mls/hr IVPB Q12 [facility] PRN Reason: Protocol Last Admin: 07/10/17 10:02 Dose: 133.3 mls/hr Metronidazole (Flagyl) 500 mg in 100 mls @ 100 mls/hr IVPB Q8 [facility] PRN Reason: Protocol Last Admin: 07/10/17 06:07 Dose: 100 mls/hr Sodium Chloride (Sodium Chloride 0.9%) 1,000 mls @ 100 mls/hr IV .Q10H [facility] Last Admin: 07/10/17 10:04 Dose: 100 mls/hr Insulin Human Lispro (Humalog Low) 0 units SC ACHS [facility] PRN Reason: Protocol Last Admin: 07/10/17 11:53 Dose: 2 units Lisinopril (Zestril) 20 mg PO DAILY [facility] Last Admin: 07/10/17 10:04 Dose: 20 mg Ondansetron HCl (Zofran Inj) 4 mg IVP Q4H PRN PRN Reason: Nausea/Vomiting Last Admin: 07/09/17 12:21 Dose: 4 mg Pantoprazole Sodium (Protonix Inj) 40 mg IVP DAILY [facility] - Labs Labs: 07/10/17 06:10 07/10/17 06:10 PT 11.0 Seconds (9.9-11.8) 07/06/17 10:49 INR 1.02 (0.93-1.08) 07/06/17 10:49 APTT 24.8 Seconds (23.7-30.8) 07/06/17 10:49 - Constitutional Appears: No Acute Distress - Head Exam Head Exam: NORMOCEPHALIC - Eye Exam Eye Exam: Scleral icterus - ENT Exam ENT Exam: Mucous Membranes Moist - Neck Exam Neck Exam: Normal Inspection - Respiratory Exam Respiratory Exam: NORMAL BREATHING PATTERN. absent: Respiratory Distress - Cardiovascular Exam Cardiovascular Exam: +S1, +S2 - GI/Abdominal Exam GI & Abdominal Exam: Soft, Tenderness, Normal Bowel Sounds. 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 Discusssed biopsy w/pathologsit Dr. Horne, biopsies were indeterminate, recommend additional biopsies, this was discussed with the patient. Also reviewed MRCP/CAT scans with the radiologist. Seen and discussed w/ Dr. Cervantes. <Sen Cervantes V - Last Filed: 07/13/17 16:50> Objective - Vital Signs/Intake and Output Vital Signs (last 24 hours): Temp Pulse Resp BP Pulse Ox 98.9 F 85 20 167/84 H 99 07/10/17 16:33 07/10/17 17:23 07/10/17 16:33 07/10/17 17:23 07/10/17 16:33 Intake and Output: 07/10/17 07/11/17 18:59 06:59 Intake Total 0 Balance 0 - Medications Medications: Current Medications Benzocaine/Menthol (Cepacol Sore Throat) 1 caroline MT Q4H PRN PRN Reason: Sore Throat Last Admin: 07/09/17 04:22 Dose: 1 caroline Carvedilol (Coreg) 12.5 mg PO BID [facility] Last Admin: 07/10/17 17:23 Dose: 12.5 mg Hydralazine HCl (Apresoline) 50 mg PO Q8 [facility] Last Admin: 07/10/17 22:49 Dose: Not Given Hydromorphone HCl (Dilaudid) 0.5 mg IVP Q6H PRN PRN Reason: Pain, severe (8-10) Last Admin: 07/10/17 23:24 Dose: 0.5 mg Ciprofloxacin (Cipro 400mg/200ml Dsw) 400 mg in 200 mls @ 133.3 mls/hr IVPB Q12 [facility] PRN Reason: Protocol Last Admin: 07/10/17 22:47 Dose: 133.3 mls/hr Metronidazole (Flagyl) 500 mg in 100 mls @ 100 mls/hr IVPB Q8 [facility] PRN Reason: Protocol Last Admin: 07/10/17 22:46 Dose: 100 mls/hr Sodium Chloride (Sodium Chloride 0.9%) 1,000 mls @ 100 mls/hr IV .Q10H [facility] Last Admin: 07/10/17 22:50 Dose: 100 mls/hr Insulin Human Lispro (Humalog Low) 0 units SC ACHS [facility] PRN Reason: Protocol Last Admin: 07/10/17 22:24 Dose: Not Given Lisinopril (Zestril) 20 mg PO DAILY [facility] Last Admin: 07/10/17 10:04 Dose: 20 mg Ondansetron HCl (Zofran Inj) 4 mg IVP Q4H PRN PRN Reason: Nausea/Vomiting Last Admin: 07/10/17 18:38 Dose: 4 mg Pantoprazole Sodium (Protonix Inj) 40 mg IVP DAILY [facility] Last Admin: 07/10/17 17:29 Dose: 40 mg - Labs Labs: 07/10/17 06:10 07/10/17 06:10 PT 11.0 Seconds (9.9-11.8) 07/06/17 10:49 INR 1.02 (0.93-1.08) 07/06/17 10:49 APTT 24.8 Seconds (23.7-30.8) 07/06/17 10:49 Attending/Attestation - Attestation I have personally seen and examined this patient.: Yes I have fully participated in the care of the patient.: Yes I have reviewed all pertinent clinical information, including history, physical exam and plan: Yes Notes (Text): Failed selective cannulation of CBD . sp PD stent placement. sp EUS FNA Followup cytology
[2017-07-10] MEDS ORDERED: Iohexol 240 (50 ml) ONE (18:12)
--- NOTE | 2017-07-10 18:32 | CP.PCM.PN ---
Subjective - Date & Time of Evaluation Date of Evaluation: 07/10/17 Time of Evaluation: 16:15 - Subjective Subjective: Infectious Disease Follow Up: July 10, 2017 62 yo female with frequent hospitalization to [facility] [place]. The patient with presentation of general fatigue and weakness starting two weeks ago. The patient was hospitalized in [facility] [place] about 3 weeks ago. The patient has NBNB vomiting. The patient is awake and alert. History of PCN allergies. The patient has a history of uterine cancer with treatment of hysterectomy, chemotherapy, and radiation. The patient was also recently treated for cerebral malaria at [facility] in [place] about two months ago. She had three malaria smears done on her last hospitalization here 3 weeks ago. She is still having episodes of nausea and vomiting today. Taken for EGD yesterday with dilatation of the common bile duct. Still elevated LFTs. 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 Stent placed with ERCP. For repeat ERCP friday. For repeat CT scan today. Objective - Vital Signs/Intake and Output Vital Signs (last 24 hours): Temp Pulse Resp BP Pulse Ox 98.9 F 85 20 167/84 H 99 07/10/17 16:33 07/10/17 17:23 07/10/17 16:33 07/10/17 17:23 07/10/17 16:33 Intake and Output: 07/10/17 07/10/17 06:59 18:59 Intake Total 360 Balance 360 - Medications Medications: Current Medications Benzocaine/Menthol (Cepacol Sore Throat) 1 caroline MT Q4H PRN PRN Reason: Sore Throat Last Admin: 07/09/17 04:22 Dose: 1 caroline Carvedilol (Coreg) 12.5 mg PO BID [facility] Last Admin: 07/10/17 17:23 Dose: 12.5 mg Hydralazine HCl (Apresoline) 50 mg PO Q8 [facility] Last Admin: 07/10/17 14:07 Dose: 50 mg Hydromorphone HCl (Dilaudid) 0.5 mg IVP Q6H PRN PRN Reason: Pain, severe (8-10) Last Admin: 07/10/17 14:08 Dose: 0.5 mg Ciprofloxacin (Cipro 400mg/200ml Dsw) 400 mg in 200 mls @ 133.3 mls/hr IVPB Q12 [facility] PRN Reason: Protocol Last Admin: 07/10/17 10:02 Dose: 133.3 mls/hr Metronidazole (Flagyl) 500 mg in 100 mls @ 100 mls/hr IVPB Q8 [facility] PRN Reason: Protocol Last Admin: 07/10/17 14:09 Dose: 100 mls/hr Sodium Chloride (Sodium Chloride 0.9%) 1,000 mls @ 100 mls/hr IV .Q10H [facility] Last Admin: 07/10/17 10:04 Dose: 100 mls/hr Insulin Human Lispro (Humalog Low) 0 units SC ACHS [facility] PRN Reason: Protocol Last Admin: 07/10/17 17:24 Dose: 1 units Lisinopril (Zestril) 20 mg PO DAILY [facility] Last Admin: 07/10/17 10:04 Dose: 20 mg Ondansetron HCl (Zofran Inj) 4 mg IVP Q4H PRN PRN Reason: Nausea/Vomiting Last Admin: 07/09/17 12:21 Dose: 4 mg Pantoprazole Sodium (Protonix Inj) 40 mg IVP DAILY [facility] Last Admin: 07/10/17 17:29 Dose: 40 mg - Labs Labs: 07/10/17 06:10 07/10/17 06:10 PT 11.0 Seconds (9.9-11.8) 07/06/17 10:49 INR 1.02 (0.93-1.08) 07/06/17 10:49 APTT 24.8 Seconds (23.7-30.8) 07/06/17 10:49 - Constitutional Appears: Non-toxic, Chronically Ill - Head Exam Head Exam: ATRAUMATIC, NORMOCEPHALIC - Eye Exam Eye Exam: EOMI, PERRL Pupil Exam: NORMAL ACCOMODATION, PERRL - ENT Exam ENT Exam: Mucous Membranes Moist, Normal External Ear Exam, TM's Normal Bilaterally - Neck Exam Neck Exam: Full ROM, Normal Inspection - Respiratory Exam Respiratory Exam: Clear to Ausculation Bilateral, NORMAL BREATHING PATTERN. absent: Rales, Rhonchi, Wheezes - Cardiovascular Exam Cardiovascular Exam: REGULAR RHYTHM, RRR, +S1, +S2 - GI/Abdominal Exam GI & Abdominal Exam: Soft, Tenderness, Normal Bowel Sounds. absent: Distended Additional comments: LLQ tenderness - Extremities Exam Extremities Exam: Full ROM, Normal Inspection - Neurological Exam Neurological Exam: Alert, Awake, CN II-XII Intact, Oriented x3 - Psychiatric Exam Psychiatric exam: Normal Affect, Normal Mood - Skin Skin Exam: Intact, Normal Color Assessment and Plan - Assessment and Plan (Free Text) Assessment: 62 yo female with biliary ductal diliation on CT scan and abdominal pain. Frequent hospital visits. No leukocytosis, fevers, or renal insufficiency. Extensive abdominal surgery history. MRCP is pending. Continue on Flagyl and Cipro for now. Supportive care. Await cultures and MRCP results. Monitor for leukocytosis. Monitor temperature trend. Awaiting olmstead cultures. MRCP is showing moderately dilated common bile duct measures up to 17 millimeter with evidence of obstructing stone. Taken to EGD for dilatation of the common bile duct and stone removal. Awaiting CT scan today. EGD again tomorrow. Thank you for allowing me to participate in the care of the patient, we will follow with you.
--- NOTE | 2017-07-10 19:26 | PN ---
DATE: SUBJECTIVE: Today, the patient is alert and awake. Complaining of some mild tenderness in the epigastric area. Nausea is decreasing. No chest pain. No shortness of breath. Tender to the right hip. PHYSICAL EXAMINATION: VITAL SIGNS: The patient has blood pressure of 167/84, pulse is 85, respirations 20, and temperature 98.9. NECK: Supple. LUNGS: Clear. HEART: Regular rate and rhythm. ABDOMEN: Soft. Tenderness in the epigastric area and positive bowel sounds. EXTREMITIES: There is no edema, but there is tenderness to the right hip and the trochanter area. LABORATORY DATA: The patient had some blood tests done and WBC 4.4, hemoglobin 10.3, hematocrit 31.8, and platelets 361. Chemistry showed sodium 140, potassium 3.5, chloride 104, bicarbonate 26, BUN 11, creatinine 1, and glucose 181, AST 166, ALT 161, alkaline phosphatase is 545, and calcium 9.2. The patient has a stent inserted for today by Dr. Cervantes, that was a insertion of stent and that was well. The plan is that we are going to have again endoscopy tomorrow and the patient also had pathology report. The pathology report show atypical cells, but they failed to express if it is malignant or not. The case was discussed with Dr. Cervantes and we are going to replace the potassium and continue current treatment, but I will be away for the next 3 days from to Friday and Dr. King is going to . Gómez Del Rosario MD
--- NOTE | 2017-07-10 23:06 | CT ---
EXAM: CT Abdomen and Pelvis With Intravenous Contrast CLINICAL HISTORY: 62 years old, female; Pain; Abdominal pain; Prior surgery; Surgery type: Appendectomy - hysterectomy; Additional info: Pancractic protocal mass to head TECHNIQUE: Axial computed tomography images of the abdomen and pelvis with intravenous contrast. All CT scans at this facility use one or more dose reduction techniques, viz.: automated exposure control; ma/kV adjustment per patient size (including targeted exams where dose is matched to indication; i.e. head); or iterative reconstruction technique. COMPARISON: CT - ABD PELVIS W/O PO OR IV CONT 07/08/2017 9:52:52 PM FINDINGS: Lower thorax: There is minimal bibasilar atelectasis. ABDOMEN: Liver: There is again intrahepatic and extrahepatic biliary ductal dilatation. This appears grossly similar to 07/08/2017. There are no focal liver lesions present. Gallbladder and bile ducts: Contrast material is again noted within the gallbladder with. Pancreas: 2-3 mm diameter linear hyperdensity in the region of the pancreatic head is again noted and appears unchanged. This may represent postoperative change or a contrasted stent. No ductal dilation. Spleen: Hypodense left splenic mass is again visualized measuring 2.1 CM, unchanged. Adrenals: There is nodular thickening of both adrenal glands again noted, unchanged. Kidneys and ureters: Left kidney again demonstrates hydronephrosis and also now demonstrates enhancement of the left ureteral wall. This is nonspecific but can be seen in infectious, inflammatory or neoplastic process. The right kidney is normal. Stomach and bowel: Stomach is predominantly decompressed and grossly unremarkable. Mild diverticulosis is present in the sigmoid and descending colon. There is no evidence of diverticulitis. There is no evidence of intestinal obstruction. Appendix: There has been an appendectomy. PELVIS: Bladder: Bladder is decompressed. Reproductive: At the left adnexa again seen is a 5.2 x 4.8 CM hypodense lesion which measures simple fluid density. This appears unchanged from 07/08/2017. There has been a hysterectomy. ABDOMEN and PELVIS: Intraperitoneal space: There is no evidence of free intraperitoneal fluid. There is no free intraperitoneal air. Bones/joints: There are moderate degenerative changes present. No acute fracture. No dislocation. Soft tissues: Mild diffuse anasarca similar to or slightly less than 07/08/2017. Vasculature: The aorta demonstrates mild atherosclerotic calcification. No abdominal aortic aneurysm. Lymph nodes: There is no evidence of lymphadenopathy. IMPRESSION: 1. There is again intrahepatic and extrahepatic biliary ductal dilatation. This appears grossly similar to 07/08/2017. 2. Hypodense left splenic mass is again visualized measuring 2.1 CM, unchanged. 3. 2-3 mm diameter linear hyperdensity in the region of the pancreatic head is again noted and appears unchanged. This may represent postoperative change or a contrasted stent. 4. Left kidney again demonstrates hydronephrosis and also now demonstrates enhancement of the left ureteral wall. This is nonspecific but can be seen in infectious, inflammatory or neoplastic process. 5. At the left adnexa again seen is a 5.2 x 4.8 CM hypodense lesion which measures simple fluid density. This appears unchanged from 07/08/2017. 6. Mild diffuse anasarca similar to or slightly less than 07/08/2017. 7. Additional incidental and/or chronic findings as described.
[2017-07-11] MEDS: metroNIDAZOLE IV 500 mg/100 ml 500 MG/100 ML BAG IVPB SCH ×2 (06:00→22:00)
[2017-07-11] MEDS: Sodium Chloride 0.9% 1,000 ML IV SCH (06:03)
[2017-07-11 07:40] LABS: BASO # 0.02 K/mm3 (0.0-2.0); BASO % 0.5 % (0.0-3.0); EOS % 1.1 % (1.5-5.0); GRAN # 2.68 (1.4-6.5); GRAN % 71.2 % (50.0-68.0); HEMATOCRIT 32.4 % (36.0-48.0); LYMPH # 0.7 (1.2-3.4); LYMPH % 17.6 % (22.0-35.0); MEAN CORPUSCULAR HEMOGLOBIN 28.5 pg (25.0-35.0); MEAN CORPUSCULAR HGB CONC 32.4 g/dl (31.0-37.0); MEAN PLATELET VOLUME 8.7 fl (7.0-11.0); MONO # 0.4 (0.1-0.6); MONO % 9.6 % (1.0-6.0); RED CELL DISTRIBUTION WIDTH 13.5 % (11.5-14.5); WHITE BLOOD COUNT 3.8 10^3/ul (4.5-11.0)
[2017-07-11 07:50] LABS: ALB/GLOB RATIO 1.1 (1.1-1.8); ALKALINE PHOSPHATASE 647 U/L (38-126); ALT/SGPT 152 U/L (7-56); AMYLASE 49 U/L (35-125); AST/SGOT 159 U/L (14-36); BILIRUBIN,TOTAL 7.5 mg/dL (0.2-1.3); BLOOD UREA NITROGEN 9 mg/dL (7-21); CALCIUM 9.6 mg/dL (8.4-10.5); CARBON DIOXIDE 26 mmol/L (21-33); CHLORIDE 100 mmol/L (95-110); GFR AFRICAN-AMERICAN > 60; GLUCOSE,RANDOM 181 mg/dL (70-110); LIPASE 50 U/L (23-300); POTASSIUM 3.4 mmol/L (3.6-5.0); SODIUM 138 mmol/L (132-148); TOTAL PROTEIN 7.3 g/dL (5.8-8.3)
[2017-07-11] MEDS: Insulin Lispro (humaLOG) LOW Coverage SC SCH ×2 (08:18→12:03)
[2017-07-11] MEDS: HYDROmorphone 0.5 mg/0.5 ml ISec IVP PRN (08:52)
[2017-07-11] MEDS: Ciprofloxacin 400mg/200ml D5W 400 MG/200 ML BAG IVPB SCH ×2 (09:01→22:00)
[2017-07-11] MEDS ORDERED: Potassium Chloride 40 mEq/30 ml LIQ UD PO STA (11:08)
[2017-07-11] MEDS ORDERED: Glucagon Recombinant 1 mg Inj ONE (14:43)
[2017-07-11] MEDS ORDERED: Iohexol 240 (50 ml) ONE (14:43)
[2017-07-11] MEDS ORDERED: Indomethacin 50 MG Suppository PR ONE ×2 (15:02→16:45)
[2017-07-11] MEDS ORDERED: Midazolam 2 MG/2 ML VIAL ONE (15:08)
[2017-07-11] MEDS ORDERED: Propofol 10 mg/ml Inj (20 ML) ONE (15:08)
[2017-07-11] MEDS ORDERED: Succinylcholine 200 mg/10 ml Inj IV ONE (15:09)
[2017-07-11] MEDS ORDERED: Phenylephrine 10 mg/ml Inj ONE (15:18)
--- NOTE | 2017-07-11 16:15 | CP.PCM.PN ---
Subjective - Date & Time of Evaluation Date of Evaluation: 07/11/17 Time of Evaluation: 15:00 - Subjective Subjective: Infectious Disease Follow Up and Covering Internal Medicine: July 11, 2017 62 yo female with [place] [facility] [place] The patient with presentation of general fatigue and weakness starting two weeks ago. The patient was hospitalized in [facility] [place] weeks ago. The patient has NBNB vomiting. The patient is awake and alert. History of PCN allergies. The patient has a history of uterine cancer with treatment of hysterectomy, chemotherapy, and radiation. The patient was also recently treated for cerebral malaria at [facility] in [place] about two months ago. She had three malaria smears done on her last hospitalization here 3 weeks ago. She is still having episodes of nausea and vomiting today. Taken for EGD yesterday with dilatation of the common bile duct. Still elevated LFTs. 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 Stent placed with ERCP. For repeat ERCP today. For repeat CT scan yesterday - results noted. Objective - Vital Signs/Intake and Output Vital Signs (last 24 hours): Temp Pulse Resp BP Pulse Ox 98.2 F 86 20 160/92 H 97 07/11/17 06:00 07/11/17 06:00 07/11/17 06:00 07/11/17 09:01 07/11/17 15:05 Intake and Output: 07/11/17 07/11/17 06:59 18:59 Intake Total 0 0 Balance 0 0 - Medications Medications: Current Medications Benzocaine/Menthol (Cepacol Sore Throat) 1 caroline MT Q4H PRN PRN Reason: Sore Throat Last Admin: 07/09/17 04:22 Dose: 1 caroline Carvedilol (Coreg) 12.5 mg PO BID [facility] Last Admin: 07/11/17 09:01 Dose: 12.5 mg Hydralazine HCl (Apresoline) 50 mg PO Q8 [facility] Last Admin: 07/11/17 06:00 Dose: 50 mg Hydromorphone HCl (Dilaudid) 0.5 mg IVP Q6H PRN PRN Reason: Pain, severe (8-10) Last Admin: 07/11/17 08:52 Dose: 0.5 mg Ciprofloxacin (Cipro 400mg/200ml Dsw) 400 mg in 200 mls @ 133.3 mls/hr IVPB Q12 [facility] PRN Reason: Protocol Last Admin: 07/11/17 09:01 Dose: 133.3 mls/hr Metronidazole (Flagyl) 500 mg in 100 mls @ 100 mls/hr IVPB Q8 [facility] PRN Reason: Protocol Last Admin: 07/11/17 06:00 Dose: 100 mls/hr Sodium Chloride (Sodium Chloride 0.9%) 1,000 mls @ 100 mls/hr IV .Q10H [facility] Last Admin: 07/11/17 06:03 Dose: 100 mls/hr Insulin Human Lispro (Humalog Low) 0 units SC ACHS [facility] PRN Reason: Protocol Last Admin: 07/11/17 12:03 Dose: 2 units Lisinopril (Zestril) 20 mg PO DAILY [facility] Last Admin: 07/11/17 09:01 Dose: 20 mg Ondansetron HCl (Zofran Inj) 4 mg IVP Q4H PRN PRN Reason: Nausea/Vomiting Last Admin: 07/10/17 18:38 Dose: 4 mg Pantoprazole Sodium (Protonix Inj) 40 mg IVP DAILY [facility] Last Admin: 07/11/17 09:00 Dose: 40 mg - Labs Labs: 07/11/17 07:00 07/11/17 07:00 PT 11.0 Seconds (9.9-11.8) 07/06/17 10:49 INR 1.02 (0.93-1.08) 07/06/17 10:49 APTT 24.8 Seconds (23.7-30.8) 07/06/17 10:49 - Constitutional Appears: Non-toxic, Chronically Ill - Head Exam Head Exam: ATRAUMATIC, NORMOCEPHALIC - Eye Exam Eye Exam: EOMI, PERRL Pupil Exam: NORMAL ACCOMODATION, PERRL - ENT Exam ENT Exam: Mucous Membranes Moist, Normal External Ear Exam, TM's Normal Bilaterally - Neck Exam Neck Exam: Full ROM, Normal Inspection - Respiratory Exam Respiratory Exam: Clear to Ausculation Bilateral, NORMAL BREATHING PATTERN. absent: Rales, Rhonchi, Wheezes - Cardiovascular Exam Cardiovascular Exam: REGULAR RHYTHM, RRR, +S1, +S2 - GI/Abdominal Exam GI & Abdominal Exam: Soft, Tenderness, Normal Bowel Sounds. absent: Distended Additional comments: LLQ tenderness - Extremities Exam Extremities Exam: Full ROM, Normal Inspection - Neurological Exam Neurological Exam: Alert, Awake, CN II-XII Intact, Oriented x3 - Psychiatric Exam Psychiatric exam: Normal Affect, Normal Mood - Skin Skin Exam: Intact, Normal Color Assessment and Plan - Assessment and Plan (Free Text) Assessment: 62 yo female with biliary ductal diliation on CT scan and abdominal pain. Frequent hospital visits. No leukocytosis, fevers, or renal insufficiency. Extensive abdominal surgery history. MRCP is pending. Continue on Flagyl and Cipro for now. Supportive care. Await cultures and MRCP results. Monitor for leukocytosis. Monitor temperature trend. Awaiting olmstead cultures. MRCP is showing moderately dilated common bile duct measures up to 17 millimeter with evidence of obstructing stone. Taken to EGD for dilatation of the common bile duct and stone removal. CT scan yesterday and results noted. EGD today. Thank you for allowing me to participate in the care of the patient, we will follow with you.
[2017-07-11] MEDS ORDERED: Rocuronium 10 mg/ml (5 ml) ONE (16:49)
[2017-07-11] MEDS ORDERED: Neostigmine Methylsulfate 3mg/3ml Syringe IV ONE (18:27)
[2017-07-11] MEDS ORDERED: Lactated Ringer's 1,000 ML IV SCH (18:45)
--- NOTE | 2017-07-11 19:28 | RAD ---
ERCP Fluoroscopy was provided to referring physician to perform ERCP examination. 497.4 seconds of fluoroscopy time was utilized with a total dose of 5.23 mGy. Please see op report further detail. IMPRESSION: Please see operative report further detail.
[2017-07-12] MEDS: HYDROmorphone 0.5 mg/0.5 ml ISec IVP PRN ×2 (03:36→19:43)
[2017-07-12 09:13] LABS: HEMATOCRIT 30.2 % (36.0-48.0); MEAN CORPUSCULAR HGB CONC 32.1 g/dl (31.0-37.0); RED CELL DISTRIBUTION WIDTH 13.5 % (11.5-14.5)
[2017-07-12 10:23] LABS: ALB/GLOB RATIO 1.1 (1.1-1.8); BILIRUBIN,TOTAL 6.8 mg/dL (0.2-1.3); CALCIUM 9.1 mg/dL (8.4-10.5); POTASSIUM 3.2 mmol/L (3.6-5.0); TOTAL PROTEIN 6.7 g/dL (5.8-8.3)
--- NOTE | 2017-07-12 17:41 | CP.PCM.PN ---
Subjective - Date & Time of Evaluation Date of Evaluation: 07/12/17 Time of Evaluation: 15:00 - Subjective Subjective: Infectious Disease Follow Up and Covering Internal Medicine: July 12, 2017 62 yo female with frequent hospitalization to [facility]. The patient with presentation of general fatigue and weakness starting two weeks ago. The patient was hospitalized in [facility] about 3 weeks ago. The patient has NBNB vomiting. The patient is awake and alert. History of PCN allergies. The patient has a history of uterine cancer with treatment of hysterectomy, chemotherapy, and radiation. The patient was also recently treated for cerebral malaria at [facility] in [place] about two months ago. She had three malaria smears done on her last hospitalization here 3 weeks ago. She is still having episodes of nausea and vomiting today. Taken for EGD yesterday with dilatation of the common bile duct. Still elevated LFTs. 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 Stent placed with ERCP. Had repeat ERCP yesterday. Repeat CT scan - results noted. Objective - Vital Signs/Intake and Output Vital Signs (last 24 hours): Temp Pulse Resp BP Pulse Ox 97.6 F 88 20 170/91 H 98 07/12/17 16:41 07/12/17 16:41 07/12/17 16:41 07/12/17 16:41 07/12/17 16:41 Intake and Output: 07/12/17 07/12/17 06:59 18:59 Intake Total 240 Balance 240 - Medications Medications: Current Medications Benzocaine/Menthol (Cepacol Sore Throat) 1 caroline MT Q4H PRN PRN Reason: Sore Throat Last Admin: 07/09/17 04:22 Dose: 1 caroline Carvedilol (Coreg) 12.5 mg PO BID [facility] Last Admin: 07/12/17 09:42 Dose: 12.5 mg Hydralazine HCl (Apresoline) 50 mg PO Q8 [facility] Last Admin: 07/12/17 14:18 Dose: 50 mg Hydromorphone HCl (Dilaudid) 0.5 mg IVP Q6H PRN PRN Reason: Pain, severe (8-10) Last Admin: 07/12/17 03:36 Dose: 0.5 mg Sodium Chloride (Sodium Chloride 0.9%) 1,000 mls @ 100 mls/hr IV .Q10H [facility] Last Admin: 07/11/17 06:03 Dose: 100 mls/hr Insulin Human Lispro (Humalog Low) 0 units SC ACHS [facility] PRN Reason: Protocol Last Admin: 07/11/17 12:03 Dose: 2 units Lisinopril (Zestril) 20 mg PO DAILY [facility] Last Admin: 07/11/17 09:01 Dose: 20 mg Ondansetron HCl (Zofran Inj) 4 mg IVP Q4H PRN PRN Reason: Nausea/Vomiting Last Admin: 07/11/17 23:15 Dose: 4 mg Ondansetron HCl (Zofran Inj) 4 mg IVP ONCE PRN PRN Reason: Nausea/Vomiting Pantoprazole Sodium (Protonix Inj) 40 mg IVP DAILY [facility] Last Admin: 07/12/17 09:43 Dose: 40 mg - Labs Labs: 07/12/17 08:30 07/12/17 08:30 PT 11.0 Seconds (9.9-11.8) 07/06/17 10:49 INR 1.02 (0.93-1.08) 07/06/17 10:49 APTT 24.8 Seconds (23.7-30.8) 07/06/17 10:49 - Constitutional Appears: Non-toxic, Chronically Ill - Head Exam Head Exam: ATRAUMATIC, NORMOCEPHALIC - Eye Exam Eye Exam: EOMI, PERRL Pupil Exam: NORMAL ACCOMODATION, PERRL - ENT Exam ENT Exam: Mucous Membranes Moist, Normal External Ear Exam, TM's Normal Bilaterally - Neck Exam Neck Exam: Full ROM, Normal Inspection - Respiratory Exam Respiratory Exam: Clear to Ausculation Bilateral, NORMAL BREATHING PATTERN. absent: Rales, Rhonchi, Wheezes - Cardiovascular Exam Cardiovascular Exam: REGULAR RHYTHM, RRR, +S1, +S2 - GI/Abdominal Exam GI & Abdominal Exam: Soft, Tenderness, Normal Bowel Sounds. absent: Distended Additional comments: LLQ tenderness - Extremities Exam Extremities Exam: Full ROM, Normal Inspection - Neurological Exam Neurological Exam: Alert, Awake, CN II-XII Intact, Oriented x3 - Psychiatric Exam Psychiatric exam: Normal Affect, Normal Mood - Skin Skin Exam: Intact, Normal Color Assessment and Plan - Assessment and Plan (Free Text) Assessment: 62 yo female with biliary ductal diliation on CT scan and abdominal pain. Frequent hospital visits. No leukocytosis, fevers, or renal insufficiency. Extensive abdominal surgery history. MRCP is pending. Continue on Flagyl and Cipro for now. Supportive care. Await cultures and MRCP results. Monitor for leukocytosis. Monitor temperature trend. Awaiting olmstead cultures. MRCP is showing moderately dilated common bile duct measures up to 17 millimeter with evidence of obstructing stone. Taken to EGD for dilatation of the common bile duct and stone removal. CT scan and results noted. Repeat ERCP yesterday. Noted that nursing notes mention a transfer to [facility] as per Dr. Cervantes. Thank you for allowing me to participate in the care of the patient, we will follow with you.
[2017-07-12] MEDS: Insulin Lispro (humaLOG) LOW Coverage SC SCH ×2 (17:48→21:36)
[2017-07-12] MEDS: metroNIDAZOLE IV 500 mg/100 ml 500 MG/100 ML BAG IVPB SCH (23:15)
[2017-07-13] MEDS ORDERED: Ciprofloxacin 400mg/200ml D5W 400 MG/200 ML BAG IVPB SCH
[2017-07-13] MEDS: HYDROmorphone 0.5 mg/0.5 ml ISec IVP PRN ×2 (02:47→08:32)
[2017-07-13] MEDS: Sodium Chloride 0.9% 1,000 ML IV SCH (05:24)
[2017-07-13] MEDS: metroNIDAZOLE IV 500 mg/100 ml 500 MG/100 ML BAG IVPB SCH ×4 (05:26→21:27)
[2017-07-13] MEDS: Insulin Lispro (humaLOG) LOW Coverage SC SCH ×4 (08:02→21:30)
[2017-07-13] MEDS: Ciprofloxacin 400mg/200ml D5W 400 MG/200 ML BAG IVPB SCH ×2 (09:14→22:57)
[2017-07-13] MEDS ORDERED: HYDROmorphone 0.5 mg/0.5 ml ISec SC PRN (18:54)
--- NOTE | 2017-07-13 18:56 | CP.PCM.PN ---
Subjective - Date & Time of Evaluation Date of Evaluation: 07/13/17 Time of Evaluation: 16:46 - Subjective Subjective: Infectious Disease Follow Up and Covering Internal Medicine: July 13, 2017 62 yo female with frequent hospitalization to [facility]. The patient with presentation of general fatigue and weakness starting two weeks ago. The patient was hospitalized in [facility] about 3 weeks ago. The patient has NBNB vomiting. The patient is awake and alert. History of PCN allergies. The patient has a history of uterine cancer with treatment of hysterectomy, chemotherapy, and radiation. The patient was also recently treated for cerebral malaria at [facility] in [place] about two months ago. She had three malaria smears done on her last hospitalization here 3 weeks ago. She is still having episodes of nausea and vomiting today. Taken for EGD yesterday with dilatation of the common bile duct. Still elevated LFTs. 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 Stent placed with ERCP. On repeat ERCP, the patient was visualization of the pancreatic mass. Fine needle biopsy was performed. Repeat CT scan - results noted. Pathology pending. Objective - Vital Signs/Intake and Output Vital Signs (last 24 hours): Temp Pulse Resp BP Pulse Ox 98.7 F 80 20 155/80 H 99 07/13/17 18:20 07/13/17 18:20 07/13/17 18:20 07/13/17 18:20 07/13/17 18:20 Intake and Output: 07/13/17 07/13/17 06:59 18:59 Intake Total 540 Output Total 0 Balance 540 - Medications Medications: Current Medications Benzocaine/Menthol (Cepacol Sore Throat) 1 caroline MT Q4H PRN PRN Reason: Sore Throat Last Admin: 07/09/17 04:22 Dose: 1 caroline Carvedilol (Coreg) 12.5 mg PO BID [facility] Last Admin: 07/13/17 17:35 Dose: Not Given Hydralazine HCl (Apresoline) 50 mg PO Q8 [facility] Last Admin: 07/13/17 16:28 Dose: Not Given Hydromorphone HCl (Dilaudid) 0.5 mg IVP Q6H PRN PRN Reason: Pain, severe (8-10) Last Admin: 07/13/17 08:32 Dose: 0.5 mg Sodium Chloride (Sodium Chloride 0.9%) 1,000 mls @ 100 mls/hr IV .Q10H [facility] Last Admin: 07/13/17 05:24 Dose: 100 mls/hr Metronidazole (Flagyl) 500 mg in 100 mls @ 100 mls/hr IVPB Q8 [facility] PRN Reason: Protocol Last Admin: 07/13/17 16:02 Dose: Not Given Ciprofloxacin (Cipro 400mg/200ml Dsw) 400 mg in 200 mls @ 133.3 mls/hr IVPB Q12 [facility] PRN Reason: Protocol Last Admin: 07/13/17 09:14 Dose: 133.3 mls/hr Insulin Human Lispro (Humalog Low) 0 units SC ACHS [facility] PRN Reason: Protocol Last Admin: 07/13/17 16:44 Dose: Not Given Lactulose (Enulose) 20 gm PO BID [facility] Last Admin: 07/13/17 17:36 Dose: Not Given Lisinopril (Zestril) 20 mg PO DAILY [facility] Last Admin: 07/13/17 09:13 Dose: 20 mg Ondansetron HCl (Zofran Inj) 4 mg IVP Q4H PRN PRN Reason: Nausea/Vomiting Last Admin: 07/13/17 12:21 Dose: 4 mg Ondansetron HCl (Zofran Inj) 4 mg IVP ONCE PRN PRN Reason: Nausea/Vomiting Pantoprazole Sodium (Protonix Inj) 40 mg IVP DAILY [facility] Last Admin: 07/13/17 09:13 Dose: 40 mg - Labs Labs: 07/12/17 08:30 07/12/17 08:30 PT 11.0 Seconds (9.9-11.8) 07/06/17 10:49 INR 1.02 (0.93-1.08) 07/06/17 10:49 APTT 24.8 Seconds (23.7-30.8) 07/06/17 10:49 - Constitutional Appears: Non-toxic, Chronically Ill - Head Exam Head Exam: ATRAUMATIC, NORMOCEPHALIC - Eye Exam Eye Exam: EOMI, PERRL Pupil Exam: NORMAL ACCOMODATION, PERRL - ENT Exam ENT Exam: Normal External Ear Exam, TM's Normal Bilaterally - Neck Exam Neck Exam: Full ROM, Normal Inspection - Respiratory Exam Respiratory Exam: Clear to Ausculation Bilateral, NORMAL BREATHING PATTERN. absent: Rales, Rhonchi, Wheezes - Cardiovascular Exam Cardiovascular Exam: REGULAR RHYTHM, RRR, +S1, +S2 - GI/Abdominal Exam GI & Abdominal Exam: Soft, Tenderness, Normal Bowel Sounds. absent: Distended Additional comments: LLQ tenderness - Extremities Exam Extremities Exam: Full ROM, Normal Inspection - Neurological Exam Neurological Exam: Alert, Awake, CN II-XII Intact, Oriented x3 - Psychiatric Exam Psychiatric exam: Normal Affect, Normal Mood - Skin Skin Exam: Intact, Normal Color Assessment and Plan - Assessment and Plan (Free Text) Assessment: 62 yo female with biliary ductal diliation on CT scan and abdominal pain. Frequent hospital visits. No leukocytosis, fevers, or renal insufficiency. Extensive abdominal surgery history. MRCP is pending. Continue on Flagyl and Cipro for now. Supportive care. Await cultures and MRCP results. Monitor for leukocytosis. Monitor temperature trend. Awaiting olmstead cultures. MRCP is showing moderately dilated common bile duct measures up to 17 millimeter with evidence of obstructing stone. Taken to EGD for dilatation of the common bile duct and stone removal. CT scan and results noted. Repeat ERCP yesterday. Noted that nursing notes mention a transfer to [facility] as per Dr. Cervantes. Noted that the patient lost IV access today in afternoon. Trying to reestablish access for the patient. Awaiting fine needle biopsy of pancreatic mass. Thank you for allowing me to participate in the care of the patient, we will follow with you.
[2017-07-13] MEDS ORDERED: HYDROmorphone 0.5 mg/0.5 ml ISec IVP STA (22:37)
--- NOTE | 2017-07-14 02:06 | CP.PCM.PN ---
Subjective - Date & Time of Evaluation Date of Evaluation: 07/13/17 Time of Evaluation: 19:45 - Subjective Subjective: pt needs angiocath insertion . Objective - Vital Signs/Intake and Output Vital Signs (last 24 hours): Temp Pulse Resp BP Pulse Ox 98.7 F 81 20 178/85 H 99 07/13/17 18:20 07/13/17 21:19 07/13/17 18:20 07/13/17 21:19 07/13/17 18:20 Intake and Output: 07/13/17 07/14/17 18:59 06:59 Intake Total 360 Balance 360 - Medications Medications: Current Medications Benzocaine/Menthol (Cepacol Sore Throat) 1 caroline MT Q4H PRN PRN Reason: Sore Throat Last Admin: 07/09/17 04:22 Dose: 1 caroline Carvedilol (Coreg) 12.5 mg PO BID [facility] Last Admin: 07/13/17 17:35 Dose: Not Given Hydralazine HCl (Apresoline) 50 mg PO Q8 [facility] Last Admin: 07/13/17 21:19 Dose: 50 mg Hydromorphone HCl (Dilaudid) 0.5 mg IVP Q4H PRN PRN Reason: Pain, severe (8-10) Sodium Chloride (Sodium Chloride 0.9%) 1,000 mls @ 100 mls/hr IV .Q10H [facility] Last Admin: 07/13/17 05:24 Dose: 100 mls/hr Metronidazole (Flagyl) 500 mg in 100 mls @ 100 mls/hr IVPB Q8 [facility] PRN Reason: Protocol Last Admin: 07/13/17 21:27 Dose: 100 mls/hr Ciprofloxacin (Cipro 400mg/200ml Dsw) 400 mg in 200 mls @ 133.3 mls/hr IVPB Q12 [facility] PRN Reason: Protocol Last Admin: 07/13/17 22:57 Dose: 133.3 mls/hr Insulin Human Lispro (Humalog Low) 0 units SC ACHS [facility] PRN Reason: Protocol Last Admin: 07/13/17 21:30 Dose: Not Given Lactulose (Enulose) 20 gm PO BID [facility] Last Admin: 07/13/17 17:36 Dose: Not Given Lisinopril (Zestril) 20 mg PO DAILY [facility] Last Admin: 07/13/17 09:13 Dose: 20 mg Ondansetron HCl (Zofran Inj) 4 mg IVP Q4H PRN PRN Reason: Nausea/Vomiting Last Admin: 07/13/17 21:39 Dose: 4 mg Pantoprazole Sodium (Protonix Inj) 40 mg IVP DAILY [facility] Last Admin: 07/13/17 09:13 Dose: 40 mg - Labs Labs: 07/12/17 08:30 07/12/17 08:30 PT 11.0 Seconds (9.9-11.8) 07/06/17 10:49 INR 1.02 (0.93-1.08) 07/06/17 10:49 APTT 24.8 Seconds (23.7-30.8) 07/06/17 10:49 Assessment and Plan - Assessment and Plan (Free Text) Assessment: 22 guage angiocath inserted in rt wrist area.
[2017-07-14] MEDS: HYDROmorphone 0.5 mg/0.5 ml ISec IVP PRN ×4 (04:22→21:22)
[2017-07-14] MEDS: metroNIDAZOLE IV 500 mg/100 ml 500 MG/100 ML BAG IVPB SCH ×3 (05:34→21:26)
[2017-07-14] MEDS: Sodium Chloride 0.9% 1,000 ML IV SCH ×2 (05:44→20:40)
[2017-07-14 07:14] LABS: HEMATOCRIT 30.2 % (36.0-48.0); MEAN CELL VOLUME 86.5 fl (80.0-105.0); MEAN CORPUSCULAR HEMOGLOBIN 28.4 pg (25.0-35.0); MEAN CORPUSCULAR HGB CONC 32.8 g/dl (31.0-37.0); RED CELL DISTRIBUTION WIDTH 13.6 % (11.5-14.5); WHITE BLOOD COUNT 4.4 10^3/ul (4.5-11.0)
[2017-07-14 07:20] LABS: ALKALINE PHOSPHATASE 876 U/L (38-126); ALT/SGPT 120 U/L (7-56); AST/SGOT 174 U/L (14-36); BILIRUBIN,TOTAL 7.6 mg/dL (0.2-1.3); BLOOD UREA NITROGEN 9 mg/dL (7-21); CARBON DIOXIDE 24 mmol/L (21-33); CHLORIDE 103 mmol/L (98-107); GFR AFRICAN-AMERICAN > 60; GLUCOSE,RANDOM 152 mg/dL (70-110); SODIUM 139 mmol/L (132-148); TOTAL PROTEIN 6.7 g/dL (5.8-8.3)
[2017-07-14 07:36] LABS: POTASSIUM 2.9 mmol/L (3.6-5.0)
[2017-07-14] MEDS: Insulin Lispro (humaLOG) LOW Coverage SC SCH ×5 (08:57→22:07)
[2017-07-14] MEDS: Ciprofloxacin 400mg/200ml D5W 400 MG/200 ML BAG IVPB SCH ×2 (09:11→22:52)
[2017-07-14] MEDS ORDERED: Potassium Chloride 20 mEq ER Tab PO STA (09:43)
[2017-07-14 10:24] LABS: MAGNESIUM 1.4 mg/dL (1.7-2.2)
[2017-07-14] MEDS ORDERED: Magnesium Sulfate 2 GM in Sodium Chloride 0.9% 100 ML IVPB ONE (12:07)
--- NOTE | 2017-07-14 20:38 | CP.PCM.PN ---
Subjective - Date & Time of Evaluation Date of Evaluation: 07/14/17 Time of Evaluation: 17:30 - Subjective Subjective: Infectious Disease Follow Up: July 14, 2017 62 yo female with [place] hospitalization [place] [facility] The patient with presentation of general fatigue and weakness starting two weeks ago. The patient was hospitalized in [facility] about 3 weeks ago. The patient has NBNB vomiting. The patient is awake and alert. History of PCN allergies. The patient has a history of uterine cancer with treatment of hysterectomy, chemotherapy, and radiation. The patient was also recently treated for cerebral malaria at [facility] in [place] about two months ago. She had three malaria smears done on her last hospitalization here 3 weeks ago. She is still having episodes of nausea and vomiting today. Taken for EGD yesterday with dilatation of the common bile duct. Still elevated LFTs. 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 Stent placed with ERCP. On repeat ERCP, the patient was visualization of the pancreatic mass. Fine needle biopsy was performed. Repeat CT scan - results noted. Pathology pending. Case discussed with Dr. Cervantes. Objective - Vital Signs/Intake and Output Vital Signs (last 24 hours): Temp Pulse Resp BP Pulse Ox 98.8 F 81 22 159/86 H 99 07/14/17 18:00 07/14/17 18:00 07/14/17 18:00 07/14/17 18:00 07/14/17 18:00 - Medications Medications: Current Medications Benzocaine/Menthol (Cepacol Sore Throat) 1 caroline MT Q4H PRN PRN Reason: Sore Throat Last Admin: 07/09/17 04:22 Dose: 1 caroline Carvedilol (Coreg) 12.5 mg PO BID [facility] Last Admin: 07/14/17 17:17 Dose: 12.5 mg Hydralazine HCl (Apresoline) 50 mg PO Q8 [facility] Last Admin: 07/14/17 14:47 Dose: 50 mg Hydromorphone HCl (Dilaudid) 0.5 mg IVP Q4H PRN PRN Reason: Pain, severe (8-10) Last Admin: 07/14/17 14:59 Dose: 0.5 mg Sodium Chloride (Sodium Chloride 0.9%) 1,000 mls @ 100 mls/hr IV .Q10H [facility] Last Admin: 07/14/17 05:44 Dose: 100 mls/hr Metronidazole (Flagyl) 500 mg in 100 mls @ 100 mls/hr IVPB Q8 [facility] PRN Reason: Protocol Last Admin: 07/14/17 14:54 Dose: 100 mls/hr Ciprofloxacin (Cipro 400mg/200ml Dsw) 400 mg in 200 mls @ 133.3 mls/hr IVPB Q12 [facility] PRN Reason: Protocol Last Admin: 07/14/17 09:11 Dose: 133.3 mls/hr Insulin Human Lispro (Humalog Low) 0 units SC ACHS [facility] PRN Reason: Protocol Last Admin: 07/14/17 17:17 Dose: 1 units Lactulose (Enulose) 20 gm PO BID [facility] Last Admin: 07/14/17 17:17 Dose: 20 gm Lisinopril (Zestril) 20 mg PO DAILY [facility] Last Admin: 07/14/17 09:14 Dose: 20 mg Ondansetron HCl (Zofran Inj) 4 mg IVP Q4H PRN PRN Reason: Nausea/Vomiting Last Admin: 07/14/17 13:31 Dose: 4 mg Pantoprazole Sodium (Protonix Inj) 40 mg IVP DAILY [facility] Last Admin: 07/14/17 09:11 Dose: 40 mg - Labs Labs: 07/14/17 06:58 07/14/17 06:58 PT 11.0 Seconds (9.9-11.8) 07/06/17 10:49 INR 1.02 (0.93-1.08) 07/06/17 10:49 APTT 24.8 Seconds (23.7-30.8) 07/06/17 10:49 - Constitutional Appears: Non-toxic, No Acute Distress, Chronically Ill - Head Exam Head Exam: ATRAUMATIC, NORMOCEPHALIC - Eye Exam Eye Exam: PERRL Pupil Exam: NORMAL ACCOMODATION, PERRL - ENT Exam ENT Exam: Mucous Membranes Moist, Normal External Ear Exam, TM's Normal Bilaterally - Neck Exam Neck Exam: Full ROM, Normal Inspection - Respiratory Exam Respiratory Exam: Clear to Ausculation Bilateral, NORMAL BREATHING PATTERN. absent: Rales, Rhonchi, Wheezes - Cardiovascular Exam Cardiovascular Exam: RRR, +S1, +S2 - GI/Abdominal Exam GI & Abdominal Exam: Soft, Tenderness, Normal Bowel Sounds. absent: Distended Additional comments: LLQ tenderness - Extremities Exam Extremities Exam: Full ROM, Normal Inspection - Neurological Exam Neurological Exam: Alert, Awake, CN II-XII Intact, Oriented x3 - Psychiatric Exam Psychiatric exam: Normal Affect, Normal Mood - Skin Skin Exam: Intact, Normal Color Assessment and Plan - Assessment and Plan (Free Text) Assessment: 62 yo female with biliary ductal diliation on CT scan and abdominal pain. Frequent hospital visits. No leukocytosis, fevers, or renal insufficiency. Extensive abdominal surgery history. MRCP is pending. Continue on Flagyl and Cipro for now. Supportive care. Await cultures and MRCP results. Monitor for leukocytosis. Monitor temperature trend. Awaiting olmstead cultures. MRCP is showing moderately dilated common bile duct measures up to 17 millimeter with evidence of obstructing stone. Taken to EGD for dilatation of the common bile duct and stone removal. CT scan and results noted. Repeat ERCP yesterday. Noted that nursing notes mention a transfer to [facility] as per Dr. Cervantes due to the difficulty in stenting the patient due to the large mass at pancreatic head. Reviewed imaging studies with Dr. Cervantes. Noted that the patient lost IV access today in afternoon. Trying to reestablish access for the patient. Awaiting fine needle biopsy of pancreatic mass. Thank you for allowing me to participate in the care of the patient, we will follow with you.
--- NOTE | 2017-07-14 23:19 | PN ---
DATE: SUBJECTIVE: Today, the patient is alert and awake but still complaining of some abdominal pain and also complaining of nausea. The patient denies any dizziness but feels weak. PHYSICAL EXAMINATION: VITAL SIGNS: The patient has a blood pressure 159/86, pulse 81, respirations 22, and temperature 98.8. NECK: Supple. LUNGS: Clear. HEART: Regular rate and rhythm. ABDOMEN: Soft. Tenderness to the epigastric area and right upper quadrant. EXTREMITIES: There is no edema. LABORATORY DATA: Blood tests showed WBC 4.4, hemoglobin 9.9, hematocrit 30.2, and platelet 340. Chemistry showed the sodium is 139, potassium 2.9, chloride 103, bicarb is 24, BUN 9, creatinine 1. Glucose is 152. Calcium 9, magnesium 1.4, total bilirubin is 7.6, AST 174, ALT 120, alkaline phosphatase 876. Albumin:globulin ratio is 1. ASSESSMENT AND PLAN: The case was discussed with Dr. Cervantes. Contact is made to send the patient to [facility] for further treatment since the patient has a pancreatic mass; however, biopsy was done but the result is pending. Plan is that we are going to replace the potassium and also we are going to replace the magnesium. Labs will be done tomorrow. Gómez Del Rosario MD
[2017-07-15] MEDS: HYDROmorphone 0.5 mg/0.5 ml ISec IVP PRN ×4 (02:49→18:43)
[2017-07-15] MEDS: metroNIDAZOLE IV 500 mg/100 ml 500 MG/100 ML BAG IVPB SCH ×2 (05:43→14:30)
[2017-07-15 06:21] LABS: BASO # 0.02 K/mm3 (0.0-2.0); BASO % 0.5 % (0.0-3.0); EOS % 0.7 % (1.5-5.0); GRAN # 3.03 (1.4-6.5); GRAN % 75.6 % (50.0-68.0); HEMATOCRIT 30.4 % (36.0-48.0); LYMPH # 0.6 (1.2-3.4); LYMPH % 14.7 % (22.0-35.0); MEAN CELL VOLUME 86.9 fl (80.0-105.0); MEAN CORPUSCULAR HGB CONC 32.2 g/dl (31.0-37.0); MEAN PLATELET VOLUME 8.9 fl (7.0-11.0); MONO # 0.3 (0.1-0.6); MONO % 8.5 % (1.0-6.0); RED CELL DISTRIBUTION WIDTH 13.9 % (11.5-14.5)
[2017-07-15 08:15] LABS: ALB/GLOB RATIO 1.1 (1.1-1.8); ALKALINE PHOSPHATASE 960 U/L (38-126); ALT/SGPT 113 U/L (7-56); AST/SGOT 143 U/L (14-36); BILIRUBIN,TOTAL 7.8 mg/dL (0.2-1.3); BLOOD UREA NITROGEN 8 mg/dL (7-21); CALCIUM 9.1 mg/dL (8.4-10.5); CARBON DIOXIDE 23 mmol/L (21-33); CHLORIDE 104 mmol/L (98-107); GFR AFRICAN-AMERICAN > 60; GLUCOSE,RANDOM 136 mg/dL (70-110); MAGNESIUM 1.6 mg/dL (1.7-2.2); POTASSIUM 3.2 mmol/L (3.6-5.0); SODIUM 140 mmol/L (132-148); TOTAL PROTEIN 6.8 g/dL (5.8-8.3)
[2017-07-15] MEDS: Insulin Lispro (humaLOG) LOW Coverage SC SCH ×3 (08:30→16:30)
[2017-07-15] MEDS: Ciprofloxacin 400mg/200ml D5W 400 MG/200 ML BAG IVPB SCH (10:20)
[2017-07-15] MEDS: Sodium Chloride 0.9% 1,000 ML IV SCH (11:50)
[2017-07-15] MEDS ORDERED: Potassium Chloride 20 mEq/15 ml LIQ UD PO ONE (14:00)
--- NOTE | 2017-07-15 15:16 | CP.PCM.PN ---
<Tess Pink - Last Filed: 07/15/17 15:06> Subjective - Date & Time of Evaluation Date of Evaluation: 07/15/17 Time of Evaluation: 10:35 - Subjective Subjective: Seen and examined at the bedside earlier this today, the chart was reviewed. Patient complains of nausea, no vomiting. Awaiting for transfer to [place]. No acute overnight events reported. Objective - Vital Signs/Intake and Output Vital Signs (last 24 hours): Temp Pulse Resp BP Pulse Ox 99.3 F 82 18 165/87 H 100 07/15/17 05:58 07/15/17 05:58 07/15/17 05:58 07/15/17 05:58 07/15/17 05:58 Intake and Output: 07/15/17 07/15/17 06:59 18:59 Intake Total 2020 Output Total 400 Balance 1620 - Medications Medications: Current Medications Benzocaine/Menthol (Cepacol Sore Throat) 1 caroline MT Q4H PRN PRN Reason: Sore Throat Last Admin: 07/09/17 04:22 Dose: 1 caroline Carvedilol (Coreg) 12.5 mg PO BID [facility] Last Admin: 07/15/17 10:19 Dose: 12.5 mg Hydralazine HCl (Apresoline) 50 mg PO Q8 [facility] Last Admin: 07/15/17 05:42 Dose: 50 mg Hydromorphone HCl (Dilaudid) 0.5 mg IVP Q4H PRN PRN Reason: Pain, severe (8-10) Last Admin: 07/15/17 10:16 Dose: 0.5 mg Sodium Chloride (Sodium Chloride 0.9%) 1,000 mls @ 100 mls/hr IV .Q10H [facility] Last Admin: 07/15/17 11:50 Dose: 100 mls/hr Metronidazole (Flagyl) 500 mg in 100 mls @ 100 mls/hr IVPB Q8 [facility] PRN Reason: Protocol Last Admin: 07/15/17 05:43 Dose: 100 mls/hr Ciprofloxacin (Cipro 400mg/200ml Dsw) 400 mg in 200 mls @ 133.3 mls/hr IVPB Q12 [facility] PRN Reason: Protocol Last Admin: 07/15/17 10:20 Dose: 133.3 mls/hr Insulin Human Lispro (Humalog Low) 0 units SC ACHS [facility] PRN Reason: Protocol Last Admin: 07/15/17 11:49 Dose: 1 units Lactulose (Enulose) 20 gm PO BID [facility] Last Admin: 07/15/17 10:20 Dose: 20 gm Lisinopril (Zestril) 20 mg PO DAILY [facility] Last Admin: 07/15/17 10:12 Dose: 20 mg Ondansetron HCl (Zofran Inj) 4 mg IVP Q4H PRN PRN Reason: Nausea/Vomiting Last Admin: 07/15/17 10:15 Dose: 4 mg Pantoprazole Sodium (Protonix Inj) 40 mg IVP DAILY [facility] Last Admin: 07/15/17 10:11 Dose: 40 mg - Labs Labs: 07/15/17 06:10 07/15/17 11:31 PT 11.0 Seconds (9.9-11.8) 07/06/17 10:49 INR 1.02 (0.93-1.08) 07/06/17 10:49 APTT 24.8 Seconds (23.7-30.8) 07/06/17 10:49 - Constitutional Appears: No Acute Distress - Head Exam Head Exam: NORMOCEPHALIC - Eye Exam Eye Exam: Scleral icterus - ENT Exam ENT Exam: Mucous Membranes Moist - Neck Exam Neck Exam: Normal Inspection - Respiratory Exam Respiratory Exam: NORMAL BREATHING PATTERN. absent: Respiratory Distress - Cardiovascular Exam Cardiovascular Exam: +S1, +S2 - GI/Abdominal Exam GI & Abdominal Exam: Soft, Normal Bowel Sounds. absent: Guarding, Tenderness, Organomegaly, Rebound - Extremities Exam Extremities Exam: Normal Capillary Refill. absent: Calf Tenderness, Pedal Edema - Neurological Exam Neurological Exam: Alert, Awake, Oriented x3 - Skin Skin Exam: Dry, Warm Additional comments: jaundice Assessment and Plan - Assessment and Plan (Free Text) Assessment: Assessment: Pancreatic head mass status post (07/08/17) EUS with FNA and ERCP with pancreatic duct stent placement, FNA indeterminate, had repeat (07/11/17)EUS w/ FNA and attempted ERCP w/failed CBD cannulation History of uterine cancer with hysterectomy and chemoradiation Lumbar radiculopathy Leukocytosis History of cerebral malaria History of acute renal failure requiring dialysis Diabetes mellitus Hypertension Plan: Continue to trend LFTs Continue Heart Healthy diet Continue PPI Continue DVT prophylaxis zofran prn Continue antibiotics as per ID, on flagyl and Cipro Awaiting for transfer to [place] in [place], phone contact from [facility] was made to [facility] this am. Transfer and EMTALA forms filled out. Dr. Cervantes discuss w/ pathologist, FNA results will be back tomorrow. Seen and discussed w/ Dr. Cervantes. <Sen Cervantes V - Last Filed: 07/15/17 16:02> Objective - Vital Signs/Intake and Output Vital Signs (last 24 hours): Temp Pulse Resp BP Pulse Ox 99.3 F 82 18 165/87 H 100 07/15/17 05:58 07/15/17 05:58 07/15/17 05:58 07/15/17 05:58 07/15/17 05:58 Intake and Output: 07/15/17 07/15/17 06:59 18:59 Intake Total 2020 Output Total 400 Balance 1620 - Medications Medications: Current Medications Benzocaine/Menthol (Cepacol Sore Throat) 1 caroline MT Q4H PRN PRN Reason: Sore Throat Last Admin: 07/09/17 04:22 Dose: 1 caroline Carvedilol (Coreg) 12.5 mg PO BID [facility] Last Admin: 07/15/17 10:19 Dose: 12.5 mg Hydralazine HCl (Apresoline) 50 mg PO Q8 [facility] Last Admin: 07/15/17 15:12 Dose: 50 mg Hydromorphone HCl (Dilaudid) 0.5 mg IVP Q4H PRN PRN Reason: Pain, severe (8-10) Last Admin: 07/15/17 15:05 Dose: 0.5 mg Sodium Chloride (Sodium Chloride 0.9%) 1,000 mls @ 100 mls/hr IV .Q10H [facility] Last Admin: 07/15/17 11:50 Dose: 100 mls/hr Metronidazole (Flagyl) 500 mg in 100 mls @ 100 mls/hr IVPB Q8 [facility] PRN Reason: Protocol Last Admin: 07/15/17 14:30 Dose: 100 mls/hr Ciprofloxacin (Cipro 400mg/200ml Dsw) 400 mg in 200 mls @ 133.3 mls/hr IVPB Q12 [facility] PRN Reason: Protocol Last Admin: 07/15/17 10:20 Dose: 133.3 mls/hr Insulin Human Lispro (Humalog Low) 0 units SC ACHS [facility] PRN Reason: Protocol Last Admin: 07/15/17 11:49 Dose: 1 units Lactulose (Enulose) 20 gm PO BID [facility] Last Admin: 07/15/17 10:20 Dose: 20 gm Lisinopril (Zestril) 20 mg PO DAILY [facility] Last Admin: 07/15/17 10:12 Dose: 20 mg Ondansetron HCl (Zofran Inj) 4 mg IVP Q4H PRN PRN Reason: Nausea/Vomiting Last Admin: 07/15/17 15:05 Dose: 4 mg Pantoprazole Sodium (Protonix Inj) 40 mg IVP DAILY [facility] Last Admin: 07/15/17 10:11 Dose: 40 mg - Labs Labs: 07/15/17 06:10 07/15/17 11:31 PT 11.0 Seconds (9.9-11.8) 07/06/17 10:49 INR 1.02 (0.93-1.08) 07/06/17 10:49 APTT 24.8 Seconds (23.7-30.8) 07/06/17 10:49 Attending/Attestation - Attestation I have personally seen and examined this patient.: Yes I have fully participated in the care of the patient.: Yes I have reviewed all pertinent clinical information, including history, physical exam and plan: Yes Notes (Text): face is same. Awaiting for transfer to the [facility] pancreatic mass with obstructive jaundice, [place] 199 normal initial FNA suspicious repeat FNA results pending on examination patient still has mild tenderness in the epigastric area On antibiotics as per ID Discussed with the pathologist the results of Repeat FNA cytology done on Friday will be available tomorrow 10: 30 AM. 07/15/17 16:00
--- NOTE | 2017-07-15 16:00 | CP.PCM.PN ---
Subjective - Date & Time of Evaluation Date of Evaluation: 07/14/17 Time of Evaluation: 18:15 - Subjective Subjective: patient still complains of abdominal pain epigastric and right upper quadrant area. Tolerating the diet. Potassium 2.9 being supplemented . And also magnesium supplemented. No fever Objective - Vital Signs/Intake and Output Vital Signs (last 24 hours): Temp Pulse Resp BP Pulse Ox 98.8 F 81 22 159/86 H 99 07/14/17 18:00 07/14/17 18:00 07/14/17 18:00 07/14/17 18:00 07/14/17 18:00 Intake and Output: 07/14/17 07/15/17 18:59 06:59 Intake Total 360 Output Total 400 Balance -40 - Medications Medications: Current Medications Benzocaine/Menthol (Cepacol Sore Throat) 1 caroline MT Q4H PRN PRN Reason: Sore Throat Last Admin: 07/09/17 04:22 Dose: 1 caroline Carvedilol (Coreg) 12.5 mg PO BID [facility] Last Admin: 07/14/17 17:17 Dose: 12.5 mg Hydralazine HCl (Apresoline) 50 mg PO Q8 [facility] Last Admin: 07/14/17 22:06 Dose: Not Given Hydromorphone HCl (Dilaudid) 0.5 mg IVP Q4H PRN PRN Reason: Pain, severe (8-10) Last Admin: 07/14/17 21:22 Dose: 0.5 mg Sodium Chloride (Sodium Chloride 0.9%) 1,000 mls @ 100 mls/hr IV .Q10H [facility] Last Admin: 07/14/17 20:40 Dose: 100 mls/hr Metronidazole (Flagyl) 500 mg in 100 mls @ 100 mls/hr IVPB Q8 [facility] PRN Reason: Protocol Last Admin: 07/14/17 21:26 Dose: 100 mls/hr Ciprofloxacin (Cipro 400mg/200ml Dsw) 400 mg in 200 mls @ 133.3 mls/hr IVPB Q12 [facility] PRN Reason: Protocol Last Admin: 07/14/17 22:52 Dose: 133.3 mls/hr Insulin Human Lispro (Humalog Low) 0 units SC ACHS [facility] PRN Reason: Protocol Last Admin: 07/14/17 22:07 Dose: Not Given Lactulose (Enulose) 20 gm PO BID [facility] Last Admin: 07/14/17 17:17 Dose: 20 gm Lisinopril (Zestril) 20 mg PO DAILY [facility] Last Admin: 07/14/17 09:14 Dose: 20 mg Ondansetron HCl (Zofran Inj) 4 mg IVP Q4H PRN PRN Reason: Nausea/Vomiting Last Admin: 07/14/17 21:21 Dose: 4 mg Pantoprazole Sodium (Protonix Inj) 40 mg IVP DAILY [facility] Last Admin: 07/14/17 09:11 Dose: 40 mg - Labs Labs: 07/14/17 06:58 07/14/17 06:58 PT 11.0 Seconds (9.9-11.8) 07/06/17 10:49 INR 1.02 (0.93-1.08) 07/06/17 10:49 APTT 24.8 Seconds (23.7-30.8) 07/06/17 10:49 - Constitutional Appears: No Acute Distress - Head Exam Head Exam: ATRAUMATIC, NORMOCEPHALIC - Eye Exam Eye Exam: EOMI, PERRL, Scleral icterus - ENT Exam ENT Exam: Mucous Membranes Moist - Neck Exam Neck Exam: Full ROM. absent: Lymphadenopathy - Respiratory Exam Respiratory Exam: Clear to Ausculation Bilateral, NORMAL BREATHING PATTERN. absent: Rales, Rhonchi - Cardiovascular Exam Cardiovascular Exam: REGULAR RHYTHM, +S1, +S2. absent: JVD - GI/Abdominal Exam GI & Abdominal Exam: Soft Additional comments: tenderness present in the epigastric and right upper quadrant area. No rebound or guarding - Extremities Exam Extremities Exam: Full ROM, Normal Inspection. absent: Calf Tenderness - Neurological Exam Neurological Exam: Alert, Awake, Oriented x3 Assessment and Plan - Assessment and Plan (Free Text) Assessment: this 62-year-old patient admitted with abdominal pain new onset jaundice. Patient to have a dilated common bile duct. MRI also confirmed but the imaging studies MRI and CT did not report any obvious lesion. However there was a 2 x 3 cm lesion noticed in the pancreatic head obstructing CBD. Repeat FNA done on Friday cytology still pending Unable to selectively cannulate the common bile duct. PD stent in place 2. Follow-up of the electrolytes being supplemented 3. Other comorbidities include a history of cerebr Diabetes mellitus, history of cerebral malaria, history of renal failure, was on temporarily dialysis, [place] Uterine cancer status post hysterectomy
--- NOTE | 2017-07-15 16:09 | CP.PCM.PN ---
Subjective - Date & Time of Evaluation Date of Evaluation: 07/12/17 Time of Evaluation: 11:45 - Subjective Subjective: remains afebrile still feels the pain in the epigastric and right upper quadrant area Status post attempted ERCP unable to selectively cannulate into CBD this time. PD stent in place Repeat US FNA done for passes done tissue sent for cell block Objective - Vital Signs/Intake and Output Vital Signs (last 24 hours): Temp Pulse Resp BP Pulse Ox 97.6 F 88 20 170/88 H 98 07/12/17 16:41 07/12/17 17:48 07/12/17 16:41 07/12/17 21:35 07/12/17 16:41 Intake and Output: 07/12/17 07/13/17 18:59 06:59 Intake Total 240 420 Balance 240 420 - Medications Medications: Current Medications Benzocaine/Menthol (Cepacol Sore Throat) 1 caroline MT Q4H PRN PRN Reason: Sore Throat Last Admin: 07/09/17 04:22 Dose: 1 caroline Carvedilol (Coreg) 12.5 mg PO BID [facility] Last Admin: 07/12/17 17:48 Dose: 12.5 mg Hydralazine HCl (Apresoline) 50 mg PO Q8 [facility] Last Admin: 07/12/17 21:35 Dose: 50 mg Hydromorphone HCl (Dilaudid) 0.5 mg IVP Q6H PRN PRN Reason: Pain, severe (8-10) Last Admin: 07/12/17 19:43 Dose: 0.5 mg Sodium Chloride (Sodium Chloride 0.9%) 1,000 mls @ 100 mls/hr IV .Q10H [facility] Last Admin: 07/11/17 06:03 Dose: 100 mls/hr Metronidazole (Flagyl) 500 mg in 100 mls @ 100 mls/hr IVPB Q8 [facility] PRN Reason: Protocol Last Admin: 07/12/17 23:15 Dose: 100 mls/hr Ciprofloxacin (Cipro 400mg/200ml Dsw) 400 mg in 200 mls @ 133.3 mls/hr IVPB Q12H [facility] PRN Reason: Protocol Stop: 07/13/17 01:31 Last Admin: 07/13/17 00:20 Dose: 133.3 mls/hr Insulin Human Lispro (Humalog Low) 0 units SC ACHS [facility] PRN Reason: Protocol Last Admin: 07/12/17 21:36 Dose: Not Given Lisinopril (Zestril) 20 mg PO DAILY [facility] Last Admin: 07/11/17 09:01 Dose: 20 mg Ondansetron HCl (Zofran Inj) 4 mg IVP Q4H PRN PRN Reason: Nausea/Vomiting Last Admin: 07/12/17 19:48 Dose: 4 mg Ondansetron HCl (Zofran Inj) 4 mg IVP ONCE PRN PRN Reason: Nausea/Vomiting Pantoprazole Sodium (Protonix Inj) 40 mg IVP DAILY [facility] Last Admin: 07/12/17 09:43 Dose: 40 mg - Labs Labs: 07/12/17 08:30 07/12/17 08:30 PT 11.0 Seconds (9.9-11.8) 07/06/17 10:49 INR 1.02 (0.93-1.08) 07/06/17 10:49 APTT 24.8 Seconds (23.7-30.8) 07/06/17 10:49 - Constitutional Appears: Non-toxic, No Acute Distress - Head Exam Head Exam: ATRAUMATIC, NORMOCEPHALIC - Neck Exam Neck Exam: Full ROM. absent: Lymphadenopathy, Tenderness - Respiratory Exam Respiratory Exam: Clear to Ausculation Bilateral, NORMAL BREATHING PATTERN - Cardiovascular Exam Cardiovascular Exam: REGULAR RHYTHM, +S1, +S2. absent: JVD - GI/Abdominal Exam GI & Abdominal Exam: Soft, Tenderness Additional comments: tenderness present in the epigastric and right upper quadrant area transport discomfort MP Keri - Extremities Exam Extremities Exam: Full ROM. absent: Calf Tenderness Assessment and Plan - Assessment and Plan (Free Text) Assessment: 62-year-old patient with obstructive jaundice secondary to pancreatic mass status post repeat FNA done yesterday 4 passes done tissue sent for cellblock study unable to selectively cannulate into the common bile duct. PD stenting place Continue antibiotics as per ID Follow-up of the lft
--- NOTE | 2017-07-15 16:15 | CP.PCM.PN ---
Subjective - Date & Time of Evaluation Date of Evaluation: 07/13/17 Time of Evaluation: 13:30 - Subjective Subjective: diet has been advanced tolerating Still complains of epigastric and right upper quadrant pain. Awaiting for transfer to be the [facility] Objective - Vital Signs/Intake and Output Vital Signs (last 24 hours): Temp Pulse Resp BP Pulse Ox 98.7 F 81 20 178/85 H 99 07/13/17 18:20 07/13/17 21:19 07/13/17 18:20 07/13/17 21:19 07/13/17 18:20 Intake and Output: 07/13/17 07/14/17 18:59 06:59 Intake Total 360 Balance 360 - Medications Medications: Current Medications Benzocaine/Menthol (Cepacol Sore Throat) 1 caroline MT Q4H PRN PRN Reason: Sore Throat Last Admin: 07/09/17 04:22 Dose: 1 caroline Carvedilol (Coreg) 12.5 mg PO BID [facility] Last Admin: 07/13/17 17:35 Dose: Not Given Hydralazine HCl (Apresoline) 50 mg PO Q8 [facility] Last Admin: 07/13/17 21:19 Dose: 50 mg Hydromorphone HCl (Dilaudid) 0.5 mg IVP Q4H PRN PRN Reason: Pain, severe (8-10) Sodium Chloride (Sodium Chloride 0.9%) 1,000 mls @ 100 mls/hr IV .Q10H [facility] Last Admin: 07/13/17 05:24 Dose: 100 mls/hr Metronidazole (Flagyl) 500 mg in 100 mls @ 100 mls/hr IVPB Q8 [facility] PRN Reason: Protocol Last Admin: 07/13/17 21:27 Dose: 100 mls/hr Ciprofloxacin (Cipro 400mg/200ml Dsw) 400 mg in 200 mls @ 133.3 mls/hr IVPB Q12 [facility] PRN Reason: Protocol Last Admin: 07/13/17 22:57 Dose: 133.3 mls/hr Insulin Human Lispro (Humalog Low) 0 units SC ACHS [facility] PRN Reason: Protocol Last Admin: 07/13/17 21:30 Dose: Not Given Lactulose (Enulose) 20 gm PO BID [facility] Last Admin: 07/13/17 17:36 Dose: Not Given Lisinopril (Zestril) 20 mg PO DAILY [facility] Last Admin: 07/13/17 09:13 Dose: 20 mg Ondansetron HCl (Zofran Inj) 4 mg IVP Q4H PRN PRN Reason: Nausea/Vomiting Last Admin: 07/13/17 21:39 Dose: 4 mg Pantoprazole Sodium (Protonix Inj) 40 mg IVP DAILY [facility] Last Admin: 07/13/17 09:13 Dose: 40 mg - Labs Labs: 07/12/17 08:30 07/12/17 08:30 PT 11.0 Seconds (9.9-11.8) 07/06/17 10:49 INR 1.02 (0.93-1.08) 07/06/17 10:49 APTT 24.8 Seconds (23.7-30.8) 07/06/17 10:49 - Constitutional Appears: Non-toxic - Head Exam Head Exam: ATRAUMATIC, NORMOCEPHALIC - Eye Exam Eye Exam: PERRL. absent: EOMI - ENT Exam ENT Exam: Mucous Membranes Moist - Neck Exam Neck Exam: Full ROM. absent: Lymphadenopathy, Tenderness - GI/Abdominal Exam GI & Abdominal Exam: Soft. absent: Tenderness - Extremities Exam Extremities Exam: Full ROM, Normal Inspection. absent: Calf Tenderness - Neurological Exam Neurological Exam: Alert, Awake, Oriented x3 - Psychiatric Exam Psychiatric exam: Normal Affect - Skin Skin Exam: Dry, Intact Assessment and Plan - Assessment and Plan (Free Text) Assessment: this 62-year-old patient with obstructive jaundice secondary to pancreatic mass initial FNA was suspicious repeat FNA was done pending. ERCP PD stent placement unable to selectively cannulate the CBD History of uterine cancer history of renal failure status post dialysis short period of time, history of cerebral malaria before Plan Follow the LFT Follow-up as lyte [facility]
--- NOTE | 2017-07-15 16:23 | CP.PCM.PN ---
Subjective - Date & Time of Evaluation Date of Evaluation: 07/08/17 Time of Evaluation: 22:30 - Subjective Subjective: comfortable still complains of epigastric pain tolerating the diet Objective - Vital Signs/Intake and Output Vital Signs (last 24 hours): Temp Pulse Resp BP Pulse Ox 98.0 F 90 20 169/89 H 99 07/08/17 22:20 07/08/17 22:40 07/08/17 22:20 07/08/17 22:40 07/08/17 22:20 Intake and Output: 07/08/17 07/09/17 18:59 06:59 Intake Total 0 Balance 0 - Medications Medications: Current Medications Benzocaine/Menthol (Cepacol Sore Throat) 1 caroline MT Q4H PRN PRN Reason: Sore Throat Carvedilol (Coreg) 12.5 mg PO BID [facility] Last Admin: 07/08/17 22:40 Dose: 12.5 mg Hydralazine HCl (Apresoline) 50 mg PO Q8 [facility] Last Admin: 07/08/17 22:40 Dose: 50 mg Hydromorphone HCl (Dilaudid) 0.5 mg IVP Q6H PRN PRN Reason: Pain, moderate (4-7) Last Admin: 07/08/17 22:43 Dose: 0.5 mg Hydromorphone HCl (Dilaudid) 0.5 mg SC Q4H PRN PRN Reason: Pain, severe (8-10) Last Admin: 07/08/17 16:57 Dose: 0.5 mg Ciprofloxacin (Cipro 400mg/200ml Dsw) 400 mg in 200 mls @ 133.3 mls/hr IVPB Q12 [facility] PRN Reason: Protocol Last Admin: 07/08/17 23:38 Dose: 133.3 mls/hr Metronidazole (Flagyl) 500 mg in 100 mls @ 100 mls/hr IVPB Q8 [facility] PRN Reason: Protocol Last Admin: 07/08/17 22:41 Dose: 100 mls/hr Sodium Chloride (Sodium Chloride 0.9%) 1,000 mls @ 100 mls/hr IV .Q10H [facility] Last Admin: 07/08/17 05:28 Dose: 100 mls/hr Insulin Human Lispro (Humalog Low) 0 units SC ACHS [facility] PRN Reason: Protocol Last Admin: 07/08/17 18:26 Dose: Not Given Lisinopril (Zestril) 20 mg PO DAILY [facility] Last Admin: 07/08/17 10:11 Dose: 20 mg Morphine Sulfate (Morphine) 2 mg IVP Q15M PRN PRN Reason: Pain, moderate (4-7) Stop: 07/08/17 23:59 Ondansetron HCl (Zofran Inj) 4 mg IVP Q4H PRN PRN Reason: Nausea/Vomiting Last Admin: 07/08/17 10:01 Dose: 4 mg - Labs Labs: 07/08/17 06:41 07/08/17 06:41 PT 11.0 Seconds (9.9-11.8) 07/06/17 10:49 INR 1.02 (0.93-1.08) 07/06/17 10:49 APTT 24.8 Seconds (23.7-30.8) 07/06/17 10:49 - Constitutional Appears: Non-toxic, No Acute Distress - Head Exam Head Exam: ATRAUMATIC, NORMOCEPHALIC - Eye Exam Eye Exam: PERRL, Scleral icterus. absent: EOMI - ENT Exam ENT Exam: Mucous Membranes Moist - Neck Exam Neck Exam: Full ROM, Normal Inspection. absent: Lymphadenopathy - Respiratory Exam Respiratory Exam: Clear to Ausculation Bilateral, Rales. absent: Rhonchi - Cardiovascular Exam Cardiovascular Exam: +S1, +S2. absent: JVD, RRR - GI/Abdominal Exam GI & Abdominal Exam: Soft, Tenderness, Normal Bowel Sounds - Neurological Exam Neurological Exam: Alert, Awake, Oriented x3 - Psychiatric Exam Psychiatric exam: Normal Affect - Skin Skin Exam: Intact Assessment and Plan - Assessment and Plan (Free Text) Assessment: obstructive jaundice Pancreatic mass 2 x 3 cm Status post EUS FNA Plan for ERCP after review the path report Discussed with the primary physician
[2017-07-15 17:09] VITALS: PULSE 79; RESP 20; TEMP 98.6; O2SAT 98
[2017-07-15 18:45] VITALS: BP 173/86
--- NOTE | 2017-07-15 19:40 | CP.PCM.PN ---
Subjective - Date & Time of Evaluation Date of Evaluation: 07/15/17 Time of Evaluation: 17:45 - Subjective Subjective: Infectious Disease Follow Up: July 15, 2017 62 yo female with frequent hospitalization to [facility]. The patient with presentation of general fatigue and weakness starting two weeks ago. The patient was hospitalized in [facility] about 3 weeks ago. The patient has NBNB vomiting. The patient is awake and alert. History of PCN allergies. The patient has a history of uterine cancer with treatment of hysterectomy, chemotherapy, and radiation. The patient was also recently treated for cerebral malaria at [facility] in [place] about two months ago. She had three malaria smears done on her last hospitalization here 3 weeks ago. She is still having episodes of nausea and vomiting today. Taken for EGD yesterday with dilatation of the common bile duct. Still elevated LFTs. 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 Stent placed with ERCP. On repeat ERCP, the patient was visualization of the pancreatic mass. Fine needle biopsy was performed. Repeat CT scan - results noted. Pathology pending. Case discussed with Dr. Cervantes. Objective - Vital Signs/Intake and Output Vital Signs (last 24 hours): Temp Pulse Resp BP Pulse Ox 98.6 F 79 20 173/86 H 98 07/15/17 17:09 07/15/17 18:42 07/15/17 17:09 07/15/17 18:42 07/15/17 17:09 - Medications Medications: Current Medications Benzocaine/Menthol (Cepacol Sore Throat) 1 caroline MT Q4H PRN PRN Reason: Sore Throat Last Admin: 07/09/17 04:22 Dose: 1 caroline Carvedilol (Coreg) 12.5 mg PO BID IRLANDA Last Admin: 07/15/17 18:42 Dose: 12.5 mg Hydralazine HCl (Apresoline) 50 mg PO Q8 IRLANDA Last Admin: 07/15/17 15:12 Dose: 50 mg Hydromorphone HCl (Dilaudid) 0.5 mg IVP Q4H PRN PRN Reason: Pain, severe (8-10) Last Admin: 07/15/17 18:43 Dose: 0.5 mg Sodium Chloride (Sodium Chloride 0.9%) 1,000 mls @ 100 mls/hr IV .Q10H IRLANDA Last Admin: 07/15/17 11:50 Dose: 100 mls/hr Metronidazole (Flagyl) 500 mg in 100 mls @ 100 mls/hr IVPB Q8 IRLANDA PRN Reason: Protocol Last Admin: 07/15/17 14:30 Dose: 100 mls/hr Ciprofloxacin (Cipro 400mg/200ml Dsw) 400 mg in 200 mls @ 133.3 mls/hr IVPB Q12 IRLANDA PRN Reason: Protocol Last Admin: 07/15/17 10:20 Dose: 133.3 mls/hr Insulin Human Lispro (Humalog Low) 0 units SC ACHS IRLANDA PRN Reason: Protocol Last Admin: 07/15/17 16:30 Dose: Not Given Lactulose (Enulose) 20 gm PO BID [facility] Last Admin: 07/15/17 18:44 Dose: Not Given Lisinopril (Zestril) 20 mg PO DAILY [facility] Last Admin: 07/15/17 10:12 Dose: 20 mg Ondansetron HCl (Zofran Inj) 4 mg IVP Q4H PRN PRN Reason: Nausea/Vomiting Last Admin: 07/15/17 18:44 Dose: 4 mg Pantoprazole Sodium (Protonix Inj) 40 mg IVP DAILY [facility] Last Admin: 07/15/17 10:11 Dose: 40 mg - Labs Labs: 07/15/17 06:10 07/15/17 11:31 PT 11.0 Seconds (9.9-11.8) 07/06/17 10:49 INR 1.02 (0.93-1.08) 07/06/17 10:49 APTT 24.8 Seconds (23.7-30.8) 07/06/17 10:49 - Constitutional Appears: Non-toxic, No Acute Distress, Chronically Ill - Head Exam Head Exam: ATRAUMATIC, NORMOCEPHALIC - Eye Exam Eye Exam: EOMI, PERRL Pupil Exam: NORMAL ACCOMODATION, PERRL - ENT Exam ENT Exam: Mucous Membranes Moist, Normal External Ear Exam, TM's Normal Bilaterally - Neck Exam Neck Exam: Full ROM, Normal Inspection - Respiratory Exam Respiratory Exam: Clear to Ausculation Bilateral, NORMAL BREATHING PATTERN. absent: Rales, Rhonchi, Wheezes - Cardiovascular Exam Cardiovascular Exam: REGULAR RHYTHM, RRR, +S1, +S2 - GI/Abdominal Exam GI & Abdominal Exam: Soft, Tenderness, Normal Bowel Sounds. absent: Distended Additional comments: LLQ tenderness - Extremities Exam Extremities Exam: Full ROM, Normal Inspection - Neurological Exam Neurological Exam: Alert, Awake, CN II-XII Intact, Oriented x3 - Psychiatric Exam Psychiatric exam: Normal Affect, Normal Mood - Skin Skin Exam: Intact, Normal Color Assessment and Plan - Assessment and Plan (Free Text) Assessment: 62 yo female with biliary ductal diliation on CT scan and abdominal pain. Frequent hospital visits. No leukocytosis, fevers, or renal insufficiency. Extensive abdominal surgery history. MRCP is pending. Continue on Flagyl and Cipro for now. Supportive care. Await cultures and MRCP results. Monitor for leukocytosis. Monitor temperature trend. Awaiting olmstead cultures. MRCP is showing moderately dilated common bile duct measures up to 17 millimeter with evidence of obstructing stone. Taken to EGD for dilatation of the common bile duct and stone removal. CT scan and results noted. Repeat ERCP yesterday. Noted that nursing notes mention a transfer to [facility] as per Dr. Cervantes due to the difficulty in stenting the patient due to the large mass at pancreatic head. Reviewed imaging studies with Dr. Cervantes. IV access reestablished. Awaiting pathology report of fine needle biopsy of pancreatic mass. Thank you for allowing me to participate in the care of the patient, we will follow with you.
[2017-07-15] MEDS ORDERED: Magnesium Sulfate 2 GM in Sodium Chloride 0.9% 100 ML IVPB ONE (20:03)
--- NOTE | 2017-07-16 02:21 | PN ---
DATE: SUBJECTIVE: Today, the patient is alert, awake and complaining of nausea. No vomiting and anorexia. The patient denies any shortness of breath or chest pain. PHYSICAL EXAMINATION: VITAL SIGNS: The patient has a blood pressure of 165/87, pulse 82, respiration 18 and temperature 99.3. With this evening, repeat blood pressure was 172/86 and pulse 79. NECK: Supple. LUNGS: Clear. HEART: Regular rate and rhythm. ABDOMEN: Soft. Tenderness in the epigastric area. EXTREMITIES: There is no edema. LABORATORY DATA: Showed WBC is 4, hemoglobin 9.8, hematocrit 30.4 and platelet is 359. Chemistry; sodium 140, potassium is 3.2, chloride 104, bicarb is 23, BUN 8, creatinine is 0.9 and glucose 136, alkaline phosphatase 960. ALT is 113, AST 143, total bilirubin is 7.8, and magnesium 1.6. PLAN: The patient is supposed to be transferred to for further treatment due to the pancreatic mass with compression of the common bile duct and also we are going to have a potassium replacement and magnesium replacement. The lab will be ordered for tomorrow. The case was also discussed with Dr. Cervantes. Gómez Del Rosario MD
--- NOTE | 2017-07-20 15:25 | DS ---
HISTORY OF PRESENT ILLNESS: The patient is a 62-year-old female with history of hypertension, arthritis, and history of status post CA of the uterus. The patient came to my office complaining of generalized weakness, nausea and vomiting. The patient was recently admitted because of malaria, but now, the patient is noted to be in renal failure, but the patient was complaining of nausea and vomiting for a while and also was significantly weak. I have advised the patient to go to emergency room for admission, and the patient was then admitted and had a consult with Dr. Cervantes. PHYSICAL EXAMINATION: GENERAL: We have find the patient to be alert and awake. ABDOMEN: Soft, but there is tenderness to the epigastric area and positive bowel sounds. ASSESSMENT AND PLAN: The patient had different tests done including a CAT scan of the abdomen, ultrasound of the abdomen and also the patient had MRCP. These tests have demonstrated a mass in the head of the pancreas and also demonstrated that the common bile duct is mildly to moderately distended and measured 16.9 mm in total diameter. The patient has an endoscopy done and a biopsy was done, but the biopsy has revealed atypical cells, so the patient was then continued to have treatment including potassium since the patient was hypokalemic and decision was made with Dr. Cervantes to discharge the patient to [facility] and therefore to do further treatment. The patient was then transferred from [facility] to the [facility] after proper papers were signed. Gómez Del Rosario MD
== END 2017-07-15 18:00 | disposition short-term general hospital (02) | DRG 191 ==
LOC: ED 17:02 → ERH 20:19 → 3RSO 22:13
PROVIDERS: ADMIT Specialist; ATTEND Specialist
PROC: 0DJ08ZZ Inspection of Upper Intestinal Tract, Via Natural or Artificial Opening Endoscopic (ICD-10-PCS; 2017-07-07)
PROC: 0F9G8ZZ Drainage of Pancreas, Via Natural or Artificial Opening Endoscopic (ICD-10-PCS; 2017-07-07 08:00)
PROC: 0F9G8ZX Drainage of Pancreas, Via Natural or Artificial Opening Endoscopic, Diagnostic (ICD-10-PCS; 2017-07-08)
PROC: BF47ZZZ Ultrasonography of Pancreas (ICD-10-PCS; 2017-07-08)
PROC: 0F7D8DZ Dilation of Pancreatic Duct with Intraluminal Device, Via Natural or Artificial Opening Endoscopic (ICD-10-PCS; principal; 2017-07-11 12:30)
DX: K80.51 Calculus of bile duct without cholangitis or cholecystitis with obstruction (principal); E10.22 Type 1 diabetes mellitus with diabetic chronic kidney disease; N18.9 Chronic kidney disease, unspecified; J44.9 Chronic obstructive pulmonary disease, unspecified; E87.6 Hypokalemia; I12.9 Hypertensive chronic kidney disease with stage 1 through stage 4 chronic kidney disease, or unspecified chronic kidney disease; I25.10 Atherosclerotic heart disease of native coronary artery without angina pectoris; K86.9 Disease of pancreas, unspecified; M19.90 Unspecified osteoarthritis, unspecified site; M54.16 Radiculopathy, lumbar region; Z80.0 Family history of malignant neoplasm of digestive organs; Z83.3 Family history of diabetes mellitus; Z85.41 Personal history of malignant neoplasm of cervix uteri; Z90.710 Acquired absence of both cervix and uterus; E66.9 Obesity, unspecified; D72.829 Elevated white blood cell count, unspecified; D64.9 Anemia, unspecified; F41.9 Anxiety disorder, unspecified; Z85.42 Personal history of malignant neoplasm of other parts of uterus; Z87.891 Personal history of nicotine dependence; Z88.0 Allergy status to penicillin; Z90.49 Acquired absence of other specified parts of digestive tract; H26.9 Unspecified cataract; Z96.653 Presence of artificial knee joint, bilateral; K83.8 Other specified diseases of biliary tract; Z87.898 Personal history of other specified conditions; K29.50 Unspecified chronic gastritis without bleeding; K22.10 Ulcer of esophagus without bleeding

== ENCOUNTER 2017-11-20 07:18 | Day surgery (SDC) | payer OTHER ==
[2017-11-17 09:14] VITALS: BMI 32.5
[2017-11-20 08:35] LABS: PROTHROMBIN TIME 14.4 SECONDS (9.4-12.5)
[2017-11-20 08:36] LABS: INR 1.25 (0.93-1.08); PARTIAL THROMBOPLASTIN TIME 33.6 Seconds (25.1-36.5)
[2017-11-20] MEDS ORDERED: Lidocaine 1% Inj (20ml) ONE (08:43)
[2017-11-20] MEDS ORDERED: Midazolam 2 MG/2 ML VIAL ONE (09:37)
[2017-11-20] MEDS ORDERED: Propofol 10 mg/ml Inj (20 ML) ONE (09:38)
[2017-11-20] MEDS ORDERED: Labetalol 5 mg/ml Inj 20ML ONE (09:54)
[2017-11-20] MEDS ORDERED: Vancomycin 1 g Inj ONE (09:59)
[2017-11-20] MEDS ORDERED: Bupivacaine 0.5% Inj(30mL) ONE (10:01)
[2017-11-20] MEDS ORDERED: Lactated Ringer's 1,000 ML IV SCH (11:15)
--- NOTE | 2017-11-20 11:33 | PCM.SURG1 ---
Surgeon's Initial Post Op Note - Surgeon's Notes Surgeon: Court Operations Clerk: [id number] Type of Anesthesia: IV Sedation, Local Pre-Operative Diagnosis: pancreatic cancer, need for chemotherapy access Operative Findings: dark venous blood return, satifactory positioning of portacath in right subclavian vein with tip just proximal to artiocaval junction. Easily flushable portacath Post-Operative Diagnosis: same Operation Performed: rigth subclavian portacath insertion Specimen/Specimens Removed: none Estimated Blood Loss: EBL {In ML}: 5 Blood Products Given: N/A Drains Used: No Drains Post-Op Condition: Good Date of Surgery/Procedure: 11/20/17 Time of Surgery/Procedure: 11:33
[2017-11-20] MEDS ORDERED: Oxycodone/Acetaminophen 5/325 mg Tab PO PRN (11:34)
[2017-11-20 12:09] VITALS: RESP 18; TEMP 98.1
--- NOTE | 2017-11-20 14:25 | RAD ---
HISTORY: s/p portacath insertion COMPARISON: 10/11/2017 FINDINGS: LUNGS: There is a new right-sided subclavian Port-A-Cath. The tip is seen in the SVC 5 cm above the caval atrial junction. There is no pneumothorax No active pulmonary disease. PLEURA: No significant pleural effusion identified, no pneumothorax apparent. CARDIOVASCULAR: Normal. OSSEOUS STRUCTURES: No significant abnormalities. VISUALIZED UPPER ABDOMEN: Normal. OTHER FINDINGS: None. IMPRESSION: There is a new right-sided subclavian Port-A-Cath. The tip is seen in the SVC 5 cm above the caval atrial junction. There is no pneumothorax
[2017-11-20 15:35] VITALS: BP 152/79; PULSE 76; O2SAT 96
--- NOTE | 2017-11-20 15:51 | RAD ---
PROCEDURE: Fluoroscopy up to 1 hour HISTORY: RT PORT PLACEMENT COMPARISON: TECHNIQUE: Fluoroscopy was provided in the operating room. 35.3 seconds of fluoro time. Six images were submitted FINDINGS: There is placement of a right subclavian port. The tip is difficult to see on these fluoroscopic images IMPRESSION: As above
--- NOTE | 2017-11-28 08:22 | OP ---
PROCEDURE DATE: 11/20/2017 DESCRIPTION OF PROCEDURE: Seen in the operating room. The timeout is taken. After the successful timeout, the patient was identified by the name of procedure, laterality and my consent, her name, number and wrist band. The area on the right chest and right IJ were elected. Though initially we had talked about putting it in the left side, the right side seems more favorable. A subclavian line was placed. The patient was in Trendelenburg. Multiple attempts were made in the right side ascertaining the right subclavian vein. Guidewire was inserted under direct vision with the fluoroscope. The pocket was made and tested by an incision, followed by blunt dissection, followed by the cautery. A tunnel was made superior and lateral to the punctum. The punctum was dilated. The catheter was placed in the subcutaneous manner having been irrigated and clamped. The dilator was placed into the subclavian vein under direct vision of the fluoroscope. The peel-away and the dilator was removed removing the guidewire with it, and the catheter was inserted to about 24 cm. X-ray showed this to be in good position as it was pulled back. It was placed in a gentle manner without a kink. It was then brought out through the pocket. It was then crimped to the port using the plastic crimper, and it was sutured to the chest wall. It was irrigated and dried very nicely, flushed with heparin. Subcutaneous tissues with Vicryl, followed by subcuticular PDS. A percutaneous Redd needle was placed and removed later in recovery. X-ray showed this to be in good position without any issues. Lauri Cardona MD
== END 2017-11-20 16:10 | disposition home or self-care (01) ==
LOC: SDS 07:18
PROVIDERS: ATTEND Surgery
DX: Z45.2 Encounter for adjustment and management of vascular access device (principal); C25.9 Malignant neoplasm of pancreas, unspecified; I10 Essential (primary) hypertension; F17.200 Nicotine dependence, unspecified, uncomplicated; E11.9 Type 2 diabetes mellitus without complications; Z86.711 Personal history of pulmonary embolism; N28.9 Disorder of kidney and ureter, unspecified; Z85.42 Personal history of malignant neoplasm of other parts of uterus; Z90.710 Acquired absence of both cervix and uterus; Z96.653 Presence of artificial knee joint, bilateral; Z88.0 Allergy status to penicillin
CPT/HCPCS: 36415; 36561; 71045; 76000; 85610; 85730; C1751; J1642; J1644; J2250; J2405; J2704; J3010 ×2; J7120 ×2

== ENCOUNTER 2018-03-30 09:33 | Emergency (ER) | payer MEDICARE, OTHER ==
[2018-03-30 09:33] VITALS: BMI 32.5
[2018-03-30 09:46] VITALS: RESP 18; O2SAT 99
--- NOTE | 2018-03-30 10:37 | ED PDOC ---
Arrival/HPI - General Chief Complaint: Dental Pain Time Seen by Provider: 03/30/18 09:34 Historian: Patient - History of Present Illness Narrative History of Present Illness (Text): 03/30/18 10:29 62yo female with pmhx of Pancreatic CA (recent whipple procedure) and currently on chemo present with complaint of mouth pain. Pt describes pain as soreness with swallowing. States she had similar symptom when she started Chemo and was treated with unknown medication. States it resolved after taking the medication and then came back again few weeks after. Notes she is still taking Chemo and was told is related to the soreness on her mouth. Denies dysphagia, FB senstaiton, drooling ,trismus, any other complaint. Past Medical History - Provider Review Nursing Documentation Reviewed: Yes - Infectious Disease Hx of Infectious Diseases: None - Tetanus Immunization Tetanus Immunization: Unknown - Cardiac Hx Hypertension: Yes Hx Pacemaker: No - Pulmonary Hx Pulmonary Embolism: Yes - Neurological Hx Paralysis: No - HEENT Hx HEENT Disorder: Yes Hx Cataracts: Yes (BILATERAL ) - Renal Hx Renal Failure: Yes - Endocrine/Metabolic Hx Diabetes Mellitus Type 1: Yes (on insulin) - Hematological/Oncological Hx Blood Transfusions: Yes Hx Blood Transfusion Reaction: No Hx Cancer: Yes (pancreatic ca - on chemo) - Integumentary Hx Dermatological Disorder: No - Musculoskeletal/Rheumatological Hx Musculoskeletal Disorders: No - Gastrointestinal Hx Gastrointestinal Disorders: No Other/Comment: Pancreatic CA - Genitourinary/Gynecological Hx Genitourinary Disorders: Yes (ENDOMETRIAL CA W RADIATION) - Psychiatric Hx Emotional Abuse: No Hx Physical Abuse: No Hx Substance Use: No - Surgical History Hx Hysterectomy: Yes Hx Orthopedic Surgery: Yes (BKR) Other/Comment: whipple sx - Anesthesia Hx Anesthesia: Yes Hx Anesthesia Reactions: No Hx Malignant Hyperthermia: No - Suicidal Assessment Feels Threatened In Home Enviroment: No Family/Social History - Physician Review Nursing Documentation Reviewed: Yes Family/Social History: Unknown Family HX Smoking Status: Former Smoker Hx Alcohol Use: Yes (SOCIALLY) Hx Substance Use: No Hx Substance Use Treatment: No Allergies/Home Meds Allergies/Adverse Reactions: Allergies Penicillins Allergy (Verified 10/11/17 17:41) SWELLING Home Medications: Home Meds Medication Instructions Recorded Confirmed Esomeprazole Magnesium [Nexium] 40 mg PO DAILY 10/12/17 03/30/18 Losartan [Cozaar] 50 mg PO DAILY 10/12/17 03/30/18 Metoprolol Tartrate [Lopressor] 50 mg PO DAILY 10/12/17 03/30/18 hydrALAZINE [hydralazine 100 mg PO BID 10/12/17 03/30/18 Hydrochloride] Warfarin [Coumadin] 14 mg PO DAILY 11/17/17 03/30/18 Capecitabine [Capecitabine] 3 tab PO BID 03/30/18 03/30/18 Fluconazole [Fluconazole] 1 tab PO DAILY 03/30/18 03/30/18 Furosemide [Lasix] 1 tab PO BID 03/30/18 03/30/18 Insulin Glargine,Hum.rec.anlog See Protocol SC BID 03/30/18 03/30/18 [Basaglar Kwikpen U-100] Ondansetron HCl [Zofran] 1 tab PO PRN PRN 03/30/18 03/30/18 oxyCODONE/Acetaminophen [Percocet 1 tab PO PRN PRN 03/30/18 03/30/18 5/325 mg Tab] Review of Systems - Physician Review All systems were reviewed & negative as marked: Yes - Review of Systems Constitutional: Normal Eyes: Normal ENT: Other (Mouth pain) Respiratory: Normal Cardiovascular: Normal Gastrointestinal: Normal Genitourinary Female: Normal Musculoskeletal: Normal Skin: Normal Neurological: Normal Endocrine: Normal Hemo/Lymphatic: Normal Psychiatric: Normal Physical Exam Vital Signs Reviewed: Yes Vital Signs Temp Pulse Resp BP Pulse Ox 03/30/18 11:38 99 F 90 18 159/90 H 99 03/30/18 09:45 99.3 F 93 H 18 167/91 H 99 Temperature: Afebrile Blood Pressure: Normal Pulse: Regular Respiratory Rate: Normal Appearance: Positive for: Well-Appearing, Non-Toxic, Comfortable Pain Distress: None Mental Status: Positive for: Alert and Oriented X 3 - Systems Exam Head: Present: Atraumatic, Normocephalic Pupils: Present: PERRL Extroacular Muscles: Present: EOMI Conjunctiva: Present: Normal Mouth: Present: Moist Mucous Membranes. No: Normal Tounge (brownish patches noted in tongue) Neck: Present: Normal Range of Motion Respiratory/Chest: Present: Clear to Auscultation, Good Air Exchange. No: Respiratory Distress, Accessory Muscle Use Cardiovascular: Present: Regular Rate and Rhythm, Normal S1, S2. No: Murmurs Abdomen: No: Tenderness, Distention, Peritoneal Signs Back: Present: Normal Inspection Upper Extremity: Present: Normal Inspection. No: Cyanosis, Edema Lower Extremity: Present: Normal Inspection. No: Edema Neurological: Present: GCS=15, CN II-XII Intact, Speech Normal Skin: Present: Warm, Dry, Normal Color. No: Rashes Psychiatric: Present: Alert, Oriented x 3, Normal Insight, Normal Concentration Medical Decision Making ED Course and Treatment: 03/30/18 19:38 PT presented for stated history. She was comfortable. controlling her secretions. Rapid strep was negative. PT had thrush and was treated with Diflucan. this is likely secondary to the immuno therapy for her CA. she is on anticoagulant and was strongly advised to f/u with her PMD to heck her INR. She notes that she usually checks her INR every week and will call and schedule appointment for tomorrow. - Lab Interpretations Lab Results: Lab Results 03/30/18 10:09: Grp A Beta Strep Ag Negative - Medication Orders Current Medication Orders: Discontinued Medications Fluconazole (Diflucan) 200 mg PO ONCE STA PRN Reason: Protocol Stop: 03/30/18 10:51 Last Admin: 03/30/18 11:00 Dose: 200 mg Disposition/Present on Arrival - Present on Arrival Any Indicators Present on Arrival: No History of DVT/PE: No History of Uncontrolled Diabetes: No Urinary Catheter: No History of Decub. Ulcer: No History Surgical Site Infection Following: None - Disposition Have Diagnosis and Disposition been Completed?: Yes Diagnosis: Thrush, oral Disposition: HOME/ ROUTINE Disposition Time: 11:05 Patient Plan: Discharge Condition: STABLE Discharge Instructions (ExitCare): Thrush (DC) Additional Instructions: Follow up with your doctor Return to Ed for any new or worsening symptoms Prescriptions: Fluconazole [Diflucan] 100 mg PO DAILY #14 tab Referrals: Gómez Del Rosario MD [Primary Care Provider] - Follow up with primary Forms: [employer] System ([place]icaraguan)
[2018-03-30 11:39] VITALS: BP 159/90; PULSE 90; TEMP 99
== END 2018-03-30 11:38 | disposition home or self-care (01) ==
LOC: ED 09:33
DX: B37.0 Candidal stomatitis (principal)

== ENCOUNTER 2018-05-15 15:42 | Inpatient (IN) | payer MEDICARE, OTHER ==
[2018-05-15 15:48] VITALS: BMI 31.7
[2018-05-15] MEDS ORDERED: Vancomycin 1gm in NS 250ml 1 GM/250 ML BAG IVPB STA (16:25)
[2018-05-15] MEDS ORDERED: Piperacillin/Tazobact 3.375 gm 100 ML IVPB STA (16:25)
[2018-05-15] MEDS ORDERED: Meropenem IV 1 gm in NS 50 ML IVPB ONE (16:45)
--- NOTE | 2018-05-15 17:10 | ED PDOC ---
Arrival/HPI - General Chief Complaint: Shortness Of Breath Time Seen by Provider: 05/15/18 15:51 Historian: Patient - History of Present Illness Narrative History of Present Illness (Text): 05/15/18 17:07 Patient is a 63 year old female with PMH of pancreatic CA (s/p Whipple Aug 2017 , on chemo since Nov, last chemo was 2 weeks ago), cervical CA (s/p TAHBSO), DM2 , hypertension, ATN, and cerebral malaria who presents to Emergency department with shortness of breath since this afternoon. She states that she has also felt nauseous and vomited once earlier this AM. She took her BP this AM and it was 198/90. She took all three of her BP medicines at that time. When she woke up from a nap this afternoon, she felt shortness of breath with even mild exertion. She states that she felt this way once before, presented to the Emergency department, and was found to have a PE at that time. Otherwise, she denies fever, chills, night sweats, chest pain, diarrhea, constipation, peripheral swelling, or calf pain. PMD: Dr. Elliott Oncologist: Dr. Dee Time/Duration: 24 hours Symptom Onset: Gradual Symptom Course: Unchanged Context: Standing, Walking, Exertion Past Medical History - Provider Review Nursing Documentation Reviewed: Yes - Infectious Disease Hx of Infectious Diseases: None - Tetanus Immunization Tetanus Immunization: Unknown - Cardiac Hx Hypertension: Yes Hx Pacemaker: No - Pulmonary Hx Pulmonary Embolism: Yes - Neurological Hx Paralysis: No - HEENT Hx HEENT Disorder: Yes Hx Cataracts: Yes (BILATERAL ) - Renal Hx Renal Failure: Yes - Endocrine/Metabolic Hx Diabetes Mellitus Type 1: Yes (on insulin) - Hematological/Oncological Hx Blood Transfusions: Yes Hx Blood Transfusion Reaction: No Hx Cancer: Yes (pancreatic ca - on chemo) Other/Comment: uterine CA - Integumentary Hx Dermatological Disorder: No - Musculoskeletal/Rheumatological Hx Musculoskeletal Disorders: No - Gastrointestinal Hx Gastrointestinal Disorders: No Other/Comment: Pancreatic CA - Genitourinary/Gynecological Hx Genitourinary Disorders: Yes (ENDOMETRIAL CA W RADIATION) - Psychiatric Hx Emotional Abuse: No Hx Physical Abuse: No Hx Substance Use: No - Surgical History Hx Hysterectomy: Yes Hx Orthopedic Surgery: Yes (BKR) Other/Comment: whipple sx - Anesthesia Hx Anesthesia: Yes Hx Anesthesia Reactions: No Hx Malignant Hyperthermia: No - Suicidal Assessment Feels Threatened In Home Enviroment: No Family/Social History - Physician Review Nursing Documentation Reviewed: Yes Family/Social History: Neoplasm/Cancer (mother from pancreatic cancer, uncle had colon cancer, patient has had genetic testing which was negative) Smoking Status: Former Smoker Hx Alcohol Use: Yes (SOCIALLY) Hx Substance Use: No Hx Substance Use Treatment: No Allergies/Home Meds Allergies/Adverse Reactions: Allergies Penicillins Allergy (Verified 10/11/17 17:41) SWELLING Home Medications: Home Meds Medication Instructions Recorded Confirmed Losartan [Cozaar] 50 mg PO DAILY 10/12/17 05/15/18 Metoprolol Tartrate [Lopressor] 50 mg PO BID 10/12/17 05/15/18 hydrALAZINE [hydralazine 100 mg PO BID 10/12/17 05/15/18 Hydrochloride] Warfarin [Coumadin] 14 mg PO DAILY 11/17/17 05/15/18 Capecitabine [Capecitabine] 3 tab PO BID 03/30/18 05/15/18 Insulin Glargine,Hum.rec.anlog 11 unit SC DAILY 03/30/18 05/15/18 [Basaglar Kwikpen U-100] oxyCODONE/Acetaminophen [Percocet 1 tab PO PRN PRN 03/30/18 05/15/18 5/325 mg Tab] Review of Systems - Review of Systems Constitutional: absent: Weight Change, Fevers, Night Sweats Eyes: absent: Vision Changes, Photophobia ENT: absent: Hearing Changes, Rhinorrhea Respiratory: SOB. absent: Cough, Wheezing Cardiovascular: ROGERS. absent: Chest Pain, Palpitations, Edema, Calf Pain Gastrointestinal: Nausea, Vomiting. absent: Stool Changes, Constipation, Diarrhea Genitourinary Female: absent: Dysuria, Frequency Musculoskeletal: Neck Pain. absent: Arthralgias Skin: absent: Rash, Pruritis Neurological: absent: Headache, Dizziness Endocrine: absent: Diaphoresis Hemo/Lymphatic: absent: Adenopathy Psychiatric: absent: Anxiety, Depression Physical Exam Vital Signs Reviewed: Yes Vital Signs Temp Pulse Resp BP Pulse Ox 05/15/18 19:37 79 18 143/72 98 05/15/18 19:03 100 H 166/73 H 05/15/18 18:43 97 H 18 186/73 H 100 05/15/18 17:56 89 18 173/96 H 100 05/15/18 16:16 98.5 F 92 H 18 151/94 H 99 Temperature: Afebrile Blood Pressure: Normal Pulse: Regular Respiratory Rate: Normal Appearance: Positive for: Non-Toxic, Uncomfortable Pain Distress: Moderate Mental Status: Positive for: Alert and Oriented X 3 - Systems Exam Head: Present: Atraumatic, Normocephalic Pupils: Present: PERRL Extroacular Muscles: Present: EOMI Mouth: Present: Dry Pharnyx: Present: Normal. No: ERYTHEMA, EXUDATE Nose (Internal): Present: Normal Inspection Neck: Present: Normal Range of Motion, Paraspinal Tenderness. No: JVD, Lymphadenopathy Respiratory/Chest: Present: Clear to Auscultation. No: Accessory Muscle Use, Wheezes, Rales, Rhonchi Cardiovascular: Present: Regular Rate and Rhythm, Normal S1, S2. No: Murmurs, Rub, Gallop Abdomen: Present: Normal Bowel Sounds. No: Tenderness, Rebound, Guarding Rectal: Present: Normal Rectal Tone. No: Occult Blood, Gross Blood, Melena, Hemorrhoids Back: Present: Normal Inspection Upper Extremity: Present: Normal Inspection. No: Cyanosis, Edema Lower Extremity: Present: Normal Inspection, NORMAL PULSES. No: Edema, CALF TENDERNESS Skin: Present: Warm, Dry Psychiatric: Present: Alert, Oriented x 3 Medical Decision Making ED Course and Treatment: 05/15/18 17:57 Patient reports her shortness of breath has improved with rest but that she still has it when she exerts herself. Rectal exam with FOBT was performed and was negative. D-dimer positive, CTA chest ordered. Patient states she has been taking her warfarin everyday and that her most recent INR was low too. Heparin drip started. Report given to Dr. Bruce who will continue care in ED. - Lab Interpretations Microbiology Results: Microbiology Results 05/15/18 16:55 Blood-Venous Blood Culture - Preliminary NO GROWTH AFTER 48 HOURS 05/15/18 16:25 Blood-Venous Blood Culture - Preliminary NO GROWTH AFTER 48 HOURS 05/15/18 16:55 Urine Urine Culture - Final No Growth (<1,000 CFU/ML) Lab Results: 05/15/18 16:55 05/15/18 16:55 Lab Results 05/15/18 16:55: PT 10.3, INR 0.91, APTT 42.1 H 05/15/18 16:55: pO2 52, VBG pH 7.37, VBG pCO2 45.0, VBG HCO3 26.0, VBG Total CO2 27.4, VBG O2 Sat (Calc) 84.2 H, VBG Base Excess 0.3, VBG Potassium 2.6 L, Sodium 145.0, Chloride 114.0 H, Glucose 189 H, Lactate 1.2, FiO2 21.0, Venous Blood Potassium 2.6 L 05/15/18 16:55: D-Dimer, Quantitative 1782 05/15/18 16:55: Sodium 143, Chloride 106, Potassium 3.0 L, Carbon Dioxide 29, Anion Gap 11, BUN 13, Creatinine 0.6 L, Est GFR ( Amer) > 60, Est GFR ( Non-Af Amer) > 60, Random Glucose 200 H, Calcium 8.8, Total Bilirubin 0.2, AST 26, ALT 23, Alkaline Phosphatase 83, Lactate Dehydrogenase 538, Total Creatine Kinase 66, Troponin I 0.02 D, Total Protein 6.5, Albumin 3.4, Globulin 3.1, Albumin/Globulin Ratio 1.1, Lipase 15 L 05/15/18 16:55: WBC 2.8 L*, RBC 3.20 L, Hgb 9.0 L, Hct 28.5 L, MCV 89.1, MCH 28.1, MCHC 31.6, RDW 17.9 H, Plt Count 107 L, MPV 9.6, Gran % 61.4, Lymph % ( Auto) 31.7, Calhoun % (Auto) 6.1 H, Eos % (Auto) 0.4 L, Baso % (Auto) 0.4, Gran # 1.71, Lymph # (Auto) 0.9 L, Calhoun # (Auto) 0.2, Eos # (Auto) 0.0, Baso # (Auto) 0.01 I have reviewed the lab results: Yes Interpretation: Abnormal lab values - RAD Interpretation Radiology Orders: 05/15/18 16:10 CHEST PORTABLE [RAD] Routine - Medication Orders Current Medication Orders: Enoxaparin Sodium (Lovenox) 30 mg SC DAILY [facility] PRN Reason: Protocol Hydralazine HCl (Apresoline) 100 mg PO BID [facility] Last Admin: 05/17/18 17:23 Dose: 100 mg MAR Pulse and Blood Pressure Document 05/17/18 17:23 BK (Rec: 05/17/18 17:24 [place] [id number]) Pulse Pulse Rate (60-90) 69 Blood Pressure Blood Pressure (100/60-150/90) 168/75 Insulin Detemir (Levemir) 11 unit SC DAILY [facility] Last Admin: 05/17/18 09:25 Dose: 11 unit MAR Blood Glucose Document 05/17/18 09:25 BK (Rec: 05/17/18 09:25 [place] [id number]) Blood Glucose Finger Stick Blood Glucose (70-120) 190 Subcutaneous Administrations Document 05/17/18 09:25 BK (Rec: 05/17/18 09:25 [place] [id number]) Injection Site MAR Injection Site Right Arm Charges for Administration # of Subcutaneous Administrations 1 Losartan Potassium (Cozaar) 50 mg PO DAILY [facility] Last Admin: 05/17/18 09:25 Dose: 50 mg MAR Pulse and Blood Pressure Document 05/17/18 09:25 BK (Rec: 05/17/18 09:25 [place] [id number]) Pulse Pulse Rate (60-90) 95 Blood Pressure Blood Pressure (100/60-150/90) 153/95 Metoprolol Tartrate (Lopressor) 50 mg PO [facility] Last Admin: 05/17/18 17:24 Dose: 50 mg MAR Pulse and Blood Pressure Document 05/17/18 17:24 BK (Rec: 05/17/18 17:24 [place] [id number]) Pulse Pulse Rate (60-90) 69 Blood Pressure Blood Pressure (100/60-150/90) 168/75 Discontinued Medications Acetaminophen (Tylenol 325mg Tab) 650 mg PO ONCE ONE Stop: 05/16/18 23:56 Last Admin: 05/17/18 00:09 Dose: 650 mg MAR Pain/Vitals Document 05/17/18 00:09 STEPHANIES (Rec: 05/17/18 00:09 KOPPS [place] [id number]) Pain Reassessment Is This A Pain ReAssessment? No Sleep Is patient sleeping during reassessment? No Presence of Pain Presence of Pain Yes Pain Scale Used Pain Scale Used Numeric Location Left, Right or Bilateral Bilateral Pain Location Body Back Filler Operator Description Constant Pain Behavior Moaning Aggravating Factors ADL's Changing Position Exercise/Activity Alleviating Factors Medication Docusate Sodium (Colace) 100 mg PO STAT STA Stop: 05/17/18 20:35 Last Admin: 05/17/18 20:46 Dose: 100 mg Last Bowel Movement Document 05/17/18 20:46 ST (Rec: 05/17/18 20:46 ST [id number]) Last Bowel Movement Last Bowel Movement 05/14/18 Heparin Sodium (Porcine) (Heparin) 4,000 units IV ONCE ONE PRN Reason: Protocol Stop: 05/15/18 18:27 Last Admin: 05/15/18 18:41 Dose: 4,000 units eMAR Start Stop Document 05/15/18 18:41 HI (Rec: 05/15/18 18:41 HI [id number]) Intravenous Solution Start Date 05/15/18 Start Time 18:41 Vancomycin HCl (Vancomycin 1gm) 1 gm in 250 mls @ 167 mls/hr IVPB STAT STA PRN Reason: Protocol Stop: 05/15/18 17:54 Last Admin: 05/15/18 17:56 Dose: 167 mls/hr eMAR Start Stop Document 05/15/18 17:56 HI (Rec: 05/15/18 17:56 HI [id number]) Intravenous Solution Start Date 05/15/18 Start Time 17:56 Meropenem (Merrem Iv 1 Gm Premix) 50 mls @ 100 mls/hr IVPB ONCE ONE PRN Reason: Protocol Stop: 05/15/18 17:14 Last Admin: 05/15/18 17:12 Dose: 100 mls/hr eMAR Start Stop Document 05/15/18 17:12 HI (Rec: 05/15/18 17:12 HI [id number]) Intravenous Solution Start Date 05/15/18 Start Time 17:12 End Date 05/15/18 End time 17:41 Total Infusion Time 29 Potassium Chloride (Potassium Chloride 10 Meq/100 Ml) 10 meq in 100 mls @ 50 mls/hr IVPB Q2H IRLANDA Stop: 05/15/18 21:44 Last Admin: 05/15/18 21:08 Dose: 50 mls/hr eMAR Start Stop Document 05/15/18 21:08 AD (Rec: 05/15/18 21:08 AD [id number]) Intravenous Solution Start Date 05/15/18 Start Time 21:08 Heparin Sodium/Sodium Chloride (Heparin 00082 Units/250ml 1/2 Normal Saline) 25 ,000 units in 250 mls @ 17.554 mls/hr IV .[id number] PRN; Protocol; 18 UNITS/KG/HR PRN Reason: ADJUST RATE PER PROTOCOL Last Admin: 05/17/18 14:21 Dose: 11.89 units/kg/hr, 11.6 mls/hr eMAR Start Stop Document 05/17/18 14:21 GUSTAVO (Rec: 05/17/18 14:21 GUSTAVO [id number]) Intravenous Solution Start Date 05/17/18 Start Time 14:21 Titration Intervention Document 05/17/18 14:21 GUSTAVO (Rec: 05/17/18 14:21 GUSTAVO [id number]) Titration Intake Cumulative Intake (Rx) 66 Waste Amount 0 Container Volume 250 Titration Dosing Titration Dose 11.89 IV Rate 11.6 Intake/Decrease Started/Running Cumulative Dose 6600 Metoprolol Tartrate (Lopressor) 50 mg PO STAT STA Stop: 05/15/18 18:43 Last Admin: 05/15/18 19:03 Dose: 50 mg MAR Pulse and Blood Pressure Document 05/15/18 19:03 HI (Rec: 05/15/18 19:03 HI [id number]) Pulse Pulse Rate (60-90) 100 Blood Pressure Blood Pressure (100/60-150/90) 166/73 Potassium Chloride (K-Dur 20 Meq Er Tab) 20 meq PO ONCE ONE Stop: 05/16/18 23:58 Last Admin: 05/17/18 00:09 Dose: 20 meq Disposition/Present on Arrival - Present on Arrival Any Indicators Present on Arrival: Yes History of DVT/PE: Yes History of Uncontrolled Diabetes: No Urinary Catheter: No History of Decub. Ulcer: No History Surgical Site Infection Following: None - Disposition Have Diagnosis and Disposition been Completed?: Yes Diagnosis: SOB (shortness of breath) on exertion, Pancreatic cancer, At high risk for pulmonary embolism, Hypokalemia, Chest pain Disposition: HOSPITALIZED Disposition Time: 18:42 Patient Plan: Admission, Telemetry Patient Problems: Current Active Problems Problem Status Onset At high risk for pulmonary embolism Acute Chest pain Acute Hypokalemia Acute Pancreatic cancer Acute SOB (shortness of breath) on exertion Acute Condition: FAIR
[2018-05-15 17:14] LABS: BASO # 0.01 K/mm3 (0.0-2.0); BASO % 0.4 % (0.0-3.0); EOS % 0.4 % (1.5-5.0); GRAN # 1.71 (1.4-6.5); GRAN % 61.4 % (50.0-68.0); LYMPH # 0.9 (1.2-3.4); LYMPH % 31.7 % (22.0-35.0); MEAN CELL VOLUME 89.1 fl (80.0-105.0); MEAN CORPUSCULAR HEMOGLOBIN 28.1 pg (25.0-35.0); MEAN CORPUSCULAR HGB CONC 31.6 g/dl (31.0-37.0); MEAN PLATELET VOLUME 9.6 fl (7.0-11.0); MONO # 0.2 (0.1-0.6); MONO % 6.1 % (1.0-6.0); RBC 3.2 10^6/uL (3.5-6.1); RED CELL DISTRIBUTION WIDTH 17.9 % (11.5-14.5)
[2018-05-15 17:16] LABS: VENOUS BLOOD GAS BASE EXCESS 0.3 mmol/L (0.0-2.0); VENOUS BLOOD GAS PO2 52 mm/Hg (30-55); VENOUS BLOOD PH 7.37 (7.32-7.43)
[2018-05-15 17:18] LABS: WHITE BLOOD COUNT 2.8 10^3/ul (4.5-11.0)
[2018-05-15 17:26] LABS: ALB/GLOB RATIO 1.1 (1.1-1.8); ALBUMIN 3.4 g/dL (3.0-4.8); ALT/SGPT 23 U/L (7-56); AST/SGOT 26 U/L (14-36); BLOOD UREA NITROGEN 13 mg/dL (7-21); CALCIUM 8.8 mg/dL (8.4-10.5); GFR AFRICAN-AMERICAN > 60; GFR NON-AFRICAN AMERICAN > 60; LIPASE 15 U/L (23-300)
[2018-05-15 17:37] LABS: TROPONIN I 0.02 ng/mL
[2018-05-15 17:39] LABS: INR 0.91; PROTHROMBIN TIME 10.3 SECONDS (9.4-12.5)
[2018-05-15 17:42] LABS: PARTIAL THROMBOPLASTIN TIME 42.1 Seconds (25.1-36.5)
--- NOTE | 2018-05-15 17:59 | RAD ---
Date of service: 05/15/2018 HISTORY: shortness of breath, hx of pancreatic CA COMPARISON: 11/20/2017. FINDINGS: LUNGS: No active pulmonary disease. PLEURA: No significant pleural effusion identified, no pneumothorax apparent. CARDIOVASCULAR: No radiographic findings to suggest acute or significant cardiovascular disease. Venous access catheter in stable, satisfactory position. OSSEOUS STRUCTURES: No significant abnormalities. VISUALIZED UPPER ABDOMEN: Normal. OTHER FINDINGS: None. IMPRESSION: No active disease. No significant interval change compared to the prior examination(s).
[2018-05-15] MEDS ORDERED: Iodixanol 320 MG/ML 100 ML BOTTLE IV ONE (18:12)
[2018-05-15] MEDS: Heparin25000 units/250ml 1/2NS 25,000 UNITS/250 ML BAG IV PRN (18:41)
--- NOTE | 2018-05-15 19:07 | ED PDOC ---
Physical Exam Vital Signs Reviewed: Yes Vital Signs Temp Pulse Resp BP Pulse Ox 05/15/18 19:03 100 H 166/73 H 05/15/18 18:43 97 H 18 186/73 H 100 05/15/18 17:56 89 18 173/96 H 100 05/15/18 16:16 98.5 F 92 H 18 151/94 H 99 Temperature: Afebrile Blood Pressure: Normal Pulse: Regular Respiratory Rate: Normal Appearance: Positive for: Well-Appearing, Non-Toxic, Comfortable Pain Distress: None Mental Status: Positive for: Alert and Oriented X 3 Medical Decision Making ED Course and Treatment: 05/15/18 18:55 Patient endorsed to me by Dr. Rosen. Patient is resting comfortably while laying in stretcher. Oxygen saturation currently at 100% on room air. Heart rate is currently 97. Patient reports experiencing chest pain with deep breaths starting earlier today. Patient reports having a prior history of PE, diagnosed this past October, and currently takes Warfarin. INR is subtherapeutic 0.91. Due to patient's history of PE and current complaint of chest pain with shortness of breath, she'll be placed on Heparin bolus and drip. CT Angio has been ordered. Hemoglobin is at 9. Rectal examination reveals no active bleeding. Patient's case discussed with Dr. King, who is covering for patient's PMD Dr. Gómez Del Rosario, who accepts patient under Dr. Del Rosario's service. [facility] - Lab Interpretations Lab Results: 05/15/18 16:55 05/15/18 16:55 Lab Results 05/15/18 16:55: PT 10.3, INR 0.91, APTT 42.1 H 05/15/18 16:55: pO2 52, VBG pH 7.37, VBG pCO2 45.0, VBG HCO3 26.0, VBG Total CO2 27.4, VBG O2 Sat (Calc) 84.2 H, VBG Base Excess 0.3, VBG Potassium 2.6 L, Sodium 145.0, Chloride 114.0 H, Glucose 189 H, Lactate 1.2, FiO2 21.0, Venous Blood Potassium 2.6 L 05/15/18 16:55: D-Dimer, Quantitative 1782 08/03/18 16:55: Sodium 143, Chloride 106, Potassium 3.0 L, Carbon Dioxide 29, Anion Gap 11, BUN 13, Creatinine 0.6 L, Est GFR ( Amer) > 60, Est GFR ( Non-Af Amer) > 60, Random Glucose 200 H, Calcium 8.8, Total Bilirubin 0.2, AST 26, ALT 23, Alkaline Phosphatase 83, Lactate Dehydrogenase 538, Total Creatine Kinase 66, Troponin I 0.02 D, Total Protein 6.5, Albumin 3.4, Globulin 3.1, Albumin/Globulin Ratio 1.1, Lipase 15 L 05/15/18 16:55: WBC 2.8 L*, RBC 3.20 L, Hgb 9.0 L, Hct 28.5 L, MCV 89.1, MCH 28.1, MCHC 31.6, RDW 17.9 H, Plt Count 107 L, MPV 9.6, Gran % 61.4, Lymph % ( Auto) 31.7, Mower % (Auto) 6.1 H, Eos % (Auto) 0.4 L, Baso % (Auto) 0.4, Gran # 1.71, Lymph # (Auto) 0.9 L, Mower # (Auto) 0.2, Eos # (Auto) 0.0, Baso # (Auto) 0.01 - RAD Interpretation Radiology Orders: 05/15/18 16:10 CHEST PORTABLE [RAD] Routine - Medication Orders Current Medication Orders: Potassium Chloride (Potassium Chloride 10 Meq/100 Ml) 10 meq in 100 mls @ 50 mls/hr IVPB Q2H IRLANDA Stop: 05/15/18 21:44 Last Admin: 05/15/18 17:56 Dose: 50 mls/hr eMAR Start Stop Document 05/15/18 17:56 HI (Rec: 05/15/18 17:56 DE [id number]) Intravenous Solution Start Date 05/15/18 Start Time 17:56 Heparin Sodium/Sodium Chloride (Heparin 81409 Units/250ml 1/2 Normal Saline) 25 ,000 units in 250 mls @ 17.554 mls/hr IV .[id number] PRN; Protocol; 18 UNITS/KG/HR PRN Reason: ADJUST RATE PER PROTOCOL Last Admin: 05/15/18 18:41 Dose: 17.554 mls/hr eMAR Start Stop Document 05/15/18 18:41 HI (Rec: 05/15/18 18:42 HI [id number]) Intravenous Solution Start Date 05/15/18 Start Time 18:41 Discontinued Medications Heparin Sodium (Porcine) (Heparin) 4,000 units IV ONCE ONE PRN Reason: Protocol Stop: 05/15/18 18:27 Last Admin: 05/15/18 18:41 Dose: 4,000 units eMAR Start Stop Document 05/15/18 18:41 HI (Rec: 05/15/18 18:41 HI [id number]) Intravenous Solution Start Date 05/15/18 Start Time 18:41 Vancomycin HCl (Vancomycin 1gm) 1 gm in 250 mls @ 167 mls/hr IVPB STAT STA PRN Reason: Protocol Stop: 05/15/18 17:54 Last Admin: 05/15/18 17:56 Dose: 167 mls/hr eMAR Start Stop Document 05/15/18 17:56 HI (Rec: 05/15/18 17:56 HI [id number]) Intravenous Solution Start Date 05/15/18 Start Time 17:56 Meropenem (Merrem Iv 1 Gm Premix) 50 mls @ 100 mls/hr IVPB ONCE ONE PRN Reason: Protocol Stop: 05/15/18 17:14 Last Admin: 05/15/18 17:12 Dose: 100 mls/hr eMAR Start Stop Document 05/15/18 17:12 HI (Rec: 05/15/18 17:12 HI [id number]) Intravenous Solution Start Date 05/15/18 Start Time 17:12 End Date 05/15/18 End time 17:41 Total Infusion Time 29 Metoprolol Tartrate (Lopressor) 50 mg PO STAT STA Stop: 05/15/18 18:43 Last Admin: 05/15/18 19:03 Dose: 50 mg MAR Pulse and Blood Pressure Document 05/15/18 19:03 HI (Rec: 05/15/18 19:03 HI [id number]) Pulse Pulse Rate (60-90 beats/min) 100 Blood Pressure Blood Pressure (100/60-150/90 mm Hg) 166/73 - Scribe Statement The provider has reviewed the documentation as recorded by the Mdeardo Mckeon Provider Scribe Provider Scribe Attestation: All medical record entries made by the Scribe were at my direction and personally dictated by me. I have reviewed the chart and agree that the record accurately reflects my personal performance of the history, physical exam, medical decision making, and the department course for this patient. I have also personally directed, reviewed, and agree with the discharge instructions and disposition. Disposition/Present on Arrival - Present on Arrival Any Indicators Present on Arrival: Yes History of DVT/PE: Yes History of Uncontrolled Diabetes: No Urinary Catheter: No History of Decub. Ulcer: No History Surgical Site Infection Following: None - Disposition Have Diagnosis and Disposition been Completed?: Yes Diagnosis: SOB (shortness of breath) on exertion, Pancreatic cancer, At high risk for pulmonary embolism, Hypokalemia, Chest pain Disposition: HOSPITALIZED Disposition Time: 18:00 Patient Plan: Admission, Telemetry Condition: FAIR
--- NOTE | 2018-05-15 22:12 | CP.PCM.HP ---
History of Present Illness - History of Present Illness History of Present Illness: Internal Medicine Covering Attending H&P: May 15, 2018 63 yo female with PMH of pancreatic CA (s/p Whipple Aug 2017, on chemo since Nov , last chemo was 2 weeks ago), cervical CA (s/p TAHBSO), DM2, hypertension, ATN , and cerebral malaria who presents to Emergency department with shortness of breath since this afternoon. She states that she has also felt nauseous and vomited once earlier this AM. She took her BP this AM and it was 198/90. She took all three of her BP medicines at that time. When she woke up from a nap this afternoon, she felt shortness of breath with even mild exertion. She states that she felt this way once before, presented to the Emergency department , and was found to have a PE at that time. Otherwise, she denies fever, chills, night sweats, chest pain, diarrhea, constipation, peripheral swelling, or calf pain. She follows with Dr. Ashish Dee as an outpatient for her Cervical Cancer VQ scan showing low probability for PE. PMHx: pancreatic CA (s/p Whipple Aug 2017, on chemo since Nov, last chemo was 2 weeks ago), cervical CA (s/p TAHBSO), DM2, hypertension, ATN, and cerebral malaria PSHx: Whipple Aug 2017, TAHBSO Allergies: PCN Social Hx: Ex-smoker Social EtOH No illicit drug use Active Medications Hydralazine HCl (Apresoline) 100 mg PO BID [facility] Heparin Sodium/Sodium Chloride (Heparin 64687 Units/250ml 1/2 Normal Saline) 25 ,000 units in 250 mls @ 17.554 mls/hr IV .[id number] PRN; Protocol; 18 UNITS/KG/HR PRN Reason: ADJUST RATE PER PROTOCOL Last Titration: 05/16/18 02:49 Dose: 15 units/kg/hr, 14.628 mls/hr Insulin Detemir (Levemir) 11 unit SC DAILY [facility] Losartan Potassium (Cozaar) 50 mg PO DAILY [facility] Metoprolol Tartrate (Lopressor) 50 mg PO BRKDIN [facility] Family Hx: Mother - Pancreatic Cancer Uncle - Colon Cancer ROS: Nausea and vomiting. SOB. No fevers, chills, diarrhea, headaches, dizziness, chest pain, abdominal pain, melena, hematuria, hematemesis, hematochezia, depression, anxiety. Present on Admission - Present on Admission Any Indicators Present on Admission: Yes History of DVT/PE: Yes History of Uncontrolled Diabetes: Yes Past Patient History - Infectious Disease Hx of Infectious Diseases: None - Tetanus Immunizations Tetanus Immunization: Unknown - Past Medical History & Family History Past Medical History?: Yes - Past Social History Smoking Status: Former Smoker Chewing Tobacco Use: No Cigar Use: No Alcohol: Social Drugs: Denies Home Situation {Lives}: With Family - CARDIAC Hx Hypertension: Yes Hx Pacemaker: No - PULMONARY Hx Pulmonary Embolism: Yes - NEUROLOGICAL Hx Paralysis: No - HEENT Hx HEENT Problems: Yes Hx Cataracts: Yes (BILATERAL ) - RENAL Hx Renal Failure: Yes - ENDOCRINE/METABOLIC Hx Diabetes Mellitus Type 1: Yes (on insulin) - HEMATOLOGICAL/ONCOLOGICAL Hx Blood Transfusions: Yes Hx Blood Transfusion Reaction: No Hx Cancer: Yes (pancreatic ca - on chemo) Other/Comment: uterine CA - INTEGUMENTARY Hx Dermatological Problems: No - MUSCULOSKELETAL/RHEUMATOLOGICAL Hx Musculoskeletal Disorders: No - GASTROINTESTINAL Hx Gastrointestinal Disorders: No Other/Comment: Pancreatic CA - GENITOURINARY/GYNECOLOGICAL Hx Genitourinary Disorders: Yes (ENDOMETRIAL CA W RADIATION) - PSYCHIATRIC Hx Emotional Abuse: No Hx Physical Abuse: No Hx Substance Use: No - SURGICAL HISTORY Hx Hysterectomy: Yes Hx Orthopedic Surgery: Yes (BKR) Other/Comment: whipple sx - ANESTHESIA Hx Anesthesia: Yes Hx Anesthesia Reactions: No Hx Malignant Hyperthermia: No Meds Allergies/Adverse Reactions: Allergies Allergy/AdvReac Type Severity Reaction Status Date / Time Penicillins Allergy SWELLING Verified 10/11/17 17:41 Physical Exam - Constitutional Appears: Non-toxic, No Acute Distress, Chronically Ill - Head Exam Head Exam: ATRAUMATIC, NORMOCEPHALIC - Eye Exam Eye Exam: EOMI, PERRL Pupil Exam: NORMAL ACCOMODATION, PERRL - ENT Exam ENT Exam: Mucous Membranes Moist, Normal External Ear Exam, TM's Normal Bilaterally - Neck Exam Neck exam: Positive for: Full Rom, Normal Inspection - Respiratory Exam Respiratory Exam: Clear to Auscultation Bilateral, NORMAL BREATHING PATTERN. absent: Rales, Rhonchi, Wheezes - Cardiovascular Exam Cardiovascular Exam: REGULAR RHYTHM, RRR, +S1, +S2 - GI/Abdominal Exam GI & Abdominal Exam: Normal Bowel Sounds, Soft. absent: Distended, Tenderness - Extremities Exam Extremities exam: Positive for: full ROM, normal inspection - Neurological Exam Neurological exam: Alert, CN II-XII Intact, Oriented x3 - Psychiatric Exam Psychiatric exam: Normal Affect, Normal Mood - Skin Skin Exam: Intact, Normal Color Results - Vital Signs Recent Vital Signs: Last Vital Signs Temp 98.5 F 05/15/18 16:16 Pulse 79 05/15/18 19:37 Resp 18 05/15/18 19:37 BP 143/72 05/15/18 19:37 Pulse Ox 98 05/15/18 19:37 - Labs Result Diagrams: 05/15/18 16:55 05/15/18 16:55 Assessment & Plan - Assessment and Plan (Free Text) Assessment: 63 yo female with extensive medical history that includes pancreatic CA (s/p Whipple Aug 2017, on chemo since Nov, last chemo was 2 weeks ago), cervical CA ( s/p TAHBSO), DM2, hypertension, ATN, and cerebral malaria presents with SOB, nausea, and vomiting. Followed in the outpatient setting by Dr. Dee for Pancreatic Cancer. Will obtain Cardiology consult. For now, the patient will remain in telemetry floor. Recheck laboratories and monitor respiratory status. VQ scan showed low probability for PE. Supportive care. Decision To Admit - Pt Status Changed To: Hospital Disposition Of: Inpatient Admission - Admit Certification Admit to Inpatient:: After my assessment, the patient will require hospitalization for at least two midnights. This is because of the severity of symptoms shown, intensity of services needed, and/or the medical risk in this patient being treated as an outpatient. - . Bed Request Type: Telemetry Admitting Physician: Donaldo King
[2018-05-16 07:05] LABS: HEMOGLOBIN 8.2 g/dL (12.0-16.0); MEAN CELL VOLUME 89.6 fl (80.0-105.0); MEAN CORPUSCULAR HEMOGLOBIN 28.4 pg (25.0-35.0); MEAN CORPUSCULAR HGB CONC 31.7 g/dl (31.0-37.0); MEAN PLATELET VOLUME 8.9 fl (7.0-11.0); RBC 2.89 10^6/uL (3.5-6.1); RED CELL DISTRIBUTION WIDTH 18.6 % (11.5-14.5)
[2018-05-16 07:48] LABS: WHITE BLOOD COUNT 2.3 10^3/ul (4.5-11.0)
--- NOTE | 2018-05-16 09:03 | NM ---
Date of service: 05/15/2018 COMPARISON: TECHNIQUE: 30.0 mCi technetium 99-m DTPA inhaled 3.3 mCI technetium 99-m MAA administered intravenously. FINDINGS: VENTILATION COMPONENT: Normal. PERFUSION COMPONENT: Normal. The report concurs with the preliminary [facility] report IMPRESSION: Lowprobability ventilation perfusion scan for pulmonary embolism.
--- NOTE | 2018-05-16 09:10 | CARD ---
APPROVED REPORT Date of service: 05/15/2018 EKG Measurement Heart [id number] <Conclusion> Normal sinus rhythm Possible Anterior infarct, age undetermined Abnormal ECG
[2018-05-16 09:20] LABS: ALB/GLOB RATIO 1.1 (1.1-1.8); ALBUMIN 3.3 g/dL (3.0-4.8); ALT/SGPT 21 U/L (7-56); AST/SGOT 27 U/L (14-36); BLOOD UREA NITROGEN 10 mg/dL (7-21); CALCIUM 9.1 mg/dL (8.4-10.5); GFR AFRICAN-AMERICAN > 60; GFR NON-AFRICAN AMERICAN > 60
[2018-05-16] MEDS: Insulin Detemir 100 units/ml Vial (Levemir) SC SCH (09:53)
--- NOTE | 2018-05-16 17:00 | CP.PCM.PN ---
Subjective - Date & Time of Evaluation Date of Evaluation: 05/16/18 Time of Evaluation: 15:15 - Subjective Subjective: Internal Medicine Covering Attending Progress Note: May 16, 2018 63 yo female with PMH of pancreatic CA (s/p Whipple Aug 2017, on chemo since Nov , last chemo was 2 weeks ago), cervical CA (s/p TAHBSO), DM2, hypertension, ATN , and cerebral malaria who presents to Emergency department with shortness of breath since this afternoon. She states that she has also felt nauseous and vomited once earlier this AM. She took her BP this AM and it was 198/90. She took all three of her BP medicines at that time. When she woke up from a nap this afternoon, she felt shortness of breath with even mild exertion. She states that she felt this way once before, presented to the Emergency department , and was found to have a PE at that time. Otherwise, she denies fever, chills, night sweats, chest pain, diarrhea, constipation, peripheral swelling, or calf pain. She follows with Dr. Ashish Dee as an outpatient for her Cervical Cancer VQ scan showing low probability for PE. Leukopenia. Mild hypokalemia that is improving. Objective - Vital Signs/Intake and Output Vital Signs (last 24 hours): Temp Pulse Resp BP Pulse Ox 98.7 F 72 18 138/76 98 05/16/18 12:00 05/16/18 12:00 05/16/18 12:00 05/16/18 12:00 05/16/18 06:00 Intake and Output: 05/16/18 05/16/18 06:59 18:59 Intake Total 240 114 Output Total 3 Balance 237 114 - Medications Medications: Current Medications Hydralazine HCl (Apresoline) 100 mg PO BID [facility] Last Admin: 05/16/18 09:52 Dose: 100 mg Heparin Sodium/Sodium Chloride (Heparin 09498 Units/250ml 1/2 Normal Saline) 25 ,000 units in 250 mls @ 17.554 mls/hr IV .[id number] PRN; Protocol; 18 UNITS/KG/HR PRN Reason: ADJUST RATE PER PROTOCOL Last Titration: 05/16/18 12:02 Dose: 11.89 units/kg/hr, 11.6 mls/hr Insulin Detemir (Levemir) 11 unit SC DAILY [facility] Last Admin: 05/16/18 09:53 Dose: 11 unit Losartan Potassium (Cozaar) 50 mg PO DAILY [facility] Last Admin: 05/16/18 09:53 Dose: 50 mg Metoprolol Tartrate (Lopressor) 50 mg PO BRKDIN [facility] Last Admin: 05/16/18 06:49 Dose: 50 mg - Labs Labs: 05/16/18 08:45 05/16/18 08:50 PT 10.3 SECONDS (9.4-12.5) 05/15/18 16:55 INR 0.91 05/15/18 16:55 APTT 107.0 Seconds (25.1-36.5) H 05/16/18 08:50 - Constitutional Appears: Non-toxic, No Acute Distress, Chronically Ill - Head Exam Head Exam: ATRAUMATIC, NORMOCEPHALIC - Eye Exam Eye Exam: EOMI, PERRL Pupil Exam: NORMAL ACCOMODATION, PERRL - ENT Exam ENT Exam: Mucous Membranes Moist, Normal External Ear Exam, TM's Normal Bilaterally - Neck Exam Neck Exam: Full ROM, Normal Inspection - Respiratory Exam Respiratory Exam: Clear to Ausculation Bilateral, NORMAL BREATHING PATTERN. absent: Rales, Rhonchi, Wheezes - Cardiovascular Exam Cardiovascular Exam: REGULAR RHYTHM, RRR, +S1, +S2 - GI/Abdominal Exam GI & Abdominal Exam: Soft, Normal Bowel Sounds. absent: Distended, Tenderness - Extremities Exam Extremities Exam: Full ROM, Normal Inspection - Neurological Exam Neurological Exam: Alert, Awake, CN II-XII Intact, Oriented x3 - Psychiatric Exam Psychiatric exam: Normal Affect, Normal Mood - Skin Skin Exam: Intact, Normal Color Assessment and Plan - Assessment and Plan (Free Text) Assessment: 63 yo female with extensive medical history that includes pancreatic CA (s/p Whipple Aug 2017, on chemo since Nov, last chemo was 2 weeks ago), cervical CA ( s/p TAHBSO), DM2, hypertension, ATN, and cerebral malaria presents with SOB, nausea, and vomiting. Followed in the outpatient setting by Dr. Dee for Pancreatic Cancer. Will obtain Cardiology consult. For now, the patient will remain in telemetry floor. Recheck laboratories and monitor respiratory status. VQ scan showed low probability for PE. Leukopenia. Viral illness? Mild hypokalemia. Feeling a little better today. Awaiting Heme/Onc and Cardiology evaluations. Supportive care.
[2018-05-16] MEDS ORDERED: Potassium Chloride 20 mEq ER Tab PO ONE (23:57)
[2018-05-17 07:32] LABS: HEMOGLOBIN 8.7 g/dL (12.0-16.0); MEAN CELL VOLUME 89.3 fl (80.0-105.0); MEAN CORPUSCULAR HEMOGLOBIN 28.2 pg (25.0-35.0); MEAN CORPUSCULAR HGB CONC 31.6 g/dl (31.0-37.0); MEAN PLATELET VOLUME 9.2 fl (7.0-11.0); RBC 3.08 10^6/uL (3.5-6.1); RED CELL DISTRIBUTION WIDTH 18.8 % (11.5-14.5)
[2018-05-17 07:49] LABS: ALB/GLOB RATIO 1.1 (1.1-1.8); ALBUMIN 3.2 g/dL (3.0-4.8); ALT/SGPT 29 U/L (7-56); AST/SGOT 27 U/L (14-36); BLOOD UREA NITROGEN 11 mg/dL (7-21); CALCIUM 8.7 mg/dL (8.4-10.5); GFR AFRICAN-AMERICAN > 60; GFR NON-AFRICAN AMERICAN > 60
[2018-05-17 07:50] LABS: WHITE BLOOD COUNT 2.3 10^3/ul (4.5-11.0)
[2018-05-17] MEDS: Insulin Detemir 100 units/ml Vial (Levemir) SC SCH (09:25)
[2018-05-17] MEDS: Heparin25000 units/250ml 1/2NS 25,000 UNITS/250 ML BAG IV PRN (14:21)
--- NOTE | 2018-05-17 17:14 | CP.PCM.PN ---
Subjective - Date & Time of Evaluation Date of Evaluation: 05/17/18 Time of Evaluation: 15:30 - Subjective Subjective: Internal Medicine Covering Attending Progress Note: May 17, 2018 63 yo female with PMH of pancreatic CA (s/p Whipple Aug 2017, on chemo since Nov , last chemo was 2 weeks ago), cervical CA (s/p TAHBSO), DM2, hypertension, ATN , and cerebral malaria who presents to Emergency department with shortness of breath since this afternoon. She states that she has also felt nauseous and vomited once earlier this AM. She took her BP this AM and it was 198/90. She took all three of her BP medicines at that time. When she woke up from a nap this afternoon, she felt shortness of breath with even mild exertion. She states that she felt this way once before, presented to the Emergency department , and was found to have a PE at that time. Otherwise, she denies fever, chills, night sweats, chest pain, diarrhea, constipation, peripheral swelling, or calf pain. She follows with Dr. Ashish Dee as an outpatient for her Cervical Cancer VQ scan showing low probability for PE. Leukopenia. Mild hypokalemia that is improving. Overall, the patient is feeling better. Objective - Vital Signs/Intake and Output Vital Signs (last 24 hours): Temp Pulse Resp BP Pulse Ox 98 F 82 18 154/87 H 96 05/17/18 12:00 05/17/18 14:00 05/17/18 12:00 05/17/18 12:00 05/17/18 05:36 Intake and Output: 05/17/18 05/17/18 06:59 18:59 Intake Total 259 300 Output Total 600 Balance 259 -300 - Medications Medications: Current Medications Hydralazine HCl (Apresoline) 100 mg PO BID [facility] Last Admin: 05/17/18 09:25 Dose: 100 mg Heparin Sodium/Sodium Chloride (Heparin 87048 Units/250ml 1/2 Normal Saline) 25 ,000 units in 250 mls @ 17.554 mls/hr IV .[id number] PRN; Protocol; 18 UNITS/KG/HR PRN Reason: ADJUST RATE PER PROTOCOL Last Admin: 05/17/18 14:21 Dose: 11.89 units/kg/hr, 11.6 mls/hr Insulin Detemir (Levemir) 11 unit SC DAILY [facility] Last Admin: 05/17/18 09:25 Dose: 11 unit Losartan Potassium (Cozaar) 50 mg PO DAILY [facility] Last Admin: 05/17/18 09:25 Dose: 50 mg Metoprolol Tartrate (Lopressor) 50 mg PO BRKDIN [facility] Last Admin: 05/17/18 08:44 Dose: 50 mg - Labs Labs: 05/17/18 06:45 05/17/18 06:45 PT 10.3 SECONDS (9.4-12.5) 05/15/18 16:55 INR 0.91 05/15/18 16:55 APTT 82.1 Seconds (25.1-36.5) H 05/17/18 06:45 - Constitutional Appears: Non-toxic, No Acute Distress, Chronically Ill - Head Exam Head Exam: ATRAUMATIC, NORMOCEPHALIC - Eye Exam Eye Exam: EOMI, PERRL Pupil Exam: NORMAL ACCOMODATION, PERRL - ENT Exam ENT Exam: Mucous Membranes Moist, Normal External Ear Exam, TM's Normal Bilaterally - Neck Exam Neck Exam: Full ROM, Normal Inspection - Respiratory Exam Respiratory Exam: Clear to Ausculation Bilateral, NORMAL BREATHING PATTERN. absent: Rales, Rhonchi, Wheezes - Cardiovascular Exam Cardiovascular Exam: REGULAR RHYTHM, RRR, +S1, +S2 - GI/Abdominal Exam GI & Abdominal Exam: Soft, Normal Bowel Sounds. absent: Distended, Tenderness - Extremities Exam Extremities Exam: Full ROM, Normal Inspection - Neurological Exam Neurological Exam: Alert, Awake, CN II-XII Intact, Oriented x3 - Psychiatric Exam Psychiatric exam: Normal Affect, Normal Mood - Skin Skin Exam: Intact, Normal Color Assessment and Plan - Assessment and Plan (Free Text) Assessment: 63 yo female with extensive medical history that includes pancreatic CA (s/p Whipple Aug 2017, on chemo since Nov, last chemo was 2 weeks ago), cervical CA ( s/p TAHBSO), DM2, hypertension, ATN, and cerebral malaria presents with SOB, nausea, and vomiting. Followed in the outpatient setting by Dr. Dee for Pancreatic Cancer. Will obtain Cardiology consult. For now, the patient will remain in telemetry floor. Recheck laboratories and monitor respiratory status. VQ scan showed low probability for PE. Leukopenia. Viral illness? Mild hypokalemia. Feeling a better today. Hypokalemia resolving. Still with leukopenia. Patient has an outpatient MRI scheduled for Friday... with discuss with Dr. Dee as he had ordered it. Awaiting Heme/Onc and Cardiology evaluations. Supportive care.
--- NOTE | 2018-05-17 22:04 | CP.PCM.PCO ---
Assessment & Plan - Assessment and Plan (Free Text) Assessment: covering for DR. Dee. Anemia- hb 8.7 , will monitor Hb/Hct. leukopenia : ANC 1700, no need for growth factors. VQ scan low probability. No fever. CT scan without contrast in am. - Date & Time Date: 05/17/18
--- NOTE | 2018-05-18 02:55 | CON ---
Copied To: Trey Ayala MD Attending MD: Trey Ayala MD DATE: 05/17/2018 CARDIOLOGY CONSULT HISTORY OF PRESENT ILLNESS: Patient is a 63-year-old female originally from [place]. She has a history of adenocarcinoma of the head of the pancreas, underwent Whipple surgery at [facility] in August of last year and in October of this year, was diagnosed with pulmonary embolus. The patient was found to have moderate-sized pulmonary emboli seen in her lower lobe. Patient has been on Coumadin therapy since then. She presented because of chest pain as well as shortness of breath. The patient denies any leg pain or leg swelling and the patient has been receiving chemotherapy. SOCIAL HISTORY: Nonsmoker, nondrinker. PAST MEDICAL HISTORY: History of cervical cancer, status post total abdominal hysterectomy, history of hypertension and type 2 diabetes mellitus. History of bilateral knee replacement. History of cerebral malaria. Recent history of pancreatic carcinoma, status post Whipple surgery in August of last year. History of pulmonary embolism in October this year. MEDICATIONS: Current medications are intravenous heparin infusion in therapeutic regimen for pulmonary embolus. Cozaar 50 mg once a day, hydralazine 100 mg twice a day, Lopressor 50 mg twice a day. PHYSICAL EXAMINATION: GENERAL: The patient is an elderly female, who does not appear to be in any acute distress. VITAL SIGNS: Blood pressure 154/87, heart rate 72, temperature 98, respirations 18. HEENT: Pale conjunctivae. CHEST: Bilateral rhonchi. HEART: S1 and S2 regular. ABDOMEN: Soft. EXTREMITIES: Trace leg edema. No calf tenderness. LABORATORY DATA: Hemoglobin and hematocrit 8.7 and 27.5, white count 2.3, platelet count 233,000. SMA-7: Sodium 143, potassium 3.5, chloride 109, CO2 27, , BUN 11, creatinine 0.6. INR on admission was 0.91. D-dimer was 1782. Ventillation/perfusion scan low probability for pulmonary embolus. EKG revealed sinus rhythm with poor R-wave progression. One set of troponin is 0.02. ASSESSMENT: 1. Chest pain, rule out myocardial infarction. 2. History of recent pulmonary embolus in October this year. 3. Patient was not adequately anticoagulation when she presented this time. 4. History of pancreatic cancer, status post Whipple's procedure and is currently undergoing chemotherapy. 5. Mild hypokalemia. RECOMMENDATIONS: Continue current intravenous heparin therapeutic regimen. Continue Cozaar at 50 mg once a day, hydralazine 100 mg three times a day, Lopressor 50 mg twice a day. Obtain venous Doppler of the lower extremities. The patient did receive oral potassium replacement yesterday and schedule the patient for an echocardiogram. Trey Ayala MD
[2018-05-18 06:44] VITALS: O2SAT 97
[2018-05-18 07:31] LABS: HEMOGLOBIN 8.7 g/dL (12.0-16.0); MEAN CELL VOLUME 89.1 fl (80.0-105.0); MEAN CORPUSCULAR HGB CONC 31.4 g/dl (31.0-37.0); MEAN PLATELET VOLUME 9.3 fl (7.0-11.0); RBC 3.11 10^6/uL (3.5-6.1); RED CELL DISTRIBUTION WIDTH 18.9 % (11.5-14.5)
[2018-05-18 07:39] LABS: ALBUMIN 3.1 g/dL (3.0-4.8); ALT/SGPT 29 U/L (7-56); AST/SGOT 23 U/L (14-36); BLOOD UREA NITROGEN 10 mg/dL (7-21); CALCIUM 8.7 mg/dL (8.4-10.5); GFR AFRICAN-AMERICAN > 60; GFR NON-AFRICAN AMERICAN > 60
[2018-05-18 07:42] LABS: WHITE BLOOD COUNT 2.1 10^3/ul (4.5-11.0)
--- NOTE | 2018-05-18 09:58 | US ---
HISTORY: Leg pain and swelling. Evaluate for DVT PHYSICIAN(S): Keith Guzman MD. TECHNIQUE: Duplex sonography and color-flow Doppler with graded compression were used to evaluate the deep venous systems of both lower extremities. FINDINGS: The visualized deep venous systems of both lower extremities are sonographically normal and compressible. Normal wave forms and augmentation are seen. There is no sonographic evidence for deep venous thrombosis in the visualized segments of both lower extremities. IMPRESSION: No sonographic evidence for deep venous thrombosis in the visualized segments of both lower extremities.
[2018-05-18] MEDS ORDERED: Enoxaparin 30 mg Syringe SC SCH (10:00)
[2018-05-18] MEDS: Insulin Detemir 100 units/ml Vial (Levemir) SC SCH (10:15)
[2018-05-18] MEDS ORDERED: Potassium Chloride 20 mEq ER Tab PO ONE (10:37)
--- NOTE | 2018-05-18 10:44 | PN ---
Copied To: Keith Stanley MD Attending MD: Keith Stanley MD DATE: 05/18/2018 CARDIOLOGY FOLLOWUP SUBJECTIVE: The patient is without shortness of breath. There is no edema in the lower extremities. PHYSICAL EXAMINATION: VITAL SIGNS: Blood pressure is 153/78, the heart rate is in the 70s. NECK: Negative JVD. LUNGS: Without rales. HEART: Reveals S1, S2. EXTREMITIES: Without edema. LABORATORY DATA: White count is 2.1. BUN and creatinine are unremarkable. Ultrasound of the lower extremities are pending. IMPRESSION: 1. Status post pulmonary embolism. 2. Pancreatic CA. 3. Hypertension. 4. Anemia. 5. Leukocytosis. PLAN: Given these findings, the patient is currently on anticoagulation. We will need to check the ultrasound of the lower extremities. Keith Stanley MD
[2018-05-18 11:50] VITALS: BP 117/69; RESP 18; TEMP 98.7
[2018-05-18 12:15] LABS: INR 0.99; PROTHROMBIN TIME 11.4 SECONDS (9.4-12.5)
[2018-05-18] MEDS ORDERED: Enoxaparin 80 mg Syringe SC STA (14:02)
[2018-05-18 16:33] VITALS: PULSE 73
--- NOTE | 2018-05-18 20:15 | CP.PCM.DIS ---
Provider - Provider Date of Admission: 05/15/18 18:24 Attending physician: Gómez Del Rosario MD Primary care physician: Gómez Del Rosario MD Consults: Dr. Patel - Heme/Onc Dr. Stanley - Cardiology Time Spent in preparation of Discharge (in minutes): 45 Hospital Course - Lab Results Lab Results: Most Recent Lab Values WBC 2.1 10^3/ul (4.5-11.0) L* 05/18/18 06:45 RBC 3.11 10^6/uL (3.5-6.1) L 05/18/18 06:45 Hgb 8.7 g/dL (12.0-16.0) L 05/18/18 06:45 Hct 27.7 % (36.0-48.0) L 05/18/18 06:45 MCV 89.1 fl (80.0-105.0) 05/18/18 06:45 MCH 28.0 pg (25.0-35.0) 05/18/18 06:45 MCHC 31.4 g/dl (31.0-37.0) 05/18/18 06:45 RDW 18.9 % (11.5-14.5) H 05/18/18 06:45 Plt Count 371 10^3/uL (120.0-450.0) 05/18/18 06:45 MPV 9.3 fl (7.0-11.0) 05/18/18 06:45 Gran % 61.4 % (50.0-68.0) 05/15/18 16:55 Lymph % (Auto) 31.7 % (22.0-35.0) 05/15/18 16:55 [place] % (Auto) 6.1 % (1.0-6.0) H 05/15/18 16:55 Eos % (Auto) 0.4 % (1.5-5.0) L 05/15/18 16:55 Baso % (Auto) 0.4 % (0.0-3.0) 05/15/18 16:55 Gran # 1.71 (1.4-6.5) 05/15/18 16:55 Lymph # (Auto) 0.9 (1.2-3.4) L 05/15/18 16:55 [place] # (Auto) 0.2 (0.1-0.6) 05/15/18 16:55 Eos # (Auto) 0.0 (0.0-0.7) 05/15/18 16:55 Baso # (Auto) 0.01 K/mm3 (0.0-2.0) 05/15/18 16:55 PT 11.4 SECONDS (9.4-12.5) 05/18/18 11:45 INR 0.99 05/18/18 11:45 APTT 73.8 Seconds (25.1-36.5) H 05/17/18 20:53 D-Dimer, Quantitative 1782 ng/mL 05/15/18 16:55 pO2 52 mm/Hg (30-55) 05/15/18 16:55 VBG pH 7.37 (7.32-7.43) 05/15/18 16:55 VBG pCO2 45.0 (40-60) 05/15/18 16:55 VBG HCO3 26.0 mmol/l (21-28) 05/15/18 16:55 VBG Total CO2 27.4 mmol.L (22-28) 05/15/18 16:55 VBG O2 Sat (Calc) 84.2 % (40-65) H 05/15/18 16:55 VBG Base Excess 0.3 mmol/L (0.0-2.0) 05/15/18 16:55 VBG Potassium 2.6 mmol/L (3.6-5.2) L 05/15/18 16:55 Sodium 145.0 mmol/L (132-148) 05/15/18 16:55 Chloride 114.0 mmol/L (98-107) H 05/15/18 16:55 Glucose 189 mg/dl (65-105) H 05/15/18 16:55 Lactate 1.2 mmol/L (0.7-2.1) 05/15/18 16:55 FiO2 21.0 % 05/15/18 16:55 Sodium 142 mmol/L (132-148) 05/18/18 06:30 Potassium 3.5 mmol/L (3.6-5.0) L 05/18/18 06:30 Chloride 109 mmol/L (98-107) H 05/18/18 06:30 Carbon Dioxide 28 mmol/L (21-33) 05/18/18 06:30 Anion Gap 9 (10-20) L 05/18/18 06:30 BUN 10 mg/dL (7-21) 05/18/18 06:30 Creatinine 0.6 mg/dl (0.7-1.2) L 05/18/18 06:30 Est GFR ( Amer) > 60 05/18/18 06:30 Est GFR (Non-Af Amer) > 60 05/18/18 06:30 POC Glucose (mg/dL) 83 mg/dL (65-110) 05/18/18 07:13 Random Glucose 90 mg/dL (70-110) 05/18/18 06:30 Calcium 8.7 mg/dL (8.4-10.5) 05/18/18 06:30 Phosphorus 4.1 mg/dL (2.5-4.5) 05/16/18 08:50 Magnesium 2.0 mg/dL (1.7-2.2) 05/18/18 06:45 Total Bilirubin 0.2 mg/dL (0.2-1.3) 05/18/18 06:30 AST 23 U/L (14-36) 05/18/18 06:30 ALT 29 U/L (7-56) 05/18/18 06:30 Alkaline Phosphatase 78 U/L (38-126) 05/18/18 06:30 Lactate Dehydrogenase 538 U/L (333-699) 05/15/18 16:55 Total Creatine Kinase 66 U/L (35-230) 05/15/18 16:55 Troponin I 0.02 ng/mL D 05/15/18 16:55 Total Protein 6.0 g/dL (5.8-8.3) 05/18/18 06:30 Albumin 3.1 g/dL (3.0-4.8) 05/18/18 06:30 Globulin 3.0 gm/dL 05/18/18 06:30 Albumin/Globulin Ratio 1.0 (1.1-1.8) L 05/18/18 06:30 Lipase 15 U/L (23-300) L 05/15/18 16:55 Venous Blood Potassium 2.6 mmol/L (3.6-5.2) L 08/03/18 16:55 - Hospital Course Hospital Course: Internal Medicine Covering Attending Discharge Summary: May 18, 2018 63 yo female with PMH of pancreatic CA (s/p Whipple Aug 2017, on chemo since Nov , last chemo was 2 weeks ago), cervical CA (s/p TAHBSO), DM2, hypertension, ATN , and cerebral malaria who presents to Emergency department with shortness of breath since this afternoon. She states that she has also felt nauseous and vomited once earlier this AM. She took her BP this AM and it was 198/90. She took all three of her BP medicines at that time. When she woke up from a nap this afternoon, she felt shortness of breath with even mild exertion. She states that she felt this way once before, presented to the Emergency department , and was found to have a PE at that time. Otherwise, she denies fever, chills, night sweats, chest pain, diarrhea, constipation, peripheral swelling, or calf pain. She follows with Dr. Ashish Patel as an outpatient for her Cervical Cancer VQ scan showing low probability for PE. Leukopenia. Mild hypokalemia that is improving. Overall, the patient is feeling better. Venous Doppler was negative for DVT. Leukopenia persisting. - Date & Time of H&P Date of H&P: 05/15/18 Time of H&P: 22:11 Discharge Exam - Head Exam Head Exam: ATRAUMATIC, NORMOCEPHALIC - Eye Exam Eye Exam: EOMI, PERRL Pupil Exam: NORMAL ACCOMODATION, PERRL - ENT Exam ENT Exam: Mucous Membranes Moist, Normal External Ear Exam, TM's Normal Bilaterally - Neck Exam Neck exam: Full Rom, Normal Inspection - Respiratory Exam Respiratory Exam: Clear to PA & Lateral, NORMAL BREATHING PATTERN. absent: Rales, Rhonchi, Wheezes - Cardiovascular Exam Cardiovascular Exam: REGULAR RHYTHM, RRR, +S1, +S2 - GI/Abdominal Exam GI & Abdominal Exam: Normal Bowel Sounds, Soft. absent: Distended, Tenderness - Extremities Exam Extremities exam: full ROM, normal inspection - Neurological Exam Neurological exam: Alert, CN II-XII Intact, Oriented x3 - Psychiatric Exam Psychiatric exam: Normal Affect, Normal Mood - Skin Skin Exam: Intact, Normal Color Discharge Plan - Discharge Medications Prescriptions: Enoxaparin [Lovenox] 100 mg SC Q12H #14 syr - Follow Up Plan Condition: FAIR Disposition: HOME/ ROUTINE Instructions: Chest Pain, Shortness of Breath (Dyspnea) Additional Instructions: DISCHARGE TO HOME TODAY. FOLLOW UP WITH DR. PATEL ON FRIDAY. FOLLOW UP WITH PRIMARY PHYSICIAN IN ONE WEEK. CALL TO MAKE AN APPOINTMENT. IF EXPERIENCING CHEST PAIN, SHORTNESS OF BREATH, DIFFICULTY WITH BREATHING CALL 911. CONTINUE HOME MEDICATIONS.
--- NOTE | 2018-05-18 21:47 | CARD ---
APPROVED REPORT Date of service: 05/18/2018 EXAM: Two-dimensional and M-mode echocardiogram with Doppler and color Doppler. INDICATION Chest Pain 2D DIMENSIONS Left Atrium (2D)5.9 (1.6-4.0cm)IVSd1.4 (0.7-1.1cm) LVDd5.3 (3.9-5.9cm)PWd1.6 (0.7-1.1cm) LVDs3.3 (2.5-4.0cm)FS (%) 37.2 % LVEF (%)66.6 (>50%) M-Mode DIMENSIONS Aortic Root3.70 (2.2-3.7cm)Aortic Cusp Exc.2.10 (1.5-2.0cm) Aortic Valve AoV Peak Jjzguphz511.0cm/Marciano Peak GR.13mmHg Mitral Valve MV E Vgnahuwd90.7cm/sMV A Hevnfnxh93.3cm/sE/A ratio0.7 TDI Lateral E' Peak V6.24cm/sE/Lateral E'10.0E/Medial E'0.0 Pulmonary Valve PV Peak Bmijuisl70.0cm/sPV Peak Grad.2mmHg Tricuspid Valve TR Peak [id number]/sRAP CDLCWDGH90wlOmYV Peak Gr.42mmHg [id number] LEFT VENTRICLE The left ventricle is normal size. There is mild concentric left ventricular hypertrophy. The left ventricular function is normal. The left ventricular ejection fraction is within the normal range. There is normal LV segmental wall motion. Transmitral Doppler flow pattern is Grade I-abnormal relaxation pattern. RIGHT VENTRICLE The right ventricle is normal size. There is normal right ventricular wall thickness. The right ventricular systolic function is normal. ATRIA The left atrium is severely dilated. The right atrium is mildly dilated. AORTIC VALVE The aortic valve is moderately thickened. No aortic regurgitation is present. There is no aortic valvular stenosis. MITRAL VALVE The mitral valve is mildly thickened. Mitral regurgitation is moderate. There is no mitral valve stenosis. TRICUSPID VALVE The tricuspid valve is normal in structure. There is moderate tricuspid regurgitation. There is moderate pulmonary hypertension. PULMONIC VALVE There is moderate pulmonic valvular regurgitation. GREAT VESSELS The aortic root is borderline enlarged. The IVC collapses <50% with inspiration. <Conclusion> The left ventricle is normal size. There is mild concentric left ventricular hypertrophy. The left ventricular function is normal. The left ventricular ejection fraction is within the normal range. There is normal LV segmental wall motion. Transmitral Doppler flow pattern is Grade I-abnormal relaxation pattern. Mitral regurgitation is moderate. There is moderate tricuspid regurgitation. There is moderate pulmonary hypertension. There is moderate pulmonic valvular regurgitation.
[2018-05-18] MEDS ORDERED: Enoxaparin 100 mg Syringe SC SCH (22:00)
--- NOTE | 2018-05-18 23:38 | CP.PCM.CON ---
History of Present Illness - History of Present Illness History of Present Illness: pt. admitted with shortness of breath. She is being treated with chemotherapy for Stage IV pancreatic cancer by Dr. Dee. VQ garza is low probability. She was started on heparin drip. CXR unremarkable. Blood counts showed pancytopenia. Review of Systems - Constitutional Constitutional: As Per HPI - EENT Eyes: absent: As Per HPI, Blind Spots, Blurred Vision, Change in Vision, Decreased Night Vision, Diplopia, Discharge, Dry Eye, Exophthalmos, Floaters, Irritation, Itchy Eyes, Loss of Peripheral Vision, Pain, Photophobia, Requires Corrective Lenses, Sees Flashes, Spots in Vision, Tunnel Vision, Other Visual Disturbances, Loss of Vision, Other Ears: absent: As Per HPI, Decreased Hearing, Ear Discharge, Ear Pain, Tinnitus, Abnormal Hearing, Disequilibrium, Dizziness, Other Nose/Mouth/Throat: absent: As Per HPI, Epistaxis, Nasal Congestion, Nasal Discharge, Nasal Obstruction, Nasal Trauma, Nose Pain, Post Nasal Drip, Sinus Pain, Sinus Pressure, Bleeding Gums, Change in Voice, Dental Pain, Dry Mouth, Dysphagia, Halitosis, Hoarsness, Lip Swelling, Mouth Lesions, Mouth Pain, Odynophagia, Sore Throat, Throat Swelling, Tongue Swelling, Facial Pain, Neck Pain, Neck Mass, Other - Cardiovascular Cardiovascular: absent: As Per HPI, Acrocyanosis, Chest Pain, Chest Pain at Rest , Chest Pain with Activity, Claudication, Diaphoresis, Dyspnea, Dyspnea on Exertion, Edema, Irregular Heart Rhythm, Pain Radiating to Arm/Neck/Jaw, Leg Edema, Leg Ulcers, Lightheadedness, Orthopnea, Palpitations, Paroxysmal Nocturnal Dyspnea, Pedal Edema, Radiating Pain, Rapid Heart Rate, Slow Heart Rate, Syncope, Other - Respiratory Respiratory: As Per HPI - Gastrointestinal Gastrointestinal: absent: As Per HPI, Abdominal Pain, Belching, Bloating, Change in Bowel Habits, Change in Stool Character, Coffee Ground Emesis, Constipation, Cramping, Diarrhea, Dyspepsia, Dysphagia, Early Satiety, Excessive Flatus, Fecal Incontinence, Heartburn, Hematemesis, Hematochezia, Loose Stools, Melena, Nausea, Odynophagia, Temesmus, Vomiting, Other - Musculoskeletal Musculoskeletal: absent: As Per HPI, Abnormal Gait, Arthralgias, Atrophy, Back Pain, Deformity, Joint Swelling, Limited Range of Motion, Loss of Height, Muscle Cramps, Muscle Weakness, Myalgias, Neck Pain, Numbness, Radiating Pain into Limb, Stiffness, Tingling, Other - Neurological Neurological: absent: As Per HPI, Abnormal Gait, Abnormal Hearing, Abnormal Movements, Abnormal Speech, Behavioral Changes, Burning Sensations, Confusion, Convulsions, Disequilibrium, Dizziness, Numbness, Focal Weakness, Frequent Falls , Headaches, Lack of Coordination, Loss of Vision, Memory Loss, Paresthesias, Radicular Pain, Restless Legs, Sensory Deficit, Syncope, Tingling, Tremor, Vertigo, Weakness, Other Visual Disturbances, Other - Psychiatric Psychiatric: absent: As Per HPI, Abnormal Sleep Pattern, Anhedonia, Anxiety, Auditory Hallucinations, Behavioral Changes, Change in Appetite, Change in Libido, Confusion, Depression, Difficulty Concentrating, Hallucinations, Homicidal Ideation, Hopelessness, Irritability, Memory Loss, Mood Swings, Panic Attacks, Paranoia, Suicidal Ideation, Visual Hallucinations, Tactile Hallucinations, Other - Hematologic/Lymphatic Hematologic: As Per HPI Past Patient History - Infectious Disease Hx of Infectious Diseases: None - Tetanus Immunizations Tetanus Immunization: Unknown - Past Medical History & Family History Past Medical History?: Yes - Past Social History Smoking Status: Former Smoker - CARDIAC Hx Hypertension: Yes Hx Pacemaker: No - PULMONARY Hx Pulmonary Embolism: Yes - NEUROLOGICAL Hx Paralysis: No - HEENT Hx HEENT Problems: Yes Hx Cataracts: Yes (BILATERAL ) - RENAL Hx Renal Failure: Yes - ENDOCRINE/METABOLIC Hx Diabetes Mellitus Type 1: Yes (on insulin) - HEMATOLOGICAL/ONCOLOGICAL Hx Blood Transfusions: Yes Hx Blood Transfusion Reaction: No Hx Cancer: Yes (pancreatic ca - on chemo) Other/Comment: uterine CA - INTEGUMENTARY Hx Dermatological Problems: No - MUSCULOSKELETAL/RHEUMATOLOGICAL Hx Musculoskeletal Disorders: No - GASTROINTESTINAL Hx Gastrointestinal Disorders: No Other/Comment: Pancreatic CA - GENITOURINARY/GYNECOLOGICAL Hx Genitourinary Disorders: Yes (ENDOMETRIAL CA W RADIATION) - PSYCHIATRIC Hx Emotional Abuse: No Hx Physical Abuse: No Hx Substance Use: No - SURGICAL HISTORY Hx Hysterectomy: Yes Hx Orthopedic Surgery: Yes (BKR) Other/Comment: whipple sx - ANESTHESIA Hx Anesthesia: Yes Hx Anesthesia Reactions: No Hx Malignant Hyperthermia: No Meds Home Medications: Home Medication List Medication Instructions Recorded Confirmed Type Enoxaparin [Lovenox] 100 mg SC Q12H #14 syr 05/18/18 Rx Allergies/Adverse Reactions: Allergies Allergy/AdvReac Type Severity Reaction Status Date / Time Penicillins Allergy SWELLING Verified 10/11/17 17:41 Physical Exam - Constitutional Appears: Well, Non-toxic - Head Exam Head Exam: ATRAUMATIC, NORMAL INSPECTION, NORMOCEPHALIC - Eye Exam Eye Exam: Normal appearance - ENT Exam ENT Exam: Mucous Membranes Moist, Normal Exam - Neck Exam Neck exam: Positive for: Normal Inspection - Respiratory Exam Respiratory Exam: Clear to Auscultation Bilateral, NORMAL BREATHING PATTERN - Cardiovascular Exam Cardiovascular Exam: REGULAR RHYTHM, +S1, +S2 - GI/Abdominal Exam GI & Abdominal Exam: Normal Bowel Sounds, Soft - Extremities Exam Extremities exam: Positive for: normal inspection - Neurological Exam Neurological exam: Alert, CN II-XII Intact, Normal Gait, Oriented x3 - Skin Skin Exam: Normal Color Results - Vital Signs Recent Vital Signs: Last Vital Signs Temp 98.7 F 05/18/18 11:50 Pulse 73 05/18/18 14:00 Resp 18 05/18/18 11:50 BP 117/69 05/18/18 11:50 Pulse Ox 97 05/18/18 06:00 - Labs Result Diagrams: 05/18/18 06:45 05/18/18 06:30 Labs: Laboratory Results - last 24 hr 05/16/18 05/16/18 05/17/18 16:05 21:23 07:13 WBC RBC Hgb Hct MCV MCH MCHC RDW Plt Count MPV PT INR Sodium Potassium Chloride Carbon Dioxide Anion Gap BUN Creatinine Est GFR ( Amer) Est GFR (Non-Af Amer) POC Glucose (mg/dL) 140 H 171 H 85 Random Glucose Calcium Magnesium Total Bilirubin AST ALT Alkaline Phosphatase Total Protein Albumin Globulin Albumin/Globulin Ratio 05/17/18 05/17/18 05/17/18 09:04 11:28 15:58 WBC RBC Hgb Hct MCV MCH MCHC RDW Plt Count MPV PT INR Sodium Potassium Chloride Carbon Dioxide Anion Gap BUN Creatinine Est GFR ( Amer) Est GFR (Non-Af Amer) POC Glucose (mg/dL) 190 H 125 H 127 H Random Glucose Calcium Magnesium Total Bilirubin AST ALT Alkaline Phosphatase Total Protein Albumin Globulin Albumin/Globulin Ratio 05/17/18 05/18/18 05/18/18 21:22 06:30 06:45 WBC 2.1 L* RBC 3.11 L Hgb 8.7 L Hct 27.7 L MCV 89.1 MCH 28.0 MCHC 31.4 RDW 18.9 H Plt Count 371 MPV 9.3 PT INR Sodium 142 Potassium 3.5 L Chloride 109 H Carbon Dioxide 28 Anion Gap 9 L BUN 10 Creatinine 0.6 L Est GFR ( Amer) > 60 Est GFR (Non-Af Amer) > 60 POC Glucose (mg/dL) 135 H Random Glucose 90 Calcium 8.7 Magnesium Total Bilirubin 0.2 AST 23 ALT 29 Alkaline Phosphatase 78 Total Protein 6.0 Albumin 3.1 Globulin 3.0 Albumin/Globulin Ratio 1.0 L 05/18/18 05/18/18 05/18/18 06:45 07:13 11:45 WBC RBC Hgb Hct MCV MCH MCHC RDW Plt Count MPV PT 11.4 INR 0.99 Sodium Potassium Chloride Carbon Dioxide Anion Gap BUN Creatinine Est GFR ( Amer) Est GFR (Non-Af Amer) POC Glucose (mg/dL) 83 Random Glucose Calcium Magnesium 2.0 Total Bilirubin AST ALT Alkaline Phosphatase Total Protein Albumin Globulin Albumin/Globulin Ratio Assessment & Plan - Assessment and Plan (Free Text) Assessment: 1. pancreatic cancer, stage IV on chemotherapy . FU with DR. Dee upon discharge from hospital. 2. Dyspnea : VQ scan low probability. DC heparin drip. Lovenox 30 SQ daily . 3. Pancytopenia : ANC 1700. Hb low. will continue to monitor blood counts. 4. Pain : none. 5.ID : no signs of infection. Thank you Dr. King for allowing us to participate in her care. - Date & Time Date: 05/18/18 Time: 08:00
== END 2018-05-18 17:45 | disposition home or self-care (01) | DRG 313 ==
LOC: ED 15:42 → ERH 18:24 → 2RSO 22:43 → ERH 23:06 → 2RSO 23:07
PROVIDERS: ADMIT Specialist; ATTEND Specialist
DX: R07.9 Chest pain, unspecified (principal); C25.9 Malignant neoplasm of pancreas, unspecified; D61.818 Other pancytopenia; D72.829 Elevated white blood cell count, unspecified; E87.6 Hypokalemia; I10 Essential (primary) hypertension; E11.9 Type 2 diabetes mellitus without complications; Z96.653 Presence of artificial knee joint, bilateral; Z85.42 Personal history of malignant neoplasm of other parts of uterus; Z86.711 Personal history of pulmonary embolism; Z85.41 Personal history of malignant neoplasm of cervix uteri; Z79.4 Long term (current) use of insulin; Z79.899 Other long term (current) drug therapy; Z80.0 Family history of malignant neoplasm of digestive organs; Z79.01 Long term (current) use of anticoagulants; Z86.13 Personal history of malaria; Z87.891 Personal history of nicotine dependence; Z90.411 Acquired partial absence of pancreas; Z90.710 Acquired absence of both cervix and uterus; Z92.21 Personal history of antineoplastic chemotherapy; Z87.448 Personal history of other diseases of urinary system

== ENCOUNTER 2018-10-20 11:10 | Outpatient (CLI) | payer MEDICARE, OTHER, MEDICAID | END 2018-10-20 11:11 | disposition home or self-care (01) | LOC: LAB 11:10 ==

== ENCOUNTER 2018-11-16 11:00 | Outpatient (CLI) | payer MEDICARE, OTHER | END 2018-11-16 11:01 | disposition home or self-care (01) | LOC: LAB 11:00 ==

== ENCOUNTER 2018-11-27 10:34 | Outpatient (CLI) | payer MEDICARE, OTHER | END 2018-11-27 10:35 | disposition home or self-care (01) | LOC: LAB 10:34 ==

== ENCOUNTER 2018-12-08 10:49 | Outpatient (CLI) | payer MEDICARE, OTHER | END 2018-12-08 10:50 | disposition home or self-care (01) | LOC: LAB 10:49 ==

== ENCOUNTER 2018-12-17 10:38 | Outpatient (CLI) | payer MEDICARE, OTHER | END 2018-12-17 10:39 | disposition home or self-care (01) | LOC: LAB 10:38 ==

== ENCOUNTER 2018-12-24 11:00 | Outpatient (CLI) | payer MEDICARE, OTHER | END 2018-12-24 11:01 | disposition home or self-care (01) | LOC: LAB 11:00 ==

== ENCOUNTER 2018-12-27 19:49 | Inpatient (IN) | payer MEDICARE, MEDICAID ==
[2018-12-27] MEDS ORDERED: Morphine 2 mg/ml ISec IVP STA (20:22)
[2018-12-27 20:54] LABS: BASO # 0.03 K/mm3 (0.0-2.0); BASO % 0.8 % (0.0-3.0); EOS # 0.1 (0.0-0.7); EOS % 1.4 % (1.5-5.0); LYMPH # 0.6 (1.2-3.4); LYMPH % 16.2 % (22.0-35.0); MEAN CELL VOLUME 85.1 fl (80.0-105.0); MEAN CORPUSCULAR HEMOGLOBIN 26.6 pg (25.0-35.0); MEAN CORPUSCULAR HGB CONC 31.3 g/dl (31.0-37.0); MEAN PLATELET VOLUME 9.2 fl (7.0-11.0); MONO # 0.3 (0.1-0.6); MONO % 8.7 % (1.0-6.0); RBC 3.76 10^6/uL (3.5-6.1); RED CELL DISTRIBUTION WIDTH 14.5 % (11.5-14.5); WHITE BLOOD COUNT 3.6 10^3/uL (4.5-11.0)
[2018-12-27 21:02] LABS: INR 1.45; PARTIAL THROMBOPLASTIN TIME 64.8 Seconds (26.9-38.3); PROTHROMBIN TIME 16.1 SECONDS (9.4-12.5)
[2018-12-27 21:52] LABS: ALBUMIN 3.6 g/dL (3.0-4.8); ALT/SGPT 9 U/L (7-56); AST/SGOT 22 U/L (14-36); BLOOD UREA NITROGEN 22 mg/dL (7-21); CALCIUM 9.3 mg/dL (8.4-10.5); GFR NON-AFRICAN AMERICAN > 60
[2018-12-27 21:55] LABS: TROPONIN I < 0.01 ng/mL
[2018-12-27] MEDS ORDERED: Insulin Regular 1 UNITS/0.01 ML ML IVP STA (21:56)
--- NOTE | 2018-12-27 22:51 | ED PDOC ---
Arrival/HPI - General Chief Complaint: Chest Pain Time Seen by Provider: 12/27/18 20:05 Historian: Patient - History of Present Illness Narrative History of Present Illness (Text): 12/27/18 20:05 Keri Dixon is a 63 year old female, with a past medical history of pancreatic CA (s/p Whipple Aug 2017) cervical CA (s/p TAHBSO), DM2, hypertension, ATN, and cerebral malaria, who presents to the emergency department complaining of neck pain and chest pain since one hour ago. Patient notes neck pain is worsened with movement and talking. Patient informs chest pain has currently resolved in the emergency department. Patient takes tramadol for pain. Patient denies any fevers, chills, headache, dizziness, shortness of breath, dyspnea on exertion, cough, abdominal pain, nausea, vomiting, diarrhea, back pain, or any other complaint. Time/Duration: 1 hour Symptom Onset: Sudden Activities at Onset: Light Context: Home Past Medical History - Provider Review Nursing Documentation Reviewed: Yes - Infectious Disease Hx of Infectious Diseases: None - Tetanus Immunization Tetanus Immunization: Unknown - Cardiac Hx Cardiac Disorders: Yes Hx Hypertension: Yes - Pulmonary Hx Respiratory Disorders: Yes Hx Pulmonary Embolism: Yes - Neurological Hx Neurological Disorder: No - HEENT Hx HEENT Disorder: Yes Hx Cataracts: Yes - Renal Hx Renal Disorder: Yes Hx Renal Failure: Yes - Endocrine/Metabolic Hx Endocrine Disorders: Yes Hx Diabetes Mellitus Type 1: Yes - Hematological/Oncological Hx Blood Disorders: Yes Hx Blood Transfusions: Yes Hx Blood Transfusion Reaction: No Hx Cancer: Yes (pancreatic ca - on chemo) Other/Comment: uterine CA - Integumentary Hx Dermatological Disorder: Yes - Musculoskeletal/Rheumatological Hx Musculoskeletal Disorders: No - Gastrointestinal Hx Gastrointestinal Disorders: Yes Other/Comment: Pancreatic CA, AP, LIVER CA - Genitourinary/Gynecological Hx Genitourinary Disorders: Yes (ENDOMETRIAL CA W RADIATION) - Psychiatric Hx Substance Use: No - Surgical History Hx Appendectomy: Yes Hx Hysterectomy: Yes Hx Orthopedic Surgery: Yes - Anesthesia Hx Anesthesia: Yes Hx Anesthesia Reactions: No Hx Malignant Hyperthermia: No - Suicidal Assessment Feels Threatened In Home Enviroment: No Family/Social History - Physician Review Nursing Documentation Reviewed: Yes Family/Social History: No Known Family HX Smoking Status: Former Smoker Hx Alcohol Use: Yes (SOCIALLY) Hx Substance Use: No Hx Substance Use Treatment: No Allergies/Home Meds Allergies/Adverse Reactions: Allergies Penicillins Allergy (Verified 10/11/17 17:41) SWELLING Home Medications: Home Meds Medication Instructions Recorded Confirmed Losartan [Cozaar] 50 mg PO DAILY 10/12/17 05/15/18 Metoprolol Tartrate [Lopressor] 50 mg PO BID 10/12/17 05/15/18 hydrALAZINE [Apresoline] 100 mg PO BID 10/12/17 05/15/18 Warfarin [Coumadin] 14 mg PO DAILY 11/17/17 05/15/18 Capecitabine 3 tab PO BID 03/30/18 05/15/18 Insulin Glargine,Hum.rec.anlog 11 unit SC DAILY 03/30/18 05/15/18 [Basaglar Kwikpen U-100] oxyCODONE/Acetaminophen [Percocet 1 tab PO PRN PRN 03/30/18 05/15/18 5/325 mg Tab] Review of Systems - Physician Review All systems were reviewed & negative as marked: Yes - Review of Systems Constitutional: absent: Fevers, Other (chills ) Respiratory: absent: SOB, Cough Cardiovascular: Chest Pain. absent: ROGERS Gastrointestinal: absent: Abdominal Pain, Diarrhea, Nausea, Vomiting Musculoskeletal: Neck Pain (worsened with movement and talking). absent: Back Pain Neurological: absent: Headache, Dizziness Physical Exam Vital Signs Reviewed: Yes Vital Signs Temp Pulse Resp BP Pulse Ox 12/27/18 20:26 75 18 104/68 97 12/27/18 20:04 98.1 F 81 17 102/57 L 100 Temperature: Afebrile Blood Pressure: Normal Pulse: Regular Respiratory Rate: Normal Appearance: Positive for: Well-Appearing, Non-Toxic, Comfortable Pain Distress: None Mental Status: Positive for: Alert and Oriented X 3 Finger Stick Blood Glucose: 601 - Systems Exam Head: Present: Atraumatic, Normocephalic Pupils: Present: PERRL Extroacular Muscles: Present: EOMI Conjunctiva: Present: Normal Mouth: Present: Moist Mucous Membranes Neck: Present: Normal Range of Motion Respiratory/Chest: Present: Clear to Auscultation, Good Air Exchange. No: Respiratory Distress, Accessory Muscle Use Cardiovascular: Present: Regular Rate and Rhythm, Normal S1, S2. No: Murmurs Abdomen: No: Tenderness, Distention, Peritoneal Signs Back: Present: Normal Inspection Upper Extremity: Present: Normal Inspection. No: Cyanosis, Edema Lower Extremity: Present: Normal Inspection. No: Edema Skin: Present: Warm, Dry, Normal Color. No: Rashes Psychiatric: Present: Alert, Oriented x 3, Normal Insight, Normal Concentration Medical Decision Making ED Course and Treatment: 12/27/18 20:05 Impression: Patient is a 63 year old female with a history of pancreatic CA, cervical CA (s/p TAHBSO), DM2, hypertension, ATN, and cerebral malaria who presents to the emergency department complaining of neck pain and chest pain since one hour ago. Patient informs neck pain is worsened with movement and talking. Chest pain has resolved in the emergency department. Differential Diagnosis included but are not limited to: Plan: -- EKG -- Labs -- Chest X-ray -- HumuLIN R -- Morphine -- Urinalysis -- Reassess and disposition Prior Visits: Notes and results from previous visits were reviewed. Progress Notes:case d/w dr aquino accepts case - Lab Interpretations Lab Results: PT 16.1 SECONDS (9.4-12.5) H 12/27/18 20:40 INR 1.45 12/27/18 20:40 APTT 64.8 Seconds (26.9-38.3) H 12/27/18 20:40 Troponin I < 0.01 ng/mL D 12/27/18 20:40 Total Bilirubin 0.3 mg/dL (0.2-1.3) 12/27/18 20:40 AST 22 U/L (14-36) 12/27/18 20:40 ALT 9 U/L (7-56) 12/27/18 20:40 Alkaline Phosphatase 163 U/L (38-126) H D 12/27/18 20:40 Total Protein 7.4 g/dL (5.8-8.3) 12/27/18 20:40 Albumin 3.6 g/dL (3.0-4.8) 12/27/18 20:40 Globulin 3.8 gm/dL 12/27/18 20:40 Albumin/Globulin Ratio 1.0 (1.1-1.8) L 12/27/18 20:40 - RAD Interpretation Radiology Orders: 12/27/18 20:22 CHEST PORTABLE [RAD] Stat - Medication Orders Current Medication Orders: Discontinued Medications Insulin Human Regular (Humulin R) 10 units IVP STAT STA Stop: 12/27/18 21:57 Last Admin: 12/27/18 22:10 Dose: 10 u MAR Blood Glucose Document 12/27/18 22:10 RG (Rec: 12/27/18 22:10 RG [facility] [id number] Blood Glucose Finger Stick Blood Glucose (70-120) 601 IVP Administration Document 12/27/18 22:10 RG (Rec: 12/27/18 22:10 RG [facility] [id number]) Charges for Administration # of IVP Administrations 1 Morphine Sulfate (Morphine) 2 mg IVP STAT STA Stop: 12/27/18 20:23 Last Admin: 12/27/18 20:44 Dose: 2 mg MAR Pain Assessment Document 12/27/18 20:44 MA (Rec: 12/27/18 20:44 [place] [facility] [place] Pain Reassessment Is this a pain reassessment? Yes Sleep Is patient sleeping during reassessment? No Presence of Pain Presence of Pain Yes Pain Scale Used Protocol: PSCALES Pain Scale Used Numeric Location Pain Location Body Site Neck Description Description Constant Intensity of Pain at present 5 Pain Behavior Grasping Site Rubbing Site Restlessness IVP Administration Document 12/27/18 20:44 MA (Rec: 12/27/18 20:44 [place] [facility] [id number] Charges for Administration # of IVP Administrations 1 - Scribe Statement The provider has reviewed the documentation as recorded by the Scribe Marck Benjamin All medical record entries made by the Scribe were at my direction and persona lly dictated by me. I have reviewed the chart and agree that the record accurately reflects my personal performance of the history, physical exam, medical decision making, and the department course for this patient. I have also personally directed, reviewed, and agree with the discharge instructions and disposition. Disposition/Present on Arrival - Present on Arrival Any Indicators Present on Arrival: No History of DVT/PE: Yes History of Uncontrolled Diabetes: No Urinary Catheter: No History of Decub. Ulcer: No History Surgical Site Infection Following: None - Disposition Have Diagnosis and Disposition been Completed?: Yes Diagnosis: Chest pain Disposition: HOSPITALIZED Disposition Time: 23:00 Condition: FAIR
[2018-12-28] MEDS: Oxycodone/Acetaminophen 5/325 mg Tab PO PRN ×2 (00:11→12:57)
[2018-12-28 02:55] VITALS: BMI 35.9
--- NOTE | 2018-12-28 06:16 | CP.PCM.CON ---
Past Patient History - Infectious Disease Hx of Infectious Diseases: None - Tetanus Immunizations Tetanus Immunization: Unknown - Past Medical History & Family History Past Medical History?: Yes - Past Social History Smoking Status: Never Smoked - CARDIAC Hx Hypercholesterolemia: Yes Hx Hypertension: Yes - PULMONARY Hx Chronic Obstructive Pulmonary Disease (COPD): Yes - NEUROLOGICAL Hx Neurological Disorder: No - HEENT Hx HEENT Problems: Yes Hx Cataracts: Yes - RENAL Hx Chronic Kidney Disease: Yes Hx Renal Failure: Yes - ENDOCRINE/METABOLIC Hx Diabetes Mellitus Type 1: Yes - HEMATOLOGICAL/ONCOLOGICAL Hx Cancer: Yes (pancreatic) - INTEGUMENTARY Hx Dermatological Problems: Yes - MUSCULOSKELETAL/RHEUMATOLOGICAL Hx Falls: Yes - GASTROINTESTINAL Hx Gastrointestinal Disorders: Yes Other/Comment: Pancreatic CA, AP, LIVER CA - GENITOURINARY/GYNECOLOGICAL Hx Genitourinary Disorders: Yes (ENDOMETRIAL CA W RADIATION) - PSYCHIATRIC Hx Substance Use: No - SURGICAL HISTORY Hx Surgeries: Yes (whipple) Hx Joint Replacement: Yes (b/l knee replacement) - ANESTHESIA Hx Anesthesia: Yes Hx Anesthesia Reactions: No Hx Malignant Hyperthermia: No Meds Allergies/Adverse Reactions: Allergies Allergy/AdvReac Type Severity Reaction Status Date / Time Penicillins Allergy SWELLING Verified 10/11/17 17:41 - Medications Medications: Current Medications Acetaminophen (Tylenol 325mg Tab) 650 mg PO Q4H PRN PRN Reason: Fever >100.5 F Apixaban (Eliquis) 5 mg PO BID [facility]; Protocol Furosemide (Lasix) 20 mg PO BID [facility] Hydralazine HCl (Apresoline) 25 mg PO BID [facility] Sodium Chloride (Sodium Chloride 0.45%) 1,000 mls @ 80 mls/hr IV .[id number] [facility] Last Admin: 12/28/18 00:00 Dose: 80 mls/hr Insulin Human Regular (Humulin R Low) 0 units SC ACHS [facility]; Protocol Losartan Potassium (Cozaar) 50 mg PO DAILY [facility] Oxycodone/Acetaminophen (Percocet 5/325 Mg Tab) 1 tab PO Q8 PRN PRN Reason: Pain, moderate (4-7) Stop: 12/30/18 23:46 Last Admin: 12/28/18 00:11 Dose: 1 tab Results - Vital Signs Recent Vital Signs: Last Vital Signs Temp 98.1 F 12/27/18 20:04 Pulse 67 12/28/18 02:00 Resp 18 12/28/18 02:36 BP 110/58 L 12/28/18 01:00 Pulse Ox 100 12/28/18 01:00 - Labs Result Diagrams: 12/27/18 20:40 12/27/18 20:40 Labs: Laboratory Results - last 24 hr 12/27/18 12/27/18 12/27/18 20:40 20:40 20:40 WBC 3.6 L RBC 3.76 Hgb 10.0 L Hct 32.0 L MCV 85.1 D MCH 26.6 MCHC 31.3 RDW 14.5 Plt Count 226 MPV 9.2 Neut % (Auto) 72.9 H Lymph % (Auto) 16.2 L [place] % (Auto) 8.7 H Eos % (Auto) 1.4 L Baso % (Auto) 0.8 Lymph # (Auto) 0.6 L [place] # (Auto) 0.3 Eos # (Auto) 0.1 Baso # (Auto) 0.03 Absolute Neuts (auto) 2.60 PT 16.1 H INR 1.45 APTT 64.8 H Sodium 133 Potassium 4.0 Chloride 95 L Carbon Dioxide 28 Anion Gap 14 BUN 22 H Creatinine 0.9 Est GFR ( Amer) > 60 Est GFR (Non-Af Amer) > 60 POC Glucose (mg/dL) Random Glucose 601 H* D Calcium 9.3 Magnesium 2.2 Total Bilirubin 0.3 AST 22 ALT 9 Alkaline Phosphatase 163 H D Lactate Dehydrogenase 447 Total Creatine Kinase 43 Troponin I < 0.01 D Total Protein 7.4 Albumin 3.6 Globulin 3.8 Albumin/Globulin Ratio 1.0 L 12/27/18 22:52 WBC RBC Hgb Hct MCV MCH MCHC RDW Plt Count MPV Neut % (Auto) Lymph % (Auto) [place] % (Auto) Eos % (Auto) Baso % (Auto) Lymph # (Auto) [place] # (Auto) Eos # (Auto) Baso # (Auto) Absolute Neuts (auto) PT INR APTT Sodium Potassium Chloride Carbon Dioxide Anion Gap BUN Creatinine Est GFR ( Amer) Est GFR (Non-Af Amer) POC Glucose (mg/dL) 288 H Random Glucose Calcium Magnesium Total Bilirubin AST ALT Alkaline Phosphatase Lactate Dehydrogenase Total Creatine Kinase Troponin I Total Protein Albumin Globulin Albumin/Globulin Ratio
[2018-12-28 09:12] LABS: BASO # 0.02 K/mm3 (0.0-2.0); BASO % 0.6 % (0.0-3.0); EOS # 0.1 (0.0-0.7); EOS % 2.3 % (1.5-5.0); HEMOGLOBIN 9.5 g/dL (12.0-16.0); LYMPH # 1.1 (1.2-3.4); LYMPH % 30.7 % (22.0-35.0); MEAN CELL VOLUME 84.7 fl (80.0-105.0); MEAN CORPUSCULAR HEMOGLOBIN 26.4 pg (25.0-35.0); MEAN CORPUSCULAR HGB CONC 31.1 g/dl (31.0-37.0); MEAN PLATELET VOLUME 8.9 fl (7.0-11.0); MONO # 0.3 (0.1-0.6); RBC 3.6 10^6/uL (3.5-6.1); RED CELL DISTRIBUTION WIDTH 14.5 % (11.5-14.5); WHITE BLOOD COUNT 3.6 10^3/uL (4.5-11.0)
[2018-12-28] MEDS: Insulin Reg-LOW-Coverage SC SCH ×2 (09:17→12:25)
[2018-12-28 09:31] LABS: ALB/GLOB RATIO 0.9 (1.1-1.8); ALBUMIN 3.4 g/dL (3.0-4.8); ALT/SGPT 14 U/L (7-56); AST/SGOT 22 U/L (14-36); BLOOD UREA NITROGEN 22 mg/dL (7-21); CALCIUM 9.1 mg/dL (8.4-10.5); GFR NON-AFRICAN AMERICAN > 60
[2018-12-28] MEDS ORDERED: Dextrose 50% SYRINGE Inj (50 ml) IV PRN (09:34)
--- NOTE | 2018-12-28 09:49 | CARD ---
APPROVED REPORT Date of service: 12/27/2018 EKG Measurement Heart [id number] <Conclusion> Normal sinus rhythm Left axis deviation Abnormal ECG
--- NOTE | 2018-12-28 09:55 | RAD ---
Date of service: 12/27/2018 HISTORY: cp COMPARISON: 05/15/2018 FINDINGS: LUNGS: No active pulmonary disease. PLEURA: No significant pleural effusion identified, no pneumothorax apparent. CARDIOVASCULAR: No aortic atherosclerotic calcification present. Normal cardiac size. No pulmonary vascular congestion. OSSEOUS STRUCTURES: No significant abnormalities. VISUALIZED UPPER ABDOMEN: Normal. OTHER FINDINGS: None. IMPRESSION: No active disease.
[2018-12-28] MEDS: Sodium Chloride 0.45% 1,000 ML IV SCH ×2 (12:26)
--- NOTE | 2018-12-28 16:30 | CON ---
DATE OF CONSULTATION: 12/28/2018 ENDOCRINOLOGY CONSULTATION HISTORY OF PRESENT ILLNESS: This is a 63-year-old female with known history of type 2 insulin-requiring diabetes, now being referred for metabolic management of recent hyperglycemic accelerations as noted thereof. PAST MEDICAL HISTORY: As mentioned above, history of type 2 insulin-requiring diabetes with very poor metabolic followup on the outpatient with erratic usage of her insulin regimen using only a sliding-scale coverage with no recent glucose monitoring levels available at this time. History of recurrent metastatic pancreatic carcinoma, currently on chemotherapy at this time. She had the previous Whipple's procedure done in 2017 as noted. History of cervical CA with a total abdominal hysterectomy and bilateral salpingo-oophorectomy and subsequent radiation treatments as given thereof, history of hypertension and dyslipidemia, history of previous admissions for congestive heart failure and currently on Lasix given as 20 mg b.i.d., and she admits to having also a history of coronary artery disease, the exact details are not known at this time. As per the historical data, she has some kind of history of cerebral malaria and received medications sometime ago. FAMILY HISTORY: Positive for hypertension and diabetes. SOCIAL HISTORY: The patient is a former smoker, has a supportive family otherwise. No other illicit drug use. REVIEW OF SYSTEMS: As mentioned above. Admits to generalized body weakness with severe neck pain and upper and lower back pain as noted with progressive dizziness and lightheadedness, worse on the day of admission. Also admits to precordial chest pain with progressive shortness of breath, initially on exertion and then at rest. Also admits to nausea, dyspepsia, and vague upper abdominal pains with the variable oral intake as noted. Also admits to marked polyuria, nocturia, and polydipsia. PHYSICAL EXAMINATION: GENERAL: An overweight female, in no apparent distress. VITAL SIGNS: Blood pressure of 154/90, pulse of 100 beats per minute regular, temperature 98, respirations 20, height is 5 feet 9 inches, weight is 226 pounds. HEENT: Head: Normocephalic. Eyes: Anicteric with pink conjunctivae. Fundoscopy not possible at this time. Ears, nose and throat: Otherwise normal. NECK: Supple. Thyroid gland is normal in size. No carotid bruits or any cervical adenopathy. CARDIOPULMONARY: Some adynamic precordium. S1, S2 are rapid and regular. LUNGS: Clear to auscultation. ABDOMEN: Flat, soft with positive bowel sounds. EXTREMITIES: No peripheral edema. Pulses are +2 bilaterally. LABORATORY DATA: Initial chemistries showed a BUN of 22, sodium 133, potassium 4, chloride 95, CO2 of 28, glucose is 601, and creatinine is 0.9. The subsequent glucose was 288 and 282 mg/dL. ASSESSMENT: This is a 63-year-old female with uncontrolled type 2 insulin-requiring diabetes, presenting here with marked hyperglycemic accelerations and associated hyperglycemic state and dehydration and is now being referred for diabetic evaluation and management. She also has significant pancreatic carcinoma with apparent liver metastasis at this time with ongoing chemotherapy as given by Dr. Dee, her oncologist. PLAN OF MANAGEMENT: Because of the marked glucotoxicity and metabolic symptoms thereof, we will switch her over to a more physiologic basal and bolus insulin regimen combination at least for inpatient diabetic management. She may go home on her sliding-scale coverage, but at least for inpatient management, we will optimize her metabolic control and lower the glucotoxicity to improve her metabolic symptoms thereof. We will add Levemir given as 20 units subcu at bedtime daily as given. We will also add Humalog given as 10 units t.i.d. before meals to start today as ordered. We will modify the coverage scale to obviate hypoglycemia and detailed orders have been given. A hemoglobin A1c will be sent out to confirm her prior glycemic control and baseline thyroid function studies and a lipid panel will be ordered. We will recommend IV hydration given prudently, especially in the light of previous history of congestive heart failure and liver metastases with possible ascites and fluid retention at this time. We will obtain serial chemistries and supplement accordingly needed. We will follow. Adrienne Sanchez MD
[2018-12-28 17:09] LABS: URINE BILIRUBIN NEGATIVE (NEGATIVE); URINE BLOOD NEGATIVE (NEGATIVE); URINE GLUCOSE (UA) >=1000 mg/dL (NEGATIVE); URINE LEUKOCYTE ESTERASE NEGATIVE Leu/uL (NEGATIVE); URINE PROTEIN NEGATIVE mg/dL (<30 mg/dL); URINE UROBILINOGEN 0.2 E.U./dL (<1 E.U./dL)
[2018-12-28] MEDS: Insulin Lispro 1 UNITS/0.01 ML SC SCH (17:11)
[2018-12-28 17:12] LABS: URINE APPEARANCE CLEAR (CLEAR); URINE COLOR YELLOW (YELLOW)
[2018-12-28] MEDS: Insulin Lispro (humaLOG) LOW Coverage SC SCH ×2 (17:12→23:30)
[2018-12-28] MEDS ORDERED: Insulin Detemir 100 units/ml Vial (Levemir) SC SCH (22:00)
--- NOTE | 2018-12-28 23:32 | CP.PCM.CON ---
History of Present Illness - History of Present Illness History of Present Illness: 63 year old female with a history of malaria, uterine cancer s/p GARCIA and adjuvant radiation in 2013, stage IV pancreatic adenocarcinoma with liver metastasis on chemotherapy (Abraxane and gemcitabine), PE on coumadin, presenting with neck and chest pain, found to have hyperglycemia. The patient notes to getting dizzy, followed by experiencing neck and chest pain when taking stairs. She notes to feeling more weak since her chemotherapy last week. Her symptoms concerned her and she came to the ER. She notes to feeling better si nce starting IV fluids. In regards to her cancer, she is s/p whipple procedure at [facility] in 08/2017, followed by adjuvant chemoradiation. She unfortunately was found to have metastatic disease involving the liver and has been on chemotherapy since 10/2018. Past medical history: malaria, uterine cancer s/p GARCIA and adjuvant radiation in 2013, pancreatic adenocarcinoma s/p whipple procedure at [facility] in 08/2017 Past surgical history: GARCIA, Whipple procedure, knee replacement Family history: Mother had unknown cancer, brother had colon cancer Social history: former tobacco, denies alcohol, and illicit drug use. Allergies: Penicillins Review of systems: All remaining review of systems including HEENT, cardiovascular, respipratory, gastrointestinal, genitourinary, musculoskeletal, dermatologic, neurologic, and psychiatric are negative unless mentioned in the HPI. Past Patient History - Infectious Disease Hx of Infectious Diseases: None - Tetanus Immunizations Tetanus Immunization: Unknown - Past Medical History & Family History Past Medical History?: Yes - Past Social History Smoking Status: Never Smoked - CARDIAC Hx Hypercholesterolemia: Yes Hx Hypertension: Yes - PULMONARY Hx Chronic Obstructive Pulmonary Disease (COPD): Yes - NEUROLOGICAL Hx Neurological Disorder: No - HEENT Hx HEENT Problems: Yes Hx Cataracts: Yes - RENAL Hx Chronic Kidney Disease: Yes Hx Renal Failure: Yes - ENDOCRINE/METABOLIC Hx Diabetes Mellitus Type 1: Yes - HEMATOLOGICAL/ONCOLOGICAL Hx Cancer: Yes (pancreatic) - INTEGUMENTARY Hx Dermatological Problems: Yes - MUSCULOSKELETAL/RHEUMATOLOGICAL Hx Falls: Yes - GASTROINTESTINAL Hx Gastrointestinal Disorders: Yes Other/Comment: Pancreatic CA, AP, LIVER CA - GENITOURINARY/GYNECOLOGICAL Hx Genitourinary Disorders: Yes (ENDOMETRIAL CA W RADIATION) - PSYCHIATRIC Hx Substance Use: No - SURGICAL HISTORY Hx Surgeries: Yes (whipple) Hx Joint Replacement: Yes (b/l knee replacement) - ANESTHESIA Hx Anesthesia: Yes Hx Anesthesia Reactions: No Hx Malignant Hyperthermia: No Meds Allergies/Adverse Reactions: Allergies Allergy/AdvReac Type Severity Reaction Status Date / Time Penicillins Allergy SWELLING Verified 10/11/17 17:41 - Medications Medications: Current Medications Acetaminophen (Tylenol 325mg Tab) 650 mg PO Q4H PRN PRN Reason: Fever >100.5 F Dextrose (Dextrose 50% Inj) 0 ml IV STAT PRN; Protocol PRN Reason: Hypoglycemia Protocol Famotidine (Pepcid) 20 mg PO 1000,2200 [facility] Last Admin: 12/28/18 22:33 Dose: 20 mg Furosemide (Lasix) 20 mg PO BID [facility] Last Admin: 12/28/18 17:10 Dose: 20 mg Hydralazine HCl (Apresoline) 25 mg PO BID [facility] Last Admin: 12/28/18 17:09 Dose: 25 mg Sodium Chloride (Sodium Chloride 0.45%) 1,000 mls @ 80 mls/hr IV .[id number] [facility] Last Admin: 12/28/18 12:26 Dose: 80 mls/hr Dextrose (Dextrose 5% In Water 1000 Ml) 1,000 mls @ 0 mls/hr IV .Q0M PRN; Protocol PRN Reason: Hypoglycemia Protocol Insulin Detemir (Levemir) 20 unit SC [facility] Last Admin: 12/28/18 22:32 Dose: 20 unit Insulin Human Lispro (Humalog Low) 0 units SC ACHS [facility]; Protocol Last Admin: 12/28/18 17:12 Dose: Not Given Insulin Human Lispro (Humalog) 10 units SC [facility] Last Admin: 12/28/18 17:11 Dose: 10 units Losartan Potassium (Cozaar) 50 mg PO DAILY [facility] Last Admin: 12/28/18 09:18 Dose: 50 mg Metoprolol Tartrate (Lopressor) 25 mg PO HS [facility] Last Admin: 12/28/18 22:33 Dose: 25 mg Oxycodone/Acetaminophen (Percocet 5/325 Mg Tab) 1 tab PO Q8 PRN PRN Reason: Pain, moderate (4-7) Stop: 12/30/18 23:46 Last Admin: 12/28/18 12:57 Dose: 1 tab Warfarin Sodium (Coumadin) 9 mg PO 1800 [facility] Last Admin: 12/28/18 17:10 Dose: 9 mg Physical Exam - Head Exam Head Exam: ATRAUMATIC - Eye Exam Eye Exam: Normal appearance - ENT Exam ENT Exam: Mucous Membranes Dry - Respiratory Exam Respiratory Exam: Decreased Breath Sounds, NORMAL BREATHING PATTERN - Cardiovascular Exam Cardiovascular Exam: +S1, +S2 - GI/Abdominal Exam GI & Abdominal Exam: Normal Bowel Sounds - Extremities Exam Extremities exam: Positive for: normal inspection - Neurological Exam Neurological exam: Oriented x3 - Psychiatric Exam Psychiatric exam: Normal Affect, Normal Mood - Skin Skin Exam: Warm Results - Vital Signs Recent Vital Signs: Last Vital Signs Temp 97.4 F L 12/28/18 18:00 Pulse 85 12/28/18 22:33 Resp 18 12/28/18 18:00 BP 133/70 12/28/18 18:00 Pulse Ox 100 12/28/18 01:00 - Labs Result Diagrams: 12/28/18 08:30 12/28/18 08:30 Labs: Laboratory Results - last 24 hr 12/27/18 12/28/18 12/28/18 22:52 01:04 08:30 WBC 3.6 L RBC 3.60 Hgb 9.5 L Hct 30.5 L MCV 84.7 MCH 26.4 MCHC 31.1 RDW 14.5 Plt Count 195 MPV 8.9 Neut % (Auto) 57.4 Lymph % (Auto) 30.7 [place] % (Auto) 9.0 H Eos % (Auto) 2.3 Baso % (Auto) 0.6 Lymph # (Auto) 1.1 L [place] # (Auto) 0.3 Eos # (Auto) 0.1 Baso # (Auto) 0.02 Absolute Neuts (auto) 2.04 Sodium Potassium Chloride Carbon Dioxide Anion Gap BUN Creatinine Est GFR ( Amer) Est GFR (Non-Af Amer) POC Glucose (mg/dL) 288 H 225 H Random Glucose Hemoglobin A1c Calcium Phosphorus Magnesium Total Bilirubin AST ALT Alkaline Phosphatase Total Protein Albumin Globulin Albumin/Globulin Ratio Urine Color Urine Appearance Urine pH Ur Specific [place] Urine Protein Urine Glucose (UA) Urine Ketones Urine Blood Urine Nitrate Urine Bilirubin Urine Urobilinogen Ur Leukocyte Esterase 12/28/18 12/28/18 12/28/18 08:30 09:35 16:53 WBC RBC Hgb Hct MCV MCH MCHC RDW Plt Count MPV Neut % (Auto) Lymph % (Auto) [place] % (Auto) Eos % (Auto) Baso % (Auto) Lymph # (Auto) [place] # (Auto) Eos # (Auto) Baso # (Auto) Absolute Neuts (auto) Sodium 135 Potassium 3.9 Chloride 97 L Carbon Dioxide 31 Anion Gap 12 BUN 22 H Creatinine 0.8 Est GFR ( Amer) > 60 Est GFR (Non-Af Amer) > 60 POC Glucose (mg/dL) Random Glucose 282 H Hemoglobin A1c 11.0 H D Calcium 9.1 Phosphorus 3.9 Magnesium 2.2 Total Bilirubin 0.3 AST 22 ALT 14 Alkaline Phosphatase 146 H Total Protein 7.1 Albumin 3.4 Globulin 3.7 Albumin/Globulin Ratio 0.9 L Urine Color Yellow Urine Appearance Clear Urine pH 6.0 Ur Specific [place] 1.020 Urine Protein Negative Urine Glucose (UA) >=1000 Urine Ketones Negative Urine Blood Negative Urine Nitrate Negative Urine Bilirubin Negative Urine Urobilinogen 0.2 Ur Leukocyte Esterase Negative Assessment & Plan (1) Anemia Assessment and Plan: retic count, b12, folate, ferritin anemia of chemotherapy anemia of chronic disease from malignancy Status: Acute Priority: High (2) Leukopenia Assessment and Plan: no neutropenia secondary to chemotherapy Status: Acute (3) History of pulmonary embolism Assessment and Plan: on coumadin; goal INR 2-3 Status: Acute (4) Pancreatic cancer Assessment and Plan: stage IV liver metastasis outpatient chemotherapy Thank you for this interesting consult. Status: Acute
[2018-12-29] MEDS: Sodium Chloride 0.45% 1,000 ML IV SCH ×2 (01:00→13:23)
[2018-12-29] MEDS: Oxycodone/Acetaminophen 5/325 mg Tab PO PRN ×2 (03:11→19:53)
[2018-12-29 07:11] LABS: INR 1.75; PROTHROMBIN TIME 19.8 SECONDS (9.4-12.5)
[2018-12-29 07:15] LABS: BASO # 0.01 K/mm3 (0.0-2.0); BASO % 0.2 % (0.0-3.0); EOS # 0.1 (0.0-0.7); EOS % 1.8 % (1.5-5.0); HEMOGLOBIN 9.2 g/dL (12.0-16.0); LYMPH # 1.3 (1.2-3.4); LYMPH % 22.5 % (22.0-35.0); MEAN CELL VOLUME 85.3 fl (80.0-105.0); MEAN CORPUSCULAR HGB CONC 30.5 g/dl (31.0-37.0); MEAN PLATELET VOLUME 9.2 fl (7.0-11.0); MONO # 0.5 (0.1-0.6); MONO % 8.3 % (1.0-6.0); RBC 3.54 10^6/uL (3.5-6.1); RED CELL DISTRIBUTION WIDTH 14.7 % (11.5-14.5); WHITE BLOOD COUNT 5.6 10^3/uL (4.5-11.0)
[2018-12-29 07:19] LABS: ALB/GLOB RATIO 0.9 (1.1-1.8); ALBUMIN 3.2 g/dL (3.0-4.8); ALT/SGPT 9 U/L (7-56); AST/SGOT 28 U/L (14-36); BLOOD UREA NITROGEN 22 mg/dL (7-21); GFR NON-AFRICAN AMERICAN > 60; HDL CHOLESTEROL 52 mg/dL (29-60)
[2018-12-29 07:25] LABS: LDL CHOLESTEROL 86 mg/dL (0-129)
[2018-12-29] MEDS: Insulin Lispro 1 UNITS/0.01 ML SC SCH ×3 (08:35→17:52)
[2018-12-29] MEDS: Insulin Lispro (humaLOG) LOW Coverage SC SCH ×4 (08:38→22:30)
[2018-12-29] MEDS: POLYETHYLENE GLYCOL 3350 17 GM/Dose PACKET PO SCH (13:15)
--- NOTE | 2018-12-29 15:26 | HP ---
DATE OF EXAM: 12/28/2018 HISTORY OF PRESENT ILLNESS: The patient is a 63-year-old white female with history of pancreatic CA, status post Whipple and cervical CA and cerebral malaria, who came to the emergency room. The patient was complaining of chest pain. The patient also was complaining of some dizziness. The patient is still feeling dizzy after having chemotherapy just about 4 to 5 days ago and since then the patient has been noticing dizziness and she was feeling the room was spinning, but today the patient wants to come into the hospital, the patient is still having some chest pain increasing with deep breathing, so the patient came to the emergency room, got a NOS1 in the emergency room and has a blood sugar of 600. So, patient was admitted. ALLERGIES: PATIENT HAS NO KNOWN ALLERGIES. PAST MEDICAL HISTORY: History of CA of the pancreas with metastasis, on chemotherapy for the CA, hypertension, diabetes, and cerebral malaria. HOME MEDICATIONS: The patient was on different medications at home including , Losartan, and also warfarin if she has and metoprolol. SOCIAL HISTORY: She denied cigarettes, . FAMILY HISTORY: diabetes. REVIEW OF SYSTEMS: Was done on this patient, patient has initially on exertion and then at rest. The patient denies any chest pain at this point, but is having some pain with deep breathing. GI: The patient also has epigastric discomfort. : No dysuria. Neuro: The patient is feeling weak and dizzy. PHYSICAL EXAMINATION: GENERAL: The patient is alert, awake, and oriented x3, very pleasant. VITAL SIGNS: Blood pressure in the night of 132/78, pulse 80, respirations 18, and temperature 97.4. NECK: Supple. No JVD. LUNGS: No rales noted. CHEST: There is some tenderness with pressure over the chest wall at left side. ABDOMEN: Soft, has some tenderness in the epigastric area. EXTREMITIES: No edema. LABORATORY DATA: The patient had blood work. White blood cell 3.6, hemoglobin 10, hematocrit 32, and platelets . Chemistry; sodium , potassium is 4, chloride 105, , BUN 22, and creatinine is 0.9. Glucose is 601. Alkaline phosphatase 163, albumin 3.6, globulin 2.8, AST 22, ALT 9. Coag showed that the PT 16.1, INR 1.4, repeat is 64.8. Chest x-ray done in the emergency room showed no acute changes. So the patient will be admitted. IMPRESSION: 1. Uncontrolled diabetes mellitus. 2. History of pancreatic cancer with metastasis. 3. Musculoskeletal chest pain. 4. Hypertension. 5. Dizziness. PLAN: The patient will have a consult with , line supervisor and . Gómez Del Rosario MD
[2018-12-29] MEDS: Insulin Detemir 100 units/ml Vial (Levemir) SC SCH (22:30)
--- NOTE | 2018-12-29 23:39 | CP.PCM.CON ---
History of Present Illness - History of Present Illness History of Present Illness: Infectious Disease Consultation: December 29, 2018 63 yo female with PMH of Stage IV pancreatic CA (s/p Whipple Aug 2017, on chemo since Nov, last chemo was 2 weeks ago), cervical CA (s/p TAHBSO), DM2, hyperten courtney, ATN, PE, and cerebral malaria who presents to Emergency department with neck and chest pains and found to have hyperglycemia. She is also complaining of dizziness. She was also found to have a low grade fever in the past 24 hours. History of PCN allergy. PMHx: pancreatic CA (s/p Whipple Aug 2017, on chemo since Nov, last chemo was 2 weeks ago), cervical CA (s/p TAHBSO), DM2, hypertension, ATN, and cerebral malaria PSHx: Whipple Aug 2017, TAHBSO Allergies: PCN Social Hx: Ex-smoker Social EtOH No illicit drug use Active Medications Acetaminophen (Tylenol 325mg Tab) 650 mg PO Q4H PRN PRN Reason: Fever >100.5 F Last Admin: 12/29/18 18:29 Dose: 650 mg Dextrose (Dextrose 50% Inj) 0 ml IV STAT PRN; Protocol PRN Reason: Hypoglycemia Protocol Famotidine (Pepcid) 20 mg PO 1000,2200 [facility] Last Admin: 12/29/18 21:49 Dose: 20 mg Furosemide (Lasix) 20 mg PO BID [facility] Last Admin: 12/29/18 17:48 Dose: 20 mg Glipizide (Glucotrol) 10 mg PO 0730,1630 [facility] Last Admin: 12/29/18 17:45 Dose: 10 mg Hydralazine HCl (Apresoline) 25 mg PO BID [facility] Last Admin: 12/29/18 17:47 Dose: 25 mg Sodium Chloride (Sodium Chloride 0.45%) 1,000 mls @ 80 mls/hr IV .[id number] [facility] Last Admin: 12/29/18 13:23 Dose: 80 mls/hr Dextrose (Dextrose 5% In Water 1000 Ml) 1,000 mls @ 0 mls/hr IV .Q0M PRN; Protocol PRN Reason: Hypoglycemia Protocol Levofloxacin/Dextrose (Levaquin 500mg) 500 mg in 100 mls @ 100 mls/hr IVPB DAILY [facility]; Protocol Insulin Detemir (Levemir) 30 unit SC HS [facility] Insulin Human Lispro (Humalog Low) 0 units SC ACHS [facility]; Protocol Last Admin: 12/29/18 17:39 Dose: Not Given Insulin Human Lispro (Humalog) 14 units SC AC [facility] Last Admin: 12/29/18 17:52 Dose: 14 units Losartan Potassium (Cozaar) 50 mg PO DAILY [facility] Last Admin: 12/29/18 10:11 Dose: 50 mg Metoprolol Tartrate (Lopressor) 25 mg PO HS [facility] Last Admin: 12/29/18 21:49 Dose: 25 mg Oxycodone/Acetaminophen (Percocet 5/325 Mg Tab) 1 tab PO Q8 PRN PRN Reason: Pain, moderate (4-7) Stop: 12/30/18 23:46 Last Admin: 12/29/18 19:53 Dose: 1 tab Polyethylene Glycol (Miralax) 17 gm PO DAILY [facility] Last Admin: 12/29/18 13:15 Dose: 17 gm Warfarin Sodium (Coumadin) 9 mg PO 1800 [facility] Last Admin: 12/29/18 17:44 Dose: 9 mg Family Hx: Mother - Pancreatic Cancer Uncle - Colon Cancer ROS: Nausea and vomiting. SOB. chest and neck pain. Dizziness. Low grade fever. No chills, diarrhea, headaches, abdominal pain, melena, hematuria, hematemesis, hematochezia, depression, anxiety. Past Patient History - Infectious Disease Hx of Infectious Diseases: None - Tetanus Immunizations Tetanus Immunization: Unknown - Past Medical History & Family History Past Medical History?: Yes - Past Social History Smoking Status: Never Smoked - CARDIAC Hx Hypercholesterolemia: Yes Hx Hypertension: Yes - PULMONARY Hx Chronic Obstructive Pulmonary Disease (COPD): Yes - NEUROLOGICAL Hx Neurological Disorder: No - HEENT Hx HEENT Problems: Yes Hx Cataracts: Yes - RENAL Hx Chronic Kidney Disease: Yes Hx Renal Failure: Yes - ENDOCRINE/METABOLIC Hx Diabetes Mellitus Type 1: Yes - HEMATOLOGICAL/ONCOLOGICAL Hx Cancer: Yes (pancreatic) - INTEGUMENTARY Hx Dermatological Problems: Yes - MUSCULOSKELETAL/RHEUMATOLOGICAL Hx Falls: Yes - GASTROINTESTINAL Hx Gastrointestinal Disorders: Yes Other/Comment: Pancreatic CA, AP, LIVER CA - GENITOURINARY/GYNECOLOGICAL Hx Genitourinary Disorders: Yes (ENDOMETRIAL CA W RADIATION) - PSYCHIATRIC Hx Substance Use: No - SURGICAL HISTORY Hx Surgeries: Yes (whipple) Hx Joint Replacement: Yes (b/l knee replacement) - ANESTHESIA Hx Anesthesia: Yes Hx Anesthesia Reactions: No Hx Malignant Hyperthermia: No Meds Allergies/Adverse Reactions: Allergies Allergy/AdvReac Type Severity Reaction Status Date / Time Penicillins Allergy SWELLING Verified 10/11/17 17:41 - Medications Medications: Current Medications Acetaminophen (Tylenol 325mg Tab) 650 mg PO Q4H PRN PRN Reason: Fever >100.5 F Last Admin: 12/29/18 18:29 Dose: 650 mg Dextrose (Dextrose 50% Inj) 0 ml IV STAT PRN; Protocol PRN Reason: Hypoglycemia Protocol Famotidine (Pepcid) 20 mg PO 1000,2200 [facility] Last Admin: 12/29/18 21:49 Dose: 20 mg Furosemide (Lasix) 20 mg PO BID [facility] Last Admin: 12/29/18 17:48 Dose: 20 mg Glipizide (Glucotrol) 10 mg PO 0730,1630 [facility] Last Admin: 12/29/18 17:45 Dose: 10 mg Hydralazine HCl (Apresoline) 25 mg PO BID [facility] Last Admin: 12/29/18 17:47 Dose: 25 mg Sodium Chloride (Sodium Chloride 0.45%) 1,000 mls @ 80 mls/hr IV .[id number] [facility] Last Admin: 12/29/18 13:23 Dose: 80 mls/hr Dextrose (Dextrose 5% In Water 1000 Ml) 1,000 mls @ 0 mls/hr IV .Q0M PRN; Protocol PRN Reason: Hypoglycemia Protocol Levofloxacin/Dextrose (Levaquin 500mg) 500 mg in 100 mls @ 100 mls/hr IVPB DAILY [facility]; Protocol Insulin Detemir (Levemir) 30 unit SC HS [facility] Insulin Human Lispro (Humalog Low) 0 units SC ACHS [facility]; Protocol Last Admin: 12/29/18 17:39 Dose: Not Given Insulin Human Lispro (Humalog) 14 units SC AC [facility] Last Admin: 12/29/18 17:52 Dose: 14 units Losartan Potassium (Cozaar) 50 mg PO DAILY [facility] Last Admin: 12/29/18 10:11 Dose: 50 mg Metoprolol Tartrate (Lopressor) 25 mg PO HS [facility] Last Admin: 12/29/18 21:49 Dose: 25 mg Oxycodone/Acetaminophen (Percocet 5/325 Mg Tab) 1 tab PO Q8 PRN PRN Reason: Pain, moderate (4-7) Stop: 12/30/18 23:46 Last Admin: 12/29/18 19:53 Dose: 1 tab Polyethylene Glycol (Miralax) 17 gm PO DAILY [facility] Last Admin: 12/29/18 13:15 Dose: 17 gm Warfarin Sodium (Coumadin) 9 mg PO 1800 [facility] Last Admin: 12/29/18 17:44 Dose: 9 mg Physical Exam - Constitutional Appears: Non-toxic, No Acute Distress, Chronically Ill - Head Exam Head Exam: ATRAUMATIC, NORMOCEPHALIC - Eye Exam Eye Exam: EOMI, PERRL Pupil Exam: NORMAL ACCOMODATION, PERRL - ENT Exam ENT Exam: Mucous Membranes Moist, Normal External Ear Exam, TM's Normal Bilaterally - Neck Exam Neck exam: Positive for: Full Rom, Normal Inspection - Respiratory Exam Respiratory Exam: Clear to Auscultation Bilateral, NORMAL BREATHING PATTERN. absent: Rales, Rhonchi, Wheezes - Cardiovascular Exam Cardiovascular Exam: REGULAR RHYTHM, RRR, +S1, +S2 - GI/Abdominal Exam GI & Abdominal Exam: Normal Bowel Sounds, Soft. absent: Distended, Tenderness - Extremities Exam Extremities exam: Positive for: full ROM, normal inspection - Neurological Exam Neurological exam: Alert, CN II-XII Intact, Oriented x3 - Psychiatric Exam Psychiatric exam: Normal Affect, Normal Mood - Skin Skin Exam: Intact, Warm Results - Vital Signs Recent Vital Signs: Last Vital Signs Temp 100.5 F H 12/29/18 18:29 Pulse 92 H 12/29/18 21:49 Resp 19 12/29/18 18:00 BP 134/64 12/29/18 18:00 Pulse Ox 99 12/29/18 06:00 - Labs Result Diagrams: 12/29/18 05:55 12/29/18 05:55 Labs: Laboratory Results - last 24 hr 12/28/18 12/29/18 12/29/18 21:29 05:55 05:55 WBC RBC Hgb Hct MCV MCH MCHC RDW Plt Count MPV Neut % (Auto) Lymph % (Auto) [place] % (Auto) Eos % (Auto) Baso % (Auto) Lymph # (Auto) [place] # (Auto) Eos # (Auto) Baso # (Auto) Absolute Neuts (auto) PT INR Sodium 136 Potassium 3.9 Chloride 99 Carbon Dioxide 31 Anion Gap 10 BUN 22 H Creatinine 0.8 Est GFR ( Amer) > 60 Est GFR (Non-Af Amer) > 60 POC Glucose (mg/dL) 279 H Random Glucose 253 H Calcium 9.0 Phosphorus 3.6 Magnesium 1.9 Total Bilirubin 0.2 AST 28 ALT 9 Alkaline Phosphatase 127 H Total Protein 6.8 Albumin 3.2 Globulin 3.6 Albumin/Globulin Ratio 0.9 L Triglycerides 53 Cholesterol 169 LDL Cholesterol Direct 86 HDL Cholesterol 52 TSH 3rd Generation 3.07 12/29/18 12/29/18 05:55 05:55 WBC 5.6 D RBC 3.54 Hgb 9.2 L Hct 30.2 L MCV 85.3 MCH 26.0 MCHC 30.5 L RDW 14.7 H Plt Count 167 MPV 9.2 Neut % (Auto) 67.2 Lymph % (Auto) 22.5 [place] % (Auto) 8.3 H Eos % (Auto) 1.8 Baso % (Auto) 0.2 Lymph # (Auto) 1.3 [place] # (Auto) 0.5 Eos # (Auto) 0.1 Baso # (Auto) 0.01 Absolute Neuts (auto) 3.73 PT 19.8 H INR 1.75 Sodium Potassium Chloride Carbon Dioxide Anion Gap BUN Creatinine Est GFR ( Amer) Est GFR (Non-Af Amer) POC Glucose (mg/dL) Random Glucose Calcium Phosphorus Magnesium Total Bilirubin AST ALT Alkaline Phosphatase Total Protein Albumin Globulin Albumin/Globulin Ratio Triglycerides Cholesterol LDL Cholesterol Direct HDL Cholesterol TSH 3rd Generation Assessment & Plan - Assessment and Plan (Free Text) Assessment: 63 yo female with neck and chest pains with leukopenia. Patient had low grade fevers today up to 100.5 F. Patient's leukopenia has improved to 5.6 now. PCN allergies. On chemotherapy of Abraxane and gemcitabine. On Levaquin for antibiotic therapy for now. Supportive care. Hernandez cultures. Monitor WBC. She may have leukocytosis. Thank you for allowing me to participate in the care of this patient, we will follow with you.
--- NOTE | 2018-12-30 00:35 | PN ---
DATE: 12/29/2018 SUBJECTIVE: Today, the patient is alert and awake. The patient was seen this morning, but denied any chest pain, no shortness of breath and observed. The patient was accepted for discharge this afternoon. When the nurse repeated the vital signs and was found the patient with a temperature of 100.5, so the discharge was put on hold and the patient was admitted. This morning, the lungs were clear. Heart was regular rate and rhythm. Abdomen was soft but mild tenderness, the patient was complaining of constipation early this morning. LABORATORY DATA: The lab has shown WBC was 5.6, hemoglobin 9.2, hematocrit 30.2, and platelet 167. Chemistry showed that the sodium 136, potassium 3.9, chloride 99, BUN 22, creatinine 0.8, and glucose was 253. Alkaline phosphatase is 127, AST 28, ALT is 9. PLAN: The plan is that we will put on hold the discharge. The patient will be admitted at this point and the patient will be put on Levaquin 500 mg IV daily for today and also urine culture, blood culture, chest x-ray and also the patient will have a consult with RACHEAL aLnders. The case was discussed with Dr. Dee this morning since it was considered to discharge the patient; however, because of the fever, we are going to hold the patient in the hospital. The case was discussed with the nurse that is serving the patient today. Gómez Del Rosario MD
--- NOTE | 2018-12-30 01:37 | PN ---
DATE: 12/29/2018 ENDOCRINOLOGY FOLLOWUP NOTE LOCATION: Room 264. SUBJECTIVE: This is a 63-year-old female with recent uncontrolled type 2 insulin-requiring diabetes now being followed closely for metabolic management. Her glycemic levels are fluctuating but improved and the glucose levels overnight have ranged from 153 to 178 mg/dL. It was 129 at lunchtime today and 201 at breakfast time today as noted. LABORATORY DATA: Her chemistry showed a BUN of 22, sodium 136, potassium 3.9, chloride 99, CO2 of 31, glucose 253 and creatinine 0.8. PLAN: So at this time, we will modify once again her basal and bolus insulin regimen and increase the Humalog to 14 units subcu t.i.d. before meals to start today as ordered. We will continue also the basal insulin given as Levemir at 30 units subcu at bedtime daily as given. We will titrate incrementally as indicated to optimize metabolic control. We will obtain serial chemistries and supplement accordingly as needed. We will follow. Adrienne Sanchez MD
[2018-12-30 08:01] LABS: ALBUMIN 3.3 g/dL (3.0-4.8); ALT/SGPT 11 U/L (7-56); AST/SGOT 26 U/L (14-36); BLOOD UREA NITROGEN 15 mg/dL (7-21); CALCIUM 8.9 mg/dL (8.4-10.5); GFR NON-AFRICAN AMERICAN > 60
[2018-12-30 08:06] LABS: BASO # 0.03 K/mm3 (0.0-2.0); BASO % 0.5 % (0.0-3.0); EOS # 0.1 (0.0-0.7); EOS % 2.3 % (1.5-5.0); HEMOGLOBIN 9.1 g/dL (12.0-16.0); LYMPH # 1.1 (1.2-3.4); LYMPH % 19.4 % (22.0-35.0); MEAN CELL VOLUME 85.5 fl (80.0-105.0); MEAN CORPUSCULAR HEMOGLOBIN 26.3 pg (25.0-35.0); MEAN CORPUSCULAR HGB CONC 30.7 g/dl (31.0-37.0); MEAN PLATELET VOLUME 9.5 fl (7.0-11.0); MONO # 0.9 (0.1-0.6); MONO % 15.1 % (1.0-6.0); RBC 3.46 10^6/uL (3.5-6.1); RED CELL DISTRIBUTION WIDTH 14.9 % (11.5-14.5); WHITE BLOOD COUNT 5.6 10^3/uL (4.5-11.0)
[2018-12-30] MEDS: Insulin Lispro 1 UNITS/0.01 ML SC SCH ×3 (08:28→17:19)
[2018-12-30] MEDS: Insulin Lispro (humaLOG) LOW Coverage SC SCH ×4 (08:30→21:43)
[2018-12-30] MEDS: Sodium Chloride 0.45% 1,000 ML IV SCH ×2 (08:49→17:27)
--- NOTE | 2018-12-30 09:17 | RAD ---
Date of service: 12/29/2018 HISTORY: fever COMPARISON: 12/27/2018 FINDINGS: LUNGS: No active pulmonary disease. PLEURA: No significant pleural effusion identified, no pneumothorax apparent. CARDIOVASCULAR: No aortic atherosclerotic calcification present. Mild cardiomegaly. No pulmonary vascular congestion. OSSEOUS STRUCTURES: No significant abnormalities. VISUALIZED UPPER ABDOMEN: Normal. OTHER FINDINGS: None. IMPRESSION: No active disease.
[2018-12-30] MEDS: levoFLOXacin 500 mg in D5W 500 MG/100 ML BAG IVPB SCH (11:16)
[2018-12-30] MEDS: POLYETHYLENE GLYCOL 3350 17 GM/Dose PACKET PO SCH (11:20)
[2018-12-30 12:01] LABS: URINE BILIRUBIN NEGATIVE (NEGATIVE); URINE BLOOD NEGATIVE (NEGATIVE); URINE GLUCOSE (UA) 100 mg/dL (NEGATIVE); URINE LEUKOCYTE ESTERASE NEGATIVE Leu/uL (NEGATIVE); URINE PROTEIN NEGATIVE mg/dL (<30 mg/dL); URINE UROBILINOGEN 0.2 E.U./dL (<1 E.U./dL)
[2018-12-30 12:10] LABS: URINE APPEARANCE CLEAR (CLEAR); URINE COLOR YELLOW (YELLOW)
--- NOTE | 2018-12-30 20:32 | CP.PCM.PN ---
Subjective - Date & Time of Evaluation Date of Evaluation: 12/30/18 Time of Evaluation: 18:45 - Subjective Subjective: Infectious Disease Follow Up: December 30, 2018 63 yo female with PMH of Stage IV pancreatic CA (s/p Whipple Aug 2017, on chemo since Nov, last chemo was 2 weeks ago), cervical CA (s/p TAHBSO), DM2, hypertension, ATN, PE, and cerebral malaria who presents to Emergency department with neck and chest pains and found to have hyperglycemia. She is also complaining of dizziness. She was also found to have a low grade fever in the past 48 hours. History of PCN allergy. No major complaints today. Afebrile today. Objective - Vital Signs/Intake and Output Vital Signs (last 24 hours): Temp Pulse Resp BP Pulse Ox 98.4 F 83 18 151/80 H 96 12/30/18 18:00 12/30/18 18:00 12/30/18 18:00 12/30/18 18:00 12/30/18 06:00 Intake and Output: 12/30/18 12/31/18 18:59 06:59 Intake Total 1310 Balance 1310 - Medications Medications: Current Medications Acetaminophen (Tylenol 325mg Tab) 650 mg PO Q4H PRN PRN Reason: Fever >100.5 F Last Admin: 12/29/18 18:29 Dose: 650 mg Dextrose (Dextrose 50% Inj) 0 ml IV STAT PRN; Protocol PRN Reason: Hypoglycemia Protocol Famotidine (Pepcid) 20 mg PO 1000,2200 [facility], [facility] Last Admin: 12/30/18 11:20 Dose: 20 mg Furosemide (Lasix) 20 mg PO BID [facility], [facility] Last Admin: 12/30/18 17:25 Dose: 20 mg Glipizide (Glucotrol) 10 mg PO 0730,1630 [facility], [facility] Last Admin: 12/30/18 17:19 Dose: 10 mg Hydralazine HCl (Apresoline) 25 mg PO BID [facility], [facility] Last Admin: 12/30/18 17:23 Dose: 25 mg Sodium Chloride (Sodium Chloride 0.45%) 1,000 mls @ 80 mls/hr IV .[id number] [facility], [facility] Last Admin: 12/30/18 17:27 Dose: Not Given Dextrose (Dextrose 5% In Water 1000 Ml) 1,000 mls @ 0 mls/hr IV .Q0M PRN; Protocol PRN Reason: Hypoglycemia Protocol Levofloxacin/Dextrose (Levaquin 500mg) 500 mg in 100 mls @ 100 mls/hr IVPB DAILY [facility], [facility]; Protocol Last Admin: 12/30/18 11:16 Dose: 100 mls/hr Insulin Detemir (Levemir) 30 unit SC HS [facility], [facility] Last Admin: 12/29/18 22:30 Dose: Not Given Insulin Human Lispro (Humalog Low) 0 units SC ACHS [facility], [facility]; Protocol Last Admin: 12/30/18 17:20 Dose: Not Given Insulin Human Lispro (Humalog) 14 units SC AC [facility] Last Admin: 12/30/18 17:19 Dose: 14 units Losartan Potassium (Cozaar) 50 mg PO DAILY [facility] Last Admin: 12/30/18 11:16 Dose: 50 mg Metoprolol Tartrate (Lopressor) 25 mg PO HS [facility] Last Admin: 12/29/18 21:49 Dose: 25 mg Oxycodone/Acetaminophen (Percocet 5/325 Mg Tab) 1 tab PO Q8 PRN PRN Reason: Pain, moderate (4-7) Stop: 12/30/18 23:46 Last Admin: 12/29/18 19:53 Dose: 1 tab Polyethylene Glycol (Miralax) 17 gm PO DAILY [facility] Last Admin: 12/30/18 11:20 Dose: 17 gm Warfarin Sodium (Coumadin) 9 mg PO 1800 [facility] Last Admin: 12/30/18 17:22 Dose: 9 mg - Labs Labs: 12/30/18 06:45 12/30/18 06:45 PT 19.8 SECONDS (9.4-12.5) H 12/29/18 05:55 INR 1.75 12/29/18 05:55 APTT 64.8 Seconds (26.9-38.3) H 12/27/18 20:40 - Constitutional Appears: Non-toxic, No Acute Distress, Chronically Ill - Head Exam Head Exam: ATRAUMATIC, NORMOCEPHALIC - Eye Exam Eye Exam: EOMI, PERRL Pupil Exam: NORMAL ACCOMODATION, PERRL - ENT Exam ENT Exam: Mucous Membranes Moist, Normal External Ear Exam, TM's Normal Bilaterally - Neck Exam Neck Exam: Full ROM, Normal Inspection - Respiratory Exam Respiratory Exam: Clear to Ausculation Bilateral, NORMAL BREATHING PATTERN. absent: Rales, Rhonchi, Wheezes - Cardiovascular Exam Cardiovascular Exam: REGULAR RHYTHM, RRR, +S1, +S2 - GI/Abdominal Exam GI & Abdominal Exam: Soft, Normal Bowel Sounds. absent: Distended, Tenderness - Extremities Exam Extremities Exam: Full ROM, Normal Inspection - Neurological Exam Neurological Exam: Alert, Awake, CN II-XII Intact, Oriented x3 - Psychiatric Exam Psychiatric exam: Normal Affect, Normal Mood - Skin Skin Exam: Intact, Normal Color Assessment and Plan - Assessment and Plan (Free Text) Assessment: 63 yo female with neck and chest pains with leukopenia. Patient had low grade fevers yesterday up to 100.5 F. Patient's leukopenia has improved to 5.6 now. PCN allergies. On chemotherapy of Abraxane and gemcitabine. On Levaquin for antibiotic therapy for now. Supportive care. Hernandez cultures. Cultures negative to date. Monitor WBC. She may have leukocytosis. No complaints today. Continue to monitor. Thank you for allowing me to participate in the care of this patient, we will follow with you.
[2018-12-30] MEDS: Insulin Detemir 100 units/ml Vial (Levemir) SC SCH (21:43)
[2018-12-30 22:23] LABS: INR 1.86; PROTHROMBIN TIME 20.7 SECONDS (9.4-12.5)
--- NOTE | 2018-12-30 22:31 | PN ---
DATE: 12/30/2018 ENDOCRINOLOGY FOLLOWUP NOTE LOCATION: Room 264. SUBJECTIVE: This is a 63-year-old female with recent uncontrolled type 2 insulin-requiring diabetes, presenting here with marked hyperglycemic accelerations and is now improving clinically and metabolically as noted thereof. Her glycemic levels today have ranged from 110 to 158 and 184 mg/dL. LABORATORY DATA: Her latest chemistry showed a BUN of 15, sodium 139, potassium 4, chloride 101, CO2 of 33, glucose 137 and creatinine 0.6. PLAN: So at this time, we will continue the same basal and bolus insulin regimen to allow for dose equilibration and keep her on the Humalog given as 14 units t.i.d. before meals as ordered. We will continue the low-dose correction scale using Humalog insulin as given. Moreover, we will also continue the same basal insulin given as Levemir at 30 units subcu at bedtime daily as ordered. We will obtain serial chemistries and supplement accordingly needed. We will follow. Adrienne Sanchez MD
--- NOTE | 2018-12-30 22:54 | PN ---
DATE: 12/30/2018 SUBJECTIVE: Today, the patient is alert, awake, and seen lying on the bed, no apparent distress. The patient, however, admitted with mild pain to the epigastric area, and also felt weak. OBJECTIVE: VITAL SIGNS: The patient has blood pressure now of 151/80 and pulse is 83, respiration is 18, temperature 98.4, and no fever today. NECK: Supple. LUNGS: Clear. HEART: Regular rate and rhythm. ABDOMEN: Soft. Mild epigastric tenderness. EXTREMITIES: There is no edema. NEUROLOGICAL: There is unsteady gait. ASSESSMENT AND PLAN: The patient had a consult with Dr. King, who is the Infectious Disease and urine culture and blood cultures were ordered yesterday, after the patient was found to have a fever of 100.5 and the patient being immunocompromised due to chemotherapy from it seems the patient has a cancer of the pancreas with metastasis. So at this point, we are going to continue the Levaquin IV and we will consider discharge if the patient remains afebrile and also we have the result of the blood culture. The case was discussed with the housing case manager and also with the nurse attending the patient today. The patient would be again on Coumadin 9 mg, the patient being also having history of pulmonary embolism, taking Coumadin even at home. Gómez Del Rosario MD
[2018-12-30] MEDS: Oxycodone/Acetaminophen 5/325 mg Tab PO PRN (23:22)
[2018-12-31 01:30] VITALS: O2SAT 98
[2018-12-31] MEDS: Sodium Chloride 0.45% 1,000 ML IV SCH (01:45)
[2018-12-31 07:59] VITALS: TEMP 98.8
[2018-12-31] MEDS: Insulin Lispro 1 UNITS/0.01 ML SC SCH ×2 (08:38→12:09)
[2018-12-31] MEDS: Insulin Lispro (humaLOG) LOW Coverage SC SCH ×2 (08:39→12:08)
[2018-12-31] MEDS: levoFLOXacin 500 mg in D5W 500 MG/100 ML BAG IVPB SCH (09:19)
[2018-12-31] MEDS: POLYETHYLENE GLYCOL 3350 17 GM/Dose PACKET PO SCH (09:19)
[2018-12-31] MEDS ORDERED: Insulin Lispro 1 UNITS/0.01 ML SC SCH (12:05)
--- NOTE | 2018-12-31 12:52 | PN ---
DATE: 12/31/2018 In room 264. SUBJECTIVE: This is a 63-year-old female with recent uncontrolled type 2 insulin-requiring diabetes now being followed closely for metabolic management. Her glycemic levels are fluctuating, but improved and the glucose levels actually overnight were low normal with a glucose value of 75 mg/dL before breakfast, although the fasting glucose in the lab was 137 as noted. Her chemistry showed a BUN of 15, sodium 139, potassium 4.0, chloride 101, CO2 33, glucose 137 and creatinine 0.6. Her bedtime glucose was 213 mg/dL as noted. ASSESSMENT: This is a 63-year-old female with uncontrolled and decompensated type 2 insulin-requiring diabetes with marked hyperglycemic accelerations and is now improving clinically and metabolically as noted thereof. However, she developed moderate febrile episodes and currently undergoing infectious disease workup and management as noted. PLAN: Plan of management, we will modify once again her basal and bolus insulin regimen, also because of the variability of her oral intake as noted. We will lower the Humalog to 12 units three times a day before meals to start today as ordered. We will also lower the basal insulin with Levemir down to 24 units subcu at bedtime daily to start tonight. We will titrate incrementally as indicated to optimize metabolic control. We will follow and advise accordingly. Adrienne Sanchez MD
[2018-12-31 15:54] VITALS: BP 159/91; PULSE 86; RESP 18
[2018-12-31] MEDS ORDERED: Insulin Detemir 100 units/ml Vial (Levemir) SC SCH (22:00)
--- NOTE | 2018-12-31 23:33 | CP.PCM.PN ---
Subjective - Date & Time of Evaluation Date of Evaluation: 12/31/18 Time of Evaluation: 12:00 - Subjective Subjective: Infectious Disease Follow Up: December 31, 2018 63 yo female with PMH of Stage IV pancreatic CA (s/p Whipple Aug 2017, on chemo since Nov, last chemo was 2 weeks ago), cervical CA (s/p TAHBSO), DM2, hypertension, ATN, PE, and cerebral malaria who presents to Emergency department with neck and chest pains and found to have hyperglycemia. She is also complaining of dizziness. She was also found to have a low grade fever in the past 48 hours. History of PCN allergy. No complaints today. Afebrile today. Patient states that she is comfortable. Afebrile for 24 hours. Objective - Vital Signs/Intake and Output Vital Signs (last 24 hours): Temp Pulse Resp BP Pulse Ox 98.8 F 86 18 159/91 H 98 12/31/18 12:00 12/31/18 12:00 12/31/18 12:00 12/31/18 12:00 12/31/18 06:00 - Labs Labs: 12/30/18 06:45 12/30/18 06:45 PT 20.7 SECONDS (9.4-12.5) H 12/30/18 22:14 INR 1.86 12/30/18 22:14 APTT 64.8 Seconds (26.9-38.3) H 12/27/18 20:40 - Constitutional Appears: Non-toxic, No Acute Distress, Chronically Ill - Head Exam Head Exam: ATRAUMATIC, NORMOCEPHALIC - Eye Exam Eye Exam: EOMI, PERRL Pupil Exam: NORMAL ACCOMODATION, PERRL - ENT Exam ENT Exam: Mucous Membranes Moist, Normal External Ear Exam, TM's Normal Bilaterally - Neck Exam Neck Exam: Full ROM, Normal Inspection - Respiratory Exam Respiratory Exam: Clear to Ausculation Bilateral, NORMAL BREATHING PATTERN. absent: Rales, Rhonchi, Wheezes - Cardiovascular Exam Cardiovascular Exam: REGULAR RHYTHM, RRR, +S1, +S2 - GI/Abdominal Exam GI & Abdominal Exam: Soft, Normal Bowel Sounds. absent: Distended, Tenderness - Extremities Exam Extremities Exam: Full ROM, Normal Inspection - Neurological Exam Neurological Exam: Alert, Awake, CN II-XII Intact, Oriented x3 - Psychiatric Exam Psychiatric exam: Normal Affect, Normal Mood - Skin Skin Exam: Intact, Normal Color Assessment and Plan - Assessment and Plan (Free Text) Assessment: 63 yo female with neck and chest pains with leukopenia. Patient had low grade fevers on 12/29/2018 up to 100.5 F. Patient's leukopenia has improved to 5.6 now. PCN allergies. On chemotherapy of Abraxane and gemcitabine. On Levaquin for antibiotic therapy for now. Supportive care. Hernandez cultures. Cultures negative to date. Monitor WBC. She may have leukocytosis. No complaints today. Continue to monitor. Afebrile for 24 hours. Patient states she is comfortable today. Thank you for allowing me to participate in the care of this patient, we will follow with you.
--- NOTE | 2019-01-01 00:22 | CP.PCM.PN ---
Subjective - Date & Time of Evaluation Date of Evaluation: 12/29/18 Time of Evaluation: 13:00 - Subjective Subjective: Feeling better. Objective - Vital Signs/Intake and Output Vital Signs (last 24 hours): Temp Pulse Resp BP Pulse Ox 98.8 F 86 18 159/91 H 98 12/31/18 12:00 12/31/18 12:00 12/31/18 12:00 12/31/18 12:00 12/31/18 06:00 - Labs Labs: 12/30/18 06:45 12/30/18 06:45 PT 20.7 SECONDS (9.4-12.5) H 12/30/18 22:14 INR 1.86 12/30/18 22:14 APTT 64.8 Seconds (26.9-38.3) H 12/27/18 20:40 - Head Exam Head Exam: ATRAUMATIC - Eye Exam Eye Exam: Normal appearance - ENT Exam ENT Exam: Mucous Membranes Dry - Respiratory Exam Respiratory Exam: NORMAL BREATHING PATTERN - Cardiovascular Exam Cardiovascular Exam: +S1, +S2 - GI/Abdominal Exam GI & Abdominal Exam: Normal Bowel Sounds Assessment and Plan (1) Anemia Assessment & Plan: chronic disease and recent chemotherapy Status: Acute (2) History of pulmonary embolism Assessment & Plan: on anticoagulation Status: Acute (3) Pancreatic cancer Assessment & Plan: stage IV liver mets outpatient chemotherapy Status: Acute
--- NOTE | 2019-01-01 00:25 | CP.PCM.PN ---
Subjective - Date & Time of Evaluation Date of Evaluation: 12/30/18 Time of Evaluation: 14:00 - Subjective Subjective: Feeling better. Objective - Vital Signs/Intake and Output Vital Signs (last 24 hours): Temp Pulse Resp BP Pulse Ox 98.8 F 86 18 159/91 H 98 12/31/18 12:00 12/31/18 12:00 12/31/18 12:00 12/31/18 12:00 12/31/18 06:00 - Labs Labs: 12/30/18 06:45 12/30/18 06:45 PT 20.7 SECONDS (9.4-12.5) H 12/30/18 22:14 INR 1.86 12/30/18 22:14 APTT 64.8 Seconds (26.9-38.3) H 12/27/18 20:40 - Head Exam Head Exam: ATRAUMATIC - Eye Exam Eye Exam: Normal appearance - ENT Exam ENT Exam: Mucous Membranes Dry - Respiratory Exam Respiratory Exam: NORMAL BREATHING PATTERN - Cardiovascular Exam Cardiovascular Exam: +S1, +S2 - GI/Abdominal Exam GI & Abdominal Exam: Normal Bowel Sounds Assessment and Plan (1) Anemia Assessment & Plan: chronic disease and chemotherapy Status: Acute (2) History of pulmonary embolism Assessment & Plan: on anticoagulation Status: Acute (3) Pancreatic cancer Assessment & Plan: stage IV liver mets outpatient chemotherapy Status: Acute
--- NOTE | 2019-01-01 00:27 | CP.PCM.PN ---
Subjective - Date & Time of Evaluation Date of Evaluation: 12/31/18 Time of Evaluation: 12:00 - Subjective Subjective: Feeling better. Objective - Vital Signs/Intake and Output Vital Signs (last 24 hours): Temp Pulse Resp BP Pulse Ox 98.8 F 86 18 159/91 H 98 12/31/18 12:00 12/31/18 12:00 12/31/18 12:00 12/31/18 12:00 12/31/18 06:00 - Labs Labs: 12/30/18 06:45 12/30/18 06:45 PT 20.7 SECONDS (9.4-12.5) H 12/30/18 22:14 INR 1.86 12/30/18 22:14 APTT 64.8 Seconds (26.9-38.3) H 12/27/18 20:40 - Head Exam Head Exam: ATRAUMATIC - Eye Exam Eye Exam: Normal appearance - ENT Exam ENT Exam: Mucous Membranes Dry - Respiratory Exam Respiratory Exam: NORMAL BREATHING PATTERN - Cardiovascular Exam Cardiovascular Exam: +S1, +S2 - GI/Abdominal Exam GI & Abdominal Exam: Normal Bowel Sounds Assessment and Plan (1) Anemia Assessment & Plan: chemotherapy and chronic disease Status: Acute (2) History of pulmonary embolism Assessment & Plan: on anticoagulation Status: Acute (3) Pancreatic cancer Assessment & Plan: stage IV liver mets outpatient chemotherapy Status: Acute
[2019-01-01] MEDS ORDERED: levoFLOXacin 500 MG TAB PO SCH (10:00)
--- NOTE | 2019-01-01 10:09 | DS ---
HISTORY OF PRESENT ILLNESS: This patient is a 64-year-old female with history of CA of the pancreas with Whipple and history of cervical CA, CVA, cerebral malaria and the patient came to the emergency room because patient was complaining of some chest pain that has disappeared when the patient was in the emergency room; however, the patient was found to have a blood sugar of 600. To mention that the patient has received chemotherapy a few days before and was also receiving steroids. So, the patient had a consult with Dr. Sanchez, the memory care program resident. Meanwhile, the patient was alert, awake, was very weak and dehydrated and complaining of dizziness and had the chest pain, but the chest pain has disappeared. As the patient was going to be discharged, the patient had the fever of 100.5 and the discharge was postponed since the patient is immunocompromised due to chemotherapy from having CA of the pancreas with metastasis. The patient was put on antibiotic including Levaquin and also patient had been put on IV fluid. The patient had also an ID consult with Dr. Donaldo King. The patient progressively got better, was afebrile for the past 48 hours, and so therefore, we are going to discharge this patient home. To mention that the blood culture we got failed to show any sign of infection. She had the blood culture after 48 hours was kind of pending. Gómez Del Rosario MD
--- NOTE | 2019-01-01 10:10 | PN ---
DATE: 12/31/2018 SUBJECTIVE: Today, the patient is as well, alert, and awake. Denied any abdominal pain. No shortness of breath. No dizziness. No palpitations. No chest pain. OBJECTIVE VITAL SIGNS: The patient has a blood pressure of 157/87, pulse is 74, respiration is 18, temperature 98.8. The patient had no fever for the past 48 hours. NECK: Supple. LUNGS: Clear. HEART: Regular rate and rhythm. No murmur noted. ABDOMEN: Soft. Mild epigastric tenderness. Positive bowel sounds. EXTREMITIES: There is no edema. LABORATORY DATA: Blood test done yesterday showed WBC is 5.6, hemoglobin 9.1, hematocrit 29.6, and platelet was 166,000. The chemistry has shown that the sodium 139, potassium is 4, chloride 101, bicarbonate 33, BUN is 16, creatinine is 0.6. ASSESSMENT AND PLAN: The letter from I believe is appreciated. With the change of the Humalog and also the Levemir. Now the patient being stable and was cleared by Infectious Disease, so we are going to consider discharging this patient to home. The case was discussed with the nurse attending the patient. Gómez Del Rosario MD
== END 2018-12-31 16:47 | disposition home or self-care (01) | DRG 638 ==
LOC: ED 19:49 → ERH 23:48 → 2RNO 12-28 01:18 → OBSVTOIN 12-29 15:43 → INTOOBSV 12-30 15:43
PROVIDERS: ADMIT Specialist; ATTEND Specialist
DX: E11.65 Type 2 diabetes mellitus with hyperglycemia (principal); C25.9 Malignant neoplasm of pancreas, unspecified; C78.7 Secondary malignant neoplasm of liver and intrahepatic bile duct; E86.0 Dehydration; R07.89 Other chest pain; D64.81 Anemia due to antineoplastic chemotherapy; T45.1X5A Adverse effect of antineoplastic and immunosuppressive drugs, initial encounter; D63.0 Anemia in neoplastic disease; J44.9 Chronic obstructive pulmonary disease, unspecified; D72.819 Decreased white blood cell count, unspecified; R50.9 Fever, unspecified; I11.0 Hypertensive heart disease with heart failure; I50.9 Heart failure, unspecified; E78.5 Hyperlipidemia, unspecified; Z96.653 Presence of artificial knee joint, bilateral; Z85.42 Personal history of malignant neoplasm of other parts of uterus; Z87.891 Personal history of nicotine dependence; Z79.01 Long term (current) use of anticoagulants; Z86.13 Personal history of malaria; Z92.3 Personal history of irradiation; Z86.711 Personal history of pulmonary embolism; Z79.4 Long term (current) use of insulin; Z85.41 Personal history of malignant neoplasm of cervix uteri; Z86.73 Personal history of transient ischemic attack (TIA), and cerebral infarction without residual deficits; Z88.0 Allergy status to penicillin

== ENCOUNTER 2019-01-14 09:49 | Outpatient (CLI) | payer MEDICARE, MEDICAID | END 2019-01-14 09:50 | disposition home or self-care (01) | LOC: LAB 09:49 ==

== ENCOUNTER → 2019-01-19 | Outpatient (CLI) | payer MEDICARE, MEDICAID | LOC: LAB 10:31 ==

== ENCOUNTER 2019-01-26 10:19 | Outpatient (CLI) | payer MEDICARE, MEDICAID | END 2019-01-26 10:20 | disposition home or self-care (01) | LOC: LAB 10:19 ==

== ENCOUNTER 2019-02-03 10:52 | Outpatient (CLI) | payer MEDICARE, MEDICAID | END 2019-02-03 10:53 | disposition home or self-care (01) | LOC: LAB 10:52 ==

== ENCOUNTER 2019-02-12 12:23 | Emergency (ER) | payer MEDICARE, MEDICAID ==
[2019-02-12 12:41] VITALS: BMI 34.7
[2019-02-12] MEDS ORDERED: Oxycodone/Acetaminophen 5/325 mg Tab PO STA (12:46)
--- NOTE | 2019-02-12 12:47 | ED PDOC ---
Arrival/HPI - General Chief Complaint: GI Problem Time Seen by Provider: 02/12/19 12:35 Historian: Patient - History of Present Illness Narrative History of Present Illness (Text): 02/12/19 12:47 63 year old female, with hx of PE, pancreatic CA (stage IV), cervical CA (s/p TAHBSO), currently on chemotherapy, DM2, hypertension, ATN, and cerebral malaria presents to the emergency department with chief complaint of right hand swelling and pain that is exacerbated with movement, onset earlier this morning. Patient reports she woke up this morning with slight pain in her hand, which worsened over time. She reports she has never had similar symptoms before in the past. Patient endorses dizziness, and states she "felt like passing out" this morning. She denies dizziness presently. PCP: Dr. Del Rosario Time/Duration: 24 hours Symptom Onset: Gradual Symptom Course: Unchanged Activities at Onset: Light Context: Home Past Medical History - Provider Review Nursing Documentation Reviewed: Yes Primary Care Provider: Gómez Del Rosario - Infectious Disease Hx of Infectious Diseases: None - Tetanus Immunization Tetanus Immunization: Unknown - Cardiac Hx Hypertension: Yes - Pulmonary Hx Chronic Obstructive Pulmonary Disease (COPD): Yes - Neurological Hx Neurological Disorder: No - HEENT Hx HEENT Disorder: Yes Hx Cataracts: Yes - Renal Hx Renal Disorder: Yes Hx Renal Failure: Yes - Endocrine/Metabolic Hx Diabetes Mellitus Type 1: Yes - Hematological/Oncological Hx Cancer: Yes (pancreatic) - Integumentary Hx Dermatological Disorder: Yes - Musculoskeletal/Rheumatological Hx Falls: Yes - Gastrointestinal Hx Gastrointestinal Disorders: Yes Other/Comment: Pancreatic CA, AP, LIVER CA - Genitourinary/Gynecological Hx Genitourinary Disorders: Yes (ENDOMETRIAL CA W RADIATION) - Psychiatric Hx Emotional Abuse: No Hx Physical Abuse: No Hx Substance Use: No - Surgical History Hx Joint Replacement: Yes (b/l knee replacement) - Anesthesia Hx Anesthesia: Yes Hx Anesthesia Reactions: No Hx Malignant Hyperthermia: No - Suicidal Assessment Feels Threatened In Home Enviroment: No Family/Social History - Physician Review Nursing Documentation Reviewed: Yes Family/Social History: Unknown Family HX Smoking Status: Never Smoked Hx Alcohol Use: No Hx Substance Use: No Hx Substance Use Treatment: No Allergies/Home Meds Allergies/Adverse Reactions: Allergies Penicillins Allergy (Verified 02/12/19 12:41) SWELLING Home Medications: Home Meds Medication Instructions Recorded Confirmed Losartan [Cozaar] 50 mg PO DAILY 10/12/17 12/29/18 Metoprolol Tartrate [Lopressor] 50 mg PO BID 10/12/17 12/29/18 hydrALAZINE [Apresoline] 100 mg PO BID 10/12/17 12/29/18 Warfarin [Coumadin] 14 mg PO DAILY 11/17/17 12/29/18 Capecitabine 3 tab PO BID 03/30/18 12/29/18 Insulin Glargine,Hum.rec.anlog 11 unit SC DAILY 03/30/18 12/29/18 [Basaglar Kwikpen U-100] oxyCODONE/Acetaminophen [Percocet 1 tab PO PRN PRN 03/30/18 12/29/18 5/325 mg Tab] Review of Systems - Physician Review All systems were reviewed & negative as marked: Yes - Review of Systems Constitutional: absent: Fevers Musculoskeletal: Joint Swelling, Other (+right hand pain) Neurological: Dizziness Physical Exam - Physical Exam Narrative Physical Exam (Text): 02/12/19 12:45 Gen: VS reviewed, alert, well developed, well nourished, nontoxic, mild distress. Eye: EOMI, PERRL Neck: no JVD, supple, no adenopathy CV: regular rate, regular rhythm, no rubs,no murmur, S1, S2 Pulm: no distress, clear to auscultation, no wheeze, no rhonchi, breath sounds equal, no rales Abd: soft, nontender, no guarding, no rebound, no rigidity Ext: no edema Skin: good color, no rash, no cyanosis Psych: responds appropriately to questions, normal affect Neuro: oriented x3, CN2-12 intact grossly, motor intact, sensation intact Medical Decision Making ED Course and Treatment: 02/12/19 12:44 Impression: 63 year old female presents to the ED with right hand pain and swelling onset earlier this morning. Differential Diagnosis included but are not limited to: Plan: -- EKG -- Labs -- Chest X-ray -- X-Ray right hand -- X-Ray right wrist -- Percocet -- Reassess and disposition Prior Visits: Notes and results from previous visits were reviewed. Progress Notes: 02/12/19 15:30 pain improved with wrist splint and pain medication. patient reports she had a remote hx of gout over 20 years ago in her toe. with elevated urate and patient hx clinical presentation is consistent with acute gout of the right wrist. patient does not feel dizzy or lightheaded and feels ready to go home. - EKG Interpretation EKG Interpretation (Text): 02/12/19 13:08 EKG reviewed, shows NSR at 77 bpm, normal qrs, normal axis, no acute sttw abn. Interpreted by ED Physician: Yes - Scribe Statement The provider has reviewed the documentation as recorded by the Scribe Art Mccormackwale All medical record entries made by the Scribe were at my direction and personally dictated by me. I have reviewed the chart and agree that the record accurately reflects my personal performance of the history, physical exam, medical decision making, and the department course for this patient. I have also personally directed, reviewed, and agree with the discharge instructions and disposition. Disposition/Present on Arrival - Present on Arrival Any Indicators Present on Arrival: No History of DVT/PE: Yes History of Uncontrolled Diabetes: No Urinary Catheter: No History of Decub. Ulcer: No History Surgical Site Infection Following: None - Disposition Have Diagnosis and Disposition been Completed?: Yes Diagnosis: Gout, Near syncope Disposition: HOME/ ROUTINE Disposition Time: 15:31 Patient Plan: Discharge Patient Problems: Current Active Problems Problem Status Onset Gout Acute Near syncope Acute Condition: STABLE Discharge Instructions (ExitCare): Gout, Near Fainting (DC) Additional Instructions: return for any new or worsening symptoms. follow up with your primary care doctor as soon as possible. your uric acid level (gout level) was 8.2, discuss this number with your doctor. Prescriptions: oxyCODONE/Acetaminophen [Percocet 5/325 mg Tab] 1 ea PO QID #20 tab Forms: [employer] (Mauritian)
[2019-02-12 12:50] VITALS: RESP 18; O2SAT 100
[2019-02-12 13:47] VITALS: TEMP 97.8
[2019-02-12 13:55] LABS: BASO # 0.01 K/mm3 (0.0-2.0); BASO % 0.3 % (0.0-3.0); EOS # 0.1 (0.0-0.7); EOS % 1.9 % (1.5-5.0); LYMPH # 0.3 (1.2-3.4); LYMPH % 9.1 % (22.0-35.0); MEAN CELL VOLUME 85.7 fl (80.0-105.0); MEAN CORPUSCULAR HGB CONC 31.5 g/dl (31.0-37.0); MEAN PLATELET VOLUME 8.8 fl (7.0-11.0); MONO # 0.1 (0.1-0.6); MONO % 1.9 % (1.0-6.0); RBC 3.7 10^6/uL (3.5-6.1); RED CELL DISTRIBUTION WIDTH 15.8 % (11.5-14.5); WHITE BLOOD COUNT 3.6 10^3/uL (4.5-11.0)
[2019-02-12 13:59] LABS: ALB/GLOB RATIO 1.1 (1.1-1.8); ALBUMIN 4.1 g/dL (3.0-4.8); ALT/SGPT 27 U/L (7-56); AST/SGOT 36 U/L (14-36); BLOOD UREA NITROGEN 21 mg/dL (7-21); CALCIUM 9.3 mg/dL (8.4-10.5); GFR NON-AFRICAN AMERICAN > 60; INR 2.5; PARTIAL THROMBOPLASTIN TIME 38.2 Seconds (26.9-38.3); PROTHROMBIN TIME 27.7 SECONDS (9.4-12.5); URIC ACID 8.2 mg/dL (2.5-6.2)
[2019-02-12 15:48] VITALS: BP 145/73; PULSE 89
--- NOTE | 2019-02-12 16:01 | RAD ---
HISTORY: chf COMPARISON: Chest x-ray performed 12/29/18 TECHNIQUE: Chest, one view. FINDINGS: Examination limited by habitus. Right-sided central venous catheter extends to the SVC. LUNGS: No focal consolidation. Please note that chest x-ray has limited sensitivity for the detection of pulmonary masses. PLEURA: No significant pleural effusion identified. No definite pneumothorax . CARDIOVASCULAR: Heart size appears within normal limits. Atherosclerotic calcifications present. OSSEOUS STRUCTURES: Degenerative changes. Acromioclavicular arthropathy. VISUALIZED UPPER ABDOMEN: Unremarkable. OTHER FINDINGS: None. IMPRESSION: Right-sided central venous catheter extends to the SVC.
--- NOTE | 2019-02-12 16:09 | RAD ---
PROCEDURE: Right Hand Radiographs. Three views. HISTORY: pain COMPARISON: None available. FINDINGS: External artifact from splint limits evaluation of the distal forearm, wrist, and proximal hand. BONES: No acute displaced fracture. JOINTS: No dislocation. Joint space narrowing most prominent at the 1st carpal/metacarpal. SOFT TISSUES: Unremarkable. OTHER FINDINGS: None. IMPRESSION: Limited study as above. Degenerative changes. No acute displaced fracture, dislocation, or significant joint effusion identified. If symptoms persist, or if there is continued clinical concern, x-ray follow-up in 7-10 days should be considered.
--- NOTE | 2019-02-12 22:11 | CARD ---
APPROVED REPORT Date of service: 02/12/2019 EKG Measurement Heart [id number] <Conclusion> Normal sinus rhythm Left axis deviation Abnormal ECG
== END 2019-02-12 15:46 | disposition home or self-care (01) ==
LOC: ED 12:23
DX: R55 Syncope and collapse (principal); M10.9 Gout, unspecified; E11.9 Type 2 diabetes mellitus without complications; I50.9 Heart failure, unspecified; J44.9 Chronic obstructive pulmonary disease, unspecified; I10 Essential (primary) hypertension; Z85.07 Personal history of malignant neoplasm of pancreas; Z86.711 Personal history of pulmonary embolism; Z79.01 Long term (current) use of anticoagulants

== ENCOUNTER 2019-03-02 10:38 | Outpatient (CLI) | payer MEDICARE, MEDICAID | END 2019-03-02 10:39 | disposition home or self-care (01) | LOC: LAB 10:38 ==